=== PATIENT | female | born 1970 | race Caucasian/White ===

== ENCOUNTER → 2017-12-27 21:48 | Outpatient (CLI) | payer OTHER, SELFPAY | PROVIDERS: Family Provider Internal Medicine; PCP Internal Medicine; Visit Provider Nurse Practitioner Gerontology | DX: A08.8 Other specified intestinal infections (principal) | CPT/HCPCS: 82274; 83630; 87177; 87209; 87493; 87506 ==

== ENCOUNTER → 2018-04-10 09:08 | Outpatient (CLI) | payer OTHER, SELFPAY ==
--- NOTE | 2018-04-10 09:19 | RAD_ITS ---
STUDY: X-RAY - LEFT HAND REASON FOR EXAM: Female, 47 years old. Thumb pain TECHNIQUE: 3 view(s) of the hand. COMPARISON: None. FINDINGS: Normal radiocarpal articulation. Normal distal radioulnar joint. Normal visualized carpal bones. Normal carpal articulations Normal carpometacarpal articulation of the thumb. Normal second through fifth carpometacarpal joints. Normal metacarpi. Normal metacarpophalangeal joint of the thumb. Normal interphalangeal joint of the thumb. Normal proximal and distal phalanges of the thumb. Normal metacarpophalangeal joints of the second through fifth fingers. Normal proximal and distal interphalangeal joints of the second through fifth fingers. Normal phalanges of the second through fifth fingers. The soft tissue structures are unremarkable. RAD/Hand Min 3 Views IMPRESSION: Normal x-ray examination of the hand. No fracture. Electronically Signed: Brayden Ross DO at 21:58 EDT , Service support ,
== END ==
PROVIDERS: Family Provider Internal Medicine; PCP Internal Medicine; Visit Provider Orthopaedic Surgery
DX: M18.12 Unilateral primary osteoarthritis of first carpometacarpal joint, left hand (principal)
CPT/HCPCS: 73130

== ENCOUNTER → 2018-05-16 07:54 | Outpatient (CLI) | payer OTHER, SELFPAY ==
[2018-05-16 08:29] LABS: Absolute Lymphocyte Count 2.34 X10^3/ul (0.83-4.51); Absolute Neutrophil Count 4.1 X10^3/uL (2.0-7.7); Basophil# 0.02 X10^3/uL; Basophil% 0.3 % (0-1); Eosinophil# 0.22 X10^3/uL; Hematocrit 40.8 % (37-47); Hemoglobin 13.8 g/dl (12.0-15.0); Lymphocyte # 2.34 X10^3/ul (4.0); Lymphocyte % 31.8 % (19-41); Mean Corp Hgb Conc 33.8 g/gl (32-36); Mean Corpuscular Hgb 28.9 pg (27.0-32.0); Mean Corpuscular Volume 85.5 fL (81-99); Mean Platelet Vol. 10.4 fl (6.2-12.0); Monocyte# 0.68 X10^3/uL; Monocyte% 9.2 % (0-10); Neutrophil # 4.09 X10^3/uL (2.7-7.7); Neutrophil % 55.6 % (47-70); Platelet Count 281 K/mm3 (150-450); RBC Distribution Width CV 12.5 % (11.6-14.6); RBC Distribution Width SD 38.5 fl (35.1-43.9); Red Blood Count 4.77 M/mm3 (4.2-5.4); White Blood Count 7.4 K/mm3 (4.4-11.0)
[2018-05-16 08:35] LABS: POSITIVE COUNT NO; POSITIVE DIFFERENTIAL NO; POSITIVE MORPHOLOGY NO
[2018-05-16 09:02] LABS: ALB/GLOB Ratio 1.1 RATIO (0.9-2.4); AST(SGOT) 24 U/L (15-37); Alanine Aminotransfer ALT/SGPT 27 U/L (13-56); Albumin, Serum 4.1 g/dL (3.2-5.0); Alkaline Phosphatase 61 U/L (45-117); Anion Gap 4 (5-15); BUN 21 mg/dL (7-18); BUN/Creat Ratio 23.8 RATIO (10-20); CRP < 2.90 mg/L (0.0-3.0); Calcium,Total 8.5 mg/dL (8.5-10.1); Chloride 104 mmol/L (98-107); Creatinine, Serum 0.88 mg/dL (0.55-1.02); EST Glomerular Filtration Rate 73 mL/min (>60); Est Glom Filt Rate - Afr Amer 88 mL/min (>60); Globulin 3.6 g/dL (2.2-4.2); Glucose 88 mg/dL (74-106); Potassium 3.8 mmol/L (3.5-5.1); Protein, Total 7.7 g/dL (6.4-8.2); Rheumatoid Factor < 10.0 IU/mL (<15); Sodium Level 136 mmol/L (136-145)
[2018-05-16 09:12] LABS: Erythrocyte Sedimentation Rate 6 mm/hr (0-20)
[2018-05-17 14:05] LABS: SJOGREN'S Anti-SS-A test < 0.2 AI (0.0-0.9); SJOGREN'S Anti-SS-B test < 0.2 AI (0.0-0.9)
[2018-05-17 14:35] LABS: ANTINUCLEAR ANTIBODIES DIRECT Negative (Negative)
[2018-05-22 10:21] LABS: CCP IgG Antibodies 9 units (0-19); HEPATITIS B SURFACE AG Negative (Negative); HLA B27 Negative (.); Hep B Surface Antibodies Non Reactive (.); Hep C Antibodies 0.2 s/co ratio (0.0-0.9)
== END ==
PROVIDERS: Family Provider Internal Medicine; PCP Internal Medicine; Visit Provider Internal Medicine Rheumatology
DX: M06.4 Inflammatory polyarthropathy (principal); M18.0 Bilateral primary osteoarthritis of first carpometacarpal joints; E03.8 Other specified hypothyroidism
CPT/HCPCS: 36415; 80053; 81374; 85025; 85652; 86038; 86140; 86200; 86235; 86431; 86706; 86803; 87340

== ENCOUNTER → 2018-06-11 07:30 | Outpatient (CLI) | payer OTHER, SELFPAY ==
[2018-06-11 09:13] LABS: Free T3 2.3 pg/mL (2.18-3.98); T4 Free Direct 0.93 ng/dL (0.76-1.46); Thyroid Stim Hormone (TSH) 5.03 uIU/mL (0.358-3.74)
== END ==
PROVIDERS: Family Provider Internal Medicine; PCP Internal Medicine; Visit Provider Internal Medicine
DX: E03.9 Hypothyroidism, unspecified (principal)
CPT/HCPCS: 36415; 84439; 84443; 84481

== ENCOUNTER → 2018-08-09 07:33 | Outpatient (CLI) | payer OTHER, SELFPAY ==
[2018-08-09 08:19] LABS: Free T3 3.4 pg/mL (2.18-3.98); T4 Free Direct 1.49 ng/dL (0.76-1.46); Thyroid Stim Hormone (TSH) 0.03 uIU/mL (0.358-3.74)
== END ==
PROVIDERS: Family Provider Internal Medicine; PCP Internal Medicine; Referring Provider Internal Medicine; Visit Provider Internal Medicine
DX: E03.9 Hypothyroidism, unspecified (principal)
CPT/HCPCS: 36415; 84439; 84443; 84481

== ENCOUNTER 2018-09-16 08:30 | Outpatient (RCR) | payer OTHER, SELFPAY ==
--- NOTE | 2018-02-25 11:20 | MASS.EVAL_ITS ---
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 She was referred for massotherapy evaluation at [facility] facility by Dr. Calles with a diagnosis of low back pain. She presents today with symptoms of tension and aching throughout her neck, shoulders, interscapualr area and low back. She describes the pain as chronic. She denies any limitations to activities of daily living. Medications: Synthroid Ultram Vd3 B12 Goals: Eliminate back pain Decrease muscle tension Her first treatment consisted of a one hour deep tissue massage to the upper body focusing on the neck, shoulders and low back. I found high tension throughout with some knots. The patient responded well to treatment. I feel she is a good candidate for massage as we have had success treating her symptoms in the past. I plan on seeing her on an as needed basis for a total of 10 one hour sessions of massage. Destinee Lobo LMT
--- NOTE | 2018-10-31 11:13 | MASS.DISCH ---
Massage Therapy Discharge Summary: Initial Evaluation: 02/22/2018 Diagnosis: Low back pain No. of Visits: Date of last visit: Goals: Decreased pain Decreased muscle tension This patient is being discharged from our care at the [facility]. Thank you, Destinee Lobo LMT
== END 2018-09-16 19:00 | disposition home or self-care (01) ==
LOC: MASS 08:30
PROVIDERS: Family Provider Internal Medicine; PCP Internal Medicine; Visit Provider Internal Medicine
DX: M54.5 Low back pain (principal)
CPT/HCPCS: 97124

== ENCOUNTER → 2018-12-04 13:22 | Outpatient (CLI) | payer OTHER, SELFPAY ==
[2018-12-09 09:01] LABS: HPV HC, High Risk Negative (Negative)
--- OUTSIDE RECORDS SUMMARY | 2019-02-05 12:24 | XMS RPT_ITS ---
:1970 Author Organization [place] Support Name Relationship Address Phone YASIR RONQUILLO Unavailable [address] + [place] [address] [facility] Unavailable [address] + [place] [address] YASIR RONQUILLO Unavailable [address] + [place] [address] [facility] Unavailable [address] + [place] [address] YASIR RONQUILLO Unavailable [address] + [place] [address] [facility] Unavailable [address] + [place] [address] YASIR RONQUILLO Unavailable [address] + [place] [address] [facility] Unavailable [address] + [place] [address] YASIR RONQUILLO Unavailable [address] + [place] [address] [facility] Unavailable [address] + [place] [address] YASIR RONQUILLO Unavailable [address] + [place] [address] [facility] Unavailable [address] + [place] [address] YASIR RONQUILLO Unavailable [address] + [place] [address] [facility] Unavailable [address] + [place] [address] YASIR RONQUILLO Unavailable [address] + [place] [address] [facility] Unavailable [address] + [place] [address] SHIMA, EDWARD Unavailable [address] + [place] [address] [facility] Unavailable [address] + [place] [address] SHIMA, EDWARD Unavailable [address] + [place] [address] [facility] Unavailable [address] + [place] [address] SHIMA, EDWARD Unavailable [address] + [place] [address] [facility] Unavailable [address] + [place] [address] SHIMA, EDWARD Unavailable [address] + [place] [address] [facility] Unavailable [address] + [place] [address] SHIMA, EDWARD Unavailable [address] + [place] [address] [facility] Unavailable [address] + [place] [address] SHIMA, EDWARD Unavailable [address] + [place] [address] [facility] Unavailable [address] + [place] [address] Care Team Providers Name Role Phone Jose Schmitt PA-C Attending Unavailable Jose Schmitt PA-C Referring Unavailable Stevan, Sydney Primary Care Unavailable Ivonne Egan Attending Unavailable Tierra Juarez DIRECTOR OF ACCOUNTS PAYABLEArchieC Attending Unavailable Stevan, Sydney Primary Care Unavailable Tierra Juarez DIRECTOR OF ACCOUNTS PAYABLEBritney Referring Unavailable Stevan, Sydney Attending Unavailable Stevan, Sydney Referring Unavailable Stevan, Sydney Primary Care Unavailable DossieVioletta D.C. Attending Unavailable Stevan, Sydney Referring Unavailable Stevan, Sydney Primary Care Unavailable DosVioletta adam D.C. Attending Unavailable Violetta Wells D.C. Referring Unavailable Stevan, Sydney Primary Care Unavailable Christophe Torres Attending Unavailable Christophe Torres Referring Unavailable Stevan, Sydney Primary Care Unavailable Dossie, Violetta D.C. Attending Unavailable Stevan, Sydney Referring Unavailable Stevan, Sydney Primary Care Unavailable Dossie, Violetta D.C. Attending Unavailable Stevan, Sydney Referring Unavailable Stevan, Sydney Primary Care Unavailable Vellanki, Jodee Attending Unavailable Vellanki, Jodee Referring Unavailable Stevan, Sydney Primary Care Unavailable Dossie, Violetta D.C. Attending Unavailable Stevan, Sydney Referring Unavailable ASSESSMENT, HEALTH RISK Attending Unavailable ASSESSMENT, HEALTH RISK Referring Unavailable Stevan, Sydney Primary Care Unavailable Stevan, Sydney Attending Unavailable Stevan, Sydney Referring Unavailable Stevan, Sydney Primary Care Unavailable Stevan, Sydney Attending Unavailable Stevan, Sydney Referring Unavailable Stevan, Sydney Primary Care Unavailable PROBLEMS PROBLEMS DATE TYPE CONDITION / CODE ATTENDING STATUS SOURCE 12/04/2018 Unknown Z12.4 - Encounter Ivonne Egan Active [place] for screening for Community malignant neoplasm [facility] cervix / Repository Z12.4(ICD-10) 11/18/2018 Unknown M25.562 - Pain in [place], Active [place] left knee / [facility] Community M25.562(ICD-10) Hospital Repository 11/04/2018 Unknown M54.5 - Low back Stevan, Active [place] pain / [facility] M54.5(ICD-10) Hospital Repository 06/11/2018 Unknown E03.9 - Stevan, Active [place] Hypothyroidism, [facility] unspecified / Hospital E03.9(ICD-10) Repository 05/02/2018 Unknown 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 lumbar region / Repository M99.03(ICD-10) 05/02/2018 Unknown M99.05 - Segmental Dossie, Violetta Active [place] and somatic [facility] pelvic region / Repository M99.05(ICD-10) 05/02/2018 Unknown M99.02 - Segmental Dossie, Violetta Active [place] and somatic [facility].C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 / Hospital M72.2(ICD-10) Repository PROCEDURES PROCEDURES No Procedure Records FoundRESULTS RESULTS PAP I-G HPV HI Collected: 12/04/2018 Status: F Source: [place] CHAVEZ 9:00 AM [facility] REPOSITORY Order Comment: CYTOLOGY INFORMATION: - CLINICAL INFORMATION: - DATE LMP/MENOPAUSE: 09/07/18 LMP - COLLECTION VIAL: Thin Prep Vial - SLAB OFF MILL TENDER SOURCE: CERVICAL/ENDOCERVICAL - COLLECTION TECHNIQUE: BRUSH/SPATULA Specimen Comment: [id number] Specimen Comment: Source.............Endocervix;Labia/Vulva Specimen Comment: LMP / Prev Treat...[id number] Specimen Comment: No. of containers..01 ThinPrep Vial TYPE CODE TESTS RESULT OUT OF RANGE REFERENCE UNITS LAB L7400.0800 . Normal DIAGN Comment Result Comment: NEGATIVE FOR INTRAEPITHELIAL LESION OR MALIGNANCY. LAB L7400.0900 . Normal ADEQ Comment Result Comment: Satisfactory for evaluation. No endocervical component is identified. LAB L7400.1400 . Normal PERFORM Comment Result Comment: Alanna Marin, [place] (ASCP) LAB L7400.2575 . Normal TEST METHOD Comment Result Comment: This liquid based ThinPrep(R) pap test was screened with the use of an image guided system. LAB L7400.2600 . Normal . COMM LAB L7400.2700 . Normal PAPSMR Comment Result Comment: The Pap smear is a screening test designed to aid in the detection of premalignant and malignant conditions of the uterine cervix. It is not a diagnostic procedure and should not be used as the sole means of detecting cervical cancer. Both false-positive and false-negative reports do occur. LAB L7400.2950 Negative Normal HPV Negative HC,HGH RISK Result Comment: This high-risk HPV test detects thirteen high-risk types (16/18/31/33/35/39/45/51/52/56/58/59/68) without differentiation. Performed at: [address] [id number] Layout Inspector: Latosha Schroeder MD, Phone: [phone] Performed at: =G - [facility] [address] [place] [id number] Layout Inspector: Latosha Schroeder MD, Phone: [phone] Performed By: #### L7400.0375 #### [facility] (refer to report for specific site) refer to report for address and phone number DISCHARGE SUMMARY Observed: 10/31/2018 Status: F Source: [place] 11:14 AM [facility] REPOSITORY [facility] Medical Records Department [address] [place] [address] Discharge Summary 10/31/18 1113 MR#: [id number] Acct: [id number] Name: DIANDRA RONQUILLO Rep #: [id number] : 1970 47 From: Destinee Lobo PCP: Sydney Calles DO Status: REG RCR Y Location: [facility] Massage Therapy Discharge Summary: Initial Evaluation: 02/22/2018 Diagnosis: Low back pain No. of Visits: Date of last visit: Goals: Decreased pain Decreased muscle tension This patient is being discharged from our care at the [facility]. Thank you, Destinee Lobo, MARYT 10/31/18 1114 <Electronically signed by Destinee Lobo > Date Destinee Lobo Cosigner Signature (if applicable): Date CC: Destinee Lobo; Sydney Calles DO Signed FREE T3 Collected: 08/09/2018 Status: F Source: [place] 7:36 AM [facility] REPOSITORY Order Comment: Has Patient had X-rays with Contrast this admission? N Is Patient on Heparin? N TYPE CODE TESTS RESULT OUT OF RANGE REFERENCE UNITS LAB L501.35345 2.18-3.98 pg/mL Normal FREE T3 3.4 Performed By: #### L501.23036, L501.9520, L506.0400 #### [facility] [address] [place], [address] THYROID STIM HORMONE Collected: 08/09/2018 Status: F Source: [place] (TSH) 7:36 AM [facility] REPOSITORY Order Comment: Has Patient had X-rays with Contrast this admission? N Is Patient on Heparin? N TYPE CODE TESTS RESULT OUT OF RANGE REFERENCE UNITS LAB L501.9520 0.358-3.74 uIU/mL Low TSH 0.03 Performed By: #### L501.55462, L501.9520, L506.0400 #### [facility] [address] [place], [address] T4 FREE DIRECT Collected: 08/09/2018 Status: F Source: [place] 7:36 AM [facility] REPOSITORY Order Comment: Has Patient had X-rays with Contrast this admission? N Is Patient on Heparin? N TYPE CODE TESTS RESULT OUT OF REFERENCE UNITS RANGE LAB L506.0400 0.76-1.46 ng/dL High T4 FREE 1.49 DIRECT Performed By: #### L501.21417, L501.9520, L506.0400 #### [facility] [address] [place], [address] FREE T3 Collected: 06/11/2018 Status: F Source: [place] 7:33 AM [facility] REPOSITORY TYPE CODE TESTS RESULT OUT OF RANGE REFERENCE UNITS LAB L501.66783 2.18-3.98 pg/mL Normal FREE T3 2.3 Performed By: #### L501.46081, L501.9520, L506.0400 #### [facility] [address] [place], [address] THYROID STIM HORMONE Collected: 06/11/2018 Status: F Source: [place] (TSH) 7:33 AM [facility] REPOSITORY TYPE CODE TESTS RESULT OUT OF RANGE REFERENCE UNITS LAB L501.9520 0.358-3.74 uIU/mL High TSH 5.03 Performed By: #### L501.24851, L501.9520, L506.0400 #### [facility] [address] [place], [address] T4 FREE DIRECT Collected: 06/11/2018 Status: F Source: [place] 7:33 AM [facility] REPOSITORY TYPE CODE TESTS RESULT OUT OF RANGE REFERENCE UNITS LAB L506.0400 0.76-1.46 ng/dL Normal T4 FREE 0.93 DIRECT Performed By: #### L501.31174, L501.9520, L506.0400 #### [facility] [address] [place], [address] CBC, EMPLOYEE Collected: 06/07/2018 Status: F Source: [place] 1:39 AM [facility] REPOSITORY TYPE CODE TESTS RESULT OUT OF RANGE REFERENCE UNITS LAB L100.1000 4.4-11.0 K/mm3 Normal WBC 7.6 LAB L100.1200 4.2-5.4 M/mm3 Normal RBC 4.74 LAB L100.1300 12.0-15.0 g/dl Normal HGB 13.8 LAB L100.1400 37-47 % Normal HCT 41.4 LAB L100.1500 81-99 fL Normal MCV 87.3 LAB L100.1600 27.0-32.0 pg Normal MCH 29.1 LAB L100.1700 32-36 g/gl Normal MCHC 33.3 LAB L100.1810 11.6-14.6 % Normal RDW CV 12.7 LAB L100.1820 35.1-43.9 fl Normal RDW SD 40.8 LAB L100.1900 150-450 K/mm3 Normal PLT 264 LAB L100.2000 6.2-12.0 fl Normal MPV 9.9 LAB L100.2110 47-70 % Normal NEUT% 57.6 LAB L100.2210 19-41 % Normal LY% 32.2 LAB L100.2310 0-10 % Normal MONO% 7.3 LAB L100.2410 0-5 % Normal EO% 2.5 LAB L100.2510 0-1 % Normal BASO% 0.3 LAB L100.2620 2.0-7.7 X10 3/uL Normal Absolute Neut 4.4 LAB L100.2720 0.83-4.51 X10 3/ul Normal Absolute Lymph 2.44 Performed By: #### L100.0200 #### [facility] [address] [place], [place], [address] URINALYSIS, EMPLOYEE Collected: 06/07/2018 Status: F Source: [place] 1:39 AM [facility] REPOSITORY TYPE CODE TESTS RESULT OUT OF RANGE REFERENCE UNITS LAB L400.3000 Yellow COLOR Normal Yellow LAB L400.3050 Clear Normal CLARITY Clear LAB L400.3200 Normal mg/dl Normal GLUCOSE, UR Normal LAB L400.3300 Negative mg/dL Normal BILIRUBIN URINE Negative LAB L400.3400 Negative mg/dl Normal KETONE UR Negative LAB L400.3465 1.002-1.030 Normal SP.GR. DIPSTX 1.025 LAB L400.3550 5.0 - 8.0 pH UR Normal 5.0 LAB L400.3600 Negative mg/dl PROT Normal DIPSTX Negative LAB L400.3700 Normal mg/dl Normal UROBILI Normal LAB L400.3750 Negative Normal NITRITE UR Negative LAB L400.3780 Negative /ul Normal OCCULT BLOOD-UR Negative LAB L400.3800 Negative /ul LEUK Normal ESTERASE Negative Performed By: #### L400.0100 #### [facility] [address] [place], [address] EMPLOYEE PROFILE Collected: 06/07/2018 Status: F Source: [place] 1:39 [facility] REPOSITORY TYPE CODE TESTS RESULT OUT OF RANGE REFERENCE UNITS LAB L501.0100 74-106 mg/dL Normal GLU 75 Result Comment: Please note revised GLUCOSE reference range effective 2017. LAB L501.1000 7-18 mg/dL High BUN 20 LAB L501.1100 0.55-1.02 mg/dL Normal CREAT,SERUM 0.86 Result Comment: The validity of the calculated GFR AND GFRAA in patients over 70 years has not been determined. Clinical correlation is essential. LAB L501.1110 >60 mL/min Normal EST GFR 75 Result Comment: Non- GFR Calc LAB L501.1115 >60 mL/min Normal EST GFR - AA 90 Result Comment: GFR Calc LAB L501.1300 10-20 RATIO High BUN/CRE 23.2 LAB L501.1400 2.6-6.0 mg/dL Normal URIC 3.9 Result Comment: The drugs N-Acetylcysteine and Metamizole may falsely depress this assay. LAB L501.1500 6.4-8.2 g/dL Normal T PROT 7.8 LAB L501.1800 3.2-5.0 g/dL Normal ALB 4.1 LAB L501.1950 2.2-4.2 g/dL Normal GLOB 3.7 LAB L501.2000 0.9-2.4 RATIO Normal A/G 1.1 LAB L501.2200 8.5-10.1 mg/dL Normal CA 9.0 LAB L501.2300 2.5-4.9 mg/dL Normal PHOS 3.3 LAB L501.4100 15-37 U/L Normal AST 26 LAB L501.4305 45-117 U/L Normal ALK P 55 LAB L501.4405 13-56 U/L Normal ALT 32 LAB L501.4600 0.20-1.00 mg/dL Normal T BILI 1.00 LAB L501.4700 0.00-0.30 mg/dL Normal D BILI 0.26 LAB L501.4900 200 mg/dL Normal CHOL 184 Result Comment: <200 mg/dL Desirable 200-240 mg/dL Borderline >240 mg/dL High Risk LAB L501.5000 mg/dL Normal TRIG 71 Result Comment: The drugs N-Acetylcysteine and Metamizole may falsely depress this assay. Serum Triglycerides Reference Interval Normal <150 mg/dL Borderline high 150 - 199 mg/dL High 200 - 499 mg/dL Very High > or = 500 mg/dL LAB L501.5300 136-145 mmol/L Normal NA 141 LAB L501.5600 3.5-5.1 mmol/L Normal K 4.2 LAB L501.5900 98-107 mmol/L Normal CL 106 LAB L501.6100 21.0-32.0 mmol/L Normal CO2 28.0 LAB L501.6200 5-15 Normal 7 GAP LAB L501.6400 mg/dL Normal HDL 83 Result Comment: The drugs N-Acetylcysteine and Metamizole may falsely depress this assay. Reference Range HDL <40 mg/dL Low HDL Cholesterol HDL >or= 60 mg/dL High HDL Cholesterol LAB L501.6475 Normal CHOL:HDL 2.20 LAB L501.6500 0-130 mg/dL Normal LDL 87 LAB L501.6600 5-40 mg/dL Normal VLDL 14 LAB L504.2610 84-246 U/L Normal LDH 177 Performed By: #### L500.2900 #### [facility] [address] [place], [address] NICOTINE URINE DRUG Collected: 06/07/2018 Status: F Source: [place] SCREEN 1:00 AM [facility] REPOSITORY TYPE CODE TESTS RESULT OUT OF RANGE REFERENCE UNITS LAB L505.6250 TO BE Normal CONFIRMED Result Comment: CONFIRMATORY TESTING FOR ALL POSITIVE URINE DRUG SCREEN RESULTS WILL ONLY BE SENT OUT UPON PHYSICIAN ORDER. The results of Urine Drug Screen methods provide only preliminary analytical test results. A more specific alternate chemical method must be used in order to obtain a confirmed analytical result. Gas chromatography/mass spectrometery (GC/MS) is the preferred confirmatory method. Clinical consideration and professional judgement should be applied to any drug of abuse test result, particularly when preliminary positive results are used. LAB L505.6270 <200 ng/mL Normal COT DRG Negative SCREEN Result Comment: Cotinine is the first-stage metabolite of Nicotine. Performed By: #### L505.6240 #### [facility] [address] [place], [address] CBC W/DIFF, AUTOMATED Collected: 05/16/2018 Status: F Source: [place] 8:00 AM [facility] REPOSITORY TYPE CODE TESTS RESULT OUT OF RANGE REFERENCE UNITS LAB L100.1000 4.4-11.0 K/mm3 Normal WBC 7.4 LAB L100.1200 4.2-5.4 M/mm3 Normal RBC 4.77 LAB L100.1300 12.0-15.0 g/dl Normal HGB 13.8 LAB L100.1400 37-47 % Normal HCT 40.8 LAB L100.1500 81-99 fL Normal MCV 85.5 LAB L100.1600 27.0-32.0 pg Normal MCH 28.9 LAB L100.1700 32-36 g/gl Normal MCHC 33.8 LAB L100.1810 11.6-14.6 % Normal RDW CV 12.5 LAB L100.1820 35.1-43.9 fl Normal RDW SD 38.5 LAB L100.1900 150-450 K/mm3 Normal PLT 281 LAB L100.2000 6.2-12.0 fl Normal MPV 10.4 LAB L100.2100 47-70 % Normal NEUT% 55.6 LAB L100.2200 19-41 % Normal LY% 31.8 LAB L100.2300 0-10 % Normal MONO% 9.2 LAB L100.2400 0-5 % Normal EO% 3.0 LAB L100.2500 0-1 % Normal BASO% 0.3 LAB L100.2550 0.0-0.9 % Normal IM GRAN % 0.100 Result Comment: IG% - Immature Granulocytes (promyelocytes, myelocytes and metamyelocytes) > 1% indicates that a LEFT SHIFT is Present. LAB L100.2620 2.0-7.7 X10 3/uL Normal Absolute Neut 4.1 LAB L100.2720 0.83-4.51 X10 3/ul Normal Absolute Lymph 2.34 Performed By: #### L100.0100, L101.9900 #### [facility] [address] [place], [place], [address] ERYTHROCYTE SED RATE Collected: 05/16/2018 Status: F Source: [place] 8:00 AM [facility] REPOSITORY TYPE CODE TESTS RESULT OUT OF RANGE REFERENCE UNITS LAB L102.0000 0-20 mm/hr Normal SED RATE 6 Performed By: #### L100.0100, L101.9900 #### [facility] [address] [place], [place], [address] COMPREHENSIVE METABOLIC Collected: 05/16/2018 Status: F Source: [facility] 8:00 AM [facility] REPOSITORY TYPE CODE TESTS RESULT OUT OF RANGE REFERENCE UNITS LAB L501.0100 74-106 mg/dL Normal GLU 88 Result Comment: Please note revised GLUCOSE reference range effective 2017. LAB L501.1000 7-18 mg/dL High BUN 21 LAB L501.1100 0.55-1.02 mg/dL Normal CREAT,SERUM 0.88 Result Comment: The validity of the calculated GFR AND GFRAA in patients over 70 years has not been determined. Clinical correlation is essential. LAB L501.1110 >60 mL/min Normal EST GFR 73 Result Comment: Non- GFR Calc LAB L501.1115 >60 mL/min Normal EST GFR - AA 88 Result Comment: GFR Calc LAB L501.1300 10-20 RATIO High BUN/CRE 23.8 LAB L501.1500 6.4-8.2 g/dL T Normal PROT 7.7 LAB L501.1800 3.2-5.0 g/dL Normal ALB 4.1 LAB L501.1950 2.2-4.2 g/dL Normal GLOB 3.6 LAB L501.2000 0.9-2.4 RATIO Normal A/G 1.1 LAB L501.2200 8.5-10.1 mg/dL CA Normal 8.5 LAB L501.4100 15-37 U/L Normal AST 24 LAB L501.4305 45-117 U/L Normal ALK P 61 LAB L501.4405 13-56 U/L Normal ALT 27 LAB L501.4600 0.20-1.00 mg/dL T Normal BILI 1.00 LAB L501.5300 136-145 mmol/L NA Normal 136 LAB L501.5600 3.5-5.1 mmol/L K Normal 3.8 LAB L501.5900 98-107 mmol/L CL Normal 104 LAB L501.6100 21.0-32.0 mmol/L Normal CO2 28.0 LAB L501.6200 5-15 Low GAP 4 Performed By: #### L500.4050, L501.6710, L505.7010 #### [facility] [address] [place], [place], [address] CRP Collected: 05/16/2018 Status: F Source: [place] 8:00 AM [facility] REPOSITORY TYPE CODE TESTS RESULT OUT OF RANGE REFERENCE UNITS LAB L501.6710 0.0-3.0 mg/L Normal < 2.90 C-REACTIVE PROT Result Comment: C-Reactive Protein (CRP) provides useful information for the diagnosis, therapy and monitoring of inflammatory processes and associated diseases. For the evaluation of Relative Risk for Cardiovascular Disease, a High Sensitivity CRP (HSCRP) should be ordered. Performed By: #### L500.4050, L501.6710, L505.7010 #### [facility] [address] [place], [address] RHEUMATOID FACTOR Collected: 05/16/2018 Status: F Source: [place] 8:00 AM [facility] REPOSITORY TYPE CODE TESTS RESULT OUT OF RANGE REFERENCE UNITS LAB L505.7010 <15 IU/mL Normal RHEUMATOID FAC < 10.0 Performed By: #### L500.4050, L501.6710, L505.7010 #### [facility] [address] [place], [address] EMPLOYEE PROFILE Collected: 05/16/2018 Status: F Source: [place] 8:00 AM [facility] REPOSITORY TYPE CODE TESTS RESULT OUT OF RANGE REFERENCE UNITS LAB L501.0100 74-106 mg/dL Normal GLU 90 Result Comment: Please note revised GLUCOSE reference range effective 2017. LAB L501.1000 7-18 mg/dL High BUN 21 LAB L501.1100 0.55-1.02 mg/dL Normal CREAT,SERUM 0.82 Result Comment: The validity of the calculated GFR AND GFRAA in patients over 70 years has not been determined. Clinical correlation is essential. LAB L501.1110 >60 mL/min Normal EST GFR 80 Result Comment: Non- GFR Calc LAB L501.1115 >60 mL/min Normal EST GFR - AA 97 Result Comment: GFR Calc LAB L501.1300 10-20 RATIO High BUN/CRE 25.8 LAB L501.1400 2.6-6.0 mg/dL Normal URIC 3.2 Result Comment: The drugs N-Acetylcysteine and Metamizole may falsely depress this assay. LAB L501.1500 6.4-8.2 g/dL Normal T PROT 7.6 LAB L501.1800 3.2-5.0 g/dL Normal ALB 4.1 LAB L501.1950 2.2-4.2 g/dL Normal GLOB 3.5 LAB L501.2000 0.9-2.4 RATIO Normal A/G 1.2 LAB L501.2200 8.5-10.1 mg/dL Low CA 8.4 LAB L501.2300 2.5-4.9 mg/dL Normal PHOS 4.5 LAB L501.4100 15-37 U/L Normal AST 24 LAB L501.4305 45-117 U/L Normal ALK P 60 LAB L501.4405 13-56 U/L Normal ALT 29 LAB L501.4600 0.20-1.00 mg/dL High T BILI 1.10 LAB L501.4700 0.00-0.30 mg/dL Normal D BILI 0.24 LAB L501.4900 200 mg/dL Normal CHOL 194 Result Comment: <200 mg/dL Desirable 200-240 mg/dL Borderline >240 mg/dL High Risk LAB L501.5000 mg/dL Normal TRIG 86 Result Comment: The drugs N-Acetylcysteine and Metamizole may falsely depress this assay. Serum Triglycerides Reference Interval Normal <150 mg/dL Borderline high 150 - 199 mg/dL High 200 - 499 mg/dL Very High > or = 500 mg/dL LAB L501.5300 136-145 mmol/L Normal NA 141 LAB L501.5600 3.5-5.1 mmol/L Normal K 3.9 LAB L501.5900 98-107 mmol/L Normal CL 104 LAB L501.6100 21.0-32.0 mmol/L Normal CO2 27.0 LAB L501.6200 5-15 Normal GAP 10 LAB L501.6400 mg/dL Normal HDL 75 Result Comment: The drugs N-Acetylcysteine and Metamizole may falsely depress this assay. Reference Range HDL <40 mg/dL Low HDL Cholesterol HDL >or= 60 mg/dL High HDL Cholesterol LAB L501.6475 Normal CHOL:HDL 2.60 LAB L501.6500 0-130 mg/dL Normal LDL 102 LAB L501.6600 5-40 mg/dL Normal VLDL 17 LAB L504.2610 84-246 U/L Normal LDH 171 Performed By: #### L500.2900 #### [facility] [address] [place], [address] CBC, EMPLOYEE Collected: 05/16/2018 Status: F Source: [place] 8:00 AM [facility] REPOSITORY TYPE CODE TESTS RESULT OUT OF RANGE REFERENCE UNITS LAB L100.1000 4.4-11.0 K/mm3 Normal WBC 7.4 LAB L100.1200 4.2-5.4 M/mm3 Normal RBC 4.77 LAB L100.1300 12.0-15.0 g/dl Normal HGB 13.8 LAB L100.1400 37-47 % Normal HCT 40.8 LAB L100.1500 81-99 fL Normal MCV 85.5 LAB L100.1600 27.0-32.0 pg Normal MCH 28.9 LAB L100.1700 32-36 g/gl Normal MCHC 33.8 LAB L100.1810 11.6-14.6 % Normal RDW CV 12.5 LAB L100.1820 35.1-43.9 fl Normal RDW SD 38.5 LAB L100.1900 150-450 K/mm3 Normal PLT 281 LAB L100.2000 6.2-12.0 fl Normal MPV 10.4 LAB L100.2110 47-70 % Normal NEUT% 55.6 LAB L100.2210 19-41 % Normal LY% 31.8 LAB L100.2310 0-10 % Normal MONO% 9.2 LAB L100.2410 0-5 % Normal EO% 3.0 LAB L100.2510 0-1 % Normal BASO% 0.3 LAB L100.2555 0.0-0.9 % Normal IM GRAN % 0.100 Result Comment: IG% - Immature Granulocytes (promyelocytes, myelocytes and metamyelocytes) > 1% indicates that a LEFT SHIFT is Present. LAB L100.2620 2.0-7.7 X10 3/uL Normal Absolute Neut 4.1 LAB L100.2720 0.83-4.51 X10 3/ul Normal Absolute Lymph 2.34 Performed By: #### L100.0200 #### [facility] [address] [place] [address], [address] ANTINUCLEAR ANTIBODIES Collected: 05/16/2018 Status: F Source: [place] DIRECT 8:00 AM [facility] REPOSITORY TYPE CODE TESTS RESULT OUT OF RANGE REFERENCE UNITS LAB L3100.5475 Negative Normal Negative TOM-DIRECT Result Comment: Performed at: - [facility] [id number] Layout Inspector: Nathan Martinez PhD, Phone: [phone] Performed By: #### L3100.5475, L3100.9100 #### [facility] (refer to report for specific site) refer to report for address and phone number SJOGREN'S ANTIBODIES Collected: 05/16/2018 Status: F Source: TER[place] A/B 8:00 AM [facility] REPOSITORY TYPE CODE TESTS RESULT OUT OF RANGE REFERENCE UNITS LAB L3100.9200 0.0-0.9 AI Normal Anti-SS-A < 0.2 LAB L3100.9300 0.0-0.9 AI Normal Anti-SS-B < 0.2 Performed By: #### L3100.5475, L3100.9100 #### [facility] (refer to report for specific site) refer to report for address and phone number HEPATITIS B SURFACE Collected: 05/16/2018 Status: F Source: TERRE[place] AG 8:00 AM [facility] REPOSITORY TYPE CODE TESTS RESULT OUT OF RANGE REFERENCE UNITS LAB L3100.0400 Negative Normal HB Negative SURF AG Result Comment: Performed at: - [facility] [id number] Layout Inspector: Nathan Martinez PhD, Phone: [phone] Performed at: 2 - [facility] [id number] Layout Inspector: Bob Chaves PhD, Phone: [phone] Performed at: - [facility] [id number] Layout Inspector: Prashanth Seals MD, Phone: [phone] Performed By: #### L3100.0390, L3100.0528, L3100.0625, L3410.1400, L4600.0100 #### [facility] (refer to report for specific site) refer to report for address and phone number HEP B SURFACE Collected: 05/16/2018 Status: F Source: [place] ANTIBODIES 8:00 AM [facility] REPOSITORY TYPE CODE TESTS RESULT OUT OF RANGE REFERENCE UNITS LAB L3100.0528 . Normal Hep B Non Reactive Agustin AB Result Comment: Non Reactive: Inconsistent with immunity, less than 10 mIU/mL Reactive: Consistent with immunity, greater than 9.9 mIU/mL Performed By: #### L3100.0390, L3100.0528, L3100.0625, L3410.1400, L4600.0100 #### [facility] (refer to report for specific site) refer to report for address and phone number HEPATITIS C ANTIBODIES Collected: 05/16/2018 Status: F Source: TERRELL 8:00 AM [facility] REPOSITORY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 MADISONDOB: [address] [address]Tel: Number: Repository [id number] () Date:5969-06-37CC [address] [address]QFYNOGSEB, [place] [address]NC: CHECK WEBSITE 04/22/2018 Secondary NOT GIVENUNK [place] Insurance:SELF PAY [facility] Number: Effective Repository Date:2018-04-25 04/10/2018 EDWARD Primary Insurance:[facility] DIANDRA DACOSTA23 [facility]NEYDOB: [facility] [id number] [place]ille [address]Tel: Number: Repository [id number] () Date:2876-42-53TN [address] [address]GNCERIFIH, [place] [address]BF: CHECK WEBSITE 04/10/2018 Secondary NOT GIVENUNK [place] Insurance:SELF PAY [facility] Number: Effective Repository Date:2018-04-10 04/10/2018 EDWARD Primary NOT GIVENUNK [place] [id number] [place] Insurance:SELF PAY [facility] [address]Hmr: Number: Effective Repository Date:2018-04-10 () 04/10/2018 EDWARD Primary Insurance:[facility] DIANDRA [id number] [facility] CENTERLINDOB: [address] [address]Muh: Number: Repository [id number] () Date:4905-74-02NT [address] [address]JAQRFUUHO, [place] [address]NE: CHECK WEBSITE 04/10/2018 Secondary NOT GIVENUNK [place] Insurance:SELF PAY [facility] Number: Effective Repository Date:2018-04-10 12/27/2017 EDWARD Primary Insurance:[facility] DIANDRA DACOSTA23 KAHLILVANDERBILT [facility] CENTERDOB: [facility] [id number] General Hospital [address]Qlw: Number: Repository [id number] (HP) Date:1261-27-39SL [address] [address]MHYWNMJAD, [place] [address]GD: CHECK WEBSITE 12/27/2017 Secondary NOT GIVENUNK [place] Insurance:SELF PAY [facility] Number: Effective Repository Date:2017-12-27
== END ==
PROVIDERS: Visit Provider Obstetrics & Gynecology
DX: Z12.4 Encounter for screening for malignant neoplasm of cervix (principal)
CPT/HCPCS: 87624; 88175; G0145

== ENCOUNTER → 2019-02-01 06:20 | Outpatient (CLI) | payer OTHER, SELFPAY ==
--- NOTE | 2019-02-01 06:36 | RAD_ITS ---
STUDY: X-RAY - RIGHT HAND REASON FOR EXAM: Female, 48 years old. Increasing pain. TECHNIQUE: 3 view(s) of the hand. COMPARISON: None. FINDINGS: Normal radiocarpal articulation. Normal distal radioulnar joint. Normal visualized carpal bones. Normal carpal articulations Normal carpometacarpal articulation of the thumb. Normal second through fifth carpometacarpal joints. Normal metacarpi. Normal metacarpophalangeal joint of the thumb. Normal interphalangeal joint of the thumb. Normal proximal and distal phalanges of the thumb. Normal metacarpophalangeal joints of the second through fifth fingers. Normal proximal and distal interphalangeal joints of the second through fifth fingers. Normal phalanges of the second through fifth fingers. The soft tissue structures are unremarkable. RAD/Hand Min 3 Views IMPRESSION: Normal x-ray examination of the hand. Electronically Signed: Kyle Leigh MD at 0:00 EDT , Service support ,
== END ==
PROVIDERS: Family Provider Internal Medicine; PCP Internal Medicine; Visit Provider Specialist
DX: M18.11 Unilateral primary osteoarthritis of first carpometacarpal joint, right hand (principal)
CPT/HCPCS: 73130

== ENCOUNTER → 2019-03-11 08:56 | Outpatient (CLI) | payer OTHER, SELFPAY ==
[2019-03-11 11:50] LABS: Vitamin B12 1886 pg/mL (211-911)
[2019-03-11 11:55] LABS: ALB/GLOB Ratio 1.1 RATIO (0.9-2.4); AST(SGOT) 28 U/L (15-37); Alanine Aminotransfer ALT/SGPT 37 U/L (13-56); Alkaline Phosphatase 69 U/L (45-117); Anion Gap 8 (5-15); BUN 27 mg/dL (7-18); Calcium,Total 8.9 mg/dL (8.5-10.1); Chloride 107 mmol/L (98-107); EST Glomerular Filtration Rate 71 mL/min (>60); Est Glom Filt Rate - Afr Amer 86 mL/min (>60); Free T3 1.5 pg/mL (2.18-3.98); Globulin 3.5 g/dL (2.2-4.2); Glucose 92 mg/dL (74-106); Potassium 3.9 mmol/L (3.5-5.1); Protein, Total 7.5 g/dL (6.4-8.2); Sodium Level 144 mmol/L (136-145)
[2019-03-11 11:56] LABS: T4 Free Direct 0.75 ng/dL (0.76-1.46)
== END ==
PROVIDERS: Family Provider Internal Medicine; PCP Internal Medicine; Referring Provider Nurse Practitioner; Visit Provider Nurse Practitioner
DX: E03.9 Hypothyroidism, unspecified (principal); R00.2 Palpitations
CPT/HCPCS: 36415; 80053; 82306; 82607; 82746; 84439; 84443; 84481

== ENCOUNTER → 2019-04-02 07:56 | Outpatient (CLI) | payer OTHER, SELFPAY ==
--- NOTE | 2019-04-02 07:58 | US_ITS ---
HISTORY: SLIGHT NECK SWELLING AND PAINHIGH TSH. ON SINTHROID EXAMINATION: US Thyroid (eg thyroid, parathyroid, parotid) TECHNIQUE: Valdes scale and color doppler imaging was performed of the thyroid gland. COMPARISON: CT neck 03/10/15. FINDINGS: RIGHT THYROID LOBE: 3.8 x 1.3 x 1.0 cm. Heterogenous. Vascularity within normal limits. A single 0.4 cm solid regular mildly hyperechoic nodule is seen in the midpole. LEFT THYROID LOBE: 2.9 x 1.0 x 0.6 cm. Heterogenous. Vascularity within normal limits. No left-sided nodules. ISTHMUS: 0.2 cm thick. Heterogenous, no Isthmus nodules. US/Thyroid IMPRESSION: Heterogenous thyroid suspicious for thyroiditis. Single 0.4 cm nodule in the right lobe. at 0404 Reported and signed by: Sage Pugh MD Electronically Signed: Sage Pugh, at 4:03 EDT Tel , Service support ,
== END ==
PROVIDERS: Family Provider Internal Medicine; PCP Internal Medicine; Referring Provider Nurse Practitioner; Visit Provider Nurse Practitioner
DX: R94.6 Abnormal results of thyroid function studies (principal)
CPT/HCPCS: 76536

== ENCOUNTER → 2019-04-04 07:36 | Outpatient (CLI) | payer OTHER, SELFPAY ==
--- NOTE | 2019-04-04 07:40 | BI_ITS ---
MAMMOGRAPHY - BILATERAL SCREENING REASON FOR EXAM: Female, 48 years old. Routine annual screening examination. PERTINENT HISTORY: Non-contributory. Remote left excisional breast biopsy for fibroadenoma. TECHNIQUE: Digital bilateral breast kai (3D mammographic acquisition) in the CC and MLO projections. 2-D mediolateral oblique (MLO) and craniocaudad (CC) views of both breasts were obtained. CAD: Full Field Digital Mammography with Computer Added Detection was performed. COMPARISON: Comparison is made with prior study dated November 01, 2017 and August 21, 2016. FINDINGS: Breast Composition: The breasts are extremely dense, which lowers the sensitivity of mammography. There are no dominant masses or suspicious calcifications. No other significant abnormalities are identified. There has been no significant change since the prior study. BI/SCREENING MAMM (CAD), BILAT IMPRESSION: Stable bilateral screening mammogram. Yearly follow-up mammogram recommended. (A) ASSESSMENT CATEGORY: BIRADS Category 1: Negative. A letter regarding these results will be sent to the patient by the facility within 30 days. Approximately 10% of breast cancers are not detected by mammography. A normal mammogram should not delay biopsy of a clinically suspicious abnormality. [id number] Electronically Signed: Samm Sue, at 9:13 EDT , Service support ,
== END ==
PROVIDERS: Family Provider Internal Medicine; PCP Internal Medicine; Referring Provider Obstetrics & Gynecology; Visit Provider Obstetrics & Gynecology
DX: Z12.31 Encounter for screening mammogram for malignant neoplasm of breast (principal)
CPT/HCPCS: 77063; 77067

== ENCOUNTER → 2019-04-26 07:26 | Outpatient (CLI) | payer OTHER, SELFPAY ==
[2019-04-26 09:08] LABS: Free T3 2.1 pg/mL (2.18-3.98)
== END ==
PROVIDERS: Family Provider Internal Medicine; PCP Internal Medicine; Referring Provider Internal Medicine; Visit Provider Internal Medicine
DX: R94.6 Abnormal results of thyroid function studies (principal)
CPT/HCPCS: 36415; 84439; 84443; 84481

== ENCOUNTER → 2019-06-25 07:30 | Outpatient (CLI) | payer OTHER, SELFPAY ==
[2019-06-25 09:04] LABS: Free T3 1.8 pg/mL (2.18-3.98); T4 Free Direct 0.84 ng/dL (0.76-1.46)
== END ==
PROVIDERS: Family Provider Internal Medicine; PCP Internal Medicine; Referring Provider Nurse Practitioner; Visit Provider Nurse Practitioner
DX: R94.6 Abnormal results of thyroid function studies (principal)
CPT/HCPCS: 36415; 84439; 84443; 84481

== ENCOUNTER 2019-06-26 08:00 | Outpatient (RCR) | payer OTHER, SELFPAY ==
--- NOTE | 2019-10-22 10:56 | MASS.DISCH ---
Massage Therapy Discharge Summary: Initial Evaluation Date: 06/26/2019 Diagnosis: Low Back Pain No. of Visits: Date of last visit: 06/26/2019 This patient is being discharged from our care at the [facility]. Thank you, Destinee Lobo LMT
== END 2019-06-26 19:00 | disposition home or self-care (01) ==
LOC: MASS 08:00
PROVIDERS: Family Provider Internal Medicine; PCP Internal Medicine; Referring Provider Nurse Practitioner; Visit Provider Nurse Practitioner
DX: M54.5 Low back pain (principal)
CPT/HCPCS: 97124

== ENCOUNTER 2019-07-04 08:00 | Outpatient (RCR) | payer OTHER, SELFPAY ==
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
--- NOTE | 2019-08-28 11:47 | HP.PTDCNRP_ITS ---
HP - Discharge Summary (1) - Patient Information SONIDO RONQUILLO was seen in my office for initial evaluation on 05/21/19. The following Plan of Care was established for this patient: Initial Frequency: 2x /Week Initial Duration: 4 Weeks - Anticipated Interventions Patient/Client Instruction: Educate patient on: Condition, Plan of Care For the Purpose of:: To decrease pain, To increase ROM, To improve muscle perfor derrell and motor function, To increase tolerance to activity/condition/position, To improve performance and independence with ADL's, To improve ability of physical actions for home/community/work/leisure, To improve health of tissue, To decrease soft tissue restriction, To increase flexibility/ROM, To reduce risk of recurrence, To improve ability to perform tasks related to life management Therapeutic Exercise to Include: Strength training, Body mechanics, Postural training, Flexibilty training, Dynamic Lumbar Stabilization, Bernabe Exercises For the Purpose of:: To decrease pain, To increase ROM, To improve muscle performance and motor function, To improve ability to perform ADL's, To increase tolerance to activity/condition/position, To improve ability of physical actions for home/community/work/leisure, To decrease soft tissue restriction, To increase flexibility/ROM, To improve health and function, To improve ability to perform tasks related to life management Manual Therapy Techniques to Include: Mobilization Comment: LUMBAR For the Purpose of:: To decrease pain, To increase ROM, To improve muscle performance and motor function, To improve health of tissue, To decrease soft tissue restriction TENS: Yes IF ES: Yes Cryotherapy (ice pack, ice massage): Yes Thermo therapy (hot pack): Yes Ultrasound (thermal/non thermal): Yes For the Purpose of:: To decrease pain, To increase ROM, To improve nutrient delivery to tissue, To increase oxygenation perfusion, To improve health of tissue, To decrease soft tissue restriction This patient was last seen in our office . Pertinent comments regarding their Physical therapy will appear below: Patient seen for PT for LBP with tx ,postural ex's,DLS with good compliance and results and d/c to HEP. At this point I will be discontinuing this patient from physical therapy. I would be happy to see this patient again in the future if found appropriate by the physician. Thank you! Christophe Mojica, PT, Cert MDT, OCS
== END 2019-07-04 19:00 | disposition home or self-care (01) ==
LOC: PT 08:00
PROVIDERS: Family Provider Internal Medicine; PCP Internal Medicine; Referring Provider Nurse Practitioner; Visit Provider Nurse Practitioner
DX: M54.9 Dorsalgia, unspecified (principal); M54.30 Sciatica, unspecified side
CPT/HCPCS: 97014; 97110; 97161; G0283

== ENCOUNTER → 2019-08-01 02:54 | Outpatient (CLI) | payer OTHER, SELFPAY ==
[2019-08-01 03:50] LABS: Thyroid Stim Hormone (TSH) 0.18 uIU/mL (0.358-3.74)
== END ==
PROVIDERS: Family Provider Internal Medicine; PCP Internal Medicine; Visit Provider Internal Medicine
DX: R94.6 Abnormal results of thyroid function studies (principal)
CPT/HCPCS: 84443

== ENCOUNTER → 2019-08-22 01:30 | Outpatient (CLI) | payer OTHER, SELFPAY ==
--- NOTE | 2019-08-22 01:39 | RAD_ITS ---
STUDY: X-RAY - LUMBAR SPINE REASON FOR EXAM: Female, 48 years old. Low back pain TECHNIQUE: 3 view(s) of the lumbar spine were obtained. COMPARISON: 04/10/2019 FINDINGS: Alignment of the lumbar spine demonstrates a mildly exaggerated lordosis. There is no focal listhesis. There is minimal levoscoliosis centered at L3. There is a chronic compression fracture deformity of the L3 vertebral body which is unchanged. Intervertebral disc spaces are preserved. There is mild to moderate degenerative facet disease at L4-L5 and L5-S1. No paraspinal soft tissue densities. RAD/Lumbar Spine 2 or 3 Views IMPRESSION: 1. No acute abnormality of the lumbar spine. 2. Chronic L3 compression fracture deformity. 3. Degenerative facet disease of the lower lumbar spine. Electronically Signed: Harjinder Madrid MD at 5:07 EDT Tel , Service support ,
== END ==
PROVIDERS: Family Provider Internal Medicine; PCP Internal Medicine; Visit Provider Nurse Practitioner
DX: M51.36 Other intervertebral disc degeneration, lumbar region (principal)
CPT/HCPCS: 72100

== ENCOUNTER → 2019-09-02 07:25 | Outpatient (CLI) | payer OTHER, SELFPAY ==
--- NOTE | 2019-09-02 07:30 | MRI_ITS ---
STUDY: MRI LUMBAR SPINE WITHOUT CONTRAST REASON FOR EXAM: Female, 48 years old. Low back pain, left leg pain. TECHNIQUE: Standardized fat and water weighted pulse sequences were obtained in the sagittal and axial planes. COMPARISON: X-ray 08/22/2019 FINDINGS: T12-L1: Normal endplates. Normal disc height, hydration and morphology. Normal bilateral facet joints. Normal central canal and bilateral lateral recesses. Normal bilateral intervertebral neural foramina. Normal lumbar lordosis. Mild levoscoliosis. Normal conus medullaris that terminates at the L2. L1-2: Normal endplates. Normal disc height, hydration and morphology. Normal bilateral facet joints. Normal central canal and bilateral lateral recesses. Normal bilateral intervertebral neural foramina. L2-3: Disc desiccation and loss of disc height but no disc protrusion, spinal stenosis, or neural foraminal stenosis. L3-4: Normal endplates. Normal disc height, hydration and morphology. Normal bilateral facet joints. Normal central canal and bilateral lateral recesses. Normal bilateral intervertebral neural foramina. L4-5: Moderate bilateral facet hypertrophy and ligament flavum hypertrophy. Mild broad disc protrusion produces mild spinal stenosis and mild bilateral neural foraminal stenosis. L5-S1: Mild bilateral facet hypertrophy. 2 mm retrolisthesis of L5 on S1 with a small central disc protrusion produces mild spinal stenosis but no neural foraminal stenosis. Normal visualized sacral ala. Normal visualized paraspinous soft tissue structures. MRI/Spine Lumbar (Routine) IMPRESSION: Multilevel degenerative changes, as described above. Electronically Signed: Nolberto Cali MD at 13:03 EDT Tel , Service support ,
== END ==
PROVIDERS: Family Provider Internal Medicine; PCP Internal Medicine; Referring Provider Nurse Practitioner; Visit Provider Nurse Practitioner
DX: S32.009A Unspecified fracture of unspecified lumbar vertebra, initial encounter for closed fracture (principal)
CPT/HCPCS: 72148

== ENCOUNTER 2019-09-10 08:22 | Day surgery (SDC) | payer OTHER, SELFPAY ==
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
[2019-09-10] VITALS (11 sets, daily range): BP systolic 99–135; BP diastolic 63–87; PULSE 71–100; RESP 16–88; TEMP 36.1–36.4; O2SAT 95–100; BMI 21.2
[2019-09-10 08:44] LABS: Internal QC Validated? YES +Cl - CLEAR BKGD; Pregnancy, Urine Negative Negative
[2019-09-10] MEDS: Lactated Ringers 1,000 ML 125 ML IV (09:08)
[2019-09-10] MEDS: Cefazolin 2 GM in 0.9% Normal Saline 100 ML IV (10:20)
--- NOTE | 2019-09-10 11:18 | PCM.OPRPT ---
Report of Operation Date of Procedure: 09/10/19 Pre-Operative Diagnosis: Right first CMC osteoarthritis Post-Operative Diagnosis: Right first CMC osteoarthritis Surgery/Procedure Performed:: Right first CMC resection arthroplasty. Right FCR tendon transfer Description of Surgical Findings:: Stable joint. impregnating tank operator: Nehemiah Camargo Type of Anesthesia:: General Anesthesiologist: Thaddeus Carreon Special Medications: 2 g Ancef Specimen's removed: Complete trapezium Estimated Blood Loss (mL): 5 Fluids Replaced: 800 mL crystalloid Description of Procedure: Operative indications: 48-year-old F failed conservative measures for first CMC osteoarthritis. X-rays show joint space narrowing, subluxation of the joint and osteophyte formation as well as subchondral sclerosis. We discussed surgical intervention including first CMC arthroplasty with tendon transfer. Risks and benefits discussed included but were not limited to blood loss, DVTs, PEs, neurovascular damage, infection, general risk of anesthesia, hematoma and weakness. Patient demonstrated understanding was able to sign informed consent. Procedure: On the date of the procedure the patient's R hand was marked in the preoperative area. Patient was taken back to the operating room where they were transferred to the table in the supine position. Anesthesia assumed control the C-spine airway and remained in control throughout the remainder of the procedure. All bony prominences were identified and well-padded tourniquet was placed on the R upper extremity. The operative extremity was prepped in a sterile fashion. Surgeon then scrubbed Upon reentering the room, the right upper extremity was draped in a standard orthopedic fashion. Incision was marked out. Timeout was called everyone agreed upon the side, the site, the procedure to be performed, patient identity and antibiotics given. Esmarch bandage was used to exsanguinate the extremity. Tourniquet was placed up to 250 mmHg. Incision was taken down through skin. Blunt dissection was taken through subcutaneous tissues. Superficial nerve was identified and retracted out of the way. Radial artery was identified and retracted out of the way. Once we are able to identify the joint arthrotomy was made and the trapezium was identified. Once the trapezium was identified dorsal and volar aspects were debrided of connective tissue. Saw was then used to make a cruciform cut in an osteotomy was completed with the osteotome. Once this was done a rondure was used to remove the bone fragments and the trapezium in its entirety. Attention was then directed towards the FCR to harvest. FCR was identified in the wrist and FiberWire suture was placed around it passed up into the forearm. We then made a small incision in the form and brought the FiberWire through. Transection of the FCR was done in the forearm. The FCR tendon was then fed down to the wrist and into the joint in the previous incision. Vicryl suture was then used to tag the end of the graft for transfer. Attention was then directed towards the proximal end of the first metacarpal. A bur was used to make a bone tunnel for tendon transfer. Loop suture was then passed through the upper holes and used to pull the graft through the bone tunnel. Once this was done a sling was made and 3-0 Ethibond suture was used to tie the tendon on itself. Once the tendon was appropriately secured anchovy was made with the remainder of the tendon. This was sewn down into the joint using 3-0 Ethibond. Copious amounts of irrigation were used throughout the procedure and prior to closure of the wound. Arthrotomy was closed with 2-0 Vicryl skin was closed with 2-0 Vicryl and 4-0 Monocryl with Steri-Strips. Xeroform dressing was placed. Sterile dressing was placed. Compressive dressing was placed. Tourniquet was let down. Well-padded splint was then placed with the thumb in abduction. Patient was then awakened by anesthesia and transferred to the PACU for recovery. Postoperative plan: Patient will remain in the splint for 2 weeks. 2 weeks we will check the incision and remove any sutures or tails. He will be transferred to a cast and abduction at that time. They will then follow standard postoperative protocol for first CMC arthroplasty with Occupational Therapy. - Complications No intraoperative complications - Admit VTE Documentation VTE Present on Admission: No VTE Mechan Device Prophylaxis: SCD's VTE Pharm Prophylaxis ordered?: No Reason prophylaxis not ordered:: Treatment Not Indicated
[2019-09-10] MEDS: Bupivacaine Mpf 0.5% 30 ML VIAL (11:22)
== END 2019-09-10 14:21 | disposition home or self-care (01) ==
LOC: SDC 08:22 → AC 08:23
PROVIDERS: Anesthesiology; Family Provider Internal Medicine; PCP Internal Medicine; Referring Provider Specialist; Visit Provider Specialist
PROC: (CPT 25447; principal; 2019-09-10 10:00)
DX: M18.11 Unilateral primary osteoarthritis of first carpometacarpal joint, right hand (principal); E03.9 Hypothyroidism, unspecified; Z79.899 Other long term (current) drug therapy
CPT/HCPCS: 25310; 25447; 64417; 81025; J7120; J0702; J2405

== ENCOUNTER → 2019-10-06 12:03 | Outpatient (CLI) | payer OTHER, SELFPAY ==
[2019-09-10 08:55] VITALS: BMI 21.2
[2019-10-06 14:13] LABS: Thyroid Stim Hormone (TSH) 0.21 uIU/mL (0.358-3.74)
== END ==
PROVIDERS: Family Provider Internal Medicine; PCP Internal Medicine
DX: E03.9 Hypothyroidism, unspecified (principal)
CPT/HCPCS: 36415; 84443

== ENCOUNTER → 2019-12-04 16:21 | Outpatient (CLI) | payer OTHER, SELFPAY ==
[2019-09-10 08:55] VITALS: BMI 21.2
--- NOTE | 2019-12-04 16:25 | RAD_ITS ---
STUDY: X-RAY - RIGHT HAND, ATTENTION FIRST FINGER REASON FOR EXAM: Female, 48 years old. 1ST CMC ARTHROSCOPY DONE 09/10/19, CURRENT SWELLING, PAIN, STIFFNESS AND HOT TO THE TOUCH TECHNIQUE: 3 view(s) of the finger were obtained. COMPARISON: 02/01/2019 FINDINGS: Normal metacarpal head. Normal metacarpophalangeal joint. Normal proximal phalanx. Normal middle phalanx. Normal distal phalanx. Normal proximal interphalangeal joint. Normal distal interphalangeal joint. RAD/Finger(s) Min 2 Views IMPRESSION: No evidence of osteomyelitis. If there is further concern for osteomyelitis, consider correlation with three-phase bone scan or contrast-enhanced MRI. Electronically Signed: Prashanth Anderson MD at 0:42 EST Tel , Service support ,
== END ==
PROVIDERS: PCP Internal Medicine; Referring Provider Specialist; Visit Provider Specialist
DX: M18.11 Unilateral primary osteoarthritis of first carpometacarpal joint, right hand (principal)
CPT/HCPCS: 73140

== ENCOUNTER 2019-12-25 14:00 | Outpatient (RCR) | payer OTHER, SELFPAY ==
[2019-09-10 08:55] VITALS: BMI 21.2
--- NOTE | 2019-10-07 15:39 | HP.OTEVAL_ITS ---
Patient's Visit Information SONIDO RONQUILLO is a 48 year old F, referred to Occupational Therapy by Jose Schmitt PA-C, with a diagnosis of right CMC arthroplasty 09/10/19. Date of Evaluation: 10/06/19 Occupational Therapist: Prema Burr, ARACELI/Aftab, CHT - Subjective Subjective: This 48 year old female was seen for OT eval for right unilatera; primary osteoarthritis of 1st carpometacarpal joint. Pt states for two years she had difficulty and pain with ADls and IADLs pt decided to have sx. she underwent a right CMC arthroplasty on 09/10/19. Pt is hear today for custom orthosis to provide protection and support while reconstruction is healing. - Pain right wrist/hand 0 Pain Intensity Range: 0, 6 - ROM Wrist: right 50/10 left 70/65 CMC: right 10 left 15 MP: right 15 left 55 IP: right 35 left 40 - Strength Traffic Incident Management Manager: rigth left 60# Lateral Pinch: right left 16# Tripod Pinch: right left 18# - Sensation Sensation Comments: center of tip pt states is tingling/numb - Quick DASH-Disab of Arm,Shoulder& Hand Quick DASH Score: 68.3325 - Goals Goal:100% adherence to protocol: Yes Comment: CMC arthroplasty Goal:Daily scar massage when approriate: Yes Goal:ROM equal to unaffected hand: Yes Goal:Traffic Incident Management Manager/Pinch strength at least 75% of unaffected hand: Yes Goal:No pain with affected hand use: Yes Goal:Full use of affected hand in daily activities including: Yes - Rehabilitation General Assessment: Pt currently 3 weeks and 5 days s/p right cmc arthroplasty. Pt arrives just out of cast and in need of custom orthosis to provide support and protection while reconstruction is healing. PT also demo with limited right wrist, thumb and digit ROM decreasing pts ind. with ADLs and IADLS. Pt would benefit from skilled OT services 1-2xz week for 6-8 weeks to ensure pts ROM, strength return to functional ability for pt to return to her job, as well as ed. pt on recovery process of CMC arthroplasty and joint protection devan. Today pt was ed. on recovery, therapist phyllis. custom orthosis and ed. pt on use, care and precautions. therapist also ed.on wrist and supported CMC with MP and IP ROM ex. pt demo understanding and agree to POC. Rehabilitation Potential: Good - Anticipated Interventions Anticipated Interventions: A/AAROM/PROM, Strengthening, Scar Care, Triggerpoint Release, Desensitization, Sensory Retraining, Wound Care, Modalities, Orthoses, Joint Protection/Energy Conservation, Ergonomic Education - Visit Plan Frequency: 1-2x /Week Duration: 4-6 Weeks TEXT: Thank you for the opportunity to evaluate your patient. For Medicare and Medicare HMO plans, please review the plan of care and approve it. It will need to be FAXED BACK to us at [phone] for Medicare purposes. Please let me know if there are questions or concerns regarding this plan of care. Physician Signature: Date:
--- NOTE | 2019-12-10 08:45 | HP.OTREVAL ---
Jose Schmitt PA-C, It has been my pleasure to treat SONIDO RONQUILLO over the last 12 visits for right CMC arthroplasty 09/10/19. Please see the progress note below for an update on the occupational therapy plan of care! Subjective: pt states she did see and he placed her on zpack to help with inflamation- pt states within 8 hours she noticed a decrease in edema and pain- pt states she used her hand all weekend with home tasks and today has increase pain 02/19- pt is concerned with returning to work at this time Objective/Function: right thumb MP 35. right thumb IP flex. following session pt demo opposition to LF Plan Frequency: 1-2x /Week Duration: 4 Weeks Plan: progress pt with work simulated tasks Anticipated Interventions Anticipated Interventions: A/AAROM/PROM, Strengthening, Scar Care, Triggerpoint Release, Desensitization, Sensory Retraining, Wound Care, Modalities, Orthoses, Joint Protection/Energy Conservation, Ergonomic Education Please do not hesitate to contact me at [phone] by phone or if you have questions or concerns regarding this new plan of care! Sincerely, Prema Burr, OTR/L, CHT
--- NOTE | 2019-12-10 08:48 | OTREVAL_ITS ---
Jose Schmitt PA-C, It has been my pleasure to treat SONIDO RONQUILLO over the last 12 visits for right CMC arthroplasty 09/10/19. Please see the progress note below for an update on the occupational therapy plan of care! Subjective: pt states she did see and he placed her on zpack to help with inflamation- pt states within 8 hours she noticed a decrease in edema and pain- pt states she used her hand all weekend with home tasks and today has increase pain 02/19- pt is concerned with returning to work at this time Objective/Function: following session pt demo opposition to LF. 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 left long chain dyeing machine operator strength 60#. right lateral pinch 2#. right tripod pinch 2#. thumb IP flex 50. thumb MP flex 44. pt painful with resistive tasks Plan Frequency: 1-2x /Week Duration: 4 Weeks Plan: progress pt with work simulated tasks Anticipated Interventions Anticipated Interventions: A/AAROM/PROM, Strengthening, Scar Care, Triggerpoint Release, Desensitization, Sensory Retraining, Wound Care, Modalities, Orthoses, Joint Protection/Energy Conservation, Ergonomic Education Please do not hesitate to contact me at [phone] by phone or if you have questions or concerns regarding this new plan of care! Sincerely, Prema Burr OTR/L, CHT
--- NOTE | 2019-12-26 09:47 | HP.OTDCSUM ---
HP - OT D/C Summary It has been my pleasure to treat SONIDO RONQUILLO under orders from Jose Schmitt PA-C, for the diagnosis of right CMC arthroplasty 09/10/19 for a total of 15 visit(s). Please see the following information for a summary of their discharge status. 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 wrist 55/30. MP 45. IP 55 - Goals Patient Goals: Regain Mobility, Regain Strength, Return to Work, Improve Fine Motor Skills, Use Hand/Wrist/Arm Normally Again Goal:100% adherence to protocol: Yes Goal:Daily scar massage when approriate: Yes Goal:ROM equal to unaffected hand: Yes Goal:Kosher Dietary Service Manager/Pinch strength at least 75% of unaffected hand: Yes Goal:No pain with affected hand use: Yes Goal:Full use of affected hand in daily activities including: Yes - Plan Plan: D/C with HEP - D/C Information Discharge Comments: pt was seen for 15 OT visits following a right CMC arthroplasty. Pt struggled with edema that limited her ROM and increased her pain. Pt states this week she feels she has made a good turn and feels she is ready to return to work. states she feels she cont. to struggle with edema but noted medication made a large differance in pain and edema. Pt is to cont with HEP of ROM and PRE along with joint protection. pt met goals in OT and is D/C at this time. If there are questions or concerns regarding this patient's occupational therapy, please fell free to call me at [phone]. Thank you for the referral of this patient. Sincerely, Prema Burr, OTR/L, CHT
== END 2019-12-25 19:00 | disposition home or self-care (01) ==
LOC: OT 14:00
PROVIDERS: Family Provider Internal Medicine; PCP Internal Medicine; Referring Provider Physician Assistant Surgical; Visit Provider Physician Assistant Surgical
DX: M18.11 Unilateral primary osteoarthritis of first carpometacarpal joint, right hand (principal)
CPT/HCPCS: 97035; 97110; 97140; 97166; 97530; 97760

== ENCOUNTER → 2020-01-20 07:40 | Outpatient (CLI) | payer OTHER, SELFPAY ==
[2019-09-10 08:55] VITALS: BMI 21.2
[2020-01-20 09:49] LABS: Thyroid Stim Hormone (TSH) 0.64 uIU/mL (0.358-3.74)
== END ==
PROVIDERS: PCP Internal Medicine
DX: E03.9 Hypothyroidism, unspecified (principal)
CPT/HCPCS: 36415; 84443

== ENCOUNTER 2020-01-28 08:15 | Outpatient (RCR) | payer OTHER, SELFPAY ==
[2019-09-10 08:55] VITALS: BMI 21.2
--- NOTE | 2020-01-16 10:18 | MASS.EVAL_ITS ---
Massage Therapy Evaluation: Initial Evaluation Date: 01/16/2020 SUBJECTIVE: Diandra is a 49 year old female who was referred to the [facility] facility for a massotherapy evaluation by Dr. Calles with the diagnosis of back and neck pain. She presents today with the symptoms of pain, stiffness and tension in the neck, mid back, low back and hips. She also reports of having hand surgery four months ago and had some complications of healing and would like it to be massaged. OBJECTIVE: Upon observation Diandra has some posture issues with her head and shoulders forward from the neutral position in sitting and standing. After examination and palpation, I found Diandra to have high muscle tension with tenderness and myofascial restrictions in her sub occipitals, levator scapulae, trapezius, rhomboids, scalenes, and thoracic paraspinals. Her QL?s, lumbar paraspinals, piriformis, glute medius and minimus all were very tight with fascial re strictions, tender points and trigger points. The first treatment consisted of a one hour massage to her upper body with myofascial release, scar tissue release to right hand, muscle stripping, trigger point compression techniques, and cervical manual traction. ASSESSMENT: I feel that Ruth is a good candidate for massotherapy at this time. She had a favorable response to the first treatment with reduction in her muscle aches, pain and tension. She also had improvement in her cervical flexibility and low back flexibility. PLAN: The plan of care was reviewed with the patient. The patient is to be seen on an as needed basis for a total of ten sessions with the recommendation of once every month for a one hour treatment.
--- NOTE | 2020-10-25 12:39 | MASS.DISCH ---
Massage Therapy Discharge Summary: Discharge Date: 10/25/2020 Diandra was seen for a massotherapy evaluation on 01/16/2020 with the diagnosis of back pain. She was treated with two sessions of massage therapy consisting of deep pressure soft tissue techniques, myofascial release and trigger point compression to her cervical, thoracic, lower back and hips. Diandra responded well to the therapy by reporting decreased tension and pain throughout her neck, shoulders, lower back and hips. At this time this patient is being discharged from our care at [facility] facility.
== END 2020-01-28 19:00 | disposition home or self-care (01) ==
LOC: MASS 08:15
PROVIDERS: Family Provider Internal Medicine; PCP Internal Medicine; Referring Provider Internal Medicine; Visit Provider Internal Medicine
DX: M54.9 Dorsalgia, unspecified (principal); M62.838 Other muscle spasm
CPT/HCPCS: 97124

== ENCOUNTER → 2020-04-09 10:35 | Outpatient (CLI) | payer OTHER, SELFPAY ==
[2019-09-10 08:55] VITALS: BMI 21.2
[2020-04-13 14:40] LABS: HPV HC, High Risk Negative (Negative)
== END ==
PROVIDERS: Visit Provider Obstetrics & Gynecology
DX: Z12.4 Encounter for screening for malignant neoplasm of cervix (principal)
CPT/HCPCS: 87624; 88175; G0145

== ENCOUNTER → 2020-05-13 07:22 | Outpatient (CLI) | payer OTHER, SELFPAY ==
[2019-09-10 08:55] VITALS: BMI 21.2
--- NOTE | 2020-05-13 07:23 | BI_ITS ---
MAMMOGRAPHY - BILATERAL SCREENING REASON FOR EXAM: Female, 49 years old. Routine annual screening examination. PERTINENT HISTORY: Mother with breast cancer. TECHNIQUE: Digital bilateral breast frieda (3D mammographic acquisition) in the CC and MLO projections. 2-D mediolateral oblique (MLO) and craniocaudad (CC) views of both breasts were obtained. CAD: Full Field Digital Mammography with Computer Added Detection was performed. COMPARISON: Comparison is made with prior study dated April 04, 2019 and November 01, 2017. FINDINGS: Breast Composition: The breasts are extremely dense, which lowers the sensitivity of mammography. There are no dominant masses or suspicious calcifications. No other significant abnormalities are identified. There has been no significant change since the prior study. BI/SCREEN MAMM (CAD) W/FRIEDA BILAT IMPRESSION: Stable bilateral screening mammogram. Yearly follow-up mammogram recommended. (A) ASSESSMENT CATEGORY: BIRADS Category 1: Negative. A letter regarding these results will be sent to the patient by the facility within 30 days. Approximately 10% of breast cancers are not detected by mammography. A normal mammogram should not delay biopsy of a clinically suspicious abnormality. [id number] Electronically Signed: Samm Sue, at 8:10 EDT , Service support ,
== END ==
PROVIDERS: PCP Internal Medicine; Referring Provider Obstetrics & Gynecology; Visit Provider Obstetrics & Gynecology
DX: Z12.31 Encounter for screening mammogram for malignant neoplasm of breast (principal)
CPT/HCPCS: 77063; 77067

== ENCOUNTER → 2020-08-18 07:23 | Outpatient (CLI) | payer OTHER, SELFPAY ==
[2019-09-10 08:55] VITALS: BMI 21.2
[2020-08-18 08:21] LABS: Thyroid Stim Hormone (TSH) 3.28 uIU/mL (0.358-3.74)
== END ==
PROVIDERS: PCP Internal Medicine; Referring Provider Internal Medicine; Visit Provider Internal Medicine
DX: E03.9 Hypothyroidism, unspecified (principal)
CPT/HCPCS: 36415; 84443

== ENCOUNTER → 2020-09-20 08:05 | Outpatient (CLI) | payer OTHER, SELFPAY ==
[2019-09-10 08:55] VITALS: BMI 21.2
--- NOTE | 2020-09-20 08:06 | US_ITS ---
STUDY: ULTRASOUND BREAST - LEFT REASON FOR EXAM: Female, 49 years old. Palpable lump left breast. TECHNIQUE: Axial and longitudinal images of the LEFT breast were performed with a high resolution ultrasound transducer. # OF IMAGES: 24 COMPARISON: None. FINDINGS: LEFT Breast: The axillary region of the breast was examined by ultrasound. No sonographic abnormality is seen. The right axillary region was examined by ultrasound for comparison. No abnormality is seen. US/Breast Limited Unilateral IMPRESSION: No sonographic abnormality is seen. ASSESSMENT CATEGORY: BIRADS Category 1: Negative. A letter regarding these results will be sent to the patient by the facility within 30 days. Electronically Signed: Samm Sue, at 9:21 EST , Service support ,
== END ==
PROVIDERS: PCP Internal Medicine; Referring Provider Surgery; Visit Provider Surgery
DX: N63.20 Unspecified lump in the left breast, unspecified quadrant (principal)
CPT/HCPCS: 76642

== ENCOUNTER 2020-12-24 08:57 | Outpatient (RCR) | payer OTHER, SELFPAY ==
[2020-10-06 08:32] VITALS: BMI 21.3
== END 2021-01-09 23:59 ==
LOC: EMPH 08:57
PROVIDERS: PCP Internal Medicine; Visit Provider Family Medicine Geriatric Medicine
DX: Z03.818 Encounter for observation for suspected exposure to other biological agents ruled out (principal)
CPT/HCPCS: 87426

== ENCOUNTER → 2021-05-09 07:22 | Outpatient (CLI) | payer OTHER, SELFPAY ==
[2020-10-06 08:32] VITALS: BMI 21.3
--- NOTE | 2021-05-09 07:24 | CT_ITS ---
STUDY: CT CHEST WITHOUT CONTRAST REASON FOR EXAM: Female, 50 years old. AXILLARY LUMP RADIATION DOSAGE (If Supplied By Facility): CTDIvol = ( 6.38 ) mGy, DLP = ( 250.27 ) mGycm TECHNIQUE: Transaxial imaging was performed without the administration of intravenous contrast material. Multiplanar coronal and sagittal images were reformatted. Individualized dose optimization techniques were used for this CT. COMPARISON: None. FINDINGS: Small subcentimeter lymph nodes in the bilateral axilla without dominant berhane mass. The largest lymph node on the left side measures 5 x 6 mm. The lungs are normal. There is no demonstrated pleural abnormality. Normal heart and pericardium. Normal mediastinum. Normal hilar regions. Normal unenhanced pulmonary arteries. Normal aorta arch and descending thoracic aorta. Normal osseous structures. There is no demonstrated abnormality of the visualized upper abdomen. CT/Chest without Contrast IMPRESSION: 1. Very small (subcentimeter) bilateral axillary lymph nodes without dominant berhane mass/adenopathy. Electronically Signed: Harpal Denson MD ([place]) at 8:52 EDT , Service support ,
--- NOTE | 2021-05-09 07:33 | US_ITS ---
STUDY: THYROID ULTRASOUND REASON FOR EXAM: Female, 50 years old. NODULES TECHNIQUE: Ultrasound evaluation of the thyroid was performed with real-time and static khalil-scale imaging. COMPARISON: 04/02/2019 FINDINGS: RIGHT LOBE: The right lobe of the thyroid gland measures 3.8 x 1.1 x 0.8 cm. There is a heterogeneous echotexture. 4 mm hyperechoic nodule of the right thyroid lobe is stable. LEFT LOBE: The left lobe of the thyroid gland measures 3.0 x 1.3 x 1.0 cm. There is a homogeneous echotexture. There are no demonstrated solid, cystic or complex lesions. ISTHMUS: The isthmus measures 3.0 mm. The regional lymph nodes are normal. US/Thyroid IMPRESSION: 1. Stable 4 mm right thyroid lobe nodule. TI-RADS category: TR3. This nodule is mildly suspicious but no FNA or follow-up is necessary given the small size and stability of this nodule. 2. Stable small, heterogeneous thyroid gland. Electronically Signed: Harpal Denson MD ([place]) at 9:15 EDT , Service support ,
== END ==
PROVIDERS: PCP Internal Medicine; Referring Provider Internal Medicine; Visit Provider Internal Medicine
DX: E04.1 Nontoxic single thyroid nodule (principal); R22.32 Localized swelling, mass and lump, left upper limb
CPT/HCPCS: 71250; 76536

== ENCOUNTER → 2021-05-12 07:56 | Outpatient (CLI) | payer OTHER, SELFPAY ==
[2020-10-06 08:32] VITALS: BMI 21.3
[2021-05-12 08:52] LABS: Free T3 2.1 pg/mL (2.18-3.98)
[2021-05-12 09:16] LABS: Vitamin D,25 Hydroxy 39.2 ng/mL
== END ==
PROVIDERS: PCP Internal Medicine; Referring Provider Internal Medicine; Visit Provider Internal Medicine
DX: E03.9 Hypothyroidism, unspecified (principal); E55.9 Vitamin D deficiency, unspecified; E04.1 Nontoxic single thyroid nodule
CPT/HCPCS: 36415; 82306; 84439; 84443; 84481

== ENCOUNTER → 2021-05-30 07:17 | Outpatient (CLI) | payer OTHER, SELFPAY ==
[2020-10-06 08:32] VITALS: BMI 21.3
--- NOTE | 2021-05-30 07:20 | BI_ITS ---
MAMMOGRAPHY - BILATERAL SCREENING REASON FOR EXAM: Female, 50 years old. Routine annual screening examination. PERTINENT HISTORY: Mother with breast cancer. Remote left excisional breast biopsy. TECHNIQUE: Digital bilateral breast frieda (3D mammographic acquisition) in the CC and MLO projections. 2-D mediolateral oblique (MLO) and craniocaudad (CC) views of both breasts were obtained. CAD: Full Field Digital Mammography with Computer Added Detection was performed. COMPARISON: Comparison is made with prior study dated 05/13/2020 and 04/04/2019. FINDINGS: Breast Composition: The breasts are extremely dense, which lowers the sensitivity of mammography. There are no dominant masses or suspicious calcifications. Stable small benign-appearing bilateral axillary lymph nodes. No other significant abnormalities are identified. There has been no significant change since the prior study. BI/SCRN MAMM (CAD)W/FRIEDA BILAT IMPRESSION: Stable bilateral screening mammogram. Yearly follow-up mammogram recommended. (A) ASSESSMENT CATEGORY: BIRADS Category 2: Benign. A letter regarding these results will be sent to the patient by the facility within 30 days. Approximately 10% of breast cancers are not detected by mammography. A normal mammogram should not delay biopsy of a clinically suspicious abnormality. [id number] Electronically Signed: Samm Sue MD at 8:43 EDT , Service support ,
== END ==
PROVIDERS: PCP Internal Medicine; Referring Provider Internal Medicine; Visit Provider Internal Medicine
DX: Z12.31 Encounter for screening mammogram for malignant neoplasm of breast (principal)
CPT/HCPCS: 77063; 77067

== ENCOUNTER → 2021-06-23 07:52 | Outpatient (CLI) | payer OTHER, SELFPAY ==
[2020-10-06 08:32] VITALS: BMI 21.3
[2021-06-23 08:48] LABS: ALB/GLOB Ratio 1.3 RATIO (0.9-2.4); AST(SGOT) 28 U/L (15-37); Alanine Aminotransfer ALT/SGPT 38 U/L (13-56); Albumin, Serum 4.3 g/dL (3.2-5.0); Alkaline Phosphatase 67 U/L (45-117); Anion Gap 6 (5-15); BUN 21 mg/dL (7-18); BUN/Creat Ratio 29.2 RATIO (10-20); Calcium,Total 8.8 mg/dL (8.5-10.1); Chloride 103 mmol/L (98-107); Creatinine, Serum 0.72 mg/dL (0.55-1.02); EST Glomerular Filtration Rate 91 mL/min (>60); Est Glom Filt Rate - Afr Amer 110 mL/min (>60); Free T3 2.4 pg/mL (2.18-3.98); Globulin 3.4 g/dL (2.2-4.2); Glucose 93 mg/dL (74-106); Potassium 3.9 mmol/L (3.5-5.1); Protein, Total 7.7 g/dL (6.4-8.2); Sodium Level 139 mmol/L (136-145); T4 Free Direct 1.11 ng/dL (0.76-1.46); Thyroid Stim Hormone (TSH) 1.24 uIU/mL (0.358-3.74)
== END ==
PROVIDERS: PCP Internal Medicine; Visit Provider Internal Medicine
DX: E03.9 Hypothyroidism, unspecified (principal)
CPT/HCPCS: 36415; 80053; 84439; 84443; 84481

== ENCOUNTER → 2021-07-29 08:04 | Outpatient (CLI) | payer OTHER, SELFPAY ==
[2021-07-29 10:21] LABS: Thyroid Stim Hormone (TSH) 3.57 uIU/mL (0.358-3.74)
== END ==
PROVIDERS: PCP Internal Medicine; Referring Provider Internal Medicine; Visit Provider Internal Medicine
DX: E03.9 Hypothyroidism, unspecified (principal)
CPT/HCPCS: 36415; 84443

== ENCOUNTER → 2021-09-02 08:21 | Outpatient (CLI) | payer OTHER, SELFPAY ==
[2021-09-02 10:12] LABS: Thyroid Stim Hormone (TSH) 1.43 uIU/mL (0.358-3.74)
== END ==
PROVIDERS: PCP Internal Medicine; Referring Provider Internal Medicine; Visit Provider Internal Medicine
DX: E03.9 Hypothyroidism, unspecified (principal)
CPT/HCPCS: 36415; 84443

== ENCOUNTER → 2021-10-03 09:33 | Outpatient (CLI) | payer OTHER, SELFPAY ==
[2021-10-10 14:17] LABS: HPV APTIMA, High Risk Negative (Negative)
== END ==
PROVIDERS: PCP Internal Medicine; Visit Provider Student in an Organized Health Care Education/Training Program
DX: Z12.4 Encounter for screening for malignant neoplasm of cervix (principal)
CPT/HCPCS: 87624; 88175; G0145

== ENCOUNTER 2022-02-22 07:31 | Outpatient (CLI) | payer OTHER, SELFPAY ==
--- NOTE | 2022-02-22 07:57 | US_ITS ---
STUDY: ULTRASOUND OF THE FEMALE PELVIS - COMPLETE REASON FOR EXAM: Female, 51 years old. N95.0 -- post MENOPAUSAL BLEEDING -- LMP 2018 TECHNIQUE: Transvaginal TECHNICAL QUALITY: Adequate. COMPARISON: Comparison is made with prior study dated 12/27/2012. FINDINGS: The uterus is anteverted and is in a midline position. The uterus measures 6.2 cm x 3.5 cm x 2.8 cm. Normal uterine cervix. The endometrium is mildly thickened and measures 4 mm in thickness, and is hyperechoic. There is no demonstrated endometrial mass. 2 subcentimeter fibroids are seen. I.U.D. - The patient does not have an I.U.D. The right ovary is visualized. The right ovary measures 2.6 cm x 2.2 cm x 1.1 cm. There is no right ovarian cyst or ovarian mass. There is no visualized right adnexal mass or complex lesion. There is normal arterial and normal venous vascularity. The left ovary is visualized. The left ovary measures 1.9 cm x 2.1 cm x 1.6 cm. There is no left ovarian cyst or ovarian mass. There is no visualized left adnexal mass or complex lesion. There is normal arterial and normal venous vascularity. There is no fluid in the cul-de-sac. US/Transvaginal Non- IMPRESSION: There are 2 subcentimeter uterine fibroids. Electronically Signed: Samm Sue MD at 13:04 EDT ,
== END 2022-02-22 23:59 | disposition home or self-care (01) ==
LOC: US 07:32
PROVIDERS: PCP Internal Medicine; Referring Provider Student in an Organized Health Care Education/Training Program; Visit Provider Student in an Organized Health Care Education/Training Program
DX: N95.0 Postmenopausal bleeding (principal)
CPT/HCPCS: 76830

== ENCOUNTER 2022-03-01 15:03 | Outpatient (CLI) | payer OTHER, SELFPAY | END 2022-03-01 23:59 | disposition home or self-care (01) | PROVIDERS: PCP Internal Medicine; Visit Provider Obstetrics & Gynecology | DX: N76.2 Acute vulvitis (principal) ==

== ENCOUNTER → 2022-03-08 | Outpatient (CLI) | payer OTHER, SELFPAY ==
[2022-03-08 10:18] LABS: T4 Free Direct 1.21 ng/dL (0.76-1.46); Thyroid Stim Hormone (TSH) 0.59 uIU/mL (0.358-3.74)
== END | disposition home or self-care (01) ==
LOC: LAB 08:10
PROVIDERS: PCP Internal Medicine; Referring Provider Internal Medicine Endocrinology, Diabetes & Metabolism; Visit Provider Internal Medicine Endocrinology, Diabetes & Metabolism
DX: E03.8 Other specified hypothyroidism (principal); E06.3 Autoimmune thyroiditis
CPT/HCPCS: 36415; 84439; 84443

== ENCOUNTER → 2022-03-14 | Outpatient (CLI) | payer OTHER, SELFPAY | END | disposition home or self-care (01) | LOC: LABSPEC 17:38 | PROVIDERS: PCP Internal Medicine; Visit Provider Student in an Organized Health Care Education/Training Program | DX: R30.0 Dysuria (principal) | CPT/HCPCS: 87086; 87088 ==

== ENCOUNTER 2022-04-14 08:14 | Day surgery (SDC) | payer OTHER, SELFPAY ==
[2022-04-14 08:37] VITALS: BP 123/69; PULSE 65; RESP 16; TEMP 36.4; O2SAT 100; BMI 20.8
[2022-04-14 08:44] LABS: Internal QC Validated? YES +Cl - CLEAR BKGD
[2022-04-14 08:49] LABS: Pregnancy, Urine Negative Negative
[2022-04-14] MEDS: Lactated Ringers 1,000 ML 30 ML IV (08:51)
--- NOTE | 2022-04-14 09:24 | H&P.OPEN ---
HPI - General HPI Narrative SONIDO RONQUILLO, is a 51 F who presents for screening colonoscopy. The patient has never had a colonoscopy in the past. She denies any abdominal pain or blood in her stool. 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 Seasonal allergies Tendinitis Thyroid disease Wears contact lenses Wears glasses Home Medications cholecalciferol (vitamin D3) 125 mcg (5,000 unit) capsule 5,000 unit PO QDAY 04/10/18 [History Last Taken Unknown] multivitamin 1 tab PO QAM 04/10/18 [History Last Taken Unknown] mecobalamin (vitamin B12) 1,000 mcg chewable tablet 1,000 mcg PO DAILY 10/06/20 [History Last Taken Unknown] ascorbic acid (vitamin C) 1,000 mg tablet,extended release 1,000 mg PO Q12H 10/12/21 [History Last Taken Unknown] zinc acetate 50 mg (zinc) capsule 50 mg PO DAILY 10/12/21 [History Last Taken Unknown] levothyroxine 112 mcg tablet 112 mcg PO DAILY #90 tab 10/14/21 [Rx Last Taken Unknown] Allergy/AdvReac Type Severity Reaction Status Date / Time sulfamethoxazole AdvReac Other Verified 04/14/22 08:31 [From Bactrim] trimethoprim [From Bactrim] AdvReac Other Verified 04/14/22 08:31 Family History Mother Thyroid disorder Cancer melanoma Father Hypertension Cancer renal Other Anxiety Arthritis Breast cancer High cholesterol Melanoma Osteoporosis Skin cancer Surgical History (Updated 04/13/22 @ 08:26 by Ivonne Rogers) History of arthroscopy of right knee History of meniscectomy of left knee Hx of hand surgery Status post left breast lumpectomy Social History Smoking Status: Never smoker alcohol intake: current alcohol intake frequency: holidays/special occasions only substance use type: does not use what type of physical activity do you participate in: walking, running, aerobics and weight training frequency: 3-4 times per week Past Medical/Surgical History Planned Operation Planned Operative Procedure/s: Colonoscopy S.O.S: No Previous Hospitalizations/Surgeries HX Hospitalizations: No HX of Surgeries: LEFT KNEE ARTHROSCOPY RIGHT KNEE SCOPE Any Problems With Anesthesia: No You/Your Family Experience Fever (Hyperthermia) With Anes: No Cholinesterase deficiency: No Cardiovascular Hx Chest Pain within Last 2 months: No Hx of Irregular Heartbeat and/or Afib: No Hx Heart Attack: No Hx Congestive Heart Failure: No Hx Rheumatic Fever: No Hx Hypertension: No Hx Internal Defibrillator: No Hx Pacemaker: No Hx Cardiac Catheterization: No Hx Cardiac Surgery/Stents/Etc.: No Hx Stress Test: No Hx Pain in Legs when Walking/Leg Cramps: No Respiratory Chronic Cough: No HX of Shortness of Breath: No Hoarseness: No Hx Chronic Obstructive Pulmonary Disease (COPD): No Hx Asthma: No Hx Emphysema: No Hx Sleep Apnea: No Hx Respiratory Tract Infection/Cold (presently): No Do You Snore Loudly (louder than talking or can be heard): No Do You Often Feel Tired/ Fatigued/ Sleepy Dring Daytime?: No Has Anyone Observed You Stop Breathing During Sleep?: No Result (for STOP score): Negative Hx Smoking: No Smoking Status: Never smoker Gastrointestinal Hx Gastroesophageal Reflux: No Hx Gastrointestinal Bleed: No Hx Ulcer: No Hx Hiatal Hernia: No Difficulty Chewing/Swallowing: No Special diet followed at home: No Hx Unplanned Weight Loss of 20#: No HX Unplanned Weight Gain of 20#: No Neurological Hx Seizures: No HX Syncope/Blackout Spells/Unconsciousness: No Hx Transient Ischemic Attacks (TIA): No Hx Multiple Sclerosis: No Hx Parkinson's Disease: No Hx Head/Neck Injury: Yes Hx Headaches: No Hx Back Injury/Pain: Yes Recent Onset of Speech Difficulty: No Restless Legs: Yes Does patient have nerve stimulator: No Blood Disorder Hx Leukemia: No Bleeding Tendencies: No Hx Deep Vein Thrombosis: No Hx High Cholesterol: No Blood Transmitted Disease: No Hx Hepatitis: No Hx Cirrhosis: No Hx Anemia: No Hx Blood Disorders: No Reproduction : No Genitourinary Hx Renal Disease: No Hx Dialysis: No Musculoskeletal Hx Arthritis: Yes Hx Rheumatoid Arthritis: No Hx Gout: No Recent Onset of an Orthopedic Problem: No Endocrine Hx Diabetes: No Thyroid Disease: Yes Hx Steroid Therapy: Yes (INJECTION) Psycho/Social Hx Substance Use: No Hx Alcohol Use: No Hx Anxiety: No Hx Depression: No Mental Illness: No Hx Dementia: No Miscellaneous Hx Cancer: No Recent Exposure to Contagious Disease: No Hx of C-Diff: No Any Loose Teeth: No Allergies sulfamethoxazole [From Bactrim] Adverse Reaction (Verified 04/14/22 08:31) Other trimethoprim [From Bactrim] Adverse Reaction (Verified 04/14/22 08:31) Other Discharge Is Pt Admitted From a Intermediate, or a Skilled Nursing: No After D/C, Where Do you Plan to Go: Return Home Vital Signs Vital Signs Vital Signs: 04/14/22 08:37 Temperature 97.6 F L Temperature Source Temporal Pulse Rate 65 Respiratory Rate 16 Respiratory Pattern Normal Blood Pressure 123/69 H Blood Pressure Mean 87 Blood Pressure Source Monitor Blood Pressure Position Semi-Fowlers Blood Pressure Location Right Arm Pulse Ox 100 Oxygen Delivery Method Room Air Weight Weight: 123 lb 7.342 oz Body Mass Index (BMI) 20.8 Physical Exam Const alert and oriented x3 Resp normal respiratory effort and normal air movement Cardio regular rate and regular rhythm GI soft to palpation, non-tender and non-distended Assessment & Plan Assessment/Plan (1) Encounter for screening for malignant neoplasm of colon: PLAN: I explained endoscopy in detail to the patient. I explained the risks including but not limited to stroke or heart attack with anesthesia, perforation of the GI tract, bleeding, infection. I explained that any of these could necessitate further emergency surgery. The patient understands and all questions were answered sufficiently. The patient wishes to proceed with procedure. Andrés Heredia MD Pager: [facility] [address] [place] [address] [address] [place] [address] Office: Surgery Risks - Colonoscopy Risks Include but are not Limited To: Risks include but are not limited to: Bleeding, perforation requiring further surgery, inability to complete colonoscopy requiring barium enema.
--- NOTE | 2022-04-14 09:59 | OP.CCLET_ITS ---
04/14/2022 Sydney Calles [address] [place] [address] Re : Colonoscopy procedure for Diandra Camejo Dear Dr. Calles This procedure was performed on Thursday, April 14, 2022. My impressions and recommendations are as follows: Impressions : - The entire examined colon is normal on direct and retroflexion views. - No specimens collected. Recommendations : - Discharge patient to home. - Resume previous diet. - Continue present medications. - Repeat colonoscopy in 10 years for screening purposes. My findings are described in the full procedure note, which is enclosed. If I can be of further assistance, please feel free to contact me at Doctor phone number(s): , Work: . Sincerely, Andrés Heredia MD 04/14/2022 9:59:21 AM This report has been signed electronically.
--- NOTE | 2022-04-14 09:59 | OP.COLON_ITS ---
Patient Name: Diandra Camejo Procedure Date: 04/14/2022 9:34 AM Date of : 1970 Age: 51 Procedure: Colonoscopy Indications: Screening for colorectal malignant neoplasm Providers: Andrés Heredia MD Referring MD: Sydney Calles Medicines: Monitored Anesthesia Care Patient Profile: This is a 51 year old female. Refer to note in patient chart for documentation of history and physical. Last Colonoscopy: none. The patient's first colonoscopy is today. Complications: No immediate complications. Procedure: Pre-Anesthesia Assessment: - Prior to the procedure, a History and Physical was performed, and patient medications and allergies were reviewed. The patient's tolerance of previous anesthesia was also reviewed. The risks and benefits of the procedure and the sedation options and risks were discussed with the patient. All questions were answered, and informed consent was obtained. Prior Anticoagulants: The patient has taken no previous anticoagulant or antiplatelet agents. After reviewing the risks and benefits, the patient was deemed in satisfactory condition to undergo the procedure. After I obtained informed consent, the scope was passed under direct vision. Throughout the procedure, the patient's blood pressure, pulse, and oxygen saturations were monitored continuously. The Colonoscope was introduced through the anus and advanced to the cecum, identified by appendiceal orifice and ileocecal valve. The colonoscopy was performed without difficulty. The patient tolerated the procedure well. The quality of the bowel preparation was good. Scope In: 9:43:14 AM Scope Withdrawal Time 0 hours 6 minutes 24 seconds Scope Out: 9:56:43 AM Total Procedure Duration Time 0 hours 13 minutes 29 seconds Findings: The entire examined colon appeared normal on direct and retroflexion views. Impression: - The entire examined colon is normal on direct and retroflexion views. - No specimens collected. Recommendation: - Discharge patient to home. - Resume previous diet. - Continue present medications. - Repeat colonoscopy in 10 years for screening purposes. Procedure Code(s): --- Professional --- 36196, Colonoscopy, flexible; diagnostic, including collection of specimen(s) by brushing or washing, when performed (separate procedure) Diagnosis Code(s): --- Professional --- Z12.11, Encounter for screening for malignant neoplasm of colon CPT copyright 2017 [employer]. All rights reserved. The codes documented in this report are preliminary and upon urban planning professor review may be revised to meet current compliance requirements. Andrés Heredia MD 04/14/2022 9:59:21 AM This report has been signed electronically. Number of Addenda: 0 Note Initiated On: 04/14/2022 9:34 AM
[2022-04-14 10:00] VITALS: BP 123/69; BP 131/74; PULSE 68; RESP 16; TEMP 36.4; O2SAT 100
[2022-04-14 10:05] VITALS: BP 123/69; BP 124/70; PULSE 69; RESP 16; O2SAT 100
[2022-04-14 10:10] VITALS: BP 121/72; BP 123/69; PULSE 69; RESP 16; O2SAT 100
[2022-04-14 10:15] VITALS: BP 123/69; BP 123/72; PULSE 63; RESP 16; TEMP 36.2; O2SAT 100
[2022-04-14 10:45] VITALS: BP 123/69
== END 2022-04-14 10:48 | disposition home or self-care (01) ==
LOC: EN 08:14 → AC 08:15
PROVIDERS: Anesthesiology; PCP Internal Medicine; Referring Provider Internal Medicine; Visit Provider Surgery
PROC: 0DJD8ZZ Inspection of Lower Intestinal Tract, Via Natural or Artificial Opening Endoscopic (ICD-10-PCS; CPT 45378; principal; 2022-04-14 09:10)
DX: Z12.11 Encounter for screening for malignant neoplasm of colon (principal); Z79.899 Other long term (current) drug therapy; E03.9 Hypothyroidism, unspecified
CPT/HCPCS: 45378; 81025; J7120

== ENCOUNTER → 2022-05-16 | Outpatient (CLI) | payer OTHER, SELFPAY | END | disposition home or self-care (01) | LOC: MTLAB 14:25 | PROVIDERS: PCP Internal Medicine; Referring Provider Urology; Visit Provider Urology | DX: N39.0 Urinary tract infection, site not specified (principal) | CPT/HCPCS: 87086 ==

== ENCOUNTER 2022-05-25 06:06 | Day surgery (SDC) | payer OTHER, SELFPAY ==
[2022-05-16 18:00] LABS: Hematocrit 46.7 % (37-47); Hemoglobin 15.2 g/dL (12.0-15.0); Mean Corp Hgb Conc 32.5 g/dL (32-36); Mean Corpuscular Hgb 28.6 pg (27.0-32.0); Mean Corpuscular Volume 87.9 fL (81-99); Mean Platelet Vol. 10.7 fl (6.2-12.0); Platelet Count 268 K/mm3 (150-450); RBC Distribution Width CV 12.5 % (11.6-14.6); RBC Distribution Width SD 40.4 fl (35.1-43.9); Red Blood Count 5.31 M/mm3 (4.2-5.4); White Blood Count 5.9 K/mm3 (4.4-11.0)
[2022-05-25] VITALS (7 sets, daily range): BP systolic 114–144; BP diastolic 71–89; PULSE 68–80; RESP 14–18; TEMP 36.4–36.9; O2SAT 99–100; BMI 21.6
[2022-05-25] MEDS: Lactated Ringers 1,000 ML 15 ML IV (06:40)
--- NOTE | 2022-05-25 07:15 | PCM.HP.BLA ---
History and Physical Date of Admission: 05/25/22 HISTORY OF PRESENT ILLNESS: 51 yo female presenting for hysteroscopy, dilation and curettage. Reports brown spotting, urethral discomfort. Unable to complete EMB in office twice. MEDICAL HISTORY: 1. Hypothyroidism ALLERGIES: NKA, Bactrim, Cramps and stomach MEDICATIONS HISTORY: Patient is also takin. Multi For Her 18 mg iron-600 mcg capsule, daily 2. Synthroid 112 mcg tablet, daily 3. Calcium 600 + D(3) 600-125 mg-unit tablet SURGICAL HISTORY: 1. 11/12/2006 (L) arthroscopic knee surgery Dr Cervantes torn meniscus 2. lumpectomy benign adenoma 1992, left breast 3. wisdom teeth 4. R knee, 11/22 5. Right CMC 2018 PAST PREGNANCIES: Total Pregnancies - 0; Full Term Pregnancies - 0; Premature - 0; Abortions, Induced - 0; Abortions, Spontaneous - 0; Ectopics - 0; Multiple Births - 0; Living Children - 0 FAMILY HISTORY: Father - FH: Hypertension; Father - FH: Hypercholesterolemia; Father - Cancer; Mother - High Cholesterol; Mother - FH: Hypothyroidism; Mother - FH: Malignant melanoma; Mother - Osteoporosis; Mother - FH: Hypertension; Mother - Carcinoma of breast; Brother - Malignant melanoma; PaternalGrandparent - FH: Cancer of colon; SOCIAL HISTORY: Alcohol Use - RARELY Smoking - denies smoking Drug Use - denies REVIEW OF SYSTEMS: GENERAL - Denies fever, or chills SKIN - Denies skin changes EYES - Denies visual changes EARS - Denies difficulty hearing NOSE - Denies nasal congestion or bleeding MOUTH - Denies sore throat or difficulty swallowing NECK - Denies pain or swelling RESPIRATORY - Denies shortness of breath or wheezing CARDIOVASCULAR - Denies palpitations or chest pain GASTROINTESTINAL - Denies nausea, vomiting, diarrhea, constipation GENITOURINARY - swelling irritation redness MUSCULOSKELETAL - Denies joint or muscle pain NEUROLOGICAL - Denies localized numbness or weakness PSYCHIATRIC - Denies depression or anxiety ENDOCRINE - Denies heat or cold intolerance, weight loss or gain HEMATO-IMMUNOLOGIC - Denies excessive bleeding with cuts CONSTITUTIONAL - NAD, well nourished, and well developed SKIN - No rash, lesions, or ulcers HEENT - Normocephalic, PERRLA, EOMI LUNGS - CTA x2 without wheezes, crackles or rales CARDIAC - Regular rate and rhythm without rubs, murmurs, or gallops EXTREMITIES - No edema or calf tenderness NEUROLOGICAL - Cranial nerves II-XII grossly intact PSYCHIATRIC - A and O to time, place, person, mood and affect ASSESSMENT: PLAN BY DIAGNOSIS: 1. Postmenopausal Bleeding Brown spotting. US small subcentimeter fibroids. ES 4 mm Unable to complete EMB twice due to cervical stenosis. Planned for hysteroscopy, dilation and curettage. R/B/A discussed. risks include, but are not limited to: risk of bleeding to the point of transfusion, infection, injury to surrounding tissue (bowel/bladder/perforation), VTE, ICU admission. Pt consented
[2022-05-25] MEDS: Lubricating Jelly 60 GM Tube 30 GM (07:17)
--- NOTE | 2022-05-25 07:30 | EMB_PTH ---
PATIENT: SONIDO RONQUILLO LOC: [facility] [place] U#:[id number] AGE/SX: 51/F ROOM: RE05/25/[address]: Dr. Estela Rogers DO : 1970 BED: DIS: 05/25/2022 SPEC #: [id number] RECD: 05/25/22 11:48 STATUS: BENI REAnuj #: [id number] CHARLIE: 05/25/22 07:[address]: Estela Rogers DEPT: SURGICAL PATHOLOGY RECD BY: Roula Wisdom ENTERED: 05/25/22 12:44 SP TYPE: ENDOM BX/C FELECIA DR: MD Dr. Sydney Dunne DO Tissues: Endometrium, NOS Procedures: Surgery Specimen Level IV HEADER OPERATION: Hysteroscopy, dilation and curettage PRE-OP DIAGNOSIS: Postmenopausal bleeding TISSUE SUBMITTED: Endometrial curettings MICROSCOPIC DIAGNOSIS Endometrial curettings: Scant fragment of benign endometrial tissue. Fragments of benign endocervical mucosa with chronic inflammation. See comment. BRENDA:birgit 05/26/2022 COMMENT Clinical correlation and appropriate follow up are necessary. MICROSCOPIC DESCRIPTION Slides are reviewed. GROSS DESCRIPTION Received in fixative is one container labeled with the patient's name and designated endometrial curettings. The specimen consists of multiple irregular fragments of pink-red soft tissue that in aggregate measure 0.5 x 0.1 x <0.1 cm. The specimen is totally submitted in one cassette. / BRENDA:birgit 05/25/2022 TC:3 CPT: 54983
--- NOTE | 2022-05-25 07:43 | HP.PCM_ITS ---
[facility] - General General Date of Admission: 05/25/22 Chief Complaint: Urethritis [facility] Narrative SONIDO RONQUILLO, is a 51 F who presents for evaluation of urethritis with c ystoscopy possible bladder biopsy and fulguration. Informed consent has been obtained. [facility] Medical History (Updated 05/25/22 @ 07:[address] 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 Post-menopausal Seasonal allergies Tendinitis Thyroid disease Urethritis Vaginal atrophy Wears contact lenses Wears glasses Home Medications cholecalciferol (vitamin D3) 125 mcg (5,000 unit) capsule 5,000 unit PO QDAY 04/10/18 [History Last Taken Unknown] multivitamin (Daily Multi-Vitamin tablet) 1 tab PO QAM 04/10/18 [History Last Taken Unknown] mecobalamin (vitamin B12) 1,000 mcg chewable tablet 1,000 mcg PO DAILY 10/06/20 [History Last Taken Unknown] ascorbic acid (vitamin C) 1,000 mg tablet,extended release 1,000 mg PO Q12H 10/12/21 [History Last Taken Unknown] zinc acetate 50 mg (zinc) capsule 50 mg PO DAILY 10/12/21 [History Last Taken Unknown] levothyroxine 112 mcg tablet 112 mcg PO DAILY #90 tabs 10/14/21 [Rx Last Taken 05/25/22 05:30] Allergy/AdvReac Type Severity Reaction Status Date / Time sulfamethoxazole AdvReac Other Verified 05/25/22 06:25 [From Bactrim] trimethoprim [From Bactrim] AdvReac Other Verified 05/25/22 06:25 Family History Mother Thyroid disorder Cancer melanoma Father Hypertension Cancer renal Other Anxiety Arthritis Breast cancer High cholesterol Melanoma Osteoporosis Skin cancer Surgical History History of arthroscopy of right knee History of meniscectomy of left knee Hx of hand surgery Status post left breast lumpectomy Social History Smoking Status: Never smoker alcohol intake: current alcohol intake frequency: holidays/special occasions only substance use type: does not use what type of physical activity do you participate in: walking, running, aerobics and weight training frequency: 3-4 times per week ROS Constitutional Constitutional: Reports systems reviewed and no addt'l complaints, except as documented Eyes Eyes: Reports systems reviewed and no addt'l complaints, except as documented ENT HEENT: Reports systems reviewed and no addt'l complaints, except as documented Cardiovascular Cardiovascular: Denies chest pain or dyspnea Respiratory/Chest Respiratory/Chest: Denies cough or dyspnea Gastrointestinal Gastrointestinal: Denies nausea or vomiting Genitourinary Genitourinary: Reports dysuria and other Details: urethral edema and erythema Musculoskeletal Musculoskeletal: Reports systems reviewed and no addt'l complaints, except as documented Integumentary Integumentary: Reports systems reviewed and no addt'l complaints, except as documented Neurologic Neurologic: Reports systems reviewed and no addt'l complaints, except as documented Psychiatric Psychiatric: Reports systems reviewed and no addt'l complaints, except as documented Endocrine Endocrinology: Reports systems reviewed and no addt'l complaints, except as documented Hematologic/Lymphatic Hematologic/Lymphatic: Reports systems reviewed and no addt'l complaints, except as documented Allergic/Immunologic Allergic/Immunologic: Reports systems reviewed and no addt'l complaints, except as documented Vital Signs Vital Signs Vital Signs: 05/25/22 06:26 05/25/22 06:29 Temperature 97.5 F L Temperature Source Temporal Pulse Rate 71 Respiratory Rate 18 Respiratory Pattern Normal Blood Pressure 114/87 H Blood Pressure Mean 96 Blood Pressure Source Monitor Blood Pressure Position Semi-Fowlers Blood Pressure Location Right Arm Pulse Ox 100 Oxygen Delivery Method Room Air Weight Weight: 58.06 kg Body Mass Index (BMI) 21.6 Physical Exam Const alert, oriented x3 and no apparent distress General Appearance: cooperative, comfortable and well kempt Orientation / Consciousness: awake, oriented to person and oriented to place HEENT normocephalic, head/scalp atraumatic, external ears normal and external nose normal Eyes General Eye: normal appearance of both eyes Neck supple General: trachea midline Lymph Lymphatic: no lymphedema noted Chest inspection of chest normal Chest: symmetrical chest wall rise Resp normal respiratory effort, normal air movement, no retractions and no use of accessory muscles Cardio regular rate and regular rhythm GI normal to inspection, nondistended, normoactive bowel sounds, soft to palpation and non-tender no CVA tenderness Back/Spine no CVA tenderness Extremity normal to inspection Skin no rashes or lesions noted, no wounds, skin turgor normal, no jaundice, no p etechiae and no mottling Neuro oriented x3 and CN's II-XII intact bilaterally Psych mental status grossly normal, thought process normal and cooperative Results Lab / Micro Data Result Diagrams: 05/16/22 14:51 Assessment & Plan Assessment/Plan (1) Urethritis: (2) Vaginal atrophy: PLAN: Plan Proceed with cystoscopy possible bladder biopsy under anesthesia, informed consent has been obtained Preoperative urine culture is negative
--- NOTE | 2022-05-25 07:50 | PCM.OPRPT ---
Problems Associated Problem List Diagnoses (1) Vaginal atrophy: (2) Urethritis: Report of Operation Date of Procedure: 05/25/22 Pre-Operative Diagnosis: urethritis, vaginal atrophy Post-Operative Diagnosis: same Surgery/Procedure Performed:: cystoscopy Surgeon: Jess Portillo Type of Anesthesia: General Specimen's removed: none Description of Procedure: The patient is a 51-year-old female who has had intermittent pain of the urethra with erythema and feeling of edema. She presents for evaluation with cystoscopy under anesthesia. Informed consent was obtained. The patient was taken to the operating room placed in the supine position on the operating room table. She was appropriately padded and secured to the table. Anesthesia monitored head, neck, airway, IV access and vital signs throughout the case. Once anesthesia was appropriately administered, she had a hysteroscopy with D&C per Dr. Rogers. Once this was completed, the case was turned over to de. The cystoscope was inserted through the urethra under direct visualization into the urinary bladder. The urethra was normal in its entirety as was the bladder mucosa. Bilateral ureteral orifices were located in correct anatomic position. There were no masses, ulcerations, areas of erythema or foreign body identified. At this time the patient's bladder was emptied and the cystoscope was removed. The patient was awakened and taken to the recovery room in good condition. There were no complications during this procedure. Grafts/Implants Used: none Complications none Admit VTE Documentation VTE Present on Admission: Yes VTE Mechan Device Prophylaxis: SCD's VTE Pharm Prophylaxis ordered?: No Reason prophylaxis not ordered:: Treatment Not Indicated
--- NOTE | 2022-05-25 07:51 | DCINST_ITS ---
Discharge Instructions Diet Discharge Diet: No restrictions Activity Discharge Activity: Return to Normal Activity May resume sexual activity in: No Restrictions Dressing / Incision Call your doctor if you observe: Fever of 101 or Higher, Inability to urinate and Inability to have a bowel movement Follow Up Care Please Follow Up With: Estela Rogers DO When: and , call office for appt Test Results: Test results from this visit will be discussed in further detail at your follow- up appointment, if applicable. Discharge Plan Admission Primary Reason for Your Visit: Dilation and curettage Attending Provider: Estela Rogers Primary Care Provider: Sydney Calles Consulting Providers: Jess Portillo Discharge Orders/Prescriptions Prescriptions: Continued cholecalciferol (vitamin D3) 5,000 unit capsule 5,000 unit PO QDAY multivitamin [Daily Multi-Vitamin] tablet 1 tab PO QAM mecobalamin (vitamin B12) 1,000 mcg tablet,chewable 1,000 mcg PO DAILY zinc acetate 50 mg (zinc) capsule 50 mg PO DAILY ascorbic acid (vitamin C) 1,000 mg tablet extended release 1,000 mg PO Q12H levothyroxine 112 mcg tablet 112 mcg PO DAILY Qty: 90 3RF Referrals / Follow Up: Sydney Calles DO [Primary Care Provider] - Disposition Disposition (needs filled in before D/C Order can be placed): Home, Self Care
--- NOTE | 2022-05-25 08:04 | OP.PCM_ITS ---
Report of Operation Date of Procedure: 05/25/22 Pre-Operative Diagnosis: Postmenopausal bleeding, cervical stenosis Post-Operative Diagnosis: Postmenopausal bleeding Surgery/Procedure Performed:: Hysteroscopy, dilation and curettage Description of Surgical Findings:: Normal-appearing external genitalia. Stenotic cervix. Thin endometrial lining, erythematous circumferentially. No masses, polyps, fibroids. Type of Anesthesia: General Specimen's removed: Endometrial curettings Estimated Blood Loss (mL): 2 cc Fluids Replaced: Per anesthesia Description of Procedure: Indications/risk/benefits: 51-year-old female with postmenopausal bleeding plan for hysteroscopy, dilation curettage. All risk, benefits, alternatives discussed with patient. Risk include are not limited to: Risk of bleeding to the point transfusion, infection, injury to surrounding tissue including bowel/bladder/uterine perforation, VTE, ICU admission. Patient aware and consented. Procedure: Patient taken to the operating room and placed under general anesthesia. Retractor placed in posterior vagina and Mcintyre retractor placed anterior to visualize cervix. Cervix grasped with single-tooth tenaculum. Cervix sequentially dilated. Hysteroscope placed through cervical canal and inspection of endometrial cavity completed with findings as above. Hysteroscope removed. Endometrial curetting completed a 360 degree manner. Tenaculum removed, tenaculum sites hemostatic. Retractors removed. At the end of procedu re all needle, lap, sponge counts correct x2. Urine output: 100 cc Complications None
--- NOTE | 2022-05-25 08:07 | DCINST_ITS ---
Discharge Instructions Diet Discharge Diet: No restrictions Activity Discharge Activity: Return to Normal Activity and May Shower May resume sexual activity in: 1-2 weeks Weight Bearing Status: Weight bearing as tolerated Lifting Restrictions: None Dressing / Incision Call your doctor if you observe: Fever of 101 or Higher, Inability to urinate, Inability to have a bowel movement and Using more than 1 pad per hour Follow Up Care Please Follow Up With: Estela Rogers DO When: 1-2 week postoperative visit Test Results: Test results from this visit will be discussed in further detail at your follow- up appointment, if applicable. Discharge Plan Admission Primary Reason for Your Visit: Dilation and curettage Attending Provider: Estela Rogers Primary Care Provider: Sydney Calles Consulting Providers: Jess Portillo Discharge Orders/Prescriptions Prescriptions: Continued cholecalciferol (vitamin D3) 5,000 unit capsule 5,000 unit PO QDAY multivitamin [Daily Multi-Vitamin] tablet 1 tab PO QAM mecobalamin (vitamin B12) 1,000 mcg tablet,chewable 1,000 mcg PO DAILY zinc acetate 50 mg (zinc) capsule 50 mg PO DAILY ascorbic acid (vitamin C) 1,000 mg tablet extended release 1,000 mg PO Q12H levothyroxine 112 mcg tablet 112 mcg PO DAILY Qty: 90 3RF Referrals / Follow Up: Sydney Calles DO [Primary Care Provider] - Disposition Disposition (needs filled in before D/C Order can be placed): Home, Self Care
== END 2022-05-25 09:23 | disposition home or self-care (01) ==
LOC: SDC 06:06 → AC 06:07
PROVIDERS: Urology; PCP Internal Medicine; Referring Provider Student in an Organized Health Care Education/Training Program; Visit Provider Student in an Organized Health Care Education/Training Program
PROC: 0UDB8ZZ Extraction of Endometrium, Via Natural or Artificial Opening Endoscopic (ICD-10-PCS; CPT 58558; principal; 2022-05-25 07:20)
PROC: 0TBB8ZX Excision of Bladder, Via Natural or Artificial Opening Endoscopic, Diagnostic (ICD-10-PCS; 2022-05-25 07:20)
DX: N95.0 Postmenopausal bleeding (principal); N34.2 Other urethritis; E06.3 Autoimmune thyroiditis; M99.02 Segmental and somatic dysfunction of thoracic region; M99.05 Segmental and somatic dysfunction of pelvic region; M99.03 Segmental and somatic dysfunction of lumbar region; M99.01 Segmental and somatic dysfunction of cervical region; Z79.899 Other long term (current) drug therapy
CPT/HCPCS: 58558; 00952; 36415; 85027; 86850; 86900; 86901; 88305; J7120; J2405

== ENCOUNTER → 2022-06-09 | Outpatient (CLI) | payer OTHER, SELFPAY | END | disposition home or self-care (01) | PROVIDERS: PCP Internal Medicine; Visit Provider Student in an Organized Health Care Education/Training Program | DX: N76.0 Acute vaginitis (principal) ==

== ENCOUNTER → 2022-06-12 | Outpatient (CLI) | payer OTHER, SELFPAY ==
--- NOTE | 2022-06-12 04:20 | RAD_ITS ---
STUDY: XR Shoulder Min 2 Views REASON FOR EXAM: Female, 51 years old. RIGHT SHOULDER PAIN TECHNIQUE: XR Shoulder Min 2 Views RIGHT COMPARISON: None. FINDINGS: Normal glenohumeral articulation. Normal acromioclavicular joint. Normal acromion. Normal humeral head and visualized proximal humerus. The soft tissue structures are unremarkable. Normal visualized pulmonary apex. RAD/Shoulder min 2 Views IMPRESSION: There are no acute findings of the shoulder. Electronically Signed: Bruce Veloz MD at 16:14 EDT ,
== END | disposition home or self-care (01) ==
PROVIDERS: PCP Internal Medicine; Visit Provider Physician Assistant
DX: M25.511 Pain in right shoulder (principal)
CPT/HCPCS: 73030

== ENCOUNTER → 2022-08-01 | Outpatient (CLI) | payer OTHER, SELFPAY ==
--- NOTE | 2022-08-01 07:52 | BI_ITS ---
MAMMOGRAPHY - BILATERAL SCREENING 3-D TOMOSYNTHESIS REASON FOR EXAM: Female, 51 years old. SCREENING PERTINENT HISTORY: No significant family history. TECHNIQUE: 2-D mammograms and 3-D Tomosynthesis of the breast (s) were performed. CAD was performed. COMPARISON: 05/30/2021 FINDINGS: The breast composition is Extermely dense tissue. Scattered benign calcifications are seen. No dense spiculated masses or suspicious microcalcifications are identified. No architectural distortion is identified. There is no skin thickening or retraction. There has been no significant change since the prior study. BI/SCRN MAMM (CAD)W/FRIEDA BILAT IMPRESSION: No mammographic signs of malignancy. Routine yearly mammograms recommended. ASSESSMENT CATEGORY: BIRADS Category 1: Negative. A letter regarding these results will be sent to the patient by the facility within 30 days. FOLLOW UP RECOMMENDATION: Yearly follow up mammogram recommended. (A) Approximately 10% of breast cancers are not detected by mammography. A normal mammogram should not delay biopsy of a clinically suspicious abnormality. Electronically Signed: Nolberto Cali MD at 8:54 EDT ,
== END | disposition home or self-care (01) ==
LOC: OPBI 07:51
PROVIDERS: PCP Internal Medicine; Visit Provider Internal Medicine
DX: Z12.31 Encounter for screening mammogram for malignant neoplasm of breast (principal)
CPT/HCPCS: 77063; 77067

== ENCOUNTER → 2022-09-11 | Outpatient (CLI) | payer OTHER, SELFPAY ==
--- NOTE | 2022-09-11 08:40 | CYSPIN_PTH ---
PATIENT: SONIDO RONQUILLO LOC: [facility] U#:[id number] AGE/SX: 51/F ROOM: RE09/11/[address]: Dr. Jess Portillo MD : 1970 BED: DIS: 09/11/2022 SPEC #: [id number] RECD: 09/12/22 08:45 STATUS: BENI REAnuj #: [id number] CHARLIE: 09/11/22 08:[address]: Jess Portillo DEPT: CYTOLOGY RECD BY: Roula Wisdom ENTERED: 09/12/22 08:46 SP TYPE: CYSPIN FL OTHR DR: Dr. Sydney Calles, DO Tissues: Urine Procedures: Pap Stain (control) Special Stain Group II Cytospin Fluid HEADER OPERATION: Not noted PRE-OP DIAGNOSIS: Gross hematuria TISSUE SUBMITTED: Urine for cytology DIAGNOSIS CYTOLOGY Urine for cytology (cytospin): Negative for high-grade urothelial carcinoma (NHGUC), (Malena System Category II). AM:birgit 09/12/2022 COMMENT Abundant acute inflammatory cells are present. Clinical correlation is suggested. The Malena System for urine cytology diagnostic categorization was used in the evaluation of this case. CYTOLOGY STUDY Slides are reviewed. CYTOLOGY GROSS Received is 45 ml of yellow cloudy fluid labeled with the patient's name and and designated per the requisition as urine. Submitted for cytology preparation. / birgit 09/11/2022 TC:2 CPT: 57541
[2022-09-11 18:01] LABS: Cytology, Body Fluid / CSF SEE PATHOLOGY REPORT
== END | disposition home or self-care (01) ==
PROVIDERS: PCP Internal Medicine; Referring Provider Urology; Visit Provider Urology
DX: R31.0 Gross hematuria (principal)
CPT/HCPCS: 88108; 88313

== ENCOUNTER → 2022-11-30 | Outpatient (CLI) | payer OTHER, SELFPAY ==
[2022-11-30 08:51] LABS: Calcium,Total 9.1 mg/dL (8.5-10.1); T4 Free Direct 0.98 ng/dL (0.76-1.46); Thyroid Stim Hormone (TSH) 4.46 uIU/mL (0.358-3.74)
[2022-12-07 04:07] LABS: LDH 296 IU/L (119-226); LDH Fraction 1 6 % (17-32); LDH Fraction 2 20 % (25-40); LDH Fraction 3 67 % (17-27); LDH Fraction 5 7 % (4-20)
[2022-12-07 19:11] LABS: Interpretation Comment: (.)
== END | disposition home or self-care (01) ==
LOC: LAB 07:15
PROVIDERS: PCP Internal Medicine; Referring Provider Internal Medicine Endocrinology, Diabetes & Metabolism; Visit Provider Internal Medicine Endocrinology, Diabetes & Metabolism
DX: R74.02 Elevation of levels of lactic acid dehydrogenase [LDH] (principal); E83.52 Hypercalcemia
CPT/HCPCS: 36415; 82310; 83615; 83625; 84439; 84443

== ENCOUNTER → 2023-07-25 | Outpatient (CLI) | payer OTHER, SELFPAY ==
[2023-07-25 09:35] LABS: Vitamin D,25 Hydroxy 61.6 ng/mL
== END | disposition home or self-care (01) ==
LOC: LAB 07:32
PROVIDERS: PCP Internal Medicine; Referring Provider Internal Medicine; Visit Provider Internal Medicine
DX: E55.9 Vitamin D deficiency, unspecified (principal)
CPT/HCPCS: 36415; 82306

== ENCOUNTER → 2023-09-04 | Outpatient (CLI) | payer OTHER, SELFPAY ==
--- NOTE | 2023-09-04 10:12 | MRI_ITS ---
STUDY: BILATERAL BREAST MR WITHOUT AND WITH CONTRAST REASON FOR EXAM: Female, 52 years old. Monoallelic mutation of breast cancer gene. TECHNIQUE: Multi-sequence multi-echo imaging of both breasts was performed with a dedicated breast coil. T1-weighted and T2-weighted images were performed before the administration of contrast. T1-weighted images were also performed after the intravenous administration of 11ml of Clariscan contrast. COMPARISON: Bilateral mammograms dated August 01, 2022, May 30, 2021 and September 19, 2020. FINDINGS: RIGHT BREAST: Dense fibroglandular tissue with no significant background enhancement. No abnormal enhancing masses or areas of non-mass enhancement in the right breast. LEFT BREAST: Dense fibroglandular tissue with no significant background enhancement. No abnormal enhancing masses or areas of non-mass enhancement in the left breast. No enlarged or abnormal lymph nodes. No abnormality in the visualized regions of the chest or liver. MRI/Breast Bilateral W/O and W IMPRESSION: No abnormality on the bilateral breast MRI with contrast. Alternating bilateral mammogram with bilateral breast MRI with contrast the appropriate, given history. CATEGORY: BIRADS Category 2: Benign. A letter regarding these results will be sent to the patient by the facility within 30 days. Electronically Signed: Emmett Holly MD at 12:05 EDT ,
== END | disposition home or self-care (01) ==
LOC: MRI 10:03
PROVIDERS: PCP Internal Medicine; Referring Provider Internal Medicine; Visit Provider Internal Medicine
DX: Z15.01 Genetic susceptibility to malignant neoplasm of breast (principal); Z15.02 Genetic susceptibility to malignant neoplasm of ovary; Z15.09 Genetic susceptibility to other malignant neoplasm; Z15.89 Genetic susceptibility to other disease
CPT/HCPCS: 77049; A9575; A4216; C8908

== ENCOUNTER → 2023-10-23 | Outpatient (CLI) | payer OTHER, SELFPAY ==
[2023-10-23 10:04] LABS: T4 Free Direct 1.08 ng/dL (0.76-1.46); Thyroid Stim Hormone (TSH) 5.75 uIU/mL (0.358-3.74)
== END | disposition home or self-care (01) ==
LOC: LAB 07:55
PROVIDERS: PCP Internal Medicine; Referring Provider Internal Medicine Endocrinology, Diabetes & Metabolism; Visit Provider Internal Medicine Endocrinology, Diabetes & Metabolism
DX: E03.8 Other specified hypothyroidism (principal); E06.3 Autoimmune thyroiditis
CPT/HCPCS: 36415; 84439; 84443

== ENCOUNTER → 2024-01-16 | Outpatient (CLI) | payer OTHER, SELFPAY ==
[2024-01-16 07:57] LABS: Absolute Lymphocyte Count 2.51 X10^3/uL (0.83-4.51); Absolute Neutrophil Count 2.8 X10^3/uL (2.0-7.7); Basophil# 0.03 X10^3/uL; Basophil% 0.5 % (0-1); Eosinophil# 0.24 X10^3/uL; Hematocrit 42.8 % (37-47); Hemoglobin 14.2 g/dL (12.0-15.0); Lymphocyte # 2.51 X10^3/ul (0.83-4.51); Mean Corp Hgb Conc 33.2 g/dL (32-36); Mean Corpuscular Hgb 28.2 pg (27.0-32.0); Mean Corpuscular Volume 85.1 fL (81-99); Mean Platelet Vol. 10.3 fl (6.2-12.0); Monocyte% 6.7 % (0-10); NRBC Flagged by Analyzer 0 % (0-5); Neutrophil # 2.78 X10^3/uL (2.7-7.7); Neutrophil % 46.5 % (47-70); Platelet Count 226 K/mm3 (150-450); RBC Distribution Width CV 12.4 % (11.6-14.6); RBC Distribution Width SD 38.4 fl (35.1-43.9); Red Blood Count 5.03 M/mm3 (4.2-5.4)
[2024-01-16 08:57] LABS: ALB/GLOB Ratio 1.2 RATIO (0.9-2.4); AST(SGOT) 26 U/L (15-37); Alanine Aminotransfer ALT/SGPT 31 U/L (13-56); Albumin, Serum 4.2 g/dL (3.2-5.0); Alkaline Phosphatase 60 U/L (45-117); Anion Gap 6 (5-15); BUN 23 mg/dL (7-18); BUN/Creat Ratio 27.8 RATIO (10-20); Calcium,Total 9.5 mg/dL (8.5-10.1); Chloride 106 mmol/L (98-107); Cholesterol 221 mg/dL (200); Creatinine, Serum 0.83 mg/dL (0.55-1.02); EST Glomerular Filtration Rate 77 mL/min (>60); Est Glom Filt Rate - Afr Amer 93 mL/min (>60); Free T3 2.2 pg/mL (2.18-3.98); Globulin 3.4 g/dL (2.2-4.2); Glucose 92 mg/dL (74-106); High Density Lipoprotein 72 mg/dL; Potassium 3.6 mmol/L (3.5-5.1); Protein, Total 7.6 g/dL (6.4-8.2); Sodium Level 140 mmol/L (136-145); T4 Free Direct 1.12 ng/dL (0.76-1.46); Thyroid Stim Hormone (TSH) 1.02 uIU/mL (0.358-3.74); Triglycerides 77 mg/dL; Very Low Density Lipoprotein 15 mg/dL (5-40)
[2024-01-17 12:09] LABS: ANTINUCLEAR ANTIBODIES DIRECT Negative (Negative); SJOGREN'S Anti-SS-A test < 0.2 AI (0.0-0.9); SJOGREN'S Anti-SS-B test < 0.2 AI (0.0-0.9)
== END | disposition home or self-care (01) ==
LOC: LAB.FUTURE 07:36 → LAB 07:40
PROVIDERS: PCP Internal Medicine; Visit Provider Internal Medicine
DX: H04.129 Dry eye syndrome of unspecified lacrimal gland (principal); E55.9 Vitamin D deficiency, unspecified; E03.9 Hypothyroidism, unspecified; Z13.220 Encounter for screening for lipoid disorders
CPT/HCPCS: 36415; 80053; 80061; 82306; 84439; 84443; 84481; 85025; 86038; 86235

== ENCOUNTER → 2024-04-09 | Outpatient (CLI) | payer OTHER, SELFPAY ==
--- NOTE | 2024-04-09 07:48 | US_ITS ---
INDICATION: Pelvic pain in female EXAMINATION: Ultrasound US Pelvis Non OB Complete With Transvaginal Imaging TECHNIQUE: Transabdominal and transvaginal pelvic ultrasound was performed. Grayscale, spectral waveform, and color flow Doppler evaluation of the adnexa. COMPARISON: None. FINDINGS: UTERUS: Anteverted. The uterus measures 9.3 cm in length.. There is a small fibroid in the lower uterine segment. The endometrial stripe measures 4 mm in AP diameter which is within normal limits. RIGHT OVARY: Measures 2 x 1.4 x 1.4 cm. Non-enlarged, normal echogenicity. There is normal arterial inflow and venous outflow present in the right ovary. LEFT OVARY: Measures 1.9 x 1.4 x 1.5 cm. Non-enlarged, normal echogenicity. There is normal arterial inflow and venous outflow present in the left ovary. FREE FLUID: None. US/Pelvic w/ Transvaginal IMPRESSION: Fibroid uterus. Normal bilateral ovaries. Electronically Signed: Mich Winchester MD at 23:04 EDT ,
== END | disposition home or self-care (01) ==
LOC: US 07:47
PROVIDERS: PCP Internal Medicine; Referring Provider Internal Medicine; Visit Provider Internal Medicine
DX: R10.2 Pelvic and perineal pain (principal)
CPT/HCPCS: 76830; 76856

== ENCOUNTER → 2024-04-23 | Outpatient (CLI) | payer OTHER, SELFPAY ==
[2024-04-23 07:48] LABS: Bacteria 0 SEEN /hpf (None Seen); Mucous, Urine 0 SEEN /hpf (<or=2+); Red Blood Cells-Urine 0 SEEN /hpf (0-5)
[2024-04-23 08:53] LABS: Absolute Lymphocyte Count 2.31 X10^3/uL (0.83-4.51); Absolute Neutrophil Count 4.1 X10^3/uL (2.0-7.7); Basophil# 0.05 X10^3/uL; Basophil% 0.7 % (0-1); Eosinophil# 0.19 X10^3/uL; Eosinophils% 2.6 % (0-5); Hematocrit 43.3 % (37-47); Lymphocyte # 2.31 X10^3/ul (0.83-4.51); Lymphocyte % 31.6 % (19-41); Mean Corp Hgb Conc 32.3 g/dL (32-36); Mean Corpuscular Hgb 28.2 pg (27.0-32.0); Mean Corpuscular Volume 87.3 fL (81-99); Mean Platelet Vol. 10.3 fl (6.2-12.0); Monocyte% 8.2 % (0-10); NRBC Flagged by Analyzer 0 % (0-5); Neutrophil # 4.13 X10^3/uL (2.7-7.7); Neutrophil % 56.4 % (47-70); Platelet Count 260 K/mm3 (150-450); RBC Distribution Width CV 12.6 % (11.6-14.6); Red Blood Count 4.96 M/mm3 (4.2-5.4); White Blood Count 7.3 K/mm3 (4.4-11.0)
[2024-04-23 09:10] LABS: Color, Urine Yellow (Yellow); Glucose, Dipstick Normal (Normal); Ketone-Dipstick Negative (Negative); Leukocyte Esterase-Dipstick 25 /ul (Negative); Nitrite-Dipstick Negative (Negative); Occult Blood-Urine Negative /ul (Negative); Protein-Dipstick 15 mg/dl (Negative); Urine Bilirubin Dipstick Negative (Negative); Urine Clarity Clear (Clear); Urine Urobilinogen Normal (Normal)
[2024-04-23 09:24] LABS: ALB/GLOB Ratio 1.1 RATIO (0.9-2.4); AST(SGOT) 27 U/L (15-37); Alanine Aminotransfer ALT/SGPT 40 U/L (13-56); Alkaline Phosphatase 67 U/L (45-117); Anion Gap 7 (5-15); BUN 25 mg/dL (7-18); BUN/Creat Ratio 30.6 RATIO (10-20); Calcium,Total 9.3 mg/dL (8.5-10.1); Chloride 105 mmol/L (98-107); Creatinine, Serum 0.82 mg/dL (0.55-1.02); EST Glomerular Filtration Rate 78 mL/min (>60); Est Glom Filt Rate - Afr Amer 94 mL/min (>60); Globulin 3.5 g/dL (2.2-4.2); Glucose 96 mg/dL (74-106); Potassium 3.8 mmol/L (3.5-5.1); Protein, Total 7.5 g/dL (6.4-8.2); Sodium Level 138 mmol/L (136-145); Thyroid Stim Hormone (TSH) 8.58 uIU/mL (0.358-3.74)
[2024-04-23 09:39] LABS: White Blood Cells 5-10 SEEN /hpf (0-5)
[2024-04-23 09:40] LABS: Squamous Epithelial Cells - UA 0-5 SEEN /hpf (5-10)
== END | disposition home or self-care (01) ==
LOC: LAB 07:34
PROVIDERS: PCP Internal Medicine; Referring Provider Internal Medicine; Visit Provider Internal Medicine
DX: I49.9 Cardiac arrhythmia, unspecified (principal)
CPT/HCPCS: 36415; 80053; 81001; 84443; 85025

== ENCOUNTER → 2024-06-03 | Outpatient (CLI) | payer OTHER, SELFPAY ==
[2024-06-03 09:10] LABS: Thyroid Stim Hormone (TSH) 1.33 uIU/mL (0.358-3.74)
== END | disposition home or self-care (01) ==
LOC: LAB 07:29
PROVIDERS: PCP Internal Medicine; Visit Provider Internal Medicine
DX: E03.9 Hypothyroidism, unspecified (principal)
CPT/HCPCS: 36415; 84443

== ENCOUNTER → 2024-08-06 | Outpatient (CLI) | payer OTHER, SELFPAY ==
--- NOTE | 2024-08-06 08:02 | ECHOD_ITS ---
Reason For Study: ATRIAL FIBRILLATION Procedure This was a 2D Doppler, Color Flow transthoracic echocardiogram. Exam performed in department. Left Ventricle Normal LV size. Left ventricular systolic function is normal. The left ventricular ejection fraction is 65 %. No regional wall motion abnormalities noted. Right Ventricle Normal RV size. Normal systolic function. Atria Normal left atrium. Normal right atrium. Mitral Valve Bileaflet diffuse mitral valve thickening. Equivocal mitral valve prolapse. Tricuspid Valve Normal tricuspid valve. Mild tricuspid valve insufficiency. Pulmonary artery systolic pressure is 22 mmHg. Aortic Valve Normal aortic valve. Trisinus/trileaflet aortic valve. Pulmonic Valve Normal pulmonic valve. Great Vessels Normal aortic root. The pulmonary artery is normal size. Inferior vena cava collapse with respiration. Pericardium/Pleural No pericardial effusion. MMode/2D Measurements & Calculations LVIDd: 3.5 cm IVSd: 0.77 cm LVOT diam: 1.9 cm LVIDs: 2.3 cm LVPWd: 0.78 cm LVOT area: 2.9 cm2 RVDd: 3.1 cm FS: 35.2 % LAV(MOD-bp): 27.4 ml LVAd ap4: 22.6 cm2 LVAd ap2: 22.3 cm2 LAV(MOD-bp) Indexed: 16.5 ml/m2 LVLd ap4: 7.2 cm LVLd ap2: 7.1 cm LAV(MOD-sp2): 30.6 ml EDV(MOD-sp4): 58.4 ml EDV(MOD-sp2): 56.6 ml LAV(MOD-sp4): 24.3 ml EDV(sp4-el): 60.3 ml EDV(sp2-el): 59.2 ml LVAs ap4: 11.8 cm2 LVAs ap2: 11.8 cm2 LVLs ap4: 6.2 cm LVLs ap2: 6.1 cm ESV(MOD-sp4): 19.1 ml ESV(MOD-sp2): 18.7 ml ESV(sp4-el): 19.1 ml ESV(sp2-el): 19.4 ml EF(MOD-sp4): 67.3 % EF(MOD-sp2): 67.0 % EF(sp4-el): 68.3 % SV(MOD-sp4): 39.3 ml SV(MOD-sp2): 38.0 ml SV(sp4-el): 41.1 ml Ao sinus diam: 2.[address] Junction: 2.3 cm LA A4 area: 12.1 cm2 LA dimension(2D): 2.7 cm RA A4 area: 10.4 cm2 TAPSE: 1.8 cm Time Measurements MV dec time: 0.20 sec Doppler Measurements & Calculations MV E max german: 83.0 cm/sec Lat Peak E' German: 12.3 cm/sec Med Peak E' German: 12.2 cm/sec MV A max german: 49.6 cm/sec E/E' lat: 6.7 E/E' med: 6.8 MV E/A: 1.7 Ao V2 max: 121.0 cm/sec LV V1 max: 94.7 cm/sec MV dec slope: 422.4 cm/sec2 Ao max P.9 mmHg LV V1 max P.6 mmHg Ao V2 mean: 79.6 cm/sec LV V1 mean P.9 mmHg Ao mean P.9 mmHg LV V1 mean: 63.9 cm/sec Ao V2 VTI: 30.2 cm LV V1 VTI: 23.3 cm AV (velocity ratio): 0.77 MAGDALENO(I,D): 2.2 cm2 MAGDALENO(V,D): 2.2 cm2 SV(LVOT): 66.9 ml PA V2 max: 53.8 cm/sec TR max german: 213.1 cm/sec PA max PG (full): 0.23 mmHg TR max P.2 mmHg ECHO/Echo Complete Interpretation Summary Normal LV size. Left ventricular systolic function is normal. The left ventricular ejection fraction is 65 %. Mild tricuspid valve insufficiency. Equivocal mitral valve prolapse. Ordering Physician: Carlos Allen Referring Physician: Sydney Calles M.D. Performed By: Tere Taylor RDCS
== END | disposition home or self-care (01) ==
LOC: CVS 08:01
PROVIDERS: PCP Internal Medicine; Referring Provider Internal Medicine Cardiovascular Disease; Visit Provider Internal Medicine Cardiovascular Disease
DX: I48.0 Paroxysmal atrial fibrillation (principal)
CPT/HCPCS: 93306

== ENCOUNTER → 2024-08-13 | Outpatient (CLI) | payer OTHER, SELFPAY ==
[2024-08-18 14:09] LABS: HPV APTIMA, High Risk Negative (Negative)
== END | disposition home or self-care (01) ==
LOC: LABSPEC 10:24
PROVIDERS: PCP Internal Medicine; Referring Provider Nurse Practitioner Women's Health; Visit Provider Nurse Practitioner Women's Health
DX: Z12.4 Encounter for screening for malignant neoplasm of cervix (principal)
CPT/HCPCS: 87624; 88175; G0145

== ENCOUNTER → 2024-09-08 | Outpatient (CLI) | payer OTHER, SELFPAY ==
--- OUTSIDE RECORDS SUMMARY | 2024-09-08 07:35 | XMS RPT_ITS | CCD ---
Author Organization [facility] Inform ion Partnership [facility] Care Team Providers Care Heating And Ventilation Engineer Name Role Phone Sydney Calles Unavailable Larry Middleton Unavailable Christophe Dobbins Unavailable Sophia Macdonald Unavailable Patric Cervantes Unavailable Sophia Keith Unavailable Shital Humphrey Unavailable Kip Garcia Unavailable Unavailable Melody Block Unavailable ManMira elisesea Unavailable Unavailable Daylin, gilda Unavailable Unavailable Fabiola Fishman L Unavailable Unavailable Unavailable Unavailable Kd Walton Unavailable GravSelina ochoa Unavailable Unavailable Trudy Miller Unavailable Unavailable Sophia Macdonald Unavailable [phone] Roger Chi Unavailable Mignon Rodriguez Unavailable Unavailable Kip Garcia Unavailable Unavailable Muoh, Whitley Unavailable Kip Polo Unavailable Unavailable Madhav Haley Unavailable Franklin Lamar Unavailable Sydney Calles DO Unavailable Dr. Larry Middleton Unavailable Muoh DO, Whitley Unavailable Franklin Lamar Unavailable Christophe Dobbins MD Unavailable Sophia Macdonald Unavailable Sudha VICENTE, Madhav Kelly Unavailable [phone] Kd Walton Unavailable Patric Cervantes DO Unavailable Sagar VICENTE, Dr. Sophia Adorno Unavailable [phone] Roger Chi Unavailable ShadyShital baires Unavailable Christ CHIEF CARDIOPULMONARY TECHNOLOGIST, Kip Unavailable Unavailable Ciesa SANITIZER, Ana Maria Unavailable [place]ichael CHIEF CARDIOPULMONARY TECHNOLOGIST, Mignon Unavailable Unavailable Daylin, gilda Unavailable Unavailable Unavailable Unavailable Ricky CHIEF CARDIOPULMONARY TECHNOLOGIST, Julia Unavailable Unavailable Gravius GRINDER MACHINE KNIFE SETTER, Selina Unavailable Unavailable Martín Salas Unavailable Sydney Calles DO Unavailable Jess Portillo Unavailable Ciesa Melody Unavailable Angelica Garcia Unavailable Unavailable Estela Lin Unavailable Unavailable Citara Melody Unavailable Christiano Craig Unavailable [place], [facility] [place] Unavailable BING ZELAYA Attending Unavailable REFERRED, SELF Referring Unavailable ESTELA LIN Referring Unavailable BING ZELAYA Attending Unavailable [facility], [facility] [place] Unavailable UBALDO COREA Referring Unavailable UBALDO COREA Attending Unavailable DOC, [facility] [place] [facility] Care Unavailable Manarik MCCAIN, Tiffany Unavailable Unavailable AnkitSydney little DO Attending Unavailable AnkitSydney little DO Referring Unavailable AnkitSydney little DO Consulting Unavailable Edwige Kingsley MA Unavailable Unavailable [place] CHIEF CARDIOPULMONARY TECHNOLOGIST, Reinaldo Unavailable Unavailable Allergies Allergy Classification Reported Allergen(s) Allergy Type Date of Onset Reaction(s) Facility (18 sources) Sulfamethoxazole / Trimethoprim; Translations: [Bactrim *ANTI-INFECTIVE AGENTS - [facility] [place]] Drug Allergy Abdominal pain [facility] Work Phone: Comment on above: near syncope Medications Completed/Discontinued Medications Medication Drug Class(es) Dates Sig (Normalized) Sig (Original) acetaminophen 325 mg / HYDROcodone bitartrate 5 mg oral tablet (20 sources) Opioid Agonist Start: 04-05-2023 End: 05-05-2023 HYDROcodone-acetam inophen 5-325 mg oral tablet 1 or 2 Tablet Q 4-6 H PRN arthritic pain for 30 days Quantity: 30 {Tablet} Refills: 0 Ordered: 05-Apr-2023 Sydney Calles DO, DO, Kathleen Start : 05-Apr-2023 End : 05-May-2023 Inactive Comments: thirtyoars rev Start: 05-22-2022 End: 06-21-2022 HYDROcodone-Acetaminophen 5- 325 MG Oral Tablet 1 or 2 Tablet Q 4-6 H PRN for 30 days Quantity: 30 {Tablet} Refills: 0 Ordered: 22-May-2022 Sydney Calles DO, DO, Kathleen Start : 22-May-2022 End : 21-Jun-2022 Inactive Comments: thirty Start: 05-01-2022 HYDROcodone-Ac etaminophen 5-325 MG Oral Tablet 1 or 2 Tablet Q 4-6 H PRN for 30 days Quantity: 30 {Tablet} Refills: 0 Ordered: 01-May-2022 Selina Stout CMA Start : 01-May-2022 Active Comments: thirty Start: 07-30-2020 End: 10-28-2020 take 1 tablet by mouth every six hours as needed HYDROcodone-Acetaminophen 5-325 MG Oral Tablet 1 (one) Tablet q 6hrs, prn arthritic flare for 90 days Quantity: 20 {Tablet} Refills: 0 Ordered: 30-Jul-2020 Kip Polo LPN Start : 30-Jul-2020 End : 28-Oct-2020 Inactive Comments: [id number] Start: 07-30-2020 End: 08-29-2020 Vicodin 5-500 MG Oral Tablet 1 or 2 Tablet Q 4-6 H PRN for 30 days Quantity: 30 {Tablet} Refills: 0 Ordered: 30-Jul-2020 Sydney Calles DO, DO, Kathleen Start : 30-Jul-2020 End : 29-Aug-2020 Inactive Comments: thirty Start: 06-07-2018 End: 06-14-2018 take 1 tablet by mouth every six hours as needed Bulpitt 5-325 MG Oral Tablet 1 (one) Table t q 6 hr prn for 7 days Quantity: 28 {Tablet} Refills: 0 Ordered: 07-Jun-2018 Sydney Calles DO, DO, Kathleen Start : 07-Jun-2018 End : 14-Jun-2018 Inactive Comments: satya [id number] Start: 06-07-2015 End: 07-07-2015 take 1 tablet by mouth every six hours as needed HYDROCODONE-ACETAMINOPHEN, 5-325MG (Oral Tablet) 1 (one) Tablet q 6hrs, prn for 30 days Quantity: 60 {Tablet} Refills: 0 Ordered: 07-Jun-2015 Mita Almeida DO Start : 07-Jun-2015 End : 07-Jul-2015 Inactive Comments: tiana Start: 03-08-2012 End: 04-07-2012 VICODIN, 5-500MG (Oral Table t) 1 or 2 Tablet Q 4-6 H PRN for 30 days Quantity: 30 {Tablet} Refills: 0 Ordered: 08-Mar-2012 Bing Goddard Start : 08-Mar-2012 End : 07-Apr-2012 Inactive Comments: thirty Comment on above: satya [id number] thirty sixty [id number] thirtyoars rev acyclovir 800 mg oral tablet (20 sources) Herpesvirus Nucleoside Analog DNA Polymerase Inhibitor, Herpes Simplex Virus Nucleoside Analog DNA Polymerase Inhibitor, Herpes Zoster Virus Nucleoside Analog DNA Polymerase Inhibitor Start: 08-12-20 14 End: 08-19-20 14 take 1 tablet by mouth once daily ACYCLOVIR, 800MG (Oral Tablet) 1 (one) Tablet 5x day for 7 days Quantity: 35 {Tablet} Refills: 0 Ordered: 25-Aug-2014 Mckayla Melody Start : 12-Aug-2014 End : 19-Aug-2014 Inactive Comments: Per ER Dr. Craig Comment on above: Per ER Dr. 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 Comment on above: Oarrs run anxiety F4 1.910 ten amoxicillin 875 mg / clavulanate 125 mg oral tablet (20 sources) Penicillin-class Antibacterial Start: 03-08-20 12 End: 06-20-20 12 take 1 tablet by mouth twice daily AUGMENTIN, 875-125MG (Oral Tablet) 1 Tablet Twice daily for 0 days Quantity: 28 {Tablet} Refills: 0 Ordered: 08-Mar-2012 Mast Kiarra AMANDA Start : 08-Mar-2012 End : 20-Jun-2012 Discontinued azithromycin 250 mg oral tablet (20 sources) Macrolide Antimicrobial Start: 02-06-20 07 End: 05-29-20 07 ZITHROMAX Z-EMELY, 250MG (Oral Tablet) Tablet as directed for 0 days Refills: 0 Ordered: 05-Feb-2007 Anayeli Akers Start : 05-Feb-2007 End : 29-May-2007 Discontinued B12 (20 sources) B12 1000mcg Inac tive B12 1000mcg Acti ve CA (20 sources) CA 750mg Inactiv e CA 750mg Active celecoxib 200 mg oral capsule (20 sources) Nonsteroidal Anti-inflammatory Drug Start: 07-30-2013 End: 07-30-2013 take 2 capsules by mouth once daily as needed CELEBREX, 200MG (Oral Capsule) 2 (two) Capsule daily prn for 30 days Quantity: 60 {Capsule} Refills: 3 Ordered: 30-Jul-2013 Mita Almeida DO Start : 30-Jul-2013 End : 30-Jul-2013 Discontinued cetirizine hydrochloride 10 mg oral tablet (20 sources) Histamine-1 Receptor Antagonist ZyrTEC Allergy 10 MG Oral Tablet (10 MG) Active cholecalciferol 0.125 mg oral tablet (20 sources) Vitamin D Start: 03-11-2019 take 1 tablet by mouth once daily Vitamin D-3 5000 UNIT Oral Tablet 1 (one) Tablet daily for 0 days Quantity: 30 {Tablet} Refills: 3 Ordered: 11-Mar-2019 Trudy Miller Start : 11-Mar-2019 Active cyclobenzaprine hydrochloride 10 mg oral tablet (20 sources) Muscle Relaxant Start: 04-28-2019 End: 08-01-2019 take 1 tablet by mouth every eight hours as needed Cyclobenzaprine HCl 10 MG Oral Tablet 1 (one) Tablet q8hrs prn for muscle relaxation for 0 days Quantity: 30 {Tablet} Refills: 0 Ordered: 01-Aug-2019 Kip Polo LPN Start : 28-Apr-2019 End : 01-Aug-2019 Inactive Start: 07-26-2010 End: 09-27-2011 take 1 tablet by mouth once daily at bedtime as needed FLEXERIL, 10MG (Oral Tablet) 1 (one) Tablet 1 qhs prn for 0 days Quantity: 30 {Tablet} Refills: 0 Ordered: 27-Sep-2011 Luba Gil LPN Start : 26-Jul-2010 End : 27-Sep-2011 Inactive cycloSPORINE 0.5 mg/ml ophthalmic suspension (20 sources) Calcineurin Inhibitor Immunosuppressant End: 09-11-2011 RESTASIS, 0.05% (Ophthalmic Emulsion) 1 gtt bid for 0 days Refills: 0 Ordered: 11-Sep-2011 Luba Gil LPN End : 11-Sep-2011 Inactive End: 09-11-2011 RESTASIS, 0.05% (Ophthalmic Emulsion) 1 gtt bid for 0 days Refills: 0 Ordered: 11-Sep-2011 Luba Gil LPN End : 11-Sep-2011 Inactive D3 (20 sources) D3 5000iu Inacti ve D3 5000iu Active ORTHO TRI-CYCLEN LO, 0.025MG (Oral Tablet) (20 sources) Progestin, Estrogen take 1 tablet by mouth once daily ORTHO TRI-CYCLEN LO, 0.025MG (Oral Tablet) 1 QD for 0 days Refills: 0 Ordered: 21-Jan-2010 Anayeli Akers Inactive fluconazole 150 mg oral tablet (20 sources) Azole Antifungal Start: 07-30-20 13 End: 07-30-20 13 DIFLUCAN, 150MG (Oral Tablet) uad Tablet 1 today may repeat x1 if needed for 0 days Quantity: 2 {Tablet} Refills: 0 Ordered: 30-Jul-2013 Mita Almeida DO Start : 30-Jul-2013 End : 30-Jul-2013 Discontinued gabapentin 300 mg oral capsule (20 sources) Anti-epileptic Agent Start: 08-12-20 14 End: 03-11-20 15 GABAPENTIN, 300MG (Oral Capsule) 1 (one) Capsule Capsule start one daily can increase to 1 bid for 0 days Quantity: 60 {Capsule} Refills: 0 Ordered: 11-Mar-2015 Tierra Alegria RN Start : 12-Aug-2014 End : 11-Mar-2015 Inactive 12 hr guaiFENesin 1200 mg extended release oral tablet (20 sources) Start: 07-05-20 09 End: 09-11-20 11 take 1 tablet by mouth every twelve hours as needed MUCINEX MAXIMUM STRENGTH, 1200MG (Oral Tablet Extended Release 12 Hour) 1 (one) Tablet ER 12HR prn for 0 days Quantity: 30 {Tablet_ER_12HR} Refills: 3 Ordered: 11-Sep-2011 Jeffery NANCYLuba Start : 05-Jul-2009 End : 11-Sep-2011 Inactive halobetasol propionate 0.5 mg/ml topical cream (20 sources) Corticosteroid Start: 06-03-20 14 End: 02-06-20 17 Ultravate 0.05 % External Cream apply Cream to effected area, prn for 0 days Quantity: 60 {Cream} Refills: 2 Ordered: 05-Feb-2017 Tierra Alegria RN Start : 03-Jun-2014 End : 05-Feb-2017 Inactive Comments: 60gram tube Comment on above: 60gram tube levothyroxine sodium 0.112 mg oral tablet (20 sources) l-Thyroxine Start: 05-01-20 22 Synthroid 112 MCG Oral Tablet 1 Tablet one daily except 1/2 tab on sundays for 30 days Quantity: 30 {Tablet} Refills: 3 Ordered: 01-May-2022 Sydney Calles DO, DO, Kathleen Start : 01-May-2022 Active Dispense as Written Comments: GLENN Start: 07-29-2021 take 1 tablet by sandra th once daily Synthroid 112 MCG Oral Tablet 1 Tablet one daily for 30 days Quantity: 30 {Tablet} Refills: 3 Ordered: 29-Jul-2021 Sydney Calles DO, DO, Kathleen Start : 29-Jul-2021 Active Dispense as Written Comments: GLENN Start: 07-30-2020 take 1 tablet by sandra th once daily Synthroid 112 MCG Oral Tablet 1 Tablet one daily for 90 days Quantity: 90 {Tablet} Refills: 3 Ordered: 30-Jul-2020 Sydney Calles DO, DO, Kathleen Start : 30-Jul-2020 Active Dispense as Written Comments: GLENN Start: 10-13-2019 take 1 tablet by sandra th once daily Synthroid 150 MCG Oral Tablet 1 Tablet one daily except Sunday for 90 days Quantity: 90 {Tablet} Refills: 3 Ordered: 13-Oct-2019 Sydney Calles DO, DO, Kathleen Start : 13-Oct-2019 Active Dispense as Written Comments: GLENN Start: 08-01-2019 take 1 tablet by sandra th once daily Synthroid 150 MCG Oral Tablet 1 Tablet one daily except Sunday for 90 days Quantity: 90 {Tablet} Refills: 3 Ordered: 01-Aug-2019 Melody Block CNP Start : 01-Aug-2019 Active Dispense as Written Comments: GLENN Start: 06-25-2019 take 1 tablet by snadra th once daily Synthroid 150 MCG Oral Tablet 1 Tablet daily for 90 days Quantity: 90 {Tablet} Refills: 3 Ordered: 25-Jun-2019 Sydney Calles DO, DO, Kathleen Start : 25-Jun-2019 Active Dispense as Written Comments: GLENN Start: 05-07-2019 take 1 tablet by sandra th once daily Synthroid 150 MCG Oral Tablet 1 Tablet 1 daily and none on sun and Sunday for 90 days Quantity: 90 {Tablet} Refills: 3 Ordered: 07-May-2019 Rosyalexjuan MEDNIAMelody Start : 07-May-2019 Active Dispense as Written Comments: GLENN Start: 08-09-2018 take 1 tablet by sandra th once daily Synthroid 150 MCG Oral Tablet 1 Tablet qd and none sat and sun for 90 days Quantity: 90 {Tablet} Refills: 3 Ordered: 09-Aug-2018 Sydney Calles DO, DO, Kathleen Start : 09-Aug-2018 Active Dispense as Written Comments: GLENN Start: 03-08-2012 End: 03-08-2012 take 2 tablets by mouth once daily SYNTHROID, 75MCG (Oral Tablet) 2 (two) Tablet qd- pt adjusted this on her own for 0 days Quantity: 102 {Tablet} Refills: 3 Ordered: 08-Mar-2012 Mita Almeida DO Start : 08-Mar-2012 End : 08-Mar-2012 Discontinued Comments: No generic Dispense as written Comment on above: No generic Dispense as written GLENN lidocaine 0.05 mg/mg medicated patch (20 sources) Antiarrhythmic, Amide Local Anesthetic Start: 01-22-20 10 End: 09-27-20 11 apply 1 dose transdermal route every twelve hours as needed LIDODERM, 5% (External Patch) 1 (one) Patch q 12 hours prn for 0 days Quantity: 1 {box} Refills: 2 Ordered: 27-Sep-2011 Luba Gil LPN Start : 21-Jan-2010 End : 27-Sep-2011 Inactive liothyronine sodium 0.005 mg oral tablet (20 sources) l-Triiodothyronine Start: 05-01-20 End: 05-01-20 Liothyronine Sodium 5 MCG Oral Tablet 1/2 Tablet 4 days a week for 0 days Quantity: 32 {Tablet} Refills: 0 Ordered: 01-May-2022 Sydney Calles DO, DO, Kathleen Start : 01-May-2022 End : 01-May-2022 Discontinued Start: 05-13-2021 Liothyronine S odium 5 MCG Oral Tablet 1/2 Tablet 4 days a week for 0 days Quantity: 32 {Tablet} Refills: 0 Ordered: 13-May-2021 Jennifer CRUZMignon Start : 13-May-2021 Active metaxalone 800 mg oral tablet (20 sources) Start: 01-15-2017 End: 12-27-2017 take 1 tablet by mouth three times daily as needed Skelaxin 800 MG Oral Tablet 1 (one) Tablet Tablet tid/prn for 0 days Quantity: 30 {Tablet} Refills: 0 Ordered: 27-Dec-2017 Tiffany Alfred CMA Start : 15-Jan-2017 End : 27-Dec-2017 Inactive mometasone furoate 0.05 mg/actuat metered dose nasal spray (20 sources) Corticosteroid Start: 05-29-2007 End: 07-25-2007 NASONEX, 50MCG/ACT (Nasal Suspension) 2 (two) Suspension Daily for 0 days Refills: 0 Ordered: 29-May-2007 Anayeli Akers Start : 29-May-2007 End : 25-Jul-2007 Discontinued Multivitamins Oral Capsule (20 sources) Multivitamins Or al Capsule Active naproxen 500 mg delayed release oral tablet (20 sources) Nonsteroidal Anti-inflammatory Drug Start: 05-07-2019 End: 06-06-2019 take 1 tablet by mouth twice daily at mealtime Naproxen DR 500 MG Oral Tablet Delayed Release 1 (one) Tablet bid for 30 days Quantity: 60 {Tablet} Refills: 0 Ordered: 07-May-2019 Melody Block Start : 07-May-2019 End : 06-Jun-2019 Inactive Comments: with food Start: 07-30-2013 End: 07-30-2013 take 1 tablet by mouth twice daily NAPROXEN SODIUM, 550MG (Oral Tablet) 1 (one) Tablet bid for 0 days Quantity: 60 {Tablet} Refills: 4 Ordered: 30-Jul-2013 Mita Almeida DO Start : 30-Jul-2013 End : 30-Jul-2013 Discontinued Comment on above: with food ondansetron 8 mg oral tablet (20 sources) Serotonin-3 Receptor Antagonist Start: 12-27-19 18 End: 06-07-20 18 take 1 tablet by mouth every eight hours Ondansetron HCl 8 MG Oral Tablet 1 (one) Tablet PO Q 8hrs for 0 days Quantity: 5 {Tablet} Refills: 0 Ordered: 07-Jun-2018 Fabiola Fishman RN Start : 27-Dec-2017 End : 07-Jun-2018 Inactive 12 hr orphenadrine citrate 100 mg extended release oral tablet (20 sources) Muscle Relaxant Start: 06-23-20 08 End: 01-22-20 10 NORFLEX, 100MG (Oral Tablet Extended Release 12 Hour) 1 (one) Tablet ER 12HR BID for 0 days Quantity: 20 {Tablet_ER_12HR} Refills: 0 Ordered: 23-Jun-2008 Anayeli Akers Start : 23-Jun-2008 End : 21-Jan-2010 Discontinued Comments: This order discontinued per [facility]. Comment on above: This order discontin ued per [facility]. microencapsulated potassium chloride 20 meq extended release oral tablet (20 sources) Start: 03-08-20 12 End: 03-08-20 12 take 1 tablet by mouth once daily KLOR-CON M20, 20MEQ (Oral Tablet Extended Release) 1 Tablet ER daily for 0 days Quantity: 30 {Tablet_ER} Refills: 0 Ordered: 08-Mar-2012 Bing Goddard Start : 08-Mar-2012 End : 08-Mar-2012 Discontinued predniSONE 10 mg oral tablet (20 sources) Start: 05-07-20 19 End: 08-01-20 19 predniSONE 10 MG Oral Tablet 1 (one) Tablet 3 daily x 3 days, 2 daily x 3 days, 1 daily x3 days for 0 days Quantity: 18 {Tablet} Refills: 0 Ordered: 01-Aug-2019 Kip Polo LPN Start : 07-May-2019 End : 01-Aug-2019 Inactive Comments: WIth food Start: 08-12-2014 End: 08-17-2014 take 2 tablets by mouth once daily PREDNISONE, 20MG (Oral Tablet) 2 (two) Tablet daily for 5 days Quantity: 10 {Tablet} Refills: 0 Ordered: 25-Aug-2014 Melody Block Start : 12-Aug-2014 End : 17-Aug-2014 Inactive Comments: Per ER Dr Craig Comment on above: Per ER Dr Craig WIth food terbinafine 250 mg oral tablet (20 sources) Allylamine Antifungal Start: 4 End: 7 take 1 tablet by mouth once daily LamISIL 250 MG Oral Tablet 1 (one) Tablet Tablet qd for 0 days Quantity: 30 {Tablet} Refills: 2 Ordered: 05-Feb-2017 Tierra Alegria RN Start : 03-Jun-2014 End : 05-Feb-2017 Inactive traMADol hydrochloride 50 mg oral tablet (20 sources) Opioid Agonist Start: 5 End: 7 Ultram 50 MG Oral Tablet 1 tab Tablet q 6hrs, prn for 0 days Quantity: 30 {Tablet} Refills: 0 Ordered: 05-Feb-2017 Tierra Alegria RN Start : 05-Mar-2015 End : 05-Feb-2017 Inactive Comments: thirty Comment on above: thirty triamcinolone acetonide 0.055 mg/actuat metered dose nasal spray (20 sources) Corticosteroid Start: 7 NASACORT AQ, 55MCG/ACT (Nasal Aerosol Solution) 2 (two) sprays Daily for 0 days Refills: 0 Ordered: 21-Jan-2010 Anayeli Akers Start : 25-Jul-2007 Inactive Start: 07-25-2007 NASACORT AQ, 5 5MCG/ACT (Nasal Aerosol Solution) 2 (two) sprays Daily for 0 days Refills: 0 Ordered: 21-Jan-2010 Anayeli Akers Start : 25-Jul-2007 Inactive zolpidem tartrate 10 mg oral tablet (20 sources) gamma-Aminobutyric Acid-ergic Agonist Start: 04-05-2023 Ambien 10 mg oral tablet 1 tab Tablet q hs prn for 0 days Quantity: 90 {Tablet} Refills: 0 Ordered: 25-May-2023 Ankit DO, Sydney Ankit DO, Sydney Start : 05-Apr-2023 Active Comments: G47.00, OARRS Reviewed Start: 05-01-2022 Ambien 10 MG O ral Tablet 1 tab Tablet q hs prn for 0 days Quantity: 90 {Tablet} Refills: 0 Ordered: 01-May-2022 Gravius GRINDER MACHINE KNIFE SETTER, Selina Start : 01-May-2022 Active Comments: G47.00, OARRS Reviewedcalled into [facility], [facility] 11/19/20 Start: 01-11-2022 Ambien 10 MG O ral Tablet 1 tab Tablet q hs prn for 0 days Quantity: 90 {Tablet} Refills: 0 Ordered: 11-Jan-2022 Ankit DO, Sydney Ankit DO Sydney Start : 11-Jan-2022 Active Comments: G47.00, OARRS Reviewedcalled into [email or web address] 11/19/20 Start: 11-19-2020 Ambien 10 MG O ral Tablet 1 tab Tablet q hs prn for 0 days Quantity: 90 {Tablet} Refills: 0 Ordered: 29-Apr-2021 Jaydenius GRINDER MACHINE KNIFE SETTER, Selina Start : 29-Apr-2021 Active Comments: G47.00, OARRS Reviewedcalled into [email or web address] 11/19/20 Start: 07-30-2020 End: 08-29-2020 Ambien 10 MG Oral Tablet 1 t ab Tablet q hs prn for 30 days Quantity: 30 {Tablet} Refills: 0 Ordered: 30-Jul-2020 Ankit DO, Sydney Ankit DO, Sydney Start : 30-Jul-2020 End : 29-Aug-2020 Inactive Comments: [id number] Reviewed Start: 10-13-2019 End: 11-12-2019 Ambien 10 MG Oral Tablet 1 t ab Tablet q hs prn for 30 days Quantity: 30 {Tablet} Refills: 0 Ordered: 13-Oct-2019 Ankit DO, Sydney Ankit DO, Sydney Start : 13-Oct-2019 End : 12-Nov-2019 Inactive Comments: [id number] Start: 06-07-2018 End: 07-07-2018 Ambien 10 MG Oral Tablet 1 t ab Tablet q hs prn for 30 days Quantity: 30 {Tablet} Refills: 0 Ordered: 07-Jun-2018 Sydney Calles DO Ankit SIFUENTES Sydney Start : 07-Jun-2018 End : 07-Jul-2018 Inactive Comments: [id number] Start: 03-22-2010 take 1 tablet by sandra th once daily as needed AMBIEN CR, 12.5MG (Oral Tablet Extended Release) 1 (one) Tablet ER qd prn for 90 days Quantity: 90 {Tablet_ER} Refills: 1 Ordered: 26-Jul-2010 Bing Goddard Start : 22-Mar-2010 Inactive Comments: Ninety Comment on above: Ninety [id number] Re viewed G47.00, OARRS Review edcalled into H, [facility] 11/19/20 G47.00, OARRS Review ed Problems Active Problems Problem Classification Problem Date Documented Date Episodic/Chronic Acute bronchitis (20 sources) Acute bronchitis; Translations: [Bronchitis, acute] Resolved: 07-05-2009 08-17-2015 Episodic Administrative/social admission (20 sources) Medical examinations/reports status; Translations: [Annual physical exam] 03-11-2019 Episodic Allergic reactions (20 sources) Eczema; Translations: [Eczema] 03-11-2019 Episodic Anxiety disorders (20 sources) Anxiety; Translations: [Anxiety] 03-28-2021 Chronic Cardiac dysrhythmias (20 sources) Palpitations; Translations: [Palpitations] 03-11-2019 Episodic Comment on above: has had echo in 2010 , mild tricuspid insufficiency Chronic obstructive pulmonary disease and bronchiectasis (20 sources) Chronic obstructive pulmonary disease and bronchiectasis Disorders of lipid metabolism (20 sources) Hyperlipidemia; Translations: [Hyperlipidemia, unspecified] Resolved: 06-07-2018 03-11-2019 Chronic Endometriosis (20 sources) Endometriosis of ovary; Translations: [Endometriosis of ovary] 03-17-2022 Chronic Fluid and electrolyte disorders (20 sources) Hypokalemia; Translations: [Hypokalemia] Resolved: 07-30-2013 03-11-2015 Episodic Genitourinary symptoms and ill-defined conditions (20 sources) Abnormal urine; Translations: [Other abnormal finding of urine] Resolved: 07-05-2009 09-28-2015 Episodic Immunizations and screening for infectious disease (20 sources) Need for prophylactic vaccination and inoculation against influenza; Translations: [Requires diphtheria, tetanus and pertussis vaccination] 09-15-2020 Episodic Intestinal infection (20 sources) Traveler's diarrhea; Translations: [Diarrhea, travelers'] Resolved: 06-07-2018 03-11-2019 Episodic Lymphadenitis (20 sources) Lymphadenopathy; Translations: [Lymphadenopathy] Resolved: 06-07-2015 03-11-2019 Episodic Malaise and fatigue (20 sources) Fatigue; Translations: [Fatigue] Resolved: 07-05-2009 03-11-2015 Episodic Menopausal disorders (20 sources) Menopausal syndrome; Translations: [Atrophy of vagina] Chronic Comment on above: on estrogen cream an d helping sx Mood disorders (20 sources) Depressive disorder; Translations: [Depression] 03-28-2021 Chronic Comment on above: forms completed. Mycoses (20 sources) Onychomycosis; Translations: [Candidal vulvovaginitis] Resolved: 02-05-2017 03-11-2019 Episodic Nausea and vomiting (20 sources) Nausea; Translations: [Nausea] Resolved: 04-05-2023 03-11-2019 Episodic Nonspecific chest pain (20 sources) Chest pain; Translations: [Chest pain] Resolved: 03-08-2012 03-11-2015 Episodic Comment on above: ? if flexeril giving prolonged QT Nutritional deficiencies (20 sources) Vitamin D deficiency; Translations: [Vitamin D deficiency] 03-11-2019 Chronic Osteoarthritis (20 sources) Osteoarthritis; Translations: [Unspecified osteoarthritis, unspecified site] 03-11-2019 Chronic Other aftercare (20 sources) Patient encounter status; Translations: [Therapeutic drug monitoring] Resolved: 06-07-2015 03-11-2019 Episodic Other and unspecified benign neoplasm (20 sources) Benign tumor of breast; Translations: [Adenoma of breast] 09-15-2020 Episodic Comment on above: left breast removed age 23, benign adenoma Other congenital anomalies (20 sources) Birthmark; Translations: [Birthmark] 09-08-2022 Chronic Other connective tissue disease (20 sources) Hand pain; Translations: [Hand pain] 06-14-2018 Episodic Other connective tissue disease (20 sources) Foot pain; Translations: [Foot pain] 03-11-2019 Episodic Comment on above: plantar fascitis vs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 (Body Surface Area) 1.67 m2 Tiffany Alfred [facility] Internal Medicine Work Phone: 12-27-2017 08:15-0500 Height 162.56 cm Tiffany Alfred [facility] Internal Medicine Work Phone: 12-27-2017 08:15-0500 Pulse (Heart Rate) 78 /min Tiffany lAfred [facility] Internal Medicine Work Phone: Comment on above: Pattern: Regular 12-27-2017 08:15-0500 Pulse Oximetry 98 % Sydney Calles [facility] Internal Medicine Work Phone: Comment on above: Room air 12-27-2017 08:15-0500 Respiratory Rate 16 /min Tiffany Alfred [facility] Internal Medicine Work Phone: Comment on above: Pattern: Unlabored 12-27-2017 08:15-0500 SaO2% (BldA) [Mass fraction] 98 % Tiffany Alfred [facility] Internal Medicine; [facility] Work Phone: Comment on above: Room air 12-27-2017 08:15-0500 Weight 62.26 kg Sydney Calles [facility] Internal Medicine Work Phone: 02-05-2017 08:39-0400 BMI (Body Mass Index) 23.56 kg/m2 Tierra Alegria RN [facility] Work Phone: 02-05-2017 08:39-0400 Body weight 62.26 kg Tierra Alegria RN [facility] Work Phone: 02-05-2017 08:39-0400 BP Diastolic 78 mm[Hg] Tierra Alegria RN [facility] Work Phone: Comment on above: Patient Position: Sitting; Cuff Location : Left Arm; Cuff Size: Large 02-05-2017 08:39-0400 BP Systolic 118 mm[Hg] Tierra Messenger RN [facility] Work Phone: Comment on above: Patient Position: Sitting; Cuff Location : Left Arm; Cuff Size: Large 02-05-2017 08:39-0400 BSA (Body Surface Area) 1.67 m2 Tierra Alegria RN [facility] Work Phone: 02-05-2017 08:39-0400 Height 162.56 cm Tierra Alegria RN [facility] Work Phone: 02-05-2017 08:39-0400 Pulse (Heart Rate) 72 /min Tierra Alegria RN [facility] Work Phone: Comment on above: Pattern: Regular 02-05-2017 08:39-0400 Pulse Oximetry 96 % Sydney Calles [facility] Internal Medicine Work Phone: Comment on above: Room air 02-05-2017 08:39-0400 Respiratory Rate 18 /min Tierra Alegria RN [facility] Work Phone: Comment on above: Pattern: Unlabored 02-05-2017 08:39-0400 SaO2% (BldA) [Mass fraction] 96 % Tierra Alegria RN [facility]; [facility] Work Phone: Comment on above: Room air 02-05-2017 08:39-0400 Weight 62.26 kg Sydney Calles [facility] Internal Medicine Work Phone: 06-07-2015 08:41-0400 BMI (Body Mass Index) 23.86 kg/m2 Bing Goddard [facility] Internal Medicine Work Phone: 06-07-2015 08:41-0400 Body Temperature 96.7 [degF] Bing Goddard [facility] Internal Medicine Work Phone: Comment on above: Method: Oral 06-07-2015 08:41-0400 Body weight 63.05 kg Bing Goddard [facility] Internal Medicine Work Phone: 06-07-2015 08:41-0400 BP Diastolic 86 mm[Hg] Bing Goddard [facility] Internal Medicine Work Phone: Comment on above: Patient Position: Sitting; Cuff Location : Left Arm; Cuff Size: Standard 06-07-2015 08:41-0400 BP Systolic 122 mm[Hg] Bing Goddard [facility] Internal Medicine Work Phone: Comment on above: Patient Position: Sitting; Cuff Location : Left Arm; Cuff Size: Standard 06-07-2015 08:41-0400 BSA (Body Surface Area) 1.68 m2 Bing Hahnken [facility] Internal Medicine Work Phone: 06-07-2015 08:41-0400 Height 162.56 cm Bing Flken [facility] Internal Medicine Work Phone: 06-07-2015 08:41-0400 Pulse (Heart Rate) 71 /min Bing Goddard [facility] Internal Medicine Work Phone: Comment on above: Pattern: Regular 06-07-2015 08:41-0400 Respiratory Rate 16 /min Bing Nitza [facility] Internal Medicine Work Phone: Comment on above: Pattern: Unlabored 06-07-2015 08:41-0400 Weight 63.05 kg Sydney Calles [facility] Internal Medicine Work Phone: 03-11-2015 07:44-0400 BMI (Body Mass Index) 24.53 kg/m2 Tierra Alegria RN [facility] Internal Medicine Work Phone: 03-11-2015 07:44-0400 Body weight 65.83 kg Tierra Alegria RN [facility] Internal Medicine Work Phone: 03-11-2015 07:44-0400 BP Diastolic 78 mm[Hg] Tierra Alegria RN [facility] Work Phone: Comment on above: Patient Position: Sitting; Cuff Location : Left Arm; Cuff Size: Standard 03-11-2015 07:44-0400 BP Systolic 120 mm[Hg] Tierra Alegria RN [facility] Work Phone: Comment on above: Patient Position: Sitting; Cuff Location : Left Arm; Cuff Size: Standard 03-11-2015 07:44-0400 BSA (Body Surface Area) 1.72 m2 Tierra Alegria RN [facility] Internal Medicine Work Phone: 03-11-2015 07:44-0400 Height 163.83 cm Tierra Alegria RN [facility] Work Phone: 03-11-2015 07:44-0400 Pulse (Heart Rate) 72 /min Tierra Alegria RN [facility] Work Phone: Comment on above: Pattern: Regular 03-11-2015 07:44-0400 Pulse Oximetry 96 % Sydney Calles [facility] Work Phone: Comment on above: Room air 03-11-2015 07:44-0400 SaO2% (BldA) [Mass fraction] 96 % Tierra Alegria RN [facility]; [facility] Work Phone: Comment on above: Room air 03-11-2015 07:44-0400 Weight 65.83 kg Sydney Calles [facility] Internal Medicine Work Phone: 03-05-2015 07:41-0400 BMI (Body Mass Index) 22.03 kg/m2 Mignon Slarb CHIEF CARDIOPULMONARY TECHNOLOGIST [facility] Internal Medicine Work Phone: 03-05-2015 07:41-0400 Body Temperature 97.2 [degF] Mignon Slarb CHIEF CARDIOPULMONARY TECHNOLOGIST [facility] Internal Medicine Work Phone: 03-05-2015 07:41-0400 Body weight 59.14 kg Mignon Slarb CHIEF CARDIOPULMONARY TECHNOLOGIST [facility] Work Phone: 03-05-2015 07:41-0400 BP Diastolic 82 mm[Hg] Mignon Slarb CHIEF CARDIOPULMONARY TECHNOLOGIST [facility] Work Phone: Comment on above: Patient Position: Sitting; Cuff Location : Left Arm; Cuff Size: Standard 03-05-2015 07:41-0400 BP Systolic 132 mm[Hg] Mignon Slarb CHIEF CARDIOPULMONARY TECHNOLOGIST [facility] Work Phone: Comment on above: Patient Position: Sitting; Cuff Location : Left Arm; Cuff Size: Standard 03-05-2015 07:41-0400 BSA (Body Surface Area) 1.64 m2 Mignon Slarb CHIEF CARDIOPULMONARY TECHNOLOGIST [facility] Work Phone: 03-05-2015 07:41-0400 Height 163.83 cm Mignon Slarb CHIEF CARDIOPULMONARY TECHNOLOGIST [facility] Work Phone: 03-05-2015 07:41-0400 Respiratory Rate 18 /min Mignon Rodriguez [facility] Work Phone: Comment on above: Pattern: Unlabored 03-05-2015 07:41-0400 Weight 59.14 kg Sydney Calles [facility] Work Phone: 08-12-2014 08:03-0400 BMI (Body Mass Index) 22.03 kg/m2 Luba Gil LPN [facility] Work Phone: 08-12-2014 08:03-0400 Body Temperature 97.3 [degF] Luba Gil CHIEF CARDIOPULMONARY TECHNOLOGIST [facility] Work Phone: Comment on above: Method: Oral 08-12-2014 08:03-0400 Body weight 59.14 kg Luba Gil LPN [facility] Work Phone: 08-12-2014 08:03-0400 BP Diastolic 62 mm[Hg] Luba Gil LPN [facility] Work Phone: Comment on above: Patient Position: Sitting; Cuff Location : Left Arm; Cuff Size: Standard 08-12-2014 08:03-0400 BP Systolic 110 mm[Hg] Luba Gil LPN [facility] Work Phone: Comment on above: Patient Position: Sitting; Cuff Location : Left Arm; Cuff Size: Standard 08-12-2014 08:03-0400 BSA (Body Surface Area) 1.64 m2 Luba Gil LPN [facility] Work Phone: 08-12-2014 08:03-0400 Height 163.83 cm Luba Gil LPN [facility] Work Phone: 08-12-2014 08:03-0400 Pulse (Heart Rate) 70 /min Luba Gil LPN [facility] Work Phone: Comment on above: Pattern: Regular 08-12-2014 08:03-0400 Weight 59.14 kg Sydney Calles [facility] Internal Medicine Work Phone: 06-03-2014 13:35-0400 BMI (Body Mass Index) 22.03 kg/m2 Tierra Alegria RN [facility] Work Phone: 06-03-2014 13:35-0400 Body Temperature 98.4 [degF] Tierra Alegria RN [facility] Work Phone: Comment on above: Method: Oral 06-03-2014 13:35-0400 Body weight 59.14 kg Tierra Alegria RN [facility] Work Phone: 06-03-2014 13:35-0400 BP Diastolic 60 mm[Hg] Tierra Alegria RN [facility] Work Phone: Comment on above: Patient Position: Sitting; Cuff Location : Left Arm; Cuff Size: Standard 06-03-2014 13:35-0400 BP Systolic 110 mm[Hg] Tierra Alegria RN [facility] Work Phone: Comment on above: Patient Position: Sitting; Cuff Location : Left Arm; Cuff Size: Standard 06-03-2014 13:35-0400 BSA (Body Surface Area) 1.64 m2 Tierra Alegria RN [facility] Work Phone: 06-03-2014 13:35-0400 Height 163.83 cm Tierra Alegria RN [facility] Work Phone: 06-03-2014 13:35-0400 Pulse (Heart Rate) 73 /min Tierra Alegria RN [facility] Work Phone: Comment on above: Pattern: Regular 06-03-2014 13:35-0400 Pulse Oximetry 98 % Sydney Calles [facility] Work Phone: Comment on above: Room air 06-03-2014 13:35-0400 SaO2% (BldA) [Mass fraction] 98 % Tierra Alegria RN [facility]; [facility] Work Phone: Comment on above: Room air 06-03-2014 13:35-0400 Weight 59.14 kg Sydney Calles [facility] Internal Medicine Work Phone: 07-30-2013 09:21-0400 BMI (Body Mass Index) 22.65 kg/m2 Bing verdin Internal Medicine Work Phone: 07-30-2013 09:21-0400 Body Temperature 97.6 [degF] Bing Hahnkaytavo [facility] Internal Medicine Work Phone: 07-30-2013 09:21-0400 Body weight 60.78 kg Bing Goddard [facility] Internal Medicine Work Phone: 07-30-2013 09:21-0400 BP Diastolic 68 mm[Hg] Bing Hahnken [facility] Internal Medicine Work Phone: Comment on above: Patient Position: Sitting; Cuff Location : Left Arm; Cuff Size: Large 07-30-2013 09:21-0400 BP Systolic 110 mm[Hg] Bing Hahnkaytavo [facility] Internal Medicine Work Phone: Comment on above: Patient Position: Sitting; Cuff Location : Left Arm; Cuff Size: Large 07-30-2013 09:21-0400 BSA (Body Surface Area) 1.66 m2 Bing Nitza [facility] Internal Medicine Work Phone: 07-30-2013 09:21-0400 Height 163.83 cm Bing Hahnken [facility] Internal Medicine Work Phone: 07-30-2013 09:21-0400 Pulse (Heart Rate) 78 /min [facility] Work Phone: Comment on above: Pattern: Regular 07-30-2013 09:21-0400 Respiratory Rate 16 /min Bing Nitza [facility] Internal Medicine Work Phone: Comment on above: Pattern: Unlabored 07-30-2013 09:21-0400 Weight 60.78 kg Sydney Calles [facility] Internal Medicine Work Phone: 06-20-2012 07:58-0400 BMI (Body Mass Index) 22.98 kg/m2 Kiarra Diop RN Comprehens [facility] Internal Medicine Work Phone: 06-20-2012 07:58-0400 Body Temperature 98.2 [degF] Kiarra Diop RN [facility] Work Phone: Comment on above: Method: Oral 06-20-2012 07:58-0400 Body weight 61.69 kg Kiarra Diop RN [facility] Work Phone: 06-20-2012 07:58-0400 BP Diastolic 62 mm[Hg] Kiarra Diop RN [facility] Work Phone: Comment on above: Patient Position: Sitting; Cuff Location : Left Arm; Cuff Size: Standard 06-20-2012 07:58-0400 BP Systolic 128 mm[Hg] Kiarra Diop RN [facility] Work Phone: Comment on above: Patient Position: Sitting; Cuff Location : Left Arm; Cuff Size: Standard 06-20-2012 07:58-0400 BSA (Body Surface Area) 1.67 m2 Kiarra Diop RN [facility] Work Phone: 06-20-2012 07:58-0400 Height 163.83 cm Kiarra Diop RN [facility] Work Phone: 06-20-2012 07:58-0400 Pulse (Heart Rate) 76 /min Kiarra Diop RN [facility] Work Phone: Comment on above: Pattern: Regular 06-20-2012 07:58-0400 Respiratory Rate 16 /min Kiarra Diop RN [facility] Work Phone: Comment on above: Pattern: Unlabored 06-20-2012 07:58-0400 Weight 61.69 kg Sydney Calles [facility] Internal Medicine Work Phone: 03-08-2012 08:06-0400 BMI (Body Mass Index) 22.65 kg/m2 Bing Caldwell [facility] Internal Medicine Work Phone: 03-08-2012 08:06-0400 Body Temperature 99.2 [degF] Bing Goddard [facility] Internal Medicine Work Phone: 03-08-2012 08:06-0400 Body weight 60.78 kg Bing Goddard [facility] Internal Medicine Work Phone: 03-08-2012 08:06-0400 BP Diastolic 70 mm[Hg] Bing Goddard [facility] Internal Medicine Work Phone: Comment on above: Patient Position: Sitting; Cuff Location : Left Arm; Cuff Size: Large 03-08-2012 08:06-0400 BP Systolic 114 mm[Hg] Bing Nitza [facility] Internal Medicine Work Phone: Comment on above: Patient Position: Sitting; Cuff Location : Left Arm; Cuff Size: Large 03-08-2012 08:06-0400 BSA (Body Surface Area) 1.66 m2 Bing Nitza [facility] Internal Medicine Work Phone: 03-08-2012 08:06-0400 Height 163.83 cm Bing Nitza [facility] Internal Medicine Work Phone: 03-08-2012 08:06-0400 Pulse (Heart Rate) 96 /min Bing Nitza [facility] Internal Medicine Work Phone: Comment on above: Pattern: Regular 03-08-2012 08:06-0400 Respiratory Rate 16 /min Bing Nitza [facility] Internal Medicine Work Phone: Comment on above: Pattern: Unlabored 03-08-2012 08:06-0400 Weight 60.78 kg Sydney Calles [facility] Internal Medicine Work Phone: 09-27-2011 08:06-0500 BMI (Body Mass Index) 22.96 kg/m2 Luba Jeffery CRUZ [facility] Internal Medicine Work Phone: 09-27-2011 08:06-0500 Body Temperature 98.1 [degF] Luba Jeffery CRUZ [facility] Internal Medicine Work Phone: Comment on above: Method: Oral 09-27-2011 08:06-0500 Body weight 62.6 kg Luba Jeffery CRUZ [facility] Internal Medicine Work Phone: 09-27-2011 08:06-0500 BP Diastolic 70 mm[Hg] Luba Jeffery CRUZ [facility] Internal Medicine Work Phone: Comment on above: Patient Position: Sitting; Cuff Location : Left Arm; Cuff Size: Standard 09-27-2011 08:06-0500 BP Systolic 118 mm[Hg] Luba Jeffery CRUZ [facility] Internal Medicine Work Phone: Comment on above: Patient Position: Sitting; Cuff Location : Left Arm; Cuff Size: Standard 09-27-2011 08:06-0500 BSA (Body Surface Area) 1.69 m2 Luba Gil LPN [facility] Work Phone: 09-27-2011 08:06-0500 Height 165.1 cm Luba Gil LPN [facility] Work Phone: 09-27-2011 08:06-0500 Pulse (Heart Rate) 68 /min Luba Gil LPN [facility] Work Phone: Comment on above: Pattern: Regular 09-27-2011 08:06-0500 Pulse Oximetry 98 % Sydney Calles [facility] Internal Medicine Work Phone: Comment on above: Room air 09-27-2011 08:06-0500 SaO2% (BldA) [Mass fraction] 98 % Luba Gil LPN [facility]; [facility] Work Phone: Comment on above: Room air 09-27-2011 08:06-0500 Weight 62.6 kg Sydney Calles [facility] Internal Medicine Work Phone: 09-11-2011 08:06-0400 BMI (Body Mass Index) 22.96 kg/m2 Luba Gil LPN [facility] Work Phone: 09-11-2011 08:06-0400 Body Temperature 98.1 [degF] Luba Gil LPN [facility] Work Phone: Comment on above: Method: Oral 09-11-2011 08:06-0400 Body weight 62.6 kg Luba Gil LPN [facility] Work Phone: 09-11-2011 08:06-0400 BP Diastolic 78 mm[Hg] Luba Gil LPN [facility] Work Phone: Comment on above: Patient Position: Sitting; Cuff Location : Left Arm; Cuff Size: Standard 09-11-2011 08:06-0400 BP Systolic 120 mm[Hg] Luba Gil LPN [facility] Work Phone: Comment on above: Patient Position: Sitting; Cuff Location : Left Arm; Cuff Size: Standard 09-11-2011 08:06-0400 BSA (Body Surface Area) 1.69 m2 Luba Gil [facility]UL[facility] Work Phone: 09-11-2011 08:06-0400 Height 165.1 cm Luba Gil [facility] Internal Medicine Work Phone: 09-11-2011 08:06-0400 Pulse (Heart Rate) 76 /min Luba Gil [facility] Internal Medicine Work Phone: Comment on above: Pattern: Regular 09-11-2011 08:06-0400 Respiratory Rate 16 /min Luba Gil [facility] Internal Medicine Work Phone: Comment on above: Pattern: Unlabored 09-11-2011 08:06-0400 Weight 62.6 kg Sydney Calles [facility] Internal Medicine Work Phone: 02-07-2011 13:27-0400 BMI (Body Mass Index) 23.32 kg/m2 Bing Goddard [facility] Internal Medicine Work Phone: 02-07-2011 13:27-0400 Body Temperature 98.4 [degF] Bing Goddard [facility] Internal Medicine Work Phone: 02-07-2011 13:27-0400 Body weight 62.6 kg Bing Goddard [facility] Internal Medicine Work Phone: 02-07-2011 13:27-0400 BP Diastolic 64 mm[Hg] Bing Goddard [facility] Internal Medicine Work Phone: Comment on above: Patient Position: Sitting; Cuff Location : Left Arm; Cuff Size: Large 02-07-2011 13:27-0400 BP Systolic 114 mm[Hg] Bing Goddard [facility] Internal Medicine Work Phone: Comment on above: Patient Position: Sitting; Cuff Location : Left Arm; Cuff Size: Large 02-07-2011 13:27-0400 BSA (Body Surface Area) 1.68 m2 Bing Goddard [facility] Internal Medicine Work Phone: 02-07-2011 13:27-0400 Height 163.83 cm Bing Goddard [facility] Work Phone: 02-07-2011 13:27-0400 Pulse (Heart Rate) 88 /min Bing Goddard [facility] Internal Medicine Work Phone: Comment on above: Pattern: Regular 02-07-2011 13:27-0400 Respiratory Rate 16 /min Bing Goddard [facility] Internal Medicine Work Phone: Comment on above: Pattern: Unlabored 02-07-2011 13:27-0400 Weight 62.6 kg Sydney Calles [facility] Internal Medicine Work Phone: 07-26-2010 08:09-0400 Body Temperature 98.6 [degF] Luba Gil LPN [facility] Work Phone: Comment on above: Method: Oral 07-26-2010 08:090400 Body weight 64.04 kg Luba Gil CHIEF CARDIOPULMONARY TECHNOLOGIST [facility] Internal Medicine Work Phone: 07-26-2010 08:09-0400 BP Diastolic 72 mm[Hg] Luba Gil CHIEF CARDIOPULMONARY TECHNOLOGIST [facility] Work Phone: Comment on above: Patient Position: Sitting; Cuff Location : Left Arm; Cuff Size: Standard 07-26-2010 08:09-0400 BP Systolic 122 mm[Hg] Luba Gil CHIEF CARDIOPULMONARY TECHNOLOGIST [facility] Work Phone: Comment on above: Patient Position: Sitting; Cuff Location : Left Arm; Cuff Size: Standard 07-26-2010 08:09-0400 Pulse (Heart Rate) 74 /min Luba Gil LPN [facility] Work Phone: Comment on above: Pattern: Regular 07-26-2010 08:09-0400 Respiratory Rate 16 /min Luba Gil CHIEF CARDIOPULMONARY TECHNOLOGIST [facility] Internal Medicine Work Phone: Comment on above: Pattern: Unlabored 07-26-2010 08:09-0400 Weight 64.04 kg Sydney Calles [facility] Internal Medicine Work Phone: 01-21-2010 08:21-0500 Body Temperature 98 [degF] [facility] Internal Medicine Work Phone: Comment on above: Method: Oral 01-21-2010 08:21-0500 Body weight 64.04 kg [facility] Medicine Work Phone: 01-21-2010 08:21-0500 BP Diastolic 68 mm[Hg] [facility] Internal Medicine Work Phone: Comment on above: Patient Position: Sitting; Cuff Location : Right Arm; Cuff Size: Standard 01-21-2010 08:21-0500 BP Systolic 100 mm[Hg] [facility] Internal Medicine Work Phone: Comment on above: Patient Position: Sitting; Cuff Location : Right Arm; Cuff Size: Standard 01-21-2010 08:21-0500 Pulse (Heart Rate) 84 /min [facility] Internal [facility] Work Phone: Comment on above: Pattern: Regular 01-21-2010 08:21-0500 Respiratory Rate 18 /min [facility] Medicine Work Phone: Comment on above: Pattern: Unlabored 01-21-2010 08:21-0500 Weight 64.04 kg Sydney Ankit [facility] Internal Medicine Work Phone: 07-05-2009 09:02-0400 Body Temperature 98.6 [degF] Bing Nitza [facility] Internal Medicine Work Phone: Comment on above: Method: Undefined 07-05-2009 09:02-0400 Body weight 62.6 kg Bing Nitza [facility] Internal Medicine Work Phone: 07-05-2009 09:02-0400 BP Diastolic 84 mm[Hg] Bing Nitza [facility] Internal Medicine Work Phone: Comment on above: Patient Position: Sitting; Cuff Location : Left Arm; Cuff Size: Standard 07-05-2009 09:02-0400 BP Systolic 128 mm[Hg] Bing Nitza [facility] Internal Medicine Work Phone: Comment on above: Patient Position: Sitting; Cuff Location : Left Arm; Cuff Size: Standard 07-05-2009 09:02-0400 Head Circumference 0 cm Sydney Calles [facility] Internal Medicine Work Phone: 07-05-2009 09:02-0400 Head Occipital-frontal circumference 0 cm Ibng Nitza [facility] Internal Medicine; [facility] Internal Medicine Work Phone: 07-05-2009 09:02-0400 Height 0 cm Bing Nitza [facility] Internal Medicine Work Phone: 07-05-2009 09:02-0400 Pulse (Heart Rate) 80 /min [facility] Work Phone: Comment on above: Pattern: Regular 07-05-2009 09:02-0400 Respiratory Rate 16 /min Bing Nitza [facility] Internal Medicine Work Phone: Comment on above: Pattern: Undefined 07-05-2009 09:02-0400 Weight 62.6 kg Sydney Calles [facility] Internal Medicine Work Phone: 03-13-2008 08:01-0400 BMI (Body Mass Index) 23.66 kg/m2 Bing N[facility]za [facility] Internal Medicine Work Phone: 03-13-2008 08:01-0400 Body Temperature 98 [degF] Bing Nitza [facility] Internal Medicine Work Phone: Comment on above: Method: Undefined 03-13-2008 08:01-0400 Body weight 63.5 kg Bing Goddard [facility] Internal Medicine Work Phone: 03-13-2008 08:01-0400 BP Diastolic 82 mm[Hg] Bing Nitza [facility] Internal Medicine Work Phone: Comment on above: Patient Position: Sitting; Cuff Location : Right Arm; Cuff Size: Standard 03-13-2008 08:01-0400 BP Systolic 124 mm[Hg] Bing Goddard [facility] Internal Medicine Work Phone: Comment on above: Patient Position: Sitting; Cuff Location : Right Arm; Cuff Size: Standard 03-13-2008 08:01-0400 BSA (Body Surface Area) 1.69 m2 Bing Goddard [facility] Internal Medicine Work Phone: 03-13-2008 08:01-0400 Head Circumference 0 cm Sydney Calles [facility] Internal Medicine Work Phone: 03-13-2008 08:01-0400 Head Occipital-frontal circumference 0 cm Bing Goddard [facility] Internal Medicine; [facility] Work Phone: 03-13-2008 08:01-0400 Height 163.83 cm Bing Goddard [facility] Internal Medicine Work Phone: 03-13-2008 08:01-0400 Pulse (Heart Rate) 68 /min Bing Goddard [facility] Internal Medicine Work Phone: Comment on above: Pattern: Regular 03-13-2008 08:01-0400 Respiratory Rate 16 /min Bing Goddard [facility] Internal Medicine Work Phone: Comment on above: Pattern: Undefined 03-13-2008 08:01-0400 Weight 63.5 kg Sydney Calles [facility] Internal Medicine Work Phone: 07-25-2007 08:00-0400 Body Temperature 98.5 [degF] [facility] Internal Medicine Work Phone: Comment on above: Method: Oral 07-25-2007 08:00-0400 Body weight 0 kg [facility] Internal Medicine Work Phone: 07-25-2007 08:00-0400 BP Diastolic 84 mm[Hg] [facility] Internal Medicine Work Phone: Comment on above: Patient Position: Sitting; Cuff Location : Left Arm; Cuff Size: Standard 07-25-2007 08:00-0400 BP Systolic 144 mm[Hg] [facility] Internal Medicine Work Phone: Comment on above: Patient Position: Sitting; Cuff Location : Left Arm; Cuff Size: Standard 07-25-2007 08:00-0400 Head Circumference 0 cm Sydney Calles [facility] Internal Medicine Work Phone: 07-25-2007 08:00-0400 Head Occipital-frontal circumference 0 cm [facility] Internal Medicine; [facility] Work Phone: 07-25-2007 08:00-0400 Height 163.83 cm [facility] Internal Medicine Work Phone: 07-25-2007 08:00-0400 Pulse (Heart Rate) 64 /min [facility] Internal Medicine Work Phone: Comment on above: Pattern: Regular 07-25-2007 08:00-0400 Respiratory Rate 18 /min [facility] Internal Medicine Work Phone: Comment on above: Pattern: Unlabored 07-25-2007 08:00-0400 Weight 0 kg Sydney Calles [facility] Internal Medicine Work Phone: 05-29-2007 07:55-0400 BMI (Body Mass Index) 22.5 kg/m2 [facility] Internal Medicine Work Phone: 05-29-2007 07:55-0400 Body Temperature 98.8 [degF] [facility] Internal Medicine Work Phone: Comment on above: Method: Oral 05-29-2007 07:55-0400 Body weight 60.39 kg [facility] [facility] Internal Medicine Work Phone: 05-29-2007 07:55-0400 BP Diastolic 78 mm[Hg] [facility] [facility] Internal Medicine Work Phone: Comment on above: Patient Position: Sitting; Cuff Location : Left Arm; Cuff Size: Standard 05-29-2007 07:55-0400 BP Systolic 128 mm[Hg] [facility] [facility] Internal Medicine Work Phone: Comment on above: Patient Position: Sitting; Cuff Location : Left Arm; Cuff Size: Standard 05-29-2007 07:55-0400 BSA (Body Surface Area) 1.65 m2 [place] Internal Medicine Work Phone: 05-29-2007 07:55-0400 Head Circumference 0 cm Sydney Calles [facility] Internal Medicine Work Phone: 05-29-2007 07:55-0400 Head Occipital-frontal circumference 0 cm [place] [facility] Medicine; [facility] Work Phone: 05-29-2007 07:55-0400 Height 163.83 cm [facility] Internal Medicine Work Phone: 05-29-2007 07:55-0400 Pulse (Heart Rate) 80 /min [place] Internal Medicine Work Phone: Comment on above: Pattern: Regular 05-29-2007 07:55-0400 Respiratory Rate 20 /min [place] Internal Medicine Work Phone: Comment on above: Pattern: Unlabored 05-29-2007 07:55-0400 Weight 60.39 kg Sydney Calles [facility] Internal Medicine Work Phone: 02-05-2007 16:18-0400 BMI (Body Mass Index) 21.9 kg/m2 Bing Nitza [facility] Internal Medicine Work Phone: 02-05-2007 16:18-0400 Body Temperature 98.6 [degF] Bing Goddard [facility] Internal Medicine Work Phone: Comment on above: Method: Oral 02-05-2007 16:18-0400 Body weight 58.77 kg Bing Goddard [facility] Internal Medicine Work Phone: 02-05-2007 16:18-0400 BP Diastolic 74 mm[Hg] Bing Nitza [facility] Internal Medicine Work Phone: Comment on above: Patient Position: Sitting; Cuff Location : Left Arm; Cuff Size: Standard 02-05-2007 16:18-0400 BP Systolic 120 mm[Hg] Bing Goddard [facility] Internal Medicine Work Phone: Comment on above: Patient Position: Sitting; Cuff Location : Left Arm; Cuff Size: Standard 02-05-2007 16:18-0400 BSA (Body Surface Area) 1.64 m2 Bing Nitza [facility] Internal Medicine Work Phone: 02-05-2007 16:18-0400 Head Circumference 0 cm Sydney Calles [facility] Internal Medicine Work Phone: 02-05-2007 16:18-0400 Head Occipital-frontal circumference 0 cm Bing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 received treatment since her initial evaluation. At this time, I am discharging the patient from our care at the [facility]. Destinee Lobo LMT T: CAROLINE JOB: [id number] <Electronically signed by Destinee Lobo > 11/09/16 0844 CC: Sydney Calles DO Signed Sydney Calles Start: 08-21-2016 End: 08-23-2016 Bilat Scrn Digital AND CAD Comments: See Note; NOTES: [facility] Imaging Services [address] [place] [address] Verdana 4d Bilat Scrn Digital AND CAD MR#: [id number] Acct: [id number] Name: DIANDRA CAMEJO Rep #: [id number] : 1970 F 45 From: Usha Clark MD PCP: Sydney Calles DO Status: REG CLI Study: Bilat Scrn Digital AND CAD Date of Exam: 08/21/16 Exam# [id number] Ordering Dr: Ivonne Egan MD MAMMOGRAPHY - BILATERAL SCREENING REASON FOR EXAM: Female, 45 years old. Routine annual screening examination. PERTINENT HISTORY: NO FM HX , NO CHILD, LT EXC BX 1993-(FIBROADENOMA) TECHNIQUE: Digital bilateral breast frieda (3D mammographic acquisition) in the CC and MLO projections. 2-D mediolateral oblique (MLO) and craniocaudad (CC) views of both breasts were obtained. CAD: Full Field Digital Mammography with Computer Added Detection was performed. COMPARISON: MG - Breast Bilateral - 08:19. MG - Breast Bilateral - 08:03 FINDINGS: Breast Composition: The breasts are heterogeneously dense, which may obscure small masses. There are no dominant masses or suspicious calcifications. No other significant abnormalities are identified. HPBI/Bilat Scrn Digital AND CAD IMPRESSION: Stable bilateral screening mammogram. Yearly follow-up mammogram recommended. (A) ASSESSMENT CATEGORY: BIRADS Category 2: Benign. A letter regarding these results will be sent to the patient by the facility within 30 days. Approximately 10% of breast cancers are not detected by mammography. A normal mammogram should not delay biopsy of a clinically suspicious abnormality. [id number] Electronically Signed: Usha Clark MD at 13:50 EDT Tel , Service support [phone], CC: Ivonne Egan MD; Sydney Calles DO Footwear Production Machine Operator: Signed Sydney Calles Start: 09-02-2015 End: 09-02-2015 Finger(s) Min 2 Views Comments: See Note; NOTES: [facility] Imaging Services [address] [place] [address] Verdana 4d Finger(s) Min 2 Views MR#: [id number] Acct: [id number] Name: DIANDRA CAMEJO Rep #: [id number] : 1970 F 44 From: Maria Fernanda Piña MD PCP: Mita Almeida DO Status: REG CLI Study: Finger(s) Min 2 Views Date of Exam: 09/02/15 Exam# [id number] Ordering Dr: Sydney Calles DO STUDY: X-RAY - RIGHT HAND, ATTENTION FIRST FINGER REASON FOR EXAM: Female, 44 years old. right thumb pain x 10 days NKI pain and stiffness base of thumb, pain shooting into wrist with certain movements TECHNIQUE: 3 view(s) of the finger were obtained. COMPARISON: None. FINDINGS: Normal metacarpal head. Normal metacarpophalangeal joint. Normal proximal phalanx. Normal middle phalanx. Normal distal phalanx. Normal proximal interphalangeal joint. Normal distal interphalangeal joint. There is minimal arthrosis of the first carpometacarpal joint. IMPRESSION: There is minimal arthrosis of the first carpometacarpal joint. Electronically Signed: Maria Fernanda Piña MD at 13:52 EDT , Service support [phone], RAD/Finger(s) Min 2 Views IMPRESSION: There is minimal arthrosis of the first carpometacarpal joint. Electronically Signed: Maria Fernanda Piña MD at 13:52 EDT , Service support [phone], CC: Mita Almeida DO; Sydney Calles DO Footwear Production Machine Operator: Signed Sydney Calles Work Phone: Start: 06-28-2015 End: 06-28-2015 Bilat Scrn Digital AND CAD Comments: See Note; NOTES: [facility] Services [address] [place] [address] Breast Imaging Report MR#: [id number] Acct: [id number] Name: DIANDRA CAMEJO Rep #: [id number] : 1970 F 44 From: Samm Sue MD PCP: Mita Almeida DO Status: REG CLI Study: Bilat Scrn Digital AND CAD Date of Exam: 06/28/15 Exam# [id number] Ordering Dr: Ivonne Egan MD MAMMOGRAPHY - BILATERAL SCREENING REASON FOR EXAM: Female, 44 years old. Routine annual screening examination. PERTINENT HISTORY: Non-contributory. Prior left excisional breast biopsy for fibroadenoma. TECHNIQUE: Digital examination. Mediolateral oblique (MLO) and craniocaudad (CC) views of both breasts were obtained. CAD: CAD was performed on this study. COMPARISON: Comparison is made with prior study dated June 24, 2014 and December 03, 2012. FINDINGS: Breast Composition: The breasts are heterogeneously dense, which may obscure small masses. There are no dominant masses or suspicious calcifications. No other significant abnormalities are identified. There has been no significant change since the prior study. IMPRESSION: Stable bilateral screening mammogram. Yearly follow-up recommended. (A) ASSESSMENT CATEGORY: BIRADS Category 1: Negative. A letter regarding these results will be sent to the patient by the facility within 30 days. Approximately 10% of breast cancers are not detected by mammography. A normal mammogram should not delay biopsy of a clinically suspicious abnormality. Electronically Signed: Samm Sue MD at 8:28 EDT Tel [phone], Service support [phone], CC: Mita Almeida DO; Ivonne Egan MD Footwear Production Machine Operator: Signed Mita Almeida Work Phone: Start: 03-10-2015 End: 03-10-2015 Soft Tissue Neck WITH Contrast Comments: See Note; NOTES: [facility] Imaging Services [address] [place] [address] CAT Scan Report MR#: [id number] Acct: [id number] Name: DIANDRA CAMEJO Rep #: [id number] : 1970 F 44 From: Jessica Fox PCP: Mita Almeida DO Status: REG CLI Study: Soft Tissue Neck WITH Contrast Date of Exam: 03/10/15 Exam# [id number] Ordering Dr: Sydney Calles DO STUDY: CT SOFT TISSUE NECK WITH CONTRAST REASON FOR EXAM: Female, 44 years old. Lymphadenopathy. Right lung swelling. RADIATION DOSAGE (If Supplied By Facility): CTDIvol = ( 26.41 ) mGy, DLP = ( 748.52 ) mGycm TECHNIQUE: The patient was scanned in a multi-detector CT scanner. High resolution transaxial imaging was performed following intravenous administration of 100ML ml of Isovue 300 contrast material. Sagittal and coronal images were reconstructed. COMPARISON: None. FINDINGS: Normal bilateral parotid glands. Normal bilateral printing press machine operator spaces. Normal bilateral parapharyngeal spaces. Normal bilateral carotid spaces. Normal bilateral sublingual and submandibular glands and spaces. Normal visualized nasopharynx. Normal retropharyngeal space. Normal perivertebral space. Normal visualized bilateral faucial tonsils. The visualized tongue, tongue base and oropharynx are normal. There are prominent bilateral lymph nodes along the cervical chains bilaterally, most prominent within the bilateral jugulodigastric regions measuring 0.7 x 1.8 x 2.8 on the right and 0.9 x 1.4 x 2.4 cm on the left There is no demonstrated solid or cystic mass lesion. There is no abnormal contrast enhancement. Normal epiglottis, bilateral vallecula and hypopharynx. The pre-epiglottic and paraglottic adipose spaces are normal. Normal visualized bilateral piriform sinuses, aryepiglottic folds, vocal cords, and arytenoid-cricoid articulations. Normal subglottic trachea. Normal bilateral lobes of the thyroid gland. Normal visualized pulmonary apices. Normal visualized paranasal sinuses. Normal visualized cervical spine. IMPRESSION: Bilateral jugulodigastric lymphadenopathy. Differential diagnosis is infectious and neoplastic. No discrete masses Electronically Signed: Jessica Fox MD at 15:42 EDT Tel , Service support [phone], CC: Mita Almeida DO; Sydney Calles DO Footwear Production Machine Operator: Signed Sydney Calles Work Phone: Start: 11-10-2014 End: 12-15-2014 PT Discharge Summary Comments: See Note; NOTES: [facility] [address] [place] [address]. [address] [place], [place] [address] Fax REHABILITATION SERVICES DISCHARGE SUMMARY MR#: [id number] Acct: [id number] Name: DIANDRA CAMEJO Rep #: [id number] : 1970 43 From: Destinee Lobo Referring Dr.: Mita Almeida DO Status: PRE RCR Eval Date: Discharge Date: DATE OF SERVICE: REFERRING PHYSICIAN: Dr. Almeida This patient was seen for massotherapy evaluation on January 28, 2014, with a diagnosis of back pain. She was treated with 1 session of massage to the upper body. She did report a decrease in pain and tension. After that treatment, she has not received treatment since January 28, 2014. At this time, I am discharging the patient from our care at the [facility] facility. Destinee Lobo LMT T: CAROLINE JOB: [id number] <Electronically signed by Destinee Lobo > 11/10/14 0948 CC: Signed Sydney Calles Start: 06-24-2014 End: 06-24-2014 Bilat Scrn Digital & CAD Comments: See Note; NOTES: [facility] Imaging Services [address] [facility] [place] [address] Breast Imaging Report MR#: [id number] Acct: [id number] Name: DIANDRA CAMEJO Rep #: [id number] : 1970 F 43 From: Samm Sue MD PCP: Mita Almeida DO Status: REG CLI Exam# [id number] Ordering Dr: Ivonne Egan MD MAMMOGRAPHY - BILATERAL SCREENING REASON FOR EXAM: Female, 43 years old. Routine annual screening examination. PERTINENT HISTORY: Prior left excisional biopsy. TECHNIQUE: Digital examination. Mediolateral oblique (MLO) and craniocaudad (CC) views of both breasts were obtained. Compression spot views of the left breast were obtained as well in the mediolateral oblique and radial head views. CAD: CAD was performed on this study. COMPARISON: Comparison is made with prior examination dated December 03, 2012 and October 12, 2011 FINDINGS: The breast composition is heterogeneously dense, ranging from 51% to 75% of the total breast volume, which may obscure small masses. There are no dominant masses or suspicious calcifications. No other significant abnormalities are identified. There has been no significant change since the prior study. IMPRESSION: Stable bilateral screening mammogram. Yearly follow-up recommended. (A) ASSESSMENT CATEGORY: BIRADS Category 2: Benign finding(s). A letter regarding these results will be sent to the patient by the facility within 30 days. Approximately 10% of breast cancers are not detected by mammography. A normal mammogram should not delay biopsy of a clinically suspicious abnormality. Electronically Signed: Samm Sue MD at 9:26 EDT Tel [phone], Service support [phone], CC: Mita Almeida DO; Ivonne Egan MD Footwear Production Machine Operator: Signed Sydney Calles Start: 06-11-2014 End: 06-11-2014 Upper Ext Joint Only(Routine) Comments: See Note; NOTES: [facility] Imaging Services [address] [place] [id number] MRI Report MR#: [id number] Acct: [id number] Name: DIANDRA CAMEJO Rep #: [id number] : 1970 F 43 From: Emmett Holly MD PCP: Mita Almeida DO Status: REG CLI Study: Upper Ext Joint Only(Routine) Date of Exam: 06/11/14 Exam# [id number] Ordering Dr: Emmett Fernandez PA-C STUDY: MRI LEFT SHOULDER REASON FOR EXAM: Female, 43 years old. Shoulder sprain. Shoulder pain. TECHNIQUE: Standardized fat and water weighted pulse sequences were obtained in all 3 orthogonal planes. COMPARISON: None. FINDINGS: There is mild supraspinatus tendinosis with minimal thickening without a full-thickness tear (coronal series 5 images 7-9). Normal infraspinatus tendon. Normal subscapularis tendon. Normal teres minor tendon. Normal supraspinatus muscle. Normal infraspinatus muscle. Normal subscapularis muscle. Normal teres minor muscle. There is a small glenohumeral joint effusion (coronal series 5 image 10). Normal humeral head and visualized proximal humerus. Normal biceps labral complex. Normal intracapsular long biceps tendon. Normal labrum. Normal capsulo- ligamentous complex. Normal rotator interval. There is acromioclavicular joint hypertrophy with narrowing of the subacromial space with bone marrow edema in the distal clavicle and adjacent acromion (coronal series 5 images 2-5). There is a Type II morphology (curved), with a neutral orientation. There is no subacromial-subdeltoid bursal fluid. Normal visualized coracohumeral and coracoacromial ligaments. Normal quadrilateral space. Normal axillary space. Normal deltoid muscle. Normal trapezius muscle. IMPRESSION: Supraspinatus tendinosis without a full-thickness tear. Acromioclavicular joint hypertrophy with narrowing of the subacromial space. Bone marrow edema in the distal clavicle and adjacent acromion. Small glenohumeral joint effusion. Electronically Signed: Emmett Holly MD at 14:12 EDT , Service support [phone], CC: Mita Almeida DO; Emmett WINSLOW Footwear Production Machine Operator: Signed Sydney Calles Start: 11-11-2013 End: 12-18-2013 PT Discharge Summary Comments: See Note; NOTES: [facility] [place] [id number] Fax REHABILITATION SERVICES DISCHARGE SUMMARY MR#: [id number] Acct: [id number] Name: DIANDRA CAMEJO Rep #: [id number] : 1970 42 From: Cornelia Avila Referring DrAriadne: Mita Almeida DO Status: DIS RCR Eval Date: Discharge Date: 10/11/13 DATE OF SERVICE: 10/11/2013 REFERRING PHYSICIAN: Dr. Almeida. This patient was seen for massotherapy evaluation on October 02, 2013 with a diagnosis of low back pain. She was treated with 1 session of deep tissue massage to the upper body focusing on her low back. She has not returned for subsequent treatment. At this time, I am discharging the patient from our care at the [facility] facility. Destinee Avila LMT T: NTS JOB: [id number] <Electronically signed by Cornelia Avila > 11/11/13 0736 CC: * Signed Mita Almeida Work Phone: Start: 09-03-2013 End: 09-03-2013 Dexa Bone Density Study (HP) Comments: See Note; NOTES: [facility] Imaging Services [address] [place] [address] Bone Density Report MR#: [id number] Acct: [id number] Name: DIANDRA CAMEJO Rep #: [id number] : 1970 F 42 From: Samm Sue MD PCP: Status: [facility] Study: Dexa Bone Density Study (HP) Date of Exam: 09/03/13 Exam# [id number] Ordering Dr: Mita Almeida DO STUDY: DUAL ENERGY X-RAY ABSORPTIOMETRY / DXA REASON FOR EXAM: Female, 42 years old. Family history of osteoporosis. TECHNIQUE: Bone Mineral Density (BMD) measurements of lumbar spine and bilateral hips were obtained. COMPARISON: None. FINDINGS: Lumbar Spine (L1-L4): g/cm2 (1.214) / T-score (0.4) / Z-score (0.4) Findings are suggestive of normal bone density with a low fracture risk. Left Femur Total: g/cm2 (0.983) / T-score (-0.2) / Z-score (0.1) Left Femoral Neck: g/cm2 (0.981) / T-score (-0.4) / Z-score (0.1) Right Femur Total: g/cm2 (0.956) / T-score (-0.4) / Z-score (-0.2) Right Femoral Neck: g/cm2 (0.923) / T-score (-0.8) / Z-score (-0.3) IMPRESSION: The patient is considered normal as outlined below according to World [employer] Organization (WHO) criteria with a low fracture risk. Reference Information: The T-score is the number of standard deviations above or below the standard which is normal for young adults at their peak bone mineral density. The World Health Organization (WHO) interprets the T-scores as follows: Above -1 Normal bone density Between -1 and -2.5 Osteopenia Equal to / or below -2.5 Osteoporosis As a practical clinical guideline, osteopenia may be graded as follows: Mild -1 through -1.5 Moderate -1.6 through -2.0 Severe -2.1 through -2.4 The Z-score is the number of standard deviations above or below age-matched controls. A Z-score of less than -1.5 would be considered abnormal. References: 1. NIH Osteoporosis and Related Bone Diseases http://www.osteo.org 2. International Society for Clinical Densitometry http://www.iscd.org 3. National Osteoporosis Foundation http://www.nof.org Signed: Samm Sue M.D. September 03, 2013 at 11:36:25 AM EDT [phone] Electronically Signed GP/GP If you are the referring physician and would like to consult with the radiologist who provided this interpretation, please contact Samm Sue M.D. at [phone]. If this radiologist is unavailable, you will be directed to another radiologist to assist. If you are a patient with a question regarding this report, please contact your referring physician directly. Professional Interpretation Provided By: [employer], Phone , These documents contain legally protected and confidential health information intended only for the use of the individual or entity named above. If you are not the intended recipient, you are hereby notified that any disclosure, copying, distribution, or other use of these documents is strictly prohibited. If you have received this information in error, please notify the sender immediately and arrange for the return or destruction of these documents. CC: Mita Almeida DO Footwear Production Machine Operator: Signed Mita Almeida Work Phone: [facility] Mignon Slarb Comment on above: Aug 2019 DR. LAMAR [facility] Kip Polo Comment on above: Aug 2019 DR[address] LAMAR [facility] Kip Polo LP N Comment on above: Aug 2019 DR[facility] LAMAR [facility] Julia García LP N Comment on above: Aug 2019 DR[facility] LAMAR [facility] Selina Gravius GRINDER MACHINE KNIFE SETTER Comment on above: Aug 2019 DR. LAMAR [facility] Edwige Kingsley MA Comment on above: Aug 2019 DR. LAMAR meniscal tear left Kip Sm ith meniscal tear left Trudy C oulter meniscal tear left Kip Sm ith meniscal tear left Mignon Sl arb meniscal tear left Kip Da vis meniscal tear left Kip Da vis CHIEF CARDIOPULMONARY TECHNOLOGIST meniscal tear left Julia Cr oss CHIEF CARDIOPULMONARY TECHNOLOGIST meniscal tear left Selina Gr avius GRINDER MACHINE KNIFE SETTER meniscal tear left Edwige murillo MA plica band right kne e and synovectomy Kip Garcia plica band right kne e and synovectomy Trudy Paul plica band right kne e and synovectomy Kip Garcia plica band right kne e and synovectomy Mignon Slarb plica band right kne e and synovectomy Kip Polo plica band right kne e and synovectomy Kip Polo CHIEF CARDIOPULMONARY TECHNOLOGIST plica band right kne e and synovectomy Julia García CHIEF CARDIOPULMONARY TECHNOLOGIST plica band right kne e and synovectomy Selina Girish GRINDER MACHINE KNIFE SETTER plica band right kne e and synovectomy Edwige Kingsley MA Plan of Treatment Date Care Activity Detail Author Start: 08-09-2023 Antinuclear antibodies tom TOM (ANTINUCLEAR ANTIBODY) (49463) [facility]; [facility] Work Phone: Start: 08-09-2023 Extractable nuclear antigen antibody any method Systemic Lupus Profile (64027) [facility]; [facility] Work Phone: Start: 04-05-2023 Procedure Education Eprescribed prescriptions (G8553) [facility]; [facility] Work Phone: Start: 04-05-2023 Provider Instructions for Treatment [facility]; [facility] Work Phone: Start: 04-05-2023 25 hydroxy includes fractions if performed CALCIFEDIOL (64463) [facility]; [facility] Work Phone: Start: 05-01-2022 Procedure Education Eprescribed prescriptions (G8553) [facility]; [facility] Work Phone: Start: 05-01-2022 Provider Instructions for Treatment [facility]; [facility] Work Phone: Start: 05-01-2022 Calcium total CALCIUM SERUM (94629) [facility]; [facility] Work Phone: Start: 05-01-2022 Lactate dehydrogenase isoenzymes sep&ivette LDH TOTAL & ISOENZYMES (06659) [facility]; [facility] Work Phone: Start: 07-29-2021 Assay of thyroid stimulating hormone tsh TSH (THYROID STIMULATING HORMONE) (72694) [facility]; [facility] Work Phone: Start: 07-11-2021 Assay of thyroid stimulating hormone tsh TSH (THYROID STIMULATING HORMONE) (78385) [facility]; [facility] Work Phone: Start: 06-21-2021 Comprehensive metabolic panel METABOLIC PANEL, COMPREHENSIVE (31844) [facility]; [facility] Work Phone: Start: 05-13-2021 Assay of thyroid stimulating hormone tsh TSH (THYROID STIMULATING HORMONE) (93707) [facility]; [facility] Work Phone: Start: 05-13-2021 Assay of triiodothyronine t3 free T3, FREE (TRIDOTHYRONINE) (20671) [facility]; [facility] Work Phone: Start: 05-13-2021 Assay of free thyroxine T4, FREE (THYROXINE) (97108) [facility]; [facility] Work Phone: Start: 04-29-2021 Procedure Education Eprescribed prescriptions (G8553) [facility]; [facility] Work Phone: Start: 04-29-2021 Assay of free thyroxine T4, FREE (THYROXINE) (36736) [facility]; [facility] Work Phone: Start: 04-29-2021 Assay of triiodothyronine t3 free T3, FREE (TRIDOTHYRONINE) (63304) [facility]; [facility] Work Phone: Start: 04-29-2021 25 hydroxy includes fractions if performed CALCIFIDIOL (53625) VIT D 25 [facility]; [facility] Work Phone: Start: 04-29-2021 Assay of thyroid stimulating hormone tsh TSH (80514) [facility]; [facility] Work Phone: Start: 03-28-2021 Procedure Education Eprescribed prescriptions (G8553) [facility]; [facility] Work Phone: Start: 03-28-2021 Provider Instructions for Treatment Follow up if no improvement or if symptoms worsen [facility]; [facility] Work Phone: Start: 09-15-2020 Procedure Education Eprescribed prescriptions (G8553) [facility] Work Phone: Start: 09-15-2020 Provider Instructions for Treatment [facility] Work Phone: Start: 07-30-2020 Procedure Education Eprescribed prescriptions (G8553) [facility] Work Phone: Start: 07-30-2020 Provider Instructions for Treatment Reviewed Lab [facility] Work Phone: Start: 07-30-2020 Assay of thyroid stimulating hormone tsh TSH (50993) [facility]; [facility] Work Phone: Comment on above: send results to Dr Kd Walton in [place] - endocrinology Start: 07-30-2020 TSH Qn TSH (66314) [facility] Work Phone: Comment on above: send results to Dr Kd Walton in [place] - endocrinology Start: 08-01-2019 Procedure Education Eprescribed prescriptions (G8553) [facility] Work Phone: Start: 08-01-2019 Provider Instructions for Treatment [facility] Work Phone: Start: 07-30-2019 Assay of thyroid stimulating hormone tsh TSH (THYROID STIMULATING HORMONE) (93316) [facility]; [facility] Work Phone: Start: 07-30-2019 TSH Qn TSH (THYROID STIMULATING HORMONE) (39916) [facility] Work Phone: Start: 06-12-2019 Assay of free thyroxine T4, FREE (THYROXINE) (18559) [facility]; [facility] Work Phone: Start: 06-12-2019 T4 free mass conc T4, FREE (THYROXINE) (93392) [facility] Work Phone: Start: 06-12-2019 Assay of triiodothyronine t3 free T3, FREE (TRIDOTHYRONINE) (34982) [facility]; [facility] Work Phone: Start: 06-12-2019 T3 free mass conc T3, FREE (TRIDOTHYRONINE) (29744) [facility] Work Phone: Start: 06-12-2019 Assay of thyroid stimulating hormone tsh TSH (THYROID STIMULATING HORMONE) (28984) [facility]; [facility] Work Phone: Start: 06-12-2019 Thyrotropin Qn TSH (THYROID STIMULATING HORMONE) (09501) [facility] Work Phone: Start: 05-07-2019 Procedure Education Eprescribed prescriptions (G8553) [facility] Work Phone: Start: 05-07-2019 Provider Instructions for Treatment Follow up in 6 weeks [facility] Work Phone: Start: 04-24-2019 Assay of triiodothyronine t3 free T3, FREE (TRIDOTHYRONINE) (63400) [facility]; [facility] Work Phone: Start: 04-24-2019 T3 free mass conc T3, FREE (TRIDOTHYRONINE) (38555) [facility] Work Phone: Start: 04-24-2019 Assay of free thyroxine T4, FREE (THYROXINE) (73931) [facility]; [facility] Work Phone: Start: 04-24-2019 T4 free mass conc T4, FREE (THYROXINE) (44231) [facility] Work Phone: Start: 04-24-2019 Assay of thyroid stimulating hormone tsh TSH (THYROID STIMULATING HORMONE) (30685) [facility]; [facility] Work Phone: Start: 04-24-2019 Thyrotropin Qn TSH (THYROID STIMULATING HORMONE) (78471) [facility] Work Phone: Start: 04-22-2019 Assay of thyroid stimulating hormone tsh TSH (16330) [facility]; [facility] Work Phone: Start: 04-22-2019 Thyrotropin Qn TSH (43768) [facility] Work Phone: Start: 03-11-2019 Procedure Education Eprescribed prescriptions (G8553) [facility] Work Phone: Start: 03-11-2019 Provider Instructions for Treatment Follow up in 6 weeks after labs [facility] Work Phone: Start: 03-11-2019 Cobalamin (Vitamin B12) mass conc VITAMIN B12 AND FOLATES (81996) [facility] Work Phone: Start: 03-11-2019 Cyanocobalamin vitamin b-12 VITAMIN B12 AND FOLATES (28498) [facility]; [facility] Work Phone: Start: 03-11-2019 25 hydroxy includes fractions if performed CALCIFEDIOL (62166) [facility] Work Phone: Start: 03-11-2019 Comprehensive metabolic panel Metabolic Panel, Comprehensive (55189) [facility] Work Phone: Start: 03-11-2019 Assay of free thyroxine T4, FREE (THYROXINE) (74720) [facility]; [facility] Work Phone: Start: 03-11-2019 T4 free mass conc T4, FREE (THYROXINE) (92995) [facility] Work Phone: Start: 03-11-2019 Assay of triiodothyronine t3 free T3, FREE (TRIDOTHYRONINE) (16587) [facility]; [facility] Work Phone: Start: 03-11-2019 T3 free mass conc T3, FREE (TRIDOTHYRONINE) (97511) [facility] Work Phone: Start: 03-11-2019 Assay of thyroid stimulating hormone tsh TSH (THYROID STIMULATING HORMONE) (31281) [facility]; [facility] Work Phone: Start: 03-11-2019 Thyrotropin Qn TSH (THYROID STIMULATING HORMONE) (56761) [facility] Work Phone: Start: 06-12-2018 Assay of free thyroxine T4, FREE (THYROXINE) (76161) [facility]; [facility] Work Phone: Start: 06-12-2018 T4 free mass conc T4, FREE (THYROXINE) (03261) [facility] Work Phone: Start: 06-12-2018 Assay of triiodothyronine t3 free FREE TRIDOTHYRONINE (T3) (51970) [facility] Work Phone: Start: 06-12-2018 Assay of thyroid stimulating hormone tsh TSH (THYROID STIMULATING HORMONE) (90296) [facility]; [facility] Work Phone: Start: 06-12-2018 Thyrotropin Qn TSH (THYROID STIMULATING HORMONE) (45847) [facility] Work Phone: Start: 06-07-2018 Procedure Education Eprescribed prescriptions (G8553) [facility] Work Phone: Start: 06-07-2018 Provider Instructions for Treatment [facility] Work Phone: Start: 06-07-2018 Assay of free thyroxine T4, FREE (THYROXINE) (63057) [facility]; [facility] Work Phone: Start: 06-07-2018 T4 free mass conc T4, FREE (THYROXINE) (36504) [facility] Work Phone: Start: 06-07-2018 Assay of triiodothyronine t3 free T3, FREE (TRIDOTHYRONINE) (69961) [facility]; [facility] Work Phone: Start: 06-07-2018 T3 free mass conc T3, FREE (TRIDOTHYRONINE) (98585) [facility] Work Phone: Start: 06-07-2018 Assay of thyroid stimulating hormone tsh TSH (73974) [facility]; [facility] Work Phone: Start: 06-07-2018 Thyrotropin Qn TSH (33119) [facility] Work Phone: Start: 12-27-2017 Patient Education Traveler's Diarrhea: diarrhea [facility] Work Phone: Start: 12-27-2017 Procedure Education Eprescribed prescriptions (G8553) [facility] Work Phone: Start: 12-27-2017 Provider Instructions for Treatment Follow up if no improvement or if symptoms worsen [facility] Work Phone: Start: 12-27-2017 Ova&parasites direct smears concentration & id OVA & PARASITE DIR SMEAR (69768) [facility] Work Phone: Start: 12-27-2017 Blood occult peroxidase actv qual feces 1 deter OCCULT BLOOD FECES SCREEN (47375) [facility] Work Phone: Start: 12-27-2017 Leukocyte assmt fecal qual/semiquantitative LEUKOCYTE COUNT, FECAL (08651) [facility] Work Phone: Start: 12-27-2017 Iaad ia clostridium difficile toxin Clostridium difficile Toxin A+B, EIA (55536) [facility] Work Phone: Start: 12-27-2017 Cul bact stool aerobic isol salmonella&shigell JEANETH CULTURE-STOOL (27723) [facility] Work Phone: Start: 02-05-2017 Provider Instructions for Treatment [facility] Work Phone: Start: 02-05-2017 Assay of thyroid stimulating hormone tsh TSH (03767) [facility]; [facility] Work Phone: Start: 02-05-2017 Thyrotropin Qn TSH (41680) [facility] Work Phone: Start: 02-05-2017 Assay of free thyroxine T4, FREE (THYROXINE) (67227) [facility]; [facility] Work Phone: Start: 02-05-2017 T4 free mass conc T4, FREE (THYROXINE) (02841) [facility] Work Phone: Start: 02-05-2017 Assay of triiodothyronine t3 free T3, FREE (TRIDOTHYRONINE) (92710) [facility]; [facility] Work Phone: Start: 02-05-2017 T3 free mass conc T3, FREE (TRIDOTHYRONINE) (64537) [facility] Work Phone: Start: 04-27-2016 Assay of thyroid stimulating hormone tsh TSH (42563) [facility]; [facility] Work Phone: Start: 04-27-2016 Thyrotropin Qn TSH (17967) [facility] Work Phone: Start: 04-27-2016 Assay of triiodothyronine t3 free T3, FREE (TRIDOTHYRONINE) (75419) [facility]; [facility] Work Phone: Start: 04-27-2016 T3 free mass conc T3, FREE (TRIDOTHYRONINE) (03140) [facility] Work Phone: Start: 04-27-2016 Assay of free thyroxine T4, FREE (THYROXINE) (05086) [facility]; [facility] Work Phone: Start: 04-27-2016 T4 free mass conc T4, FREE (THYROXINE) (24032) [facility] Work Phone: Start: 06-07-2015 Procedure Education Eprescribed prescriptions (G8553) [facility] Work Phone: Start: 06-07-2015 Glucose mass conc Glucose (77476) [facility] Work Phone: Start: 06-07-2015 Glucose quantitative blood xcpt reagent strip Glucose (33541) [facility]; [facility] Work Phone: Start: 03-11-2015 Provider Instructions for Treatment Reviewed Diagnostic Tests [facility] Work Phone: Start: 08-12-2014 Patient Education Shingles (Herpes Zoster) *: herpes [facility] Work Phone: Start: 08-12-2014 Provider Instructions for Treatment Follow up if no improvement or if symptoms worsen [facility] Work Phone: Start: 06-03-2014 Procedure Education Eprescribed prescriptions (G8553) [facility] Work Phone: Start: 06-03-2014 Provider Instructions for Treatment Reviewed Lab [facility] Work Phone: Start: 06-03-2014 Hepatic function panel HEPATIC FUNCTION PANEL (73517) [facility] Work Phone: Start: 06-03-2014 Assay of thyroid stimulating hormone tsh TSH (34971) [facility]; [facility] Work Phone: Start: 06-03-2014 Thyrotropin Qn TSH (60515) [facility] Work Phone: Start: 09-25-2013 Assay of thyroid stimulating hormone tsh TSH (THYROID STIMULATING HORMONE) (95626) [facility]; [facility] Work Phone: Comment on above: roughly 6 weeks Start: 09-25-2013 Thyrotropin Qn TSH (THYROID STIMULATING HORMONE) (43740) [facility] Work Phone: Comment on above: roughly 6 weeks Start: 07-30-2013 Assay of free thyroxine T4, FREE (THYROXINE) (48874) [facility]; [facility] Work Phone: Start: 07-30-2013 T4 free mass conc T4, FREE (THYROXINE) (36116) [facility] Work Phone: Start: 07-30-2013 Assay of triiodothyronine t3 free T3, FREE (TRIDOTHYRONINE) (52318) [facility]; [facility] Work Phone: Start: 07-30-2013 T3 free mass conc T3, FREE (TRIDOTHYRONINE) (38817) [facility] Work Phone: Start: 07-30-2013 Assay of thyroid stimulating hormone tsh TSH (80961) [facility]; [facility] Work Phone: Start: 07-30-2013 Thyrotropin Qn TSH (51568) [facility] Work Phone: Start: 06-20-2012 Patient Education Muscle Strains *: strain [facility] Work Phone: Start: 06-20-2012 Provider Instructions for Treatment Shoulder Injection [facility] Work Phone: Start: 04-26-2012 Assay of thyroid stimulating hormone tsh TSH (65758) [facility]; [facility] Work Phone: Comment on above: in 8 weeks Start: 04-26-2012 Thyrotropin Qn TSH (53871) [facility] Work Phone: Comment on above: in 8 weeks Start: 03-08-2012 Provider Instructions for Treatment *Antibiotic Usage Education - Female [facility] Work Phone: Start: 03-08-2012 Assay of triiodothyronine t3 free T3, FREE (TRIDOTHYRONINE) (37442) [facility]; [facility] Work Phone: Comment on above: 6 weeks Start: 03-08-2012 T3 free mass conc T3, FREE (TRIDOTHYRONINE) (62941) [facility] Work Phone: Comment on above: 6 weeks Start: 03-08-2012 Assay of free thyroxine T4, FREE (THYROXINE) (95462) [facility]; [facility] Work Phone: Comment on above: 6 weeks Start: 03-08-2012 T4 free mass conc T4, FREE (THYROXINE) (36206) [facility] Work Phone: Comment on above: 6 weeks Start: 03-08-2012 Assay of thyroid stimulating hormone tsh TSH (88283) [facility]; [facility] Work Phone: Comment on above: 6 weeks Start: 03-08-2012 Thyrotropin Qn TSH (33794) [facility] Work Phone: Comment on above: 6 weeks Start: 03-08-2012 Assay of magnesium Magnesium (31611) [facility]; [facility] Work Phone: Start: 03-08-2012 Magnesium mass conc Magnesium (67940) [facility] Work Phone: Start: 03-08-2012 Potassium molar conc Potassium Serum (24024) [facility] Work Phone: Start: 03-08-2012 Potassium serum plasma/whole blood Potassium Serum (26009) [facility]; [facility] Work Phone: Start: 02-26-2012 Assay of free thyroxine T4, FREE (THYROXINE) (19479) [facility]; [facility] Work Phone: Start: 02-26-2012 T4 free mass conc T4, FREE (THYROXINE) (70040) [facility] Work Phone: Start: 02-26-2012 Assay of triiodothyronine t3 free T3, FREE (TRIDOTHYRONINE) (47438) [facility]; [facility] Work Phone: Start: 02-26-2012 T3 free mass conc T3, FREE (TRIDOTHYRONINE) (53132) [facility] Work Phone: Start: 02-26-2012 Assay of thyroid stimulating hormone tsh TSH (58107) [facility]; [facility] Work Phone: Start: 02-26-2012 Thyrotropin Qn TSH (24666) [facility] Work Phone: Start: 02-26-2012 Microsomal antibodies each Anti-TPO Antibody (84333) [facility] Work Phone: Start: 02-23-2012 Basic metabolic panel calcium total Metabolic Panel, Basic (57490) [facility] Work Phone: Start: 02-16-2012 Assay of magnesium Magnesium (14034) [facility]; [facility] Work Phone: Start: 02-16-2012 Magnesium mass conc Magnesium (61042) [facility] Work Phone: Start: 02-16-2012 Potassium molar conc Potassium Serum (37136) [facility] Work Phone: Start: 02-16-2012 Potassium serum plasma/whole blood Potassium Serum (66024) [facility]; [facility] Work Phone: Start: 01-31-2012 Potassium molar conc POTASSIUM SERUM (98490) [facility] Work Phone: Start: 01-31-2012 Potassium serum plasma/whole blood POTASSIUM SERUM (92614) [facility]; [facility] Work Phone: Start: 01-23-2012 25 hydroxy includes fractions if performed CALCIFEDIOL (87012) [facility] Work Phone: Start: 01-23-2012 CBC, PLATELETS & MANUAL DIFF (41952) CBC, PLATELETS & MANUAL DIFF (14237) [facility] Work Phone: Start: 01-23-2012 Comprehensive metabolic panel METABOLIC PANEL, COMPREHENSIVE (74906) [facility] Work Phone: Start: 01-23-2012 Lipid panel LIPID PANEL (65636) [facility] Work Phone: Start: 01-23-2012 Assay of thyroid stimulating hormone tsh TSH (THYROID STIMULATING HORMONE) (35422) [facility]; [facility] Work Phone: Start: 01-23-2012 Thyrotropin Qn TSH (THYROID STIMULATING HORMONE) (91685) [facility] Work Phone: Start: 09-27-2011 Provider Instructions for Treatment [facility] Work Phone: Start: 09-13-2011 C-reactive protein C-Reactive Protein (42448) [facility]; [facility] Work Phone: Start: 09-13-2011 CRP mass conc C-Reactive Protein (99882) [facility] Work Phone: Start: 09-13-2011 Sedimentation rate rbc non-automated SED RATE ERYTHROCYTE (20504) [facility] Work Phone: Start: 09-11-2011 Provider Instructions for Treatment Follow up in 10week [facility] Work Phone: Start: 09-11-2011 Urinalysis qual/semiquant except immunoassays URINALYSIS (55402) [facility] Work Phone: Start: 09-11-2011 Myoglobin MYOGLOBIN (76756) [facility]; [facility] Work Phone: Start: 09-11-2011 Myoglobin mass conc MYOGLOBIN (62209) [facility] Work Phone: Start: 09-11-2011 Creatine kinase mb fraction only CPK MB FRACTION (24361) [facility] Work Phone: Start: 09-11-2011 Assay of troponin quantitative ASSAY, TROPONIN, QUANTITATIVE (aka Troponin I) (37168) [facility]; [facility] Work Phone: Start: 09-11-2011 Troponin I.cardiac mass conc ASSAY, TROPONIN, QUANTITATIVE (aka Troponin I) (66410) [facility] Work Phone: Start: 09-11-2011 Microsomal antibodies each Anti-TPO Antibody (06439) [facility] Work Phone: Start: 09-11-2011 Assay of thyroid stimulating hormone tsh TSH (21563) [facility]; [facility] Work Phone: Start: 09-11-2011 Thyrotropin Qn TSH (91477) [facility] Work Phone: Start: 09-11-2011 Assay of free thyroxine T4, FREE (THYROXINE) (16266) [facility]; [facility] Work Phone: Start: 09-11-2011 T4 free mass conc T4, FREE (THYROXINE) (11679) [facility] Work Phone: Start: 09-11-2011 Assay of triiodothyronine t3 free T3, FREE (TRIDOTHYRONINE) (09214) [facility]; [facility] Work Phone: Start: 09-11-2011 T3 free mass conc T3, FREE (TRIDOTHYRONINE) (43315) [facility] Work Phone: Start: 02-07-2011 Comprehensive metabolic panel METABOLIC PANEL, COMPREHENSIVE (53831) [facility] Work Phone: Start: 02-07-2011 Assay of thyroid stimulating hormone tsh TSH (00052) [facility]; [facility] Work Phone: Start: 02-07-2011 Thyrotropin Qn TSH (06775) [facility] Work Phone: Start: 02-07-2011 Lipid panel LIPID PANEL (86466) [facility] Work Phone: Start: 01-21-2010 Comprehensive metabolic panel METABOLIC PANEL, COMPREHENSIVE (67413) [facility] Work Phone: Start: 01-21-2010 Assay of thyroid stimulating hormone tsh TSH (73994) [facility]; [facility] Work Phone: Start: 01-21-2010 Thyrotropin Qn TSH (46858) [facility] Work Phone: Start: 07-05-2009 Lipid panel LIPID PANEL (97883) [facility] Work Phone: Start: 07-05-2009 Comprehensive metabolic panel METABOLIC PANEL, COMPREHENSIVE (03131) [facility] Work Phone: Start: 07-05-2009 Assay of thyroid stimulating hormone tsh TSH (58116) [facility]; [facility] Work Phone: Start: 07-05-2009 Thyrotropin Qn TSH (84107) [facility] Work Phone: Start: 03-13-2008 Assay of phosphorus inorganic Phosphorus (46555) [facility]; [facility] Work Phone: Start: 03-13-2008 Phosphate mass conc Phosphorus (87763) [facility] Work Phone: Start: 03-13-2008 Assay of thyroid stimulating hormone tsh TSH (14135) [facility]; [facility] Work Phone: Start: 03-13-2008 Thyrotropin Qn TSH (07968) [facility] Work Phone: Start: 03-13-2008 Comprehensive metabolic panel METABOLIC PANEL, COMPREHENSIVE (24025) [facility] Work Phone: Start: 03-13-2008 Urnls dip stick/tablet rgnt auto w/o microscopy URINALYSIS W/O MICRO (54550) [facility] Work Phone: Start: 07-25-2007 Provider Instructions for Treatment [facility] Work Phone: Start: 05-29-2007 Provider Instructions for Treatment [facility] Work Phone: Start: 02-05-2007 Comprehensive metabolic panel METABOLIC PANEL, COMPREHENSIVE (15202) [facility] Work Phone: Start: 02-05-2007 Blood count manual cell count each CBC WITH MANUAL DIFF (12535) [facility] Work Phone: Start: 02-05-2007 Lipid panel LIPID PANEL (28150) [facility] Work Phone: Start: 02-05-2007 Assay of thyroid stimulating hormone tsh TSH (24180) [facility]; [facility] Work Phone: Start: 02-05-2007 Thyrotropin Qn TSH (73893) [facility] Work Phone: Start: 02-05-2007 Provider Instructions for Treatment [facility] Work Phone: [facility] Work Phone: [facility] Work Phone: [facility] Work Phone: [facility] Work Phone: [facility] Work Phone: [facility] Work Phone: [facility] Work Phone: [facility] Work Phone: [facility] Work Phone: [facility] Work Phone: [facility] Work Phone: [facility] Work Phone: [facility] Work Phone[facility] Work Phone: [facility] Work Phone[facility] Work Phone: [facility]; [facility] Work Phone: [facility]; [facility] Work Phone: [facility]; [facility] Work Phone: [facility]; [facility] Work Phone: [facility]; [facility] Work Phone: Immunizations Immunization Date Immunization Notes Care Provider Erik banks 04-04-2023 zoster vaccine, live Faina Calles DO Work Phone: [facility]; [facility] Work Phone: Comment on above: Site: Left Gluteus M edius 07-30-2020 tetanus toxoid, reduced diphtheria toxoid, and acellular pertussis vaccine, adsorbed Sydney Calles [facility] Work Phone: Comment on above: Site: Right Gluteus Medius lot [id number] GM 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 1970 Unknown [id number] 1970 Unknown [id number] 1970 Unknown [id number] Unknown Social History Date Type Detail Facility Alcohol Use Never smoker [facility] Work Phone: Comment on above: Occasional alcohol u se 2 QD RN Tobacco use: Never smoker. [facility] Work Phone: Tobacco use: Tobacco use: [facility]; [facility] Work Phone: Clinical Notes Note Date & Type Note Facility Instructions Name How to access health information online Indication:Non-smoker Start:15-Sep-2020 Instruction Type:Patient Education How to access health information online - Detail Indication:Non-smoker Start:15-Sep-2020 Instruction Type:Patient Education Patient Instructions Indication:Non-smoker Start:15-Sep-2020 Instruction Type:Provider Instructions for Treatment How to access health information online Indication:BMI 23.0-23.9, adult Start: 0 Instruction Type:Patient Education How to access health information online - Detail Indication:BMI 23.0-23.9, adult Start: 0 Instruction Type:Patient Education Patient Instructions Indication:BMI 23.0-23.9, adult Start: 0 Instruction Type:Provider Instructions for Treatment How to access health information online Indication:Non-smoker Start: Instruction Type:Patient Education How to access health information online - Detail Indication:Non-smoker Start: Instruction Type:Patient Education Patient Instructions Indication:Non-smoker Start: Instruction Type:Provider Instructions for Treatment How to access health information online Indication:Non-smoker Start: Instruction Type:Patient Education How to access health information online - Detail Indication:Non-smoker Start: Instruction Type:Patient Education Patient Instructions Indication:Non-smoker Start: 9 Instruction Type:Provider Instructions for Treatment How to access health information online Indication:BMI 23.0-23.9, adult Start: 9 Instruction Type:Patient Education How to access health information online - Detail Indication:BMI 23.0-23.9, adult Start: 9 Instruction Type:Patient Education Patient Instructions Indication:BMI 23.0-23.9, adult Start: 9 Instruction Type:Provider Instructions for Treatment How to access health information online Indication:BMI 23.0-23.9, adult Start: 8 Instruction Type:Patient Education How to access health information online - Detail Indication:BMI 23.0-23.9, adult Start: 8 Instruction Type:Patient Education Patient Instructions Indication:BMI 23.0-23.9, adult Start: 8 Instruction Type:Provider Instructions for Treatment How to access health information online Indication:Non-smoker Start: 8 Instruction Type:Patient Education How to access health information online - Detail Indication:Non-smoker Start: 8 Instruction Type:Patient Education Patient Instructions Indication:Diarrhea, travelers' Start: 8 Instruction Type:Provider Instructions for Treatment How to access health information online Indication:Hypothyroidism Start: 7 Instruction Type:Patient Education How to access health information online - Detail Indication:Hypothyroidism Start: 7 Instruction Type:Patient Education Patient Instructions Indication:Hypothyroidism Start: 7 Instruction Type:Provider Instructions for Treatment How to access health information online Indication:Hyperlipidemia, unspecified Start: 5 Instruction Type:Patient Education How to access health information online - Detail Indication:Hyperlipidemia, unspecified Start: 5 Instruction Type:Patient Education Patient Instructions Indication:Hyperlipidemia, unspecified Start: 5 Instruction Type:Provider Instructions for Treatment How to access health information online Indication:Lymphadenopathy Start: 5 Instruction Type:Patient Education How to access health information online - Detail Indication:Lymphadenopathy Start: 5 Instruction Type:Patient Education Patient Instructions Indication:Lymphadenopathy Start: 5 Instruction Type:Provider Instructions for Treatment Patient Instructions Indication:Lymphadenopathy Start:12-Aug-2014 Instruction Type:Provider Instructions for Treatment Patient Instructions Indication:Annual physical exam Start: 4 Instruction Type:Provider Instructions for Treatment How to access health information online Indication:Annual physical exam Start: 4 Instruction Type:Patient Education How to access health information online - Detail Indication:Annual physical exam Start: 4 Instruction Type:Patient Education Patient Instructions Indication:Hypothyroidism Start: 3 Instruction Type:Provider Instructions for Treatment [facility]; [facility] Work Phone: Instructions* Name Dates Details Patient Instructions Indication:Non-smoker Start:28-Mar-2021 Instruction Type:Provider Instructions for Treatment How to Access Health Informa tion Online using Patient Portal and [employer] Apps Indication:Non-smoker Start:28-Mar-2021 Instruction Type:Patient Education How to access health informa tion online Indication:Non-smoker Start:15-Sep-2020 Instruction Type:Patient Education How to access health informa tion online - Detail Indication:Non-smoker Start:15-Sep-2020 Instruction Type:Patient Education Patient Instructions Indication:Non-smoker Start:15-Sep-2020 Instruction Type:Provider Instructions for Treatment How to access health informa tion online Indication:BMI 23.0-23.9, adult Start:30-Jul-2020 Instruction Type:Patient Education How to access health informa tion online - Detail Indication:BMI 23.0-23.9, adult Start:30-Jul-2020 Instruction Type:Patient Education Patient Instructions Indication:BMI 23.0-23.9, adult Start:30-Jul-2020 Instruction Type:Provider Instructions for Treatment How to access health informa tion online Indication:Non-smoker Start:01-Aug-2019 Instruction Type:Patient Education How to access health informa tion online - Detail Indication:Non-smoker Start:01-Aug-2019 Instruction Type:Patient Education Patient Instructions Indication:Non-smoker Start:01-Aug-2019 Instruction Type:Provider Instructions for Treatment How to access health informa tion online Indication:Non-smoker Start:07-May-2019 Instruction Type:Patient Education How to access health informa tion online - Detail Indication:Non-smoker Start:07-May-2019 Instruction Type:Patient Education Patient Instructions Indication:Non-smoker Start:07-May-2019 Instruction Type:Provider Instructions for Treatment How to access health informa tion online Indication:BMI 23.0-23.9, adult Start:11-Mar-2019 Instruction Type:Patient Education How to access health informa tion online - Detail Indication:BMI 23.0-23.9, adult Start:11-Mar-2019 Instruction Type:Patient Education Patient Instructions Indication:BMI 23.0-23.9, adult Start:11-Mar-2019 Instruction Type:Provider Instructions for Treatment How to access health informa tion online Indication:BMI 23.0-23.9, adult Start:07-Jun-2018 Instruction Type:Patient Education How to access health informa tion online - Detail Indication:BMI 23.0-23.9, adult Start:07-Jun-2018 Instruction Type:Patient Education Patient Instructions Indication:BMI 23.0-23.9, adult Start:07-Jun-2018 Instruction Type:Provider Instructions for Treatment How to access health informa tion online Indication:Non-smoker Start:27-Dec-2017 Instruction Type:Patient Education How to access health informa tion online - Detail Indication:Non-smoker Start:27-Dec-2017 Instruction Type:Patient Education Patient Instructions Indication:Diarrhea, travelers' Start:27-Dec-2017 Instruction Type:Provider Instructions for Treatment How to access health informa tion online Indication:Hypothyroidism Start:05-Feb-2017 Instruction Type:Patient Education How to access health informa tion online - Detail Indication:Hypothyroidism Start:05-Feb-2017 Instruction Type:Patient Education Patient Instructions Indication:Hypothyroidism Start:05-Feb-2017 Instruction Type:Provider Instructions for Treatment How to access health informa tion online Indication:Hyperlipidemia, unspecified Start:07-Jun-2015 Instruction Type:Patient Education How to access health informa tion online - Detail Indication:Hyperlipidemia, unspecified Start:07-Jun-2015 Instruction Type:Patient Education Patient Instructions Indication:Hyperlipidemia, unspecified Start:07-Jun-2015 Instruction Type:Provider Instructions for Treatment How to access health informa tion online Indication:Lymphadenopathy Start:05-Mar-2015 Instruction Type:Patient Education How to access health informa tion online - Detail Indication:Lymphadenopathy Start:05-Mar-2015 Instruction Type:Patient Education Patient Instructions Indication:Lymphadenopathy Start:05-Mar-2015 Instruction Type:Provider Instructions for Treatment Patient Instructions Indication:Lymphadenopathy Start:12-Aug-2014 Instruction Type:Provider Instructions for Treatment Patient Instructions Indication:Annual physical exam Start:03-Jun-2014 Instruction Type:Provider Instructions for Treatment How to access health informa tion online Indication:Annual physical exam Start:03-Jun-2014 Instruction Type:Patient Education How to access health informa tion online - Detail Indication:Annual physical exam Start:03-Jun-2014 Instruction Type:Patient Education Patient Instructions Indication:Hypothyroidism Start:30-Jul-2013 Instruction Type:Provider Instructions for Treatment [facility]; [facility] Work Phone: Instructions* Name Dates Details How to Access Health Informa tion Online using Patient Portal and [employer] Apps Indication:Non-smoker Start:29-Apr-2021 Instruction Type:Patient Education Patient Instructions Indication:Non-smoker Start:29-Apr-2021 Instruction Type:Provider Instructions for Treatment Patient Instructions Indication:Non-smoker Start:28-Mar-2021 Instruction Type:Provider Instructions for Treatment How to Access Health Informa tion Online using Patient Portal and [employer] Apps Indication:Non-smoker Start:28-Mar-2021 Instruction Type:Patient Education How to access health informa tion online Indication:Non-smoker Start:15-Sep-2020 Instruction Type:Patient Education How to access health informa tion online - Detail Indication:Non-smoker Start:15-Sep-2020 Instruction Type:Patient Education Patient Instructions Indication:Non-smoker Start:15-Sep-2020 Instruction Type:Provider Instructions for Treatment How to access health informa tion online Indication:BMI 23.0-23.9, adult Start:30-Jul-2020 Instruction Type:Patient Education How to access health informa tion online - Detail Indication:BMI 23.0-23.9, adult Start:30-Jul-2020 Instruction Type:Patient Education Patient Instructions Indication:BMI 23.0-23.9, adult Start:30-Jul-2020 Instruction Type:Provider Instructions for Treatment How to access health informa tion online Indication:Non-smoker Start:01-Aug-2019 Instruction Type:Patient Education How to access health informa tion online - Detail Indication:Non-smoker Start:01-Aug-2019 Instruction Type:Patient Education Patient Instructions Indication:Non-smoker Start:01-Aug-2019 Instruction Type:Provider Instructions for Treatment How to access health informa tion online Indication:Non-smoker Start:07-May-2019 Instruction Type:Patient Education How to access health informa tion online - Detail Indication:Non-smoker Start:07-May-2019 Instruction Type:Patient Education Patient Instructions Indication:Non-smoker Start:07-May-2019 Instruction Type:Provider Instructions for Treatment How to access health informa tion online Indication:BMI 23.0-23.9, adult Start:11-Mar-2019 Instruction Type:Patient Education How to access health informa tion online - Detail Indication:BMI 23.0-23.9, adult Start:11-Mar-2019 Instruction Type:Patient Education Patient Instructions Indication:BMI 23.0-23.9, adult Start:11-Mar-2019 Instruction Type:Provider Instructions for Treatment How to access health informa tion online Indication:BMI 23.0-23.9, adult Start:07-Jun-2018 Instruction Type:Patient Education How to access health informa tion online - Detail Indication:BMI 23.0-23.9, adult Start:07-Jun-2018 Instruction Type:Patient Education Patient Instructions Indication:BMI 23.0-23.9, adult Start:07-Jun-2018 Instruction Type:Provider Instructions for Treatment How to access health informa tion online Indication:Non-smoker Start:27-Dec-2017 Instruction Type:Patient Education How to access health informa tion online - Detail Indication:Non-smoker Start:27-Dec-2017 Instruction Type:Patient Education Patient Instructions Indication:Diarrhea, travelers' Start:27-Dec-2017 Instruction Type:Provider Instructions for Treatment How to access health informa tion online Indication:Hypothyroidism Start:05-Feb-2017 Instruction Type:Patient Education How to access health informa tion online - Detail Indication:Hypothyroidism Start:05-Feb-2017 Instruction Type:Patient Education Patient Instructions Indication:Hypothyroidism Start:05-Feb-2017 Instruction Type:Provider Instructions for Treatment How to access health informa tion online Indication:Hyperlipidemia, unspecified Start:07-Jun-2015 Instruction Type:Patient Education How to access health informa tion online - Detail Indication:Hyperlipidemia, unspecified Start:07-Jun-2015 Instruction Type:Patient Education Patient Instructions Indication:Hyperlipidemia, unspecified Start:07-Jun-2015 Instruction Type:Provider Instructions for Treatment How to access health informa tion online Indication:Lymphadenopathy Start:05-Mar-2015 Instruction Type:Patient Education How to access health informa tion online - Detail Indication:Lymphadenopathy Start:05-Mar-2015 Instruction Type:Patient Education Patient Instructions Indication:Lymphadenopathy Start:05-Mar-2015 Instruction Type:Provider Instructions for Treatment Patient Instructions Indication:Lymphadenopathy Start:12-Aug-2014 Instruction Type:Provider Instructions for Treatment Patient Instructions Indication:Annual physical exam Start:03-Jun-2014 Instruction Type:Provider Instructions for Treatment How to access health informa tion online Indication:Annual physical exam Start:03-Jun-2014 Instruction Type:Patient Education How to access health informa tion online - Detail Indication:Annual physical exam Start:03-Jun-2014 Instruction Type:Patient Education Patient Instructions Indication:Hypothyroidism Start:30-Jul-2013 Instruction Type:Provider Instructions for Treatment [facility]; [facility] Work Phone: Instructions* Name Dates Details How to Access Health Informa tion Online using Patient Portal and [employer] Apps Indication:Non-smoker Start:29-Apr-2021 Instruction Type:Patient Education Patient Instructions Indication:Non-smoker Start:29-Apr-2021 Instruction Type:Provider Instructions for Treatment Patient Instructions Indication:Non-smoker Start:28-Mar-2021 Instruction Type:Provider Instructions for Treatment How to Access Health Informa tion Online using Patient Portal and [employer] Apps Indication:Non-smoker Start:28-Mar-2021 Instruction Type:Patient Education How to access health informa tion online Indication:Non-smoker Start:15-Sep-2020 Instruction Type:Patient Education How to access health informa tion online - Detail Indication:Non-smoker Start:15-Sep-2020 Instruction Type:Patient Education Patient Instructions Indication:Non-smoker Start:15-Sep-2020 Instruction Type:Provider Instructions for Treatment How to access health informa tion online Indication:BMI 23.0-23.9, adult Start:30-Jul-2020 Instruction Type:Patient Education How to access health informa tion online - Detail Indication:BMI 23.0-23.9, adult Start:30-Jul-2020 Instruction Type:Patient Education Patient Instructions Indication:BMI 23.0-23.9, adult Start:30-Jul-2020 Instruction Type:Provider Instructions for Treatment How to access health informa tion online Indication:Non-smoker Start:01-Aug-2019 Instruction Type:Patient Education How to access health informa tion online - Detail Indication:Non-smoker Start:01-Aug-2019 Instruction Type:Patient Education Patient Instructions Indication:Non-smoker Start:01-Aug-2019 Instruction Type:Provider Instructions for Treatment How to access health informa tion online Indication:Non-smoker Start:07-May-2019 Instruction Type:Patient Education How to access health informa tion online - Detail Indication:Non-smoker Start:07-May-2019 Instruction Type:Patient Education Patient Instructions Indication:Non-smoker Start:07-May-2019 Instruction Type:Provider Instructions for Treatment How to access health informa tion online Indication:BMI 23.0-23.9, adult Start:11-Mar-2019 Instruction Type:Patient Education How to access health informa tion online - Detail Indication:BMI 23.0-23.9, adult Start:11-Mar-2019 Instruction Type:Patient Education Patient Instructions Indication:BMI 23.0-23.9, adult Start:11-Mar-2019 Instruction Type:Provider Instructions for Treatment How to access health informa tion online Indication:BMI 23.0-23.9, adult Start:07-Jun-2018 Instruction Type:Patient Education How to access health informa tion online - Detail Indication:BMI 23.0-23.9, adult Start:07-Jun-2018 Instruction Type:Patient Education Patient Instructions Indication:BMI 23.0-23.9, adult Start:07-Jun-2018 Instruction Type:Provider Instructions for Treatment How to access health informa tion online Indication:Non-smoker Start:27-Dec-2017 Instruction Type:Patient Education How to access health informa tion online - Detail Indication:Non-smoker Start:27-Dec-2017 Instruction Type:Patient Education Patient Instructions Indication:Diarrhea, travelers' Start:27-Dec-2017 Instruction Type:Provider Instructions for Treatment How to access health informa tion online Indication:Hypothyroidism Start:05-Feb-2017 Instruction Type:Patient Education How to access health informa tion online - Detail Indication:Hypothyroidism Start:05-Feb-2017 Instruction Type:Patient Education Patient Instructions Indication:Hypothyroidism Start:05-Feb-2017 Instruction Type:Provider Instructions for Treatment How to access health informa tion online Indication:Hyperlipidemia, unspecified Start:07-Jun-2015 Instruction Type:Patient Education How to access health informa tion online - Detail Indication:Hyperlipidemia, unspecified Start:07-Jun-2015 Instruction Type:Patient Education Patient Instructions Indication:Hyperlipidemia, unspecified Start:07-Jun-2015 Instruction Type:Provider Instructions for Treatment How to access health informa tion online Indication:Lymphadenopathy Start:05-Mar-2015 Instruction Type:Patient Education How to access health informa tion online - Detail Indication:Lymphadenopathy Start:05-Mar-2015 Instruction Type:Patient Education Patient Instructions Indication:Lymphadenopathy Start:05-Mar-2015 Instruction Type:Provider Instructions for Treatment Patient Instructions Indication:Lymphadenopathy Start:12-Aug-2014 Instruction Type:Provider Instructions for Treatment Patient Instructions Indication:Annual physical exam Start:03-Jun-2014 Instruction Type:Provider Instructions for Treatment How to access health informa tion online Indication:Annual physical exam Start:03-Jun-2014 Instruction Type:Patient Education How to access health informa tion online - Detail Indication:Annual physical exam Start:03-Jun-2014 Instruction Type:Patient Education Patient Instructions Indication:Hypothyroidism Start:30-Jul-2013 Instruction Type:Provider Instructions for Treatment [facility]; [facility] Work Phone: Instructions* Name Dates Details How to Access Health Informa tion Online using Patient Portal and [employer] Apps Indication:Non-smoker Start:29-Apr-2021 Instruction Type:Patient Education Patient Instructions Indication:Non-smoker Start:29-Apr-2021 Instruction Type:Provider Instructions for Treatment Patient Instructions Indication:Non-smoker Start:28-Mar-2021 Instruction Type:Provider Instructions for Treatment How to Access Health Informa tion Online using Patient Portal and [employer] Apps Indication:Non-smoker Start:28-Mar-2021 Instruction Type:Patient Education How to access health informa tion online Indication:Non-smoker Start:15-Sep-2020 Instruction Type:Patient Education How to access health informa tion online - Detail Indication:Non-smoker Start:15-Sep-2020 Instruction Type:Patient Education Patient Instructions Indication:Non-smoker Start:15-Sep-2020 Instruction Type:Provider Instructions for Treatment How to access health informa tion online Indication:BMI 23.0-23.9, adult Start:30-Jul-2020 Instruction Type:Patient Education How to access health informa tion online - Detail Indication:BMI 23.0-23.9, adult Start:30-Jul-2020 Instruction Type:Patient Education Patient Instructions Indication:BMI 23.0-23.9, adult Start:30-Jul-2020 Instruction Type:Provider Instructions for Treatment How to access health informa tion online Indication:Non-smoker Start:01-Aug-2019 Instruction Type:Patient Education How to access health informa tion online - Detail Indication:Non-smoker Start:01-Aug-2019 Instruction Type:Patient Education Patient Instructions Indication:Non-smoker Start:01-Aug-2019 Instruction Type:Provider Instructions for Treatment How to access health informa tion online Indication:Non-smoker Start:07-May-2019 Instruction Type:Patient Education How to access health informa tion online - Detail Indication:Non-smoker Start:07-May-2019 Instruction Type:Patient Education Patient Instructions Indication:Non-smoker Start:07-May-2019 Instruction Type:Provider Instructions for Treatment How to access health informa tion online Indication:BMI 23.0-23.9, adult Start:11-Mar-2019 Instruction Type:Patient Education How to access health informa tion online - Detail Indication:BMI 23.0-23.9, adult Start:11-Mar-2019 Instruction Type:Patient Education Patient Instructions Indication:BMI 23.0-23.9, adult Start:11-Mar-2019 Instruction Type:Provider Instructions for Treatment How to access health informa tion online Indication:BMI 23.0-23.9, adult Start:07-Jun-2018 Instruction Type:Patient Education How to access health informa tion online - Detail Indication:BMI 23.0-23.9, adult Start:07-Jun-2018 Instruction Type:Patient Education Patient Instructions Indication:BMI 23.0-23.9, adult Start:07-Jun-2018 Instruction Type:Provider Instructions for Treatment How to access health informa tion online Indication:Non-smoker Start:27-Dec-2017 Instruction Type:Patient Education How to access health informa tion online - Detail Indication:Non-smoker Start:27-Dec-2017 Instruction Type:Patient Education Patient Instructions Indication:Diarrhea, travelers' Start:27-Dec-2017 Instruction Type:Provider Instructions for Treatment How to access health informa tion online Indication:Hypothyroidism Start:05-Feb-2017 Instruction Type:Patient Education How to access health informa tion online - Detail Indication:Hypothyroidism Start:05-Feb-2017 Instruction Type:Patient Education Patient Instructions Indication:Hypothyroidism Start:05-Feb-2017 Instruction Type:Provider Instructions for Treatment How to access health informa tion online Indication:Hyperlipidemia, unspecified Start:07-Jun-2015 Instruction Type:Patient Education How to access health informa tion online - Detail Indication:Hyperlipidemia, unspecified Start:07-Jun-2015 Instruction Type:Patient Education Patient Instructions Indication:Hyperlipidemia, unspecified Start:07-Jun-2015 Instruction Type:Provider Instructions for Treatment How to access health informa tion online Indication:Lymphadenopathy Start:05-Mar-2015 Instruction Type:Patient Education How to access health informa tion online - Detail Indication:Lymphadenopathy Start:05-Mar-2015 Instruction Type:Patient Education Patient Instructions Indication:Lymphadenopathy Start:05-Mar-2015 Instruction Type:Provider Instructions for Treatment Patient Instructions Indication:Lymphadenopathy Start:12-Aug-2014 Instruction Type:Provider Instructions for Treatment Patient Instructions Indication:Annual physical exam Start:03-Jun-2014 Instruction Type:Provider Instructions for Treatment How to access health informa tion online Indication:Annual physical exam Start:03-Jun-2014 Instruction Type:Patient Education How to access health informa tion online - Detail Indication:Annual physical exam Start:03-Jun-2014 Instruction Type:Patient Education Patient Instructions Indication:Hypothyroidism Start:30-Jul-2013 Instruction Type:Provider Instructions for Treatment [facility]; [facility] Work Phone: Instructions* Name Dates Details How to Access Health Informa tion Online using Patient Portal and [employer] Apps Indication:Non-smoker Start:29-Apr-2021 Instruction Type:Patient Education Patient Instructions Indication:Non-smoker Start:29-Apr-2021 Instruction Type:Provider Instructions for Treatment Patient Instructions Indication:Non-smoker Start:28-Mar-2021 Instruction Type:Provider Instructions for Treatment How to Access Health Informa tion Online using Patient Portal and [employer] Apps Indication:Non-smoker Start:28-Mar-2021 Instruction Type:Patient Education How to access health informa tion online Indication:Non-smoker Start:15-Sep-2020 Instruction Type:Patient Education How to access health informa tion online - Detail Indication:Non-smoker Start:15-Sep-2020 Instruction Type:Patient Education Patient Instructions Indication:Non-smoker Start:15-Sep-2020 Instruction Type:Provider Instructions for Treatment How to access health informa tion online Indication:BMI 23.0-23.9, adult Start:30-Jul-2020 Instruction Type:Patient Education How to access health informa tion online - Detail Indication:BMI 23.0-23.9, adult Start:30-Jul-2020 Instruction Type:Patient Education Patient Instructions Indication:BMI 23.0-23.9, adult Start:30-Jul-2020 Instruction Type:Provider Instructions for Treatment How to access health informa tion online Indication:Non-smoker Start:01-Aug-2019 Instruction Type:Patient Education How to access health informa tion online - Detail Indication:Non-smoker Start:01-Aug-2019 Instruction Type:Patient Education Patient Instructions Indication:Non-smoker Start:01-Aug-2019 Instruction Type:Provider Instructions for Treatment How to access health informa tion online Indication:Non-smoker Start:07-May-2019 Instruction Type:Patient Education How to access health informa tion online - Detail Indication:Non-smoker Start:07-May-2019 Instruction Type:Patient Education Patient Instructions Indication:Non-smoker Start:07-May-2019 Instruction Type:Provider Instructions for Treatment How to access health informa tion online Indication:BMI 23.0-23.9, adult Start:11-Mar-2019 Instruction Type:Patient Education How to access health informa tion online - Detail Indication:BMI 23.0-23.9, adult Start:11-Mar-2019 Instruction Type:Patient Education Patient Instructions Indication:BMI 23.0-23.9, adult Start:11-Mar-2019 Instruction Type:Provider Instructions for Treatment How to access health informa tion online Indication:BMI 23.0-23.9, adult Start:07-Jun-2018 Instruction Type:Patient Education How to access health informa tion online - Detail Indication:BMI 23.0-23.9, adult Start:07-Jun-2018 Instruction Type:Patient Education Patient Instructions Indication:BMI 23.0-23.9, adult Start:07-Jun-2018 Instruction Type:Provider Instructions for Treatment How to access health informa tion online Indication:Non-smoker Start:27-Dec-2017 Instruction Type:Patient Education How to access health informa tion online - Detail Indication:Non-smoker Start:27-Dec-2017 Instruction Type:Patient Education Patient Instructions Indication:Diarrhea, travelers' Start:27-Dec-2017 Instruction Type:Provider Instructions for Treatment How to access health informa tion online Indication:Hypothyroidism Start:05-Feb-2017 Instruction Type:Patient Education How to access health informa tion online - Detail Indication:Hypothyroidism Start:05-Feb-2017 Instruction Type:Patient Education Patient Instructions Indication:Hypothyroidism Start:05-Feb-2017 Instruction Type:Provider Instructions for Treatment How to access health informa tion online Indication:Hyperlipidemia, unspecified Start:07-Jun-2015 Instruction Type:Patient Education How to access health informa tion online - Detail Indication:Hyperlipidemia, unspecified Start:07-Jun-2015 Instruction Type:Patient Education Patient Instructions Indication:Hyperlipidemia, unspecified Start:07-Jun-2015 Instruction Type:Provider Instructions for Treatment How to access health informa tion online Indication:Lymphadenopathy Start:05-Mar-2015 Instruction Type:Patient Education How to access health informa tion online - Detail Indication:Lymphadenopathy Start:05-Mar-2015 Instruction Type:Patient Education Patient Instructions Indication:Lymphadenopathy Start:05-Mar-2015 Instruction Type:Provider Instructions for Treatment Patient Instructions Indication:Lymphadenopathy Start:12-Aug-2014 Instruction Type:Provider Instructions for Treatment Patient Instructions Indication:Annual physical exam Start:03-Jun-2014 Instruction Type:Provider Instructions for Treatment How to access health informa tion online Indication:Annual physical exam Start:03-Jun-2014 Instruction Type:Patient Education How to access health informa tion online - Detail Indication:Annual physical exam Start:03-Jun-2014 Instruction Type:Patient Education Patient Instructions Indication:Hypothyroidism Start:30-Jul-2013 Instruction Type:Provider Instructions for Treatment [facility]; [facility] Work Phone: Instructions* Name Dates Details How to Access Health Informa tion Online using Patient Portal and [employer] Apps Indication:Non-smoker Start:29-Apr-2021 Instruction Type:Patient Education Patient Instructions Indication:Non-smoker Start:29-Apr-2021 Instruction Type:Provider Instructions for Treatment Patient Instructions Indication:Non-smoker Start:28-Mar-2021 Instruction Type:Provider Instructions for Treatment How to Access Health Informa tion Online using Patient Portal and [employer] Apps Indication:Non-smoker Start:28-Mar-2021 Instruction Type:Patient Education How to access health informa tion online Indication:Non-smoker Start:15-Sep-2020 Instruction Type:Patient Education How to access health informa tion online - Detail Indication:Non-smoker Start:15-Sep-2020 Instruction Type:Patient Education Patient Instructions Indication:Non-smoker Start:15-Sep-2020 Instruction Type:Provider Instructions for Treatment How to access health informa tion online Indication:BMI 23.0-23.9, adult Start:30-Jul-2020 Instruction Type:Patient Education How to access health informa tion online - Detail Indication:BMI 23.0-23.9, adult Start:30-Jul-2020 Instruction Type:Patient Education Patient Instructions Indication:BMI 23.0-23.9, adult Start:30-Jul-2020 Instruction Type:Provider Instructions for Treatment How to access health informa tion online Indication:Non-smoker Start:01-Aug-2019 Instruction Type:Patient Education How to access health informa tion online - Detail Indication:Non-smoker Start:01-Aug-2019 Instruction Type:Patient Education Patient Instructions Indication:Non-smoker Start:01-Aug-2019 Instruction Type:Provider Instructions for Treatment How to access health informa tion online Indication:Non-smoker Start:07-May-2019 Instruction Type:Patient Education How to access health informa tion online - Detail Indication:Non-smoker Start:07-May-2019 Instruction Type:Patient Education Patient Instructions Indication:Non-smoker Start:07-May-2019 Instruction Type:Provider Instructions for Treatment How to access health informa tion online Indication:BMI 23.0-23.9, adult Start:11-Mar-2019 Instruction Type:Patient Education How to access health informa tion online - Detail Indication:BMI 23.0-23.9, adult Start:11-Mar-2019 Instruction Type:Patient Education Patient Instructions Indication:BMI 23.0-23.9, adult Start:11-Mar-2019 Instruction Type:Provider Instructions for Treatment How to access health informa tion online Indication:BMI 23.0-23.9, adult Start:07-Jun-2018 Instruction Type:Patient Education How to access health informa tion online - Detail Indication:BMI 23.0-23.9, adult Start:07-Jun-2018 Instruction Type:Patient Education Patient Instructions Indication:BMI 23.0-23.9, adult Start:07-Jun-2018 Instruction Type:Provider Instructions for Treatment How to access health informa tion online Indication:Non-smoker Start:27-Dec-2017 Instruction Type:Patient Education How to access health informa tion online - Detail Indication:Non-smoker Start:27-Dec-2017 Instruction Type:Patient Education Patient Instructions Indication:Diarrhea, travelers' Start:27-Dec-2017 Instruction Type:Provider Instructions for Treatment How to access health informa tion online Indication:Hypothyroidism Start:05-Feb-2017 Instruction Type:Patient Education How to access health informa tion online - Detail Indication:Hypothyroidism Start:05-Feb-2017 Instruction Type:Patient Education Patient Instructions Indication:Hypothyroidism Start:05-Feb-2017 Instruction Type:Provider Instructions for Treatment How to access health informa tion online Indication:Hyperlipidemia, unspecified Start:07-Jun-2015 Instruction Type:Patient Education How to access health informa tion online - Detail Indication:Hyperlipidemia, unspecified Start:07-Jun-2015 Instruction Type:Patient Education Patient Instructions Indication:Hyperlipidemia, unspecified Start:07-Jun-2015 Instruction Type:Provider Instructions for Treatment How to access health informa tion online Indication:Lymphadenopathy Start:05-Mar-2015 Instruction Type:Patient Education How to access health informa tion online - Detail Indication:Lymphadenopathy Start:05-Mar-2015 Instruction Type:Patient Education Patient Instructions Indication:Lymphadenopathy Start:05-Mar-2015 Instruction Type:Provider Instructions for Treatment Patient Instructions Indication:Lymphadenopathy Start:12-Aug-2014 Instruction Type:Provider Instructions for Treatment Patient Instructions Indication:Annual physical exam Start:03-Jun-2014 Instruction Type:Provider Instructions for Treatment How to access health informa tion online Indication:Annual physical exam Start:03-Jun-2014 Instruction Type:Patient Education How to access health informa tion online - Detail Indication:Annual physical exam Start:03-Jun-2014 Instruction Type:Patient Education Patient Instructions Indication:Hypothyroidism Start:30-Jul-2013 Instruction Type:Provider Instructions for Treatment [facility]; [facility] Work Phone: Instructions* Name Dates Details How to Access Health Informa tion Online using Patient Portal and [employer] Apps Indication:Non-smoker Start:29-Apr-2021 Instruction Type:Patient Education Patient Instructions Indication:Non-smoker Start:29-Apr-2021 Instruction Type:Provider Instructions for Treatment Patient Instructions Indication:Non-smoker Start:28-Mar-2021 Instruction Type:Provider Instructions for Treatment How to Access Health Informa tion Online using Patient Portal and [employer] Apps Indication:Non-smoker Start:28-Mar-2021 Instruction Type:Patient Education How to access health informa tion online Indication:Non-smoker Start:15-Sep-2020 Instruction Type:Patient Education How to access health informa tion online - Detail Indication:Non-smoker Start:15-Sep-2020 Instruction Type:Patient Education Patient Instructions Indication:Non-smoker Start:15-Sep-2020 Instruction Type:Provider Instructions for Treatment How to access health informa tion online Indication:BMI 23.0-23.9, adult Start:30-Jul-2020 Instruction Type:Patient Education How to access health informa tion online - Detail Indication:BMI 23.0-23.9, adult Start:30-Jul-2020 Instruction Type:Patient Education Patient Instructions Indication:BMI 23.0-23.9, adult Start:30-Jul-2020 Instruction Type:Provider Instructions for Treatment How to access health informa tion online Indication:Non-smoker Start:01-Aug-2019 Instruction Type:Patient Education How to access health informa tion online - Detail Indication:Non-smoker Start:01-Aug-2019 Instruction Type:Patient Education Patient Instructions Indication:Non-smoker Start:01-Aug-2019 Instruction Type:Provider Instructions for Treatment How to access health informa tion online Indication:Non-smoker Start:07-May-2019 Instruction Type:Patient Education How to access health informa tion online - Detail Indication:Non-smoker Start:07-May-2019 Instruction Type:Patient Education Patient Instructions Indication:Non-smoker Start:07-May-2019 Instruction Type:Provider Instructions for Treatment How to access health informa tion online Indication:BMI 23.0-23.9, adult Start:11-Mar-2019 Instruction Type:Patient Education How to access health informa tion online - Detail Indication:BMI 23.0-23.9, adult Start:11-Mar-2019 Instruction Type:Patient Education Patient Instructions Indication:BMI 23.0-23.9, adult Start:11-Mar-2019 Instruction Type:Provider Instructions for Treatment How to access health informa tion online Indication:BMI 23.0-23.9, adult Start:07-Jun-2018 Instruction Type:Patient Education How to access health informa tion online - Detail Indication:BMI 23.0-23.9, adult Start:07-Jun-2018 Instruction Type:Patient Education Patient Instructions Indication:BMI 23.0-23.9, adult Start:07-Jun-2018 Instruction Type:Provider Instructions for Treatment How to access health informa tion online Indication:Non-smoker Start:27-Dec-2017 Instruction Type:Patient Education How to access health informa tion online - Detail Indication:Non-smoker Start:27-Dec-2017 Instruction Type:Patient Education Patient Instructions Indication:Diarrhea, travelers' Start:27-Dec-2017 Instruction Type:Provider Instructions for Treatment How to access health informa tion online Indication:Hypothyroidism Start:05-Feb-2017 Instruction Type:Patient Education How to access health informa tion online - Detail Indication:Hypothyroidism Start:05-Feb-2017 Instruction Type:Patient Education Patient Instructions Indication:Hypothyroidism Start:05-Feb-2017 Instruction Type:Provider Instructions for Treatment How to access health informa tion online Indication:Hyperlipidemia, unspecified Start:07-Jun-2015 Instruction Type:Patient Education How to access health informa tion online - Detail Indication:Hyperlipidemia, unspecified Start:07-Jun-2015 Instruction Type:Patient Education Patient Instructions Indication:Hyperlipidemia, unspecified Start:07-Jun-2015 Instruction Type:Provider Instructions for Treatment How to access health informa tion online Indication:Lymphadenopathy Start:05-Mar-2015 Instruction Type:Patient Education How to access health informa tion online - Detail Indication:Lymphadenopathy Start:05-Mar-2015 Instruction Type:Patient Education Patient Instructions Indication:Lymphadenopathy Start:05-Mar-2015 Instruction Type:Provider Instructions for Treatment Patient Instructions Indication:Lymphadenopathy Start:12-Aug-2014 Instruction Type:Provider Instructions for Treatment Patient Instructions Indication:Annual physical exam Start:03-Jun-2014 Instruction Type:Provider Instructions for Treatment How to access health informa tion online Indication:Annual physical exam Start:03-Jun-2014 Instruction Type:Patient Education How to access health informa tion online - Detail Indication:Annual physical exam Start:03-Jun-2014 Instruction Type:Patient Education Patient Instructions Indication:Hypothyroidism Start:30-Jul-2013 Instruction Type:Provider Instructions for Treatment [facility]; [facility] Work Phone: Instructions* Name Dates Details How to Access Health Informa tion Online using Patient Portal and [employer] Apps Indication:Non-smoker Start:29-Apr-2021 Instruction Type:Patient Education Patient Instructions Indication:Non-smoker Start:29-Apr-2021 Instruction Type:Provider Instructions for Treatment Patient Instructions Indication:Non-smoker Start:28-Mar-2021 Instruction Type:Provider Instructions for Treatment How to Access Health Informa tion Online using Patient Portal and [employer] Apps Indication:Non-smoker Start:28-Mar-2021 Instruction Type:Patient Education How to access health informa tion online Indication:Non-smoker Start:15-Sep-2020 Instruction Type:Patient Education How to access health informa tion online - Detail Indication:Non-smoker Start:15-Sep-2020 Instruction Type:Patient Education Patient Instructions Indication:Non-smoker Start:15-Sep-2020 Instruction Type:Provider Instructions for Treatment How to access health informa tion online Indication:BMI 23.0-23.9, adult Start:30-Jul-2020 Instruction Type:Patient Education How to access health informa tion online - Detail Indication:BMI 23.0-23.9, adult Start:30-Jul-2020 Instruction Type:Patient Education Patient Instructions Indication:BMI 23.0-23.9, adult Start:30-Jul-2020 Instruction Type:Provider Instructions for Treatment How to access health informa tion online Indication:Non-smoker Start:01-Aug-2019 Instruction Type:Patient Education How to access health informa tion online - Detail Indication:Non-smoker Start:01-Aug-2019 Instruction Type:Patient Education Patient Instructions Indication:Non-smoker Start:01-Aug-2019 Instruction Type:Provider Instructions for Treatment How to access health informa tion online Indication:Non-smoker Start:07-May-2019 Instruction Type:Patient Education How to access health informa tion online - Detail Indication:Non-smoker Start:07-May-2019 Instruction Type:Patient Education Patient Instructions Indication:Non-smoker Start:07-May-2019 Instruction Type:Provider Instructions for Treatment How to access health informa tion online Indication:BMI 23.0-23.9, adult Start:11-Mar-2019 Instruction Type:Patient Education How to access health informa tion online - Detail Indication:BMI 23.0-23.9, adult Start:11-Mar-2019 Instruction Type:Patient Education Patient Instructions Indication:BMI 23.0-23.9, adult Start:11-Mar-2019 Instruction Type:Provider Instructions for Treatment How to access health informa tion online Indication:BMI 23.0-23.9, adult Start:07-Jun-2018 Instruction Type:Patient Education How to access health informa tion online - Detail Indication:BMI 23.0-23.9, adult Start:07-Jun-2018 Instruction Type:Patient Education Patient Instructions Indication:BMI 23.0-23.9, adult Start:07-Jun-2018 Instruction Type:Provider Instructions for Treatment How to access health informa tion online Indication:Non-smoker Start:27-Dec-2017 Instruction Type:Patient Education How to access health informa tion online - Detail Indication:Non-smoker Start:27-Dec-2017 Instruction Type:Patient Education Patient Instructions Indication:Diarrhea, travelers' Start:27-Dec-2017 Instruction Type:Provider Instructions for Treatment How to access health informa tion online Indication:Hypothyroidism Start:05-Feb-2017 Instruction Type:Patient Education How to access health informa tion online - Detail Indication:Hypothyroidism Start:05-Feb-2017 Instruction Type:Patient Education Patient Instructions Indication:Hypothyroidism Start:05-Feb-2017 Instruction Type:Provider Instructions for Treatment How to access health informa tion online Indication:Hyperlipidemia, unspecified Start:07-Jun-2015 Instruction Type:Patient Education How to access health informa tion online - Detail Indication:Hyperlipidemia, unspecified Start:07-Jun-2015 Instruction Type:Patient Education Patient Instructions Indication:Hyperlipidemia, unspecified Start:07-Jun-2015 Instruction Type:Provider Instructions for Treatment How to access health informa tion online Indication:Lymphadenopathy Start:05-Mar-2015 Instruction Type:Patient Education How to access health informa tion online - Detail Indication:Lymphadenopathy Start:05-Mar-2015 Instruction Type:Patient Education Patient Instructions Indication:Lymphadenopathy Start:05-Mar-2015 Instruction Type:Provider Instructions for Treatment Patient Instructions Indication:Lymphadenopathy Start:12-Aug-2014 Instruction Type:Provider Instructions for Treatment Patient Instructions Indication:Annual physical exam Start:03-Jun-2014 Instruction Type:Provider Instructions for Treatment How to access health informa tion online Indication:Annual physical exam Start:03-Jun-2014 Instruction Type:Patient Education How to access health informa tion online - Detail Indication:Annual physical exam Start:03-Jun-2014 Instruction Type:Patient Education Patient Instructions Indication:Hypothyroidism Start:30-Jul-2013 Instruction Type:Provider Instructions for Treatment [facility]; [facility] Work Phone: Instructions* Name Dates Details How to Access Health Informa tion Online using Patient Portal and [employer] Apps Indication:Non-smoker Start:29-Apr-2021 Instruction Type:Patient Education Patient Instructions Indication:Non-smoker Start:29-Apr-2021 Instruction Type:Provider Instructions for Treatment Patient Instructions Indication:Non-smoker Start:28-Mar-2021 Instruction Type:Provider Instructions for Treatment How to Access Health Informa tion Online using Patient Portal and [employer] Apps Indication:Non-smoker Start:28-Mar-2021 Instruction Type:Patient Education How to access health informa tion online Indication:Non-smoker Start:15-Sep-2020 Instruction Type:Patient Education How to access health informa tion online - Detail Indication:Non-smoker Start:15-Sep-2020 Instruction Type:Patient Education Patient Instructions Indication:Non-smoker Start:15-Sep-2020 Instruction Type:Provider Instructions for Treatment How to access health informa tion online Indication:BMI 23.0-23.9, adult Start:30-Jul-2020 Instruction Type:Patient Education How to access health informa tion online - Detail Indication:BMI 23.0-23.9, adult Start:30-Jul-2020 Instruction Type:Patient Education Patient Instructions Indication:BMI 23.0-23.9, adult Start:30-Jul-2020 Instruction Type:Provider Instructions for Treatment How to access health informa tion online Indication:Non-smoker Start:01-Aug-2019 Instruction Type:Patient Education How to access health informa tion online - Detail Indication:Non-smoker Start:01-Aug-2019 Instruction Type:Patient Education Patient Instructions Indication:Non-smoker Start:01-Aug-2019 Instruction Type:Provider Instructions for Treatment How to access health informa tion online Indication:Non-smoker Start:07-May-2019 Instruction Type:Patient Education How to access health informa tion online - Detail Indication:Non-smoker Start:07-May-2019 Instruction Type:Patient Education Patient Instructions Indication:Non-smoker Start:07-May-2019 Instruction Type:Provider Instructions for Treatment How to access health informa tion online Indication:BMI 23.0-23.9, adult Start:11-Mar-2019 Instruction Type:Patient Education How to access health informa tion online - Detail Indication:BMI 23.0-23.9, adult Start:11-Mar-2019 Instruction Type:Patient Education Patient Instructions Indication:BMI 23.0-23.9, adult Start:11-Mar-2019 Instruction Type:Provider Instructions for Treatment How to access health informa tion online Indication:BMI 23.0-23.9, adult Start:07-Jun-2018 Instruction Type:Patient Education How to access health informa tion online - Detail Indication:BMI 23.0-23.9, adult Start:07-Jun-2018 Instruction Type:Patient Education Patient Instructions Indication:BMI 23.0-23.9, adult Start:07-Jun-2018 Instruction Type:Provider Instructions for Treatment How to access health informa tion online Indication:Non-smoker Start:27-Dec-2017 Instruction Type:Patient Education How to access health informa tion online - Detail Indication:Non-smoker Start:27-Dec-2017 Instruction Type:Patient Education Patient Instructions Indication:Diarrhea, travelers' Start:27-Dec-2017 Instruction Type:Provider Instructions for Treatment How to access health informa tion online Indication:Hypothyroidism Start:05-Feb-2017 Instruction Type:Patient Education How to access health informa tion online - Detail Indication:Hypothyroidism Start:05-Feb-2017 Instruction Type:Patient Education Patient Instructions Indication:Hypothyroidism Start:05-Feb-2017 Instruction Type:Provider Instructions for Treatment How to access health informa tion online Indication:Hyperlipidemia, unspecified Start:07-Jun-2015 Instruction Type:Patient Education How to access health informa tion online - Detail Indication:Hyperlipidemia, unspecified Start:07-Jun-2015 Instruction Type:Patient Education Patient Instructions Indication:Hyperlipidemia, unspecified Start:07-Jun-2015 Instruction Type:Provider Instructions for Treatment How to access health informa tion online Indication:Lymphadenopathy Start:05-Mar-2015 Instruction Type:Patient Education How to access health informa tion online - Detail Indication:Lymphadenopathy Start:05-Mar-2015 Instruction Type:Patient Education Patient Instructions Indication:Lymphadenopathy Start:05-Mar-2015 Instruction Type:Provider Instructions for Treatment Patient Instructions Indication:Lymphadenopathy Start:12-Aug-2014 Instruction Type:Provider Instructions for Treatment Patient Instructions Indication:Annual physical exam Start:03-Jun-2014 Instruction Type:Provider Instructions for Treatment How to access health informa tion online Indication:Annual physical exam Start:03-Jun-2014 Instruction Type:Patient Education How to access health informa tion online - Detail Indication:Annual physical exam Start:03-Jun-2014 Instruction Type:Patient Education Patient Instructions Indication:Hypothyroidism Start:30-Jul-2013 Instruction Type:Provider Instructions for Treatment [facility]; [facility] Work Phone: Instructions* Name Dates Details How to Access Health Informa tion Online using Patient Portal and [employer] Apps Indication:Non-smoker Start:29-Apr-2021 Instruction Type:Patient Education Patient Instructions Indication:Non-smoker Start:29-Apr-2021 Instruction Type:Provider Instructions for Treatment Patient Instructions Indication:Non-smoker Start:28-Mar-2021 Instruction Type:Provider Instructions for Treatment How to Access Health Informa tion Online using Patient Portal and [employer] Apps Indication:Non-smoker Start:28-Mar-2021 Instruction Type:Patient Education How to access health informa tion online Indication:Non-smoker Start:15-Sep-2020 Instruction Type:Patient Education How to access health informa tion online - Detail Indication:Non-smoker Start:15-Sep-2020 Instruction Type:Patient Education Patient Instructions Indication:Non-smoker Start:15-Sep-2020 Instruction Type:Provider Instructions for Treatment How to access health informa tion online Indication:BMI 23.0-23.9, adult Start:30-Jul-2020 Instruction Type:Patient Education How to access health informa tion online - Detail Indication:BMI 23.0-23.9, adult Start:30-Jul-2020 Instruction Type:Patient Education Patient Instructions Indication:BMI 23.0-23.9, adult Start:30-Jul-2020 Instruction Type:Provider Instructions for Treatment How to access health informa tion online Indication:Non-smoker Start:01-Aug-2019 Instruction Type:Patient Education How to access health informa tion online - Detail Indication:Non-smoker Start:01-Aug-2019 Instruction Type:Patient Education Patient Instructions Indication:Non-smoker Start:01-Aug-2019 Instruction Type:Provider Instructions for Treatment How to access health informa tion online Indication:Non-smoker Start:07-May-2019 Instruction Type:Patient Education How to access health informa tion online - Detail Indication:Non-smoker Start:07-May-2019 Instruction Type:Patient Education Patient Instructions Indication:Non-smoker Start:07-May-2019 Instruction Type:Provider Instructions for Treatment How to access health informa tion online Indication:BMI 23.0-23.9, adult Start:11-Mar-2019 Instruction Type:Patient Education How to access health informa tion online - Detail Indication:BMI 23.0-23.9, adult Start:11-Mar-2019 Instruction Type:Patient Education Patient Instructions Indication:BMI 23.0-23.9, adult Start:11-Mar-2019 Instruction Type:Provider Instructions for Treatment How to access health informa tion online Indication:BMI 23.0-23.9, adult Start:07-Jun-2018 Instruction Type:Patient Education How to access health informa tion online - Detail Indication:BMI 23.0-23.9, adult Start:07-Jun-2018 Instruction Type:Patient Education Patient Instructions Indication:BMI 23.0-23.9, adult Start:07-Jun-2018 Instruction Type:Provider Instructions for Treatment How to access health informa tion online Indication:Non-smoker Start:27-Dec-2017 Instruction Type:Patient Education How to access health informa tion online - Detail Indication:Non-smoker Start:27-Dec-2017 Instruction Type:Patient Education Patient Instructions Indication:Diarrhea, travelers' Start:27-Dec-2017 Instruction Type:Provider Instructions for Treatment How to access health informa tion online Indication:Hypothyroidism Start:05-Feb-2017 Instruction Type:Patient Education How to access health informa tion online - Detail Indication:Hypothyroidism Start:05-Feb-2017 Instruction Type:Patient Education Patient Instructions Indication:Hypothyroidism Start:05-Feb-2017 Instruction Type:Provider Instructions for Treatment How to access health informa tion online Indication:Hyperlipidemia, unspecified Start:07-Jun-2015 Instruction Type:Patient Education How to access health informa tion online - Detail Indication:Hyperlipidemia, unspecified Start:07-Jun-2015 Instruction Type:Patient Education Patient Instructions Indication:Hyperlipidemia, unspecified Start:07-Jun-2015 Instruction Type:Provider Instructions for Treatment How to access health informa tion online Indication:Lymphadenopathy Start:05-Mar-2015 Instruction Type:Patient Education How to access health informa tion online - Detail Indication:Lymphadenopathy Start:05-Mar-2015 Instruction Type:Patient Education Patient Instructions Indication:Lymphadenopathy Start:05-Mar-2015 Instruction Type:Provider Instructions for Treatment Patient Instructions Indication:Lymphadenopathy Start:12-Aug-2014 Instruction Type:Provider Instructions for Treatment Patient Instructions Indication:Annual physical exam Start:03-Jun-2014 Instruction Type:Provider Instructions for Treatment How to access health informa tion online Indication:Annual physical exam Start:03-Jun-2014 Instruction Type:Patient Education How to access health informa tion online - Detail Indication:Annual physical exam Start:03-Jun-2014 Instruction Type:Patient Education Patient Instructions Indication:Hypothyroidism Start:30-Jul-2013 Instruction Type:Provider Instructions for Treatment [facility]; [facility] Work Phone: Instructions* Name Dates Details How to Access Health Informa tion Online using Patient Portal and [employer] Apps Indication:Non-smoker Start:29-Apr-2021 Instruction Type:Patient Education Patient Instructions Indication:Non-smoker Start:29-Apr-2021 Instruction Type:Provider Instructions for Treatment Patient Instructions Indication:Non-smoker Start:28-Mar-2021 Instruction Type:Provider Instructions for Treatment How to Access Health Informa tion Online using Patient Portal and [employer] Apps Indication:Non-smoker Start:28-Mar-2021 Instruction Type:Patient Education How to access health informa tion online Indication:Non-smoker Start:15-Sep-2020 Instruction Type:Patient Education How to access health informa tion online - Detail Indication:Non-smoker Start:15-Sep-2020 Instruction Type:Patient Education Patient Instructions Indication:Non-smoker Start:15-Sep-2020 Instruction Type:Provider Instructions for Treatment How to access health informa tion online Indication:BMI 23.0-23.9, adult Start:30-Jul-2020 Instruction Type:Patient Education How to access health informa tion online - Detail Indication:BMI 23.0-23.9, adult Start:30-Jul-2020 Instruction Type:Patient Education Patient Instructions Indication:BMI 23.0-23.9, adult Start:30-Jul-2020 Instruction Type:Provider Instructions for Treatment How to access health informa tion online Indication:Non-smoker Start:01-Aug-2019 Instruction Type:Patient Education How to access health informa tion online - Detail Indication:Non-smoker Start:01-Aug-2019 Instruction Type:Patient Education Patient Instructions Indication:Non-smoker Start:01-Aug-2019 Instruction Type:Provider Instructions for Treatment How to access health informa tion online Indication:Non-smoker Start:07-May-2019 Instruction Type:Patient Education How to access health informa tion online - Detail Indication:Non-smoker Start:07-May-2019 Instruction Type:Patient Education Patient Instructions Indication:Non-smoker Start:07-May-2019 Instruction Type:Provider Instructions for Treatment How to access health informa tion online Indication:BMI 23.0-23.9, adult Start:11-Mar-2019 Instruction Type:Patient Education How to access health informa tion online - Detail Indication:BMI 23.0-23.9, adult Start:11-Mar-2019 Instruction Type:Patient Education Patient Instructions Indication:BMI 23.0-23.9, adult Start:11-Mar-2019 Instruction Type:Provider Instructions for Treatment How to access health informa tion online Indication:BMI 23.0-23.9, adult Start:07-Jun-2018 Instruction Type:Patient Education How to access health informa tion online - Detail Indication:BMI 23.0-23.9, adult Start:07-Jun-2018 Instruction Type:Patient Education Patient Instructions Indication:BMI 23.0-23.9, adult Start:07-Jun-2018 Instruction Type:Provider Instructions for Treatment How to access health informa tion online Indication:Non-smoker Start:27-Dec-2017 Instruction Type:Patient Education How to access health informa tion online - Detail Indication:Non-smoker Start:27-Dec-2017 Instruction Type:Patient Education Patient Instructions Indication:Diarrhea, travelers' Start:27-Dec-2017 Instruction Type:Provider Instructions for Treatment How to access health informa tion online Indication:Hypothyroidism Start:05-Feb-2017 Instruction Type:Patient Education How to access health informa tion online - Detail Indication:Hypothyroidism Start:05-Feb-2017 Instruction Type:Patient Education Patient Instructions Indication:Hypothyroidism Start:05-Feb-2017 Instruction Type:Provider Instructions for Treatment How to access health informa tion online Indication:Hyperlipidemia, unspecified Start:07-Jun-2015 Instruction Type:Patient Education How to access health informa tion online - Detail Indication:Hyperlipidemia, unspecified Start:07-Jun-2015 Instruction Type:Patient Education Patient Instructions Indication:Hyperlipidemia, unspecified Start:07-Jun-2015 Instruction Type:Provider Instructions for Treatment How to access health informa tion online Indication:Lymphadenopathy Start:05-Mar-2015 Instruction Type:Patient Education How to access health informa tion online - Detail Indication:Lymphadenopathy Start:05-Mar-2015 Instruction Type:Patient Education Patient Instructions Indication:Lymphadenopathy Start:05-Mar-2015 Instruction Type:Provider Instructions for Treatment Patient Instructions Indication:Lymphadenopathy Start:12-Aug-2014 Instruction Type:Provider Instructions for Treatment Patient Instructions Indication:Annual physical exam Start:03-Jun-2014 Instruction Type:Provider Instructions for Treatment How to access health informa tion online Indication:Annual physical exam Start:03-Jun-2014 Instruction Type:Patient Education How to access health informa tion online - Detail Indication:Annual physical exam Start:03-Jun-2014 Instruction Type:Patient Education Patient Instructions Indication:Hypothyroidism Start:30-Jul-2013 Instruction Type:Provider Instructions for Treatment [facility]; [facility] Work Phone: Instructions* Name Dates Details How to Access Health Informa tion Online using Patient Portal and [employer] Apps Indication:Non-smoker Start:29-Apr-2021 Instruction Type:Patient Education Patient Instructions Indication:Non-smoker Start:29-Apr-2021 Instruction Type:Provider Instructions for Treatment Patient Instructions Indication:Non-smoker Start:28-Mar-2021 Instruction Type:Provider Instructions for Treatment How to Access Health Informa tion Online using Patient Portal and [employer] Apps Indication:Non-smoker Start:28-Mar-2021 Instruction Type:Patient Education How to access health informa tion online Indication:Non-smoker Start:15-Sep-2020 Instruction Type:Patient Education How to access health informa tion online - Detail Indication:Non-smoker Start:15-Sep-2020 Instruction Type:Patient Education Patient Instructions Indication:Non-smoker Start:15-Sep-2020 Instruction Type:Provider Instructions for Treatment How to access health informa tion online Indication:BMI 23.0-23.9, adult Start:30-Jul-2020 Instruction Type:Patient Education How to access health informa tion online - Detail Indication:BMI 23.0-23.9, adult Start:30-Jul-2020 Instruction Type:Patient Education Patient Instructions Indication:BMI 23.0-23.9, adult Start:30-Jul-2020 Instruction Type:Provider Instructions for Treatment How to access health informa tion online Indication:Non-smoker Start:01-Aug-2019 Instruction Type:Patient Education How to access health informa tion online - Detail Indication:Non-smoker Start:01-Aug-2019 Instruction Type:Patient Education Patient Instructions Indication:Non-smoker Start:01-Aug-2019 Instruction Type:Provider Instructions for Treatment How to access health informa tion online Indication:Non-smoker Start:07-May-2019 Instruction Type:Patient Education How to access health informa tion online - Detail Indication:Non-smoker Start:07-May-2019 Instruction Type:Patient Education Patient Instructions Indication:Non-smoker Start:07-May-2019 Instruction Type:Provider Instructions for Treatment How to access health informa tion online Indication:BMI 23.0-23.9, adult Start:11-Mar-2019 Instruction Type:Patient Education How to access health informa tion online - Detail Indication:BMI 23.0-23.9, adult Start:11-Mar-2019 Instruction Type:Patient Education Patient Instructions Indication:BMI 23.0-23.9, adult Start:11-Mar-2019 Instruction Type:Provider Instructions for Treatment How to access health informa tion online Indication:BMI 23.0-23.9, adult Start:07-Jun-2018 Instruction Type:Patient Education How to access health informa tion online - Detail Indication:BMI 23.0-23.9, adult Start:07-Jun-2018 Instruction Type:Patient Education Patient Instructions Indication:BMI 23.0-23.9, adult Start:07-Jun-2018 Instruction Type:Provider Instructions for Treatment How to access health informa tion online Indication:Non-smoker Start:27-Dec-2017 Instruction Type:Patient Education How to access health informa tion online - Detail Indication:Non-smoker Start:27-Dec-2017 Instruction Type:Patient Education Patient Instructions Indication:Diarrhea, travelers' Start:27-Dec-2017 Instruction Type:Provider Instructions for Treatment How to access health informa tion online Indication:Hypothyroidism Start:05-Feb-2017 Instruction Type:Patient Education How to access health informa tion online - Detail Indication:Hypothyroidism Start:05-Feb-2017 Instruction Type:Patient Education Patient Instructions Indication:Hypothyroidism Start:05-Feb-2017 Instruction Type:Provider Instructions for Treatment How to access health informa tion online Indication:Hyperlipidemia, unspecified Start:07-Jun-2015 Instruction Type:Patient Education How to access health informa tion online - Detail Indication:Hyperlipidemia, unspecified Start:07-Jun-2015 Instruction Type:Patient Education Patient Instructions Indication:Hyperlipidemia, unspecified Start:07-Jun-2015 Instruction Type:Provider Instructions for Treatment How to access health informa tion online Indication:Lymphadenopathy Start:05-Mar-2015 Instruction Type:Patient Education How to access health informa tion online - Detail Indication:Lymphadenopathy Start:05-Mar-2015 Instruction Type:Patient Education Patient Instructions Indication:Lymphadenopathy Start:05-Mar-2015 Instruction Type:Provider Instructions for Treatment Patient Instructions Indication:Lymphadenopathy Start:12-Aug-2014 Instruction Type:Provider Instructions for Treatment Patient Instructions Indication:Annual physical exam Start:03-Jun-2014 Instruction Type:Provider Instructions for Treatment How to access health informa tion online Indication:Annual physical exam Start:03-Jun-2014 Instruction Type:Patient Education How to access health informa tion online - Detail Indication:Annual physical exam Start:03-Jun-2014 Instruction Type:Patient Education Patient Instructions Indication:Hypothyroidism Start:30-Jul-2013 Instruction Type:Provider Instructions for Treatment [facility]; [facility] Work Phone: Instructions* Name Dates Details Patient Instructions Indication:Non-smoker Start:01-May-2022 Instruction Type:Provider Instructions for Treatment How to Access Health Informa tion Online using Patient Portal and [employer]rd [employer] Apps Indication:Non-smoker Start:01-May-2022 Instruction Type:Patient Education How to Access Health Informa tion Online using Patient Portal and [employer]rd [employer] Apps Indication:Non-smoker Start:29-Apr-2021 Instruction Type:Patient Education Patient Instructions Indication:Non-smoker Start:29-Apr-2021 Instruction Type:Provider Instructions for Treatment Patient Instructions Indication:Non-smoker Start:28-Mar-2021 Instruction Type:Provider Instructions for Treatment How to Access Health Informa tion Online using Patient Portal and [employer]rd [employer] Apps Indication:Non-smoker Start:28-Mar-2021 Instruction Type:Patient Education How to access health informa tion online Indication:Non-smoker Start:15-Sep-2020 Instruction Type:Patient Education How to access health informa tion online - Detail Indication:Non-smoker Start:15-Sep-2020 Instruction Type:Patient Education Patient Instructions Indication:Non-smoker Start:15-Sep-2020 Instruction Type:Provider Instructions for Treatment How to access health informa tion online Indication:BMI 23.0-23.9, adult Start:30-Jul-2020 Instruction Type:Patient Education How to access health informa tion online - Detail Indication:BMI 23.0-23.9, adult Start:30-Jul-2020 Instruction Type:Patient Education Patient Instructions Indication:BMI 23.0-23.9, adult Start:30-Jul-2020 Instruction Type:Provider Instructions for Treatment How to access health informa tion online Indication:Non-smoker Start:01-Aug-2019 Instruction Type:Patient Education How to access health informa tion online - Detail Indication:Non-smoker Start:01-Aug-2019 Instruction Type:Patient Education Patient Instructions Indication:Non-smoker Start:01-Aug-2019 Instruction Type:Provider Instructions for Treatment How to access health informa tion online Indication:Non-smoker Start:07-May-2019 Instruction Type:Patient Education How to access health informa tion online - Detail Indication:Non-smoker Start:07-May-2019 Instruction Type:Patient Education Patient Instructions Indication:Non-smoker Start:07-May-2019 Instruction Type:Provider Instructions for Treatment How to access health informa tion online Indication:BMI 23.0-23.9, adult Start:11-Mar-2019 Instruction Type:Patient Education How to access health informa tion online - Detail Indication:BMI 23.0-23.9, adult Start:11-Mar-2019 Instruction Type:Patient Education Patient Instructions Indication:BMI 23.0-23.9, adult Start:11-Mar-2019 Instruction Type:Provider Instructions for Treatment How to access health informa tion online Indication:BMI 23.0-23.9, adult Start:07-Jun-2018 Instruction Type:Patient Education How to access health informa tion online - Detail Indication:BMI 23.0-23.9, adult Start:07-Jun-2018 Instruction Type:Patient Education Patient Instructions Indication:BMI 23.0-23.9, adult Start:07-Jun-2018 Instruction Type:Provider Instructions for Treatment How to access health informa tion online Indication:Non-smoker Start:27-Dec-2017 Instruction Type:Patient Education How to access health informa tion online - Detail Indication:Non-smoker Start:27-Dec-2017 Instruction Type:Patient Education Patient Instructions Indication:Diarrhea, travelers' Start:27-Dec-2017 Instruction Type:Provider Instructions for Treatment How to access health informa tion online Indication:Hypothyroidism Start:05-Feb-2017 Instruction Type:Patient Education How to access health informa tion online - Detail Indication:Hypothyroidism Start:05-Feb-2017 Instruction Type:Patient Education Patient Instructions Indication:Hypothyroidism Start:05-Feb-2017 Instruction Type:Provider Instructions for Treatment How to access health informa tion online Indication:Hyperlipidemia, unspecified Start:07-Jun-2015 Instruction Type:Patient Education How to access health informa tion online - Detail Indication:Hyperlipidemia, unspecified Start:07-Jun-2015 Instruction Type:Patient Education Patient Instructions Indication:Hyperlipidemia, unspecified Start:07-Jun-2015 Instruction Type:Provider Instructions for Treatment How to access health informa tion online Indication:Lymphadenopathy Start:05-Mar-2015 Instruction Type:Patient Education How to access health informa tion online - Detail Indication:Lymphadenopathy Start:05-Mar-2015 Instruction Type:Patient Education Patient Instructions Indication:Lymphadenopathy Start:05-Mar-2015 Instruction Type:Provider Instructions for Treatment Patient Instructions Indication:Lymphadenopathy Start:12-Aug-2014 Instruction Type:Provider Instructions for Treatment Patient Instructions Indication:Annual physical exam Start:03-Jun-2014 Instruction Type:Provider Instructions for Treatment How to access health informa tion online Indication:Annual physical exam Start:03-Jun-2014 Instruction Type:Patient Education How to access health informa tion online - Detail Indication:Annual physical exam Start:03-Jun-2014 Instruction Type:Patient Education Patient Instructions Indication:Hypothyroidism Start:30-Jul-2013 Instruction Type:Provider Instructions for Treatment [facility]; [facility] Work Phone: Instructions* Name Dates Details Patient Instructions Indication:Non-smoker Start:01-May-2022 Instruction Type:Provider Instructions for Treatment How to Access Health Informa tion Online using Patient Portal and [employer]rd [employer] Apps Indication:Non-smoker Start:01-May-2022 Instruction Type:Patient Education How to Access Health Informa tion Online using Patient Portal and [employer]rd [employer] Apps Indication:Non-smoker Start:29-Apr-2021 Instruction Type:Patient Education Patient Instructions Indication:Non-smoker Start:29-Apr-2021 Instruction Type:Provider Instructions for Treatment Patient Instructions Indication:Non-smoker Start:28-Mar-2021 Instruction Type:Provider Instructions for Treatment How to Access Health Informa tion Online using Patient Portal and [employer]rd [employer] Apps Indication:Non-smoker Start:28-Mar-2021 Instruction Type:Patient Education How to access health informa tion online Indication:Non-smoker Start:15-Sep-2020 Instruction Type:Patient Education How to access health informa tion online - Detail Indication:Non-smoker Start:15-Sep-2020 Instruction Type:Patient Education Patient Instructions Indication:Non-smoker Start:15-Sep-2020 Instruction Type:Provider Instructions for Treatment How to access health informa tion online Indication:BMI 23.0-23.9, adult Start:30-Jul-2020 Instruction Type:Patient Education How to access health informa tion online - Detail Indication:BMI 23.0-23.9, adult Start:30-Jul-2020 Instruction Type:Patient Education Patient Instructions Indication:BMI 23.0-23.9, adult Start:30-Jul-2020 Instruction Type:Provider Instructions for Treatment How to access health informa tion online Indication:Non-smoker Start:01-Aug-2019 Instruction Type:Patient Education How to access health informa tion online - Detail Indication:Non-smoker Start:01-Aug-2019 Instruction Type:Patient Education Patient Instructions Indication:Non-smoker Start:01-Aug-2019 Instruction Type:Provider Instructions for Treatment How to access health informa tion online Indication:Non-smoker Start:07-May-2019 Instruction Type:Patient Education How to access health informa tion online - Detail Indication:Non-smoker Start:07-May-2019 Instruction Type:Patient Education Patient Instructions Indication:Non-smoker Start:07-May-2019 Instruction Type:Provider Instructions for Treatment How to access health informa tion online Indication:BMI 23.0-23.9, adult Start:11-Mar-2019 Instruction Type:Patient Education How to access health informa tion online - Detail Indication:BMI 23.0-23.9, adult Start:11-Mar-2019 Instruction Type:Patient Education Patient Instructions Indication:BMI 23.0-23.9, adult Start:11-Mar-2019 Instruction Type:Provider Instructions for Treatment How to access health informa tion online Indication:BMI 23.0-23.9, adult Start:07-Jun-2018 Instruction Type:Patient Education How to access health informa tion online - Detail Indication:BMI 23.0-23.9, adult Start:07-Jun-2018 Instruction Type:Patient Education Patient Instructions Indication:BMI 23.0-23.9, adult Start:07-Jun-2018 Instruction Type:Provider Instructions for Treatment How to access health informa tion online Indication:Non-smoker Start:27-Dec-2017 Instruction Type:Patient Education How to access health informa tion online - Detail Indication:Non-smoker Start:27-Dec-2017 Instruction Type:Patient Education Patient Instructions Indication:Diarrhea, travelers' Start:27-Dec-2017 Instruction Type:Provider Instructions for Treatment How to access health informa tion online Indication:Hypothyroidism Start:05-Feb-2017 Instruction Type:Patient Education How to access health informa tion online - Detail Indication:Hypothyroidism Start:05-Feb-2017 Instruction Type:Patient Education Patient Instructions Indication:Hypothyroidism Start:05-Feb-2017 Instruction Type:Provider Instructions for Treatment How to access health informa tion online Indication:Hyperlipidemia, unspecified Start:07-Jun-2015 Instruction Type:Patient Education How to access health informa tion online - Detail Indication:Hyperlipidemia, unspecified Start:07-Jun-2015 Instruction Type:Patient Education Patient Instructions Indication:Hyperlipidemia, unspecified Start:07-Jun-2015 Instruction Type:Provider Instructions for Treatment How to access health informa tion online Indication:Lymphadenopathy Start:05-Mar-2015 Instruction Type:Patient Education How to access health informa tion online - Detail Indication:Lymphadenopathy Start:05-Mar-2015 Instruction Type:Patient Education Patient Instructions Indication:Lymphadenopathy Start:05-Mar-2015 Instruction Type:Provider Instructions for Treatment Patient Instructions Indication:Lymphadenopathy Start:12-Aug-2014 Instruction Type:Provider Instructions for Treatment Patient Instructions Indication:Annual physical exam Start:03-Jun-2014 Instruction Type:Provider Instructions for Treatment How to access health informa tion online Indication:Annual physical exam Start:03-Jun-2014 Instruction Type:Patient Education How to access health informa tion online - Detail Indication:Annual physical exam Start:03-Jun-2014 Instruction Type:Patient Education Patient Instructions Indication:Hypothyroidism Start:30-Jul-2013 Instruction Type:Provider Instructions for Treatment [facility]; [facility] Work Phone: Instructions* Name Dates Details Patient Instructions Indication:Non-smoker Start:01-May-2022 Instruction Type:Provider Instructions for Treatment How to Access Health Informa tion Online using Patient Portal and [employer]rd [employer] Apps Indication:Non-smoker Start:01-May-2022 Instruction Type:Patient Education How to Access Health Informa tion Online using Patient Portal and [employer]rd [employer] Apps Indication:Non-smoker Start:29-Apr-2021 Instruction Type:Patient Education Patient Instructions Indication:Non-smoker Start:29-Apr-2021 Instruction Type:Provider Instructions for Treatment Patient Instructions Indication:Non-smoker Start:28-Mar-2021 Instruction Type:Provider Instructions for Treatment How to Access Health Informa tion Online using Patient Portal and [employer]rd [employer] Apps Indication:Non-smoker Start:28-Mar-2021 Instruction Type:Patient Education How to access health informa tion online Indication:Non-smoker Start:15-Sep-2020 Instruction Type:Patient Education How to access health informa tion online - Detail Indication:Non-smoker Start:15-Sep-2020 Instruction Type:Patient Education Patient Instructions Indication:Non-smoker Start:15-Sep-2020 Instruction Type:Provider Instructions for Treatment How to access health informa tion online Indication:BMI 23.0-23.9, adult Start:30-Jul-2020 Instruction Type:Patient Education How to access health informa tion online - Detail Indication:BMI 23.0-23.9, adult Start:30-Jul-2020 Instruction Type:Patient Education Patient Instructions Indication:BMI 23.0-23.9, adult Start:30-Jul-2020 Instruction Type:Provider Instructions for Treatment How to access health informa tion online Indication:Non-smoker Start:01-Aug-2019 Instruction Type:Patient Education How to access health informa tion online - Detail Indication:Non-smoker Start:01-Aug-2019 Instruction Type:Patient Education Patient Instructions Indication:Non-smoker Start:01-Aug-2019 Instruction Type:Provider Instructions for Treatment How to access health informa tion online Indication:Non-smoker Start:07-May-2019 Instruction Type:Patient Education How to access health informa tion online - Detail Indication:Non-smoker Start:07-May-2019 Instruction Type:Patient Education Patient Instructions Indication:Non-smoker Start:07-May-2019 Instruction Type:Provider Instructions for Treatment How to access health informa tion online Indication:BMI 23.0-23.9, adult Start:11-Mar-2019 Instruction Type:Patient Education How to access health informa tion online - Detail Indication:BMI 23.0-23.9, adult Start:11-Mar-2019 Instruction Type:Patient Education Patient Instructions Indication:BMI 23.0-23.9, adult Start:11-Mar-2019 Instruction Type:Provider Instructions for Treatment How to access health informa tion online Indication:BMI 23.0-23.9, adult Start:07-Jun-2018 Instruction Type:Patient Education How to access health informa tion online - Detail Indication:BMI 23.0-23.9, adult Start:07-Jun-2018 Instruction Type:Patient Education Patient Instructions Indication:BMI 23.0-23.9, adult Start:07-Jun-2018 Instruction Type:Provider Instructions for Treatment How to access health informa tion online Indication:Non-smoker Start:27-Dec-2017 Instruction Type:Patient Education How to access health informa tion online - Detail Indication:Non-smoker Start:27-Dec-2017 Instruction Type:Patient Education Patient Instructions Indication:Diarrhea, travelers' Start:27-Dec-2017 Instruction Type:Provider Instructions for Treatment How to access health informa tion online Indication:Hypothyroidism Start:05-Feb-2017 Instruction Type:Patient Education How to access health informa tion online - Detail Indication:Hypothyroidism Start:05-Feb-2017 Instruction Type:Patient Education Patient Instructions Indication:Hypothyroidism Start:05-Feb-2017 Instruction Type:Provider Instructions for Treatment How to access health informa tion online Indication:Hyperlipidemia, unspecified Start:07-Jun-2015 Instruction Type:Patient Education How to access health informa tion online - Detail Indication:Hyperlipidemia, unspecified Start:07-Jun-2015 Instruction Type:Patient Education Patient Instructions Indication:Hyperlipidemia, unspecified Start:07-Jun-2015 Instruction Type:Provider Instructions for Treatment How to access health informa tion online Indication:Lymphadenopathy Start:05-Mar-2015 Instruction Type:Patient Education How to access health informa tion online - Detail Indication:Lymphadenopathy Start:05-Mar-2015 Instruction Type:Patient Education Patient Instructions Indication:Lymphadenopathy Start:05-Mar-2015 Instruction Type:Provider Instructions for Treatment Patient Instructions Indication:Lymphadenopathy Start:12-Aug-2014 Instruction Type:Provider Instructions for Treatment Patient Instructions Indication:Annual physical exam Start:03-Jun-2014 Instruction Type:Provider Instructions for Treatment How to access health informa tion online Indication:Annual physical exam Start:03-Jun-2014 Instruction Type:Patient Education How to access health informa tion online - Detail Indication:Annual physical exam Start:03-Jun-2014 Instruction Type:Patient Education Patient Instructions Indication:Hypothyroidism Start:30-Jul-2013 Instruction Type:Provider Instructions for Treatment [facility]; [facility] Work Phone: Instructions* Name Dates Details Patient Instructions Indication:Non-smoker Start:01-May-2022 Instruction Type:Provider Instructions for Treatment How to Access Health Informa tion Online using Patient Portal and [employer]rd [employer] Apps Indication:Non-smoker Start:01-May-2022 Instruction Type:Patient Education How to Access Health Informa tion Online using Patient Portal and [employer]rd [employer] Apps Indication:Non-smoker Start:29-Apr-2021 Instruction Type:Patient Education Patient Instructions Indication:Non-smoker Start:29-Apr-2021 Instruction Type:Provider Instructions for Treatment Patient Instructions Indication:Non-smoker Start:28-Mar-2021 Instruction Type:Provider Instructions for Treatment How to Access Health Informa tion Online using Patient Portal and [employer]rd [employer] Apps Indication:Non-smoker Start:28-Mar-2021 Instruction Type:Patient Education How to access health informa tion online Indication:Non-smoker Start:15-Sep-2020 Instruction Type:Patient Education How to access health informa tion online - Detail Indication:Non-smoker Start:15-Sep-2020 Instruction Type:Patient Education Patient Instructions Indication:Non-smoker Start:15-Sep-2020 Instruction Type:Provider Instructions for Treatment How to access health informa tion online Indication:BMI 23.0-23.9, adult Start:30-Jul-2020 Instruction Type:Patient Education How to access health informa tion online - Detail Indication:BMI 23.0-23.9, adult Start:30-Jul-2020 Instruction Type:Patient Education Patient Instructions Indication:BMI 23.0-23.9, adult Start:30-Jul-2020 Instruction Type:Provider Instructions for Treatment How to access health informa tion online Indication:Non-smoker Start:01-Aug-2019 Instruction Type:Patient Education How to access health informa tion online - Detail Indication:Non-smoker Start:01-Aug-2019 Instruction Type:Patient Education Patient Instructions Indication:Non-smoker Start:01-Aug-2019 Instruction Type:Provider Instructions for Treatment How to access health informa tion online Indication:Non-smoker Start:07-May-2019 Instruction Type:Patient Education How to access health informa tion online - Detail Indication:Non-smoker Start:07-May-2019 Instruction Type:Patient Education Patient Instructions Indication:Non-smoker Start:07-May-2019 Instruction Type:Provider Instructions for Treatment How to access health informa tion online Indication:BMI 23.0-23.9, adult Start:11-Mar-2019 Instruction Type:Patient Education How to access health informa tion online - Detail Indication:BMI 23.0-23.9, adult Start:11-Mar-2019 Instruction Type:Patient Education Patient Instructions Indication:BMI 23.0-23.9, adult Start:11-Mar-2019 Instruction Type:Provider Instructions for Treatment How to access health informa tion online Indication:BMI 23.0-23.9, adult Start:07-Jun-2018 Instruction Type:Patient Education How to access health informa tion online - Detail Indication:BMI 23.0-23.9, adult Start:07-Jun-2018 Instruction Type:Patient Education Patient Instructions Indication:BMI 23.0-23.9, adult Start:07-Jun-2018 Instruction Type:Provider Instructions for Treatment How to access health informa tion online Indication:Non-smoker Start:27-Dec-2017 Instruction Type:Patient Education How to access health informa tion online - Detail Indication:Non-smoker Start:27-Dec-2017 Instruction Type:Patient Education Patient Instructions Indication:Diarrhea, travelers' Start:27-Dec-2017 Instruction Type:Provider Instructions for Treatment How to access health informa tion online Indication:Hypothyroidism Start:05-Feb-2017 Instruction Type:Patient Education How to access health informa tion online - Detail Indication:Hypothyroidism Start:05-Feb-2017 Instruction Type:Patient Education Patient Instructions Indication:Hypothyroidism Start:05-Feb-2017 Instruction Type:Provider Instructions for Treatment How to access health informa tion online Indication:Hyperlipidemia, unspecified Start:07-Jun-2015 Instruction Type:Patient Education How to access health informa tion online - Detail Indication:Hyperlipidemia, unspecified Start:07-Jun-2015 Instruction Type:Patient Education Patient Instructions Indication:Hyperlipidemia, unspecified Start:07-Jun-2015 Instruction Type:Provider Instructions for Treatment How to access health informa tion online Indication:Lymphadenopathy Start:05-Mar-2015 Instruction Type:Patient Education How to access health informa tion online - Detail Indication:Lymphadenopathy Start:05-Mar-2015 Instruction Type:Patient Education Patient Instructions Indication:Lymphadenopathy Start:05-Mar-2015 Instruction Type:Provider Instructions for Treatment Patient Instructions Indication:Lymphadenopathy Start:12-Aug-2014 Instruction Type:Provider Instructions for Treatment Patient Instructions Indication:Annual physical exam Start:03-Jun-2014 Instruction Type:Provider Instructions for Treatment How to access health informa tion online Indication:Annual physical exam Start:03-Jun-2014 Instruction Type:Patient Education How to access health informa tion online - Detail Indication:Annual physical exam Start:03-Jun-2014 Instruction Type:Patient Education Patient Instructions Indication:Hypothyroidism Start:30-Jul-2013 Instruction Type:Provider Instructions for Treatment [facility]; [facility] Work Phone: Instructions* Name Dates Details Patient Instructions Indication:Non-smoker Start:01-May-2022 Instruction Type:Provider Instructions for Treatment How to Access Health Informa tion Online using Patient Portal and 3rd [employer] Apps Indication:Non-smoker Start:01-May-2022 Instruction Type:Patient Education How to Access Health Informa tion Online using Patient Portal and 3rd [employer] Apps Indication:Non-smoker Start:29-Apr-2021 Instruction Type:Patient Education Patient Instructions Indication:Non-smoker Start:29-Apr-2021 Instruction Type:Provider Instructions for Treatment Patient Instructions Indication:Non-smoker Start:28-Mar-2021 Instruction Type:Provider Instructions for Treatment How to Access Health Informa tion Online using Patient Portal and 3rd [employer] Apps Indication:Non-smoker Start:28-Mar-2021 Instruction Type:Patient Education How to access health informa tion online Indication:Non-smoker Start:15-Sep-2020 Instruction Type:Patient Education How to access health informa tion online - Detail Indication:Non-smoker Start:15-Sep-2020 Instruction Type:Patient Education Patient Instructions Indication:Non-smoker Start:15-Sep-2020 Instruction Type:Provider Instructions for Treatment How to access health informa tion online Indication:BMI 23.0-23.9, adult Start:30-Jul-2020 Instruction Type:Patient Education How to access health informa tion online - Detail Indication:BMI 23.0-23.9, adult Start:30-Jul-2020 Instruction Type:Patient Education Patient Instructions Indication:BMI 23.0-23.9, adult Start:30-Jul-2020 Instruction Type:Provider Instructions for Treatment How to access health informa tion online Indication:Non-smoker Start:01-Aug-2019 Instruction Type:Patient Education How to access health informa tion online - Detail Indication:Non-smoker Start:01-Aug-2019 Instruction Type:Patient Education Patient Instructions Indication:Non-smoker Start:01-Aug-2019 Instruction Type:Provider Instructions for Treatment How to access health informa tion online Indication:Non-smoker Start:07-May-2019 Instruction Type:Patient Education How to access health informa tion online - Detail Indication:Non-smoker Start:07-May-2019 Instruction Type:Patient Education Patient Instructions Indication:Non-smoker Start:07-May-2019 Instruction Type:Provider Instructions for Treatment How to access health informa tion online Indication:BMI 23.0-23.9, adult Start:11-Mar-2019 Instruction Type:Patient Education How to access health informa tion online - Detail Indication:BMI 23.0-23.9, adult Start:11-Mar-2019 Instruction Type:Patient Education Patient Instructions Indication:BMI 23.0-23.9, adult Start:11-Mar-2019 Instruction Type:Provider Instructions for Treatment How to access health informa tion online Indication:BMI 23.0-23.9, adult Start:07-Jun-2018 Instruction Type:Patient Education How to access health informa tion online - Detail Indication:BMI 23.0-23.9, adult Start:07-Jun-2018 Instruction Type:Patient Education Patient Instructions Indication:BMI 23.0-23.9, adult Start:07-Jun-2018 Instruction Type:Provider Instructions for Treatment How to access health informa tion online Indication:Non-smoker Start:27-Dec-2017 Instruction Type:Patient Education How to access health informa tion online - Detail Indication:Non-smoker Start:27-Dec-2017 Instruction Type:Patient Education Patient Instructions Indication:Diarrhea, travelers' Start:27-Dec-2017 Instruction Type:Provider Instructions for Treatment How to access health informa tion online Indication:Hypothyroidism Start:05-Feb-2017 Instruction Type:Patient Education How to access health informa tion online - Detail Indication:Hypothyroidism Start:05-Feb-2017 Instruction Type:Patient Education Patient Instructions Indication:Hypothyroidism Start:05-Feb-2017 Instruction Type:Provider Instructions for Treatment How to access health informa tion online Indication:Hyperlipidemia, unspecified Start:07-Jun-2015 Instruction Type:Patient Education How to access health informa tion online - Detail Indication:Hyperlipidemia, unspecified Start:07-Jun-2015 Instruction Type:Patient Education Patient Instructions Indication:Hyperlipidemia, unspecified Start:07-Jun-2015 Instruction Type:Provider Instructions for Treatment How to access health informa tion online Indication:Lymphadenopathy Start:05-Mar-2015 Instruction Type:Patient Education How to access health informa tion online - Detail Indication:Lymphadenopathy Start:05-Mar-2015 Instruction Type:Patient Education Patient Instructions Indication:Lymphadenopathy Start:05-Mar-2015 Instruction Type:Provider Instructions for Treatment Patient Instructions Indication:Lymphadenopathy Start:12-Aug-2014 Instruction Type:Provider Instructions for Treatment Patient Instructions Indication:Annual physical exam Start:03-Jun-2014 Instruction Type:Provider Instructions for Treatment How to access health informa tion online Indication:Annual physical exam Start:03-Jun-2014 Instruction Type:Patient Education How to access health informa tion online - Detail Indication:Annual physical exam Start:03-Jun-2014 Instruction Type:Patient Education Patient Instructions Indication:Hypothyroidism Start:30-Jul-2013 Instruction Type:Provider Instructions for Treatment [facility]; [facility] Work Phone: Instructions* Name Dates Details Patient Instructions Indication:Non-smoker Start:01-May-2022 Instruction Type:Provider Instructions for Treatment How to Access Health Informa tion Online using Patient Portal and [employer]rd [employer] Apps Indication:Non-smoker Start:01-May-2022 Instruction Type:Patient Education How to Access Health Informa tion Online using Patient Portal and [employer]rd [employer] Apps Indication:Non-smoker Start:29-Apr-2021 Instruction Type:Patient Education Patient Instructions Indication:Non-smoker Start:29-Apr-2021 Instruction Type:Provider Instructions for Treatment Patient Instructions Indication:Non-smoker Start:28-Mar-2021 Instruction Type:Provider Instructions for Treatment How to Access Health Informa tion Online using Patient Portal and [employer]rd [employer] Apps Indication:Non-smoker Start:28-Mar-2021 Instruction Type:Patient Education How to access health informa tion online Indication:Non-smoker Start:15-Sep-2020 Instruction Type:Patient Education How to access health informa tion online - Detail Indication:Non-smoker Start:15-Sep-2020 Instruction Type:Patient Education Patient Instructions Indication:Non-smoker Start:15-Sep-2020 Instruction Type:Provider Instructions for Treatment How to access health informa tion online Indication:BMI 23.0-23.9, adult Start:30-Jul-2020 Instruction Type:Patient Education How to access health informa tion online - Detail Indication:BMI 23.0-23.9, adult Start:30-Jul-2020 Instruction Type:Patient Education Patient Instructions Indication:BMI 23.0-23.9, adult Start:30-Jul-2020 Instruction Type:Provider Instructions for Treatment How to access health informa tion online Indication:Non-smoker Start:01-Aug-2019 Instruction Type:Patient Education How to access health informa tion online - Detail Indication:Non-smoker Start:01-Aug-2019 Instruction Type:Patient Education Patient Instructions Indication:Non-smoker Start:01-Aug-2019 Instruction Type:Provider Instructions for Treatment How to access health informa tion online Indication:Non-smoker Start:07-May-2019 Instruction Type:Patient Education How to access health informa tion online - Detail Indication:Non-smoker Start:07-May-2019 Instruction Type:Patient Education Patient Instructions Indication:Non-smoker Start:07-May-2019 Instruction Type:Provider Instructions for Treatment How to access health informa tion online Indication:BMI 23.0-23.9, adult Start:11-Mar-2019 Instruction Type:Patient Education How to access health informa tion online - Detail Indication:BMI 23.0-23.9, adult Start:11-Mar-2019 Instruction Type:Patient Education Patient Instructions Indication:BMI 23.0-23.9, adult Start:11-Mar-2019 Instruction Type:Provider Instructions for Treatment How to access health informa tion online Indication:BMI 23.0-23.9, adult Start:07-Jun-2018 Instruction Type:Patient Education How to access health informa tion online - Detail Indication:BMI 23.0-23.9, adult Start:07-Jun-2018 Instruction Type:Patient Education Patient Instructions Indication:BMI 23.0-23.9, adult Start:07-Jun-2018 Instruction Type:Provider Instructions for Treatment How to access health informa tion online Indication:Non-smoker Start:27-Dec-2017 Instruction Type:Patient Education How to access health informa tion online - Detail Indication:Non-smoker Start:27-Dec-2017 Instruction Type:Patient Education Patient Instructions Indication:Diarrhea, travelers' Start:27-Dec-2017 Instruction Type:Provider Instructions for Treatment How to access health informa tion online Indication:Hypothyroidism Start:05-Feb-2017 Instruction Type:Patient Education How to access health informa tion online - Detail Indication:Hypothyroidism Start:05-Feb-2017 Instruction Type:Patient Education Patient Instructions Indication:Hypothyroidism Start:05-Feb-2017 Instruction Type:Provider Instructions for Treatment How to access health informa tion online Indication:Hyperlipidemia, unspecified Start:07-Jun-2015 Instruction Type:Patient Education How to access health informa tion online - Detail Indication:Hyperlipidemia, unspecified Start:07-Jun-2015 Instruction Type:Patient Education Patient Instructions Indication:Hyperlipidemia, unspecified Start:07-Jun-2015 Instruction Type:Provider Instructions for Treatment How to access health informa tion online Indication:Lymphadenopathy Start:05-Mar-2015 Instruction Type:Patient Education How to access health informa tion online - Detail Indication:Lymphadenopathy Start:05-Mar-2015 Instruction Type:Patient Education Patient Instructions Indication:Lymphadenopathy Start:05-Mar-2015 Instruction Type:Provider Instructions for Treatment Patient Instructions Indication:Lymphadenopathy Start:12-Aug-2014 Instruction Type:Provider Instructions for Treatment Patient Instructions Indication:Annual physical exam Start:03-Jun-2014 Instruction Type:Provider Instructions for Treatment How to access health informa tion online Indication:Annual physical exam Start:03-Jun-2014 Instruction Type:Patient Education How to access health informa tion online - Detail Indication:Annual physical exam Start:03-Jun-2014 Instruction Type:Patient Education Patient Instructions Indication:Hypothyroidism Start:30-Jul-2013 Instruction Type:Provider Instructions for Treatment [facility]; [facility] Work Phone: Instructions* Name Dates Details Patient Instructions Indication:Non-smoker Start:05-Apr-2023 Instruction Type:Provider Instructions for Treatment How to Access Health Informa tion Online using Patient Portal and [employer]rd [employer] Apps Indication:Non-smoker Start:05-Apr-2023 Instruction Type:Patient Education Patient Instructions Indication:Non-smoker Start:01-May-2022 Instruction Type:Provider Instructions for Treatment How to Access Health Informa tion Online using Patient Portal and [employer]rd [employer] Apps Indication:Non-smoker Start:01-May-2022 Instruction Type:Patient Education How to Access Health Informa tion Online using Patient Portal and [employer]rd [employer] Apps Indication:Non-smoker Start:29-Apr-2021 Instruction Type:Patient Education Patient Instructions Indication:Non-smoker Start:29-Apr-2021 Instruction Type:Provider Instructions for Treatment Patient Instructions Indication:Non-smoker Start:28-Mar-2021 Instruction Type:Provider Instructions for Treatment How to Access Health Informa tion Online using Patient Portal and [employer]rd [employer] Apps Indication:Non-smoker Start:28-Mar-2021 Instruction Type:Patient Education How to access health informa tion online Indication:Non-smoker Start:15-Sep-2020 Instruction Type:Patient Education How to access health informa tion online - Detail Indication:Non-smoker Start:15-Sep-2020 Instruction Type:Patient Education Patient Instructions Indication:Non-smoker Start:15-Sep-2020 Instruction Type:Provider Instructions for Treatment How to access health informa tion online Indication:BMI 23.0-23.9, adult Start:30-Jul-2020 Instruction Type:Patient Education How to access health informa tion online - Detail Indication:BMI 23.0-23.9, adult Start:30-Jul-2020 Instruction Type:Patient Education Patient Instructions Indication:BMI 23.0-23.9, adult Start:30-Jul-2020 Instruction Type:Provider Instructions for Treatment How to access health informa tion online Indication:Non-smoker Start:01-Aug-2019 Instruction Type:Patient Education How to access health informa tion online - Detail Indication:Non-smoker Start:01-Aug-2019 Instruction Type:Patient Education Patient Instructions Indication:Non-smoker Start:01-Aug-2019 Instruction Type:Provider Instructions for Treatment How to access health informa tion online Indication:Non-smoker Start:07-May-2019 Instruction Type:Patient Education How to access health informa tion online - Detail Indication:Non-smoker Start:07-May-2019 Instruction Type:Patient Education Patient Instructions Indication:Non-smoker Start:07-May-2019 Instruction Type:Provider Instructions for Treatment How to access health informa tion online Indication:BMI 23.0-23.9, adult Start:11-Mar-2019 Instruction Type:Patient Education How to access health informa tion online - Detail Indication:BMI 23.0-23.9, adult Start:11-Mar-2019 Instruction Type:Patient Education Patient Instructions Indication:BMI 23.0-23.9, adult Start:11-Mar-2019 Instruction Type:Provider Instructions for Treatment How to access health informa tion online Indication:BMI 23.0-23.9, adult Start:07-Jun-2018 Instruction Type:Patient Education How to access health informa tion online - Detail Indication:BMI 23.0-23.9, adult Start:07-Jun-2018 Instruction Type:Patient Education Patient Instructions Indication:BMI 23.0-23.9, adult Start:07-Jun-2018 Instruction Type:Provider Instructions for Treatment How to access health informa tion online Indication:Non-smoker Start:27-Dec-2017 Instruction Type:Patient Education How to access health informa tion online - Detail Indication:Non-smoker Start:27-Dec-2017 Instruction Type:Patient Education Patient Instructions Indication:Diarrhea, travelers' Start:27-Dec-2017 Instruction Type:Provider Instructions for Treatment How to access health informa tion online Indication:Hypothyroidism Start:05-Feb-2017 Instruction Type:Patient Education How to access health informa tion online - Detail Indication:Hypothyroidism Start:05-Feb-2017 Instruction Type:Patient Education Patient Instructions Indication:Hypothyroidism Start:05-Feb-2017 Instruction Type:Provider Instructions for Treatment How to access health informa tion online Indication:Hyperlipidemia, unspecified Start:07-Jun-2015 Instruction Type:Patient Education How to access health informa tion online - Detail Indication:Hyperlipidemia, unspecified Start:07-Jun-2015 Instruction Type:Patient Education Patient Instructions Indication:Hyperlipidemia, unspecified Start:07-Jun-2015 Instruction Type:Provider Instructions for Treatment How to access health informa tion online Indication:Lymphadenopathy Start:05-Mar-2015 Instruction Type:Patient Education How to access health informa tion online - Detail Indication:Lymphadenopathy Start:05-Mar-2015 Instruction Type:Patient Education Patient Instructions Indication:Lymphadenopathy Start:05-Mar-2015 Instruction Type:Provider Instructions for Treatment Patient Instructions Indication:Lymphadenopathy Start:12-Aug-2014 Instruction Type:Provider Instructions for Treatment Patient Instructions Indication:Annual physical exam Start:03-Jun-2014 Instruction Type:Provider Instructions for Treatment How to access health informa tion online Indication:Annual physical exam Start:03-Jun-2014 Instruction Type:Patient Education How to access health informa tion online - Detail Indication:Annual physical exam Start:03-Jun-2014 Instruction Type:Patient Education Patient Instructions Indication:Hypothyroidism Start:30-Jul-2013 Instruction Type:Provider Instructions for Treatment [facility]; [facility] Work Phone: Instructions* Name Dates Details Patient Instructions Indication:Non-smoker Start:05-Apr-2023 Instruction Type:Provider Instructions for Treatment How to Access Health Informa tion Online using Patient Portal and [employer]rd [employer] Apps Indication:Non-smoker Start:05-Apr-2023 Instruction Type:Patient Education Patient Instructions Indication:Non-smoker Start:01-May-2022 Instruction Type:Provider Instructions for Treatment How to Access Health Informa tion Online using Patient Portal and [employer]rd [employer] Apps Indication:Non-smoker Start:01-May-2022 Instruction Type:Patient Education How to Access Health Informa tion Online using Patient Portal and [employer]rd [employer] Apps Indication:Non-smoker Start:29-Apr-2021 Instruction Type:Patient Education Patient Instructions Indication:Non-smoker Start:29-Apr-2021 Instruction Type:Provider Instructions for Treatment Patient Instructions Indication:Non-smoker Start:28-Mar-2021 Instruction Type:Provider Instructions for Treatment How to Access Health Informa tion Online using Patient Portal and [employer]rd [employer] Apps Indication:Non-smoker Start:28-Mar-2021 Instruction Type:Patient Education How to access health informa tion online Indication:Non-smoker Start:15-Sep-2020 Instruction Type:Patient Education How to access health informa tion online - Detail Indication:Non-smoker Start:15-Sep-2020 Instruction Type:Patient Education Patient Instructions Indication:Non-smoker Start:15-Sep-2020 Instruction Type:Provider Instructions for Treatment How to access health informa tion online Indication:BMI 23.0-23.9, adult Start:30-Jul-2020 Instruction Type:Patient Education How to access health informa tion online - Detail Indication:BMI 23.0-23.9, adult Start:30-Jul-2020 Instruction Type:Patient Education Patient Instructions Indication:BMI 23.0-23.9, adult Start:30-Jul-2020 Instruction Type:Provider Instructions for Treatment How to access health informa tion online Indication:Non-smoker Start:01-Aug-2019 Instruction Type:Patient Education How to access health informa tion online - Detail Indication:Non-smoker Start:01-Aug-2019 Instruction Type:Patient Education Patient Instructions Indication:Non-smoker Start:01-Aug-2019 Instruction Type:Provider Instructions for Treatment How to access health informa tion online Indication:Non-smoker Start:07-May-2019 Instruction Type:Patient Education How to access health informa tion online - Detail Indication:Non-smoker Start:07-May-2019 Instruction Type:Patient Education Patient Instructions Indication:Non-smoker Start:07-May-2019 Instruction Type:Provider Instructions for Treatment How to access health informa tion online Indication:BMI 23.0-23.9, adult Start:11-Mar-2019 Instruction Type:Patient Education How to access health informa tion online - Detail Indication:BMI 23.0-23.9, adult Start:11-Mar-2019 Instruction Type:Patient Education Patient Instructions Indication:BMI 23.0-23.9, adult Start:11-Mar-2019 Instruction Type:Provider Instructions for Treatment How to access health informa tion online Indication:BMI 23.0-23.9, adult Start:07-Jun-2018 Instruction Type:Patient Education How to access health informa tion online - Detail Indication:BMI 23.0-23.9, adult Start:07-Jun-2018 Instruction Type:Patient Education Patient Instructions Indication:BMI 23.0-23.9, adult Start:07-Jun-2018 Instruction Type:Provider Instructions for Treatment How to access health informa tion online Indication:Non-smoker Start:27-Dec-2017 Instruction Type:Patient Education How to access health informa tion online - Detail Indication:Non-smoker Start:27-Dec-2017 Instruction Type:Patient Education Patient Instructions Indication:Diarrhea, travelers' Start:27-Dec-2017 Instruction Type:Provider Instructions for Treatment How to access health informa tion online Indication:Hypothyroidism Start:05-Feb-2017 Instruction Type:Patient Education How to access health informa tion online - Detail Indication:Hypothyroidism Start:05-Feb-2017 Instruction Type:Patient Education Patient Instructions Indication:Hypothyroidism Start:05-Feb-2017 Instruction Type:Provider Instructions for Treatment How to access health informa tion online Indication:Hyperlipidemia, unspecified Start:07-Jun-2015 Instruction Type:Patient Education How to access health informa tion online - Detail Indication:Hyperlipidemia, unspecified Start:07-Jun-2015 Instruction Type:Patient Education Patient Instructions Indication:Hyperlipidemia, unspecified Start:07-Jun-2015 Instruction Type:Provider Instructions for Treatment How to access health informa tion online Indication:Lymphadenopathy Start:05-Mar-2015 Instruction Type:Patient Education How to access health informa tion online - Detail Indication:Lymphadenopathy Start:05-Mar-2015 Instruction Type:Patient Education Patient Instructions Indication:Lymphadenopathy Start:05-Mar-2015 Instruction Type:Provider Instructions for Treatment Patient Instructions Indication:Lymphadenopathy Start:12-Aug-2014 Instruction Type:Provider Instructions for Treatment Patient Instructions Indication:Annual physical exam Start:03-Jun-2014 Instruction Type:Provider Instructions for Treatment How to access health informa tion online Indication:Annual physical exam Start:03-Jun-2014 Instruction Type:Patient Education How to access health informa tion online - Detail Indication:Annual physical exam Start:03-Jun-2014 Instruction Type:Patient Education Patient Instructions Indication:Hypothyroidism Start:30-Jul-2013 Instruction Type:Provider Instructions for Treatment [facility]; [facility] Work Phone: Family History Unknown Family Member Name Dates Details Father Comments:HTN, hypercholester olemia,Kidney Cancer Status:Active Mother Comments:Hypercholesterolemi a, Melanoma, Fibrocystic breast disease Status:Active Unknown Family Member Name Dates Details Father Comments:HTN, hypercholester olemia,Kidney Cancer Status:Active Mother Comments:Hypercholesterolemi a, Melanoma, Fibrocystic breast disease Status:Active Unknown Family Member Name Dates Details Father Comments:HTN, hypercholester olemia,Kidney Cancer Status:Active Mother Comments:Hypercholesterolemi a, Melanoma, Fibrocystic breast disease Status:Active Unknown Family Member Name Dates Details Father Comments:HTN, hypercholester olemia,Kidney Cancer Status:Active Mother Comments:Hypercholesterolemi a, Melanoma, Fibrocystic breast disease Status:Active Unknown Family Member Name Dates Details Father Comments:HTN, hypercholester olemia,Kidney Cancer Status:Active Mother Comments:Hypercholesterolemi a, Melanoma, Fibrocystic breast disease Status:Active Unknown Family Member Name Dates Details Father Comments:HTN, hypercholester olemia,Kidney Cancer Status:Active Mother Comments:Hypercholesterolemi a, Melanoma, Fibrocystic breast disease Status:Active Unknown Family Member Name Dates Details Father Comments:HTN, hypercholester olemia,Kidney Cancer Status:Active Mother Comments:Hypercholesterolemi a, Melanoma, Fibrocystic breast disease Status:Active Unknown Family Member Name Dates Details Father Comments:HTN, hypercholester olemia,Kidney Cancer Status:Active Mother Comments:Hypercholesterolemi a, Melanoma, Fibrocystic breast disease Status:Active Unknown Family Member Name Dates Details Father Comments:HTN, hypercholester olemia,Kidney Cancer Status:Active Mother Comments:Hypercholesterolemi a, Melanoma, Fibrocystic breast disease Status:Active Unknown Family Member Name Dates Details Father Comments:HTN, hypercholester olemia,Kidney Cancer Status:Active Mother Comments:Hypercholesterolemi a, Melanoma, Fibrocystic breast disease Status:Active Unknown Family Member Name Dates Details Father Comments:HTN, hypercholester olemia,Kidney Cancer Status:Active Mother Comments:Hypercholesterolemi a, Melanoma, Fibrocystic breast disease Status:Active Unknown Family Member Name Dates Details Father Comments:HTN, hypercholester olemia,Kidney Cancer Status:Active Mother Comments:Hypercholesterolemi a, Melanoma, Fibrocystic breast disease Status:Active Unknown Family Member Name Dates Details Father Comments:HTN, hypercholester olemia,Kidney Cancer Status:Active Mother Comments:Hypercholesterolemi a, Melanoma, Fibrocystic breast disease Status:Active Unknown Family Member Name Dates Details Father Comments:HTN, hypercholester olemia,Kidney Cancer Status:Active Mother Comments:Hypercholesterolemi a, Melanoma, Fibrocystic breast disease Status:Active Unknown Family Member Name Dates Details Father Comments:HTN, hypercholester olemia,Kidney Cancer Status:Active Mother Comments:Hypercholesterolemi a, Melanoma, Fibrocystic breast disease Status:Active Unknown Family Member Name Dates Details Father Comments:HTN, hypercholester olemia,Kidney Cancer Status:Active Mother Comments:Hypercholesterolemi a, Melanoma, Fibrocystic breast disease Status:Active Unknown Family Member Name Dates Details Father Comments:HTN, hypercholester olemia,Kidney Cancer Status:Active Mother Comments:Hypercholesterolemi a, Melanoma, Fibrocystic breast disease Status:Active Unknown Family Member Name Dates Details Father Comments:HTN, hypercholester olemia,Kidney Cancer Status:Active Mother Comments:Hypercholesterolemi a, Melanoma, Fibrocystic breast disease Status:Active Unknown Family Member Name Dates Details Father Comments:HTN, hypercholester olemia,Kidney Cancer Status:Active Mother Comments:Hypercholesterolemi a, Melanoma, Fibrocystic breast disease Status:Active Unknown Family Member Name Dates Details Father Comments:HTN, hypercholester olemia,Kidney Cancer Status:Active Mother Comments:Hypercholesterolemi a, Melanoma, Fibrocystic breast disease Status:Active Unknown Family Member Name Dates Details Father Comments:HTN, hypercholester olemia,Kidney Cancer Status:Active Mother Comments:Hypercholesterolemi a, Melanoma, Fibrocystic breast disease Status:Active Unknown Family Member Name Dates Details Father Comments:HTN, hypercholester olemia,Kidney Cancer Status:Active Mother Comments:Hypercholesterolemi a, Melanoma, Fibrocystic breast disease Status:Active Unknown Family Member Name Dates Details Father Comments:HTN, hypercholester olemia,Kidney Cancer Status:Active Mother Comments:Hypercholesterolemi a, Melanoma, Fibrocystic breast disease Status:Active Unknown Family Member Name Dates Details Father Comments:HTN, hypercholester olemia,Kidney Cancer Status:Active Mother Comments:Hypercholesterolemi a, Melanoma, Fibrocystic breast disease Status:Active Unknown Family Member Name Dates Details Father Comments:HTN, hypercholester olemia,Kidney Cancer Status:Active Mother Comments:Hypercholesterolemi a, Melanoma, Fibrocystic breast disease Status:Active Unknown Family Member Name Dates Details Father Comments:HTN, hypercholester olemia,Kidney Cancer Status:Active Mother Comments:Hypercholesterolemi a, Melanoma, Fibrocystic breast disease Status:Active Unknown Family Member Name Dates Details Father Comments:HTN, hypercholester olemia,Kidney Cancer Status:Active Mother Comments:Hypercholesterolemi a, Melanoma, Fibrocystic breast disease Status:Active Unknown Family Member Name Dates Details Father Comments:HTN, hypercholester olemia,Kidney Cancer Status:Active Mother Comments:Hypercholesterolemi a, Melanoma, Fibrocystic breast disease Status:Active Unknown Family Member Name Dates Details Father Comments:HTN, hypercholester olemia,Kidney Cancer Status:Active Mother Comments:Hypercholesterolemi a, Melanoma, Fibrocystic breast disease Status:Active Unknown Family Member Name Dates Details Father Comments:HTN, hypercholester olemia,Kidney Cancer Status:Active Mother Comments:Hypercholesterolemi a, Melanoma, Fibrocystic breast disease Status:Active Unknown Family Member Name Dates Details Father Comments:HTN, hypercholester olemia,Kidney Cancer Status:Active Mother Comments:Hypercholesterolemi a, Melanoma, Fibrocystic breast disease Status:Active Unknown Family Member Name Dates Details Father Comments:HTN, hypercholester olemia,Kidney Cancer Status:Active Mother Comments:Hypercholesterolemi a, Melanoma, Fibrocystic breast disease Status:Active Unknown Family Member Name Dates Details Father Comments:HTN, hypercholester olemia,Kidney Cancer Status:Active Mother Comments:Hypercholesterolemi a, Melanoma, Fibrocystic breast disease Status:Active Unknown Family Member Name Dates Details Father Comments:HTN, hypercholester olemia,Kidney Cancer Status:Active Mother Comments:Hypercholesterolemi a, Melanoma, Fibrocystic breast disease Status:Active Unknown Family Member Name Dates Details Father Comments:HTN, hypercholester olemia,Kidney Cancer Status:Active Mother Comments:Hypercholesterolemi a, Melanoma, Fibrocystic breast disease Status:Active Unknown Family Member Name Dates Details Father Comments:HTN, hypercholester olemia,Kidney Cancer Status:Active Mother Comments:Hypercholesterolemi a, Melanoma, Fibrocystic breast disease Status:Active Unknown Family Member Name Dates Details Father Comments:HTN, hypercholester olemia,Kidney Cancer Status:Active Mother Comments:Hypercholesterolemi a, Melanoma, Fibrocystic breast disease Status:Active Unknown Family Member Name Dates Details Father Comments:HTN, hypercholester olemia,Kidney Cancer Status:Active Mother Comments:Hypercholesterolemi a, Melanoma, Fibrocystic breast disease Status:Active Unknown Family Member Name Dates Details Father Comments:HTN, hypercholester olemia,Kidney Cancer Status:Active Mother Comments:Hypercholesterolemi a, Melanoma, Fibrocystic breast disease Status:Active Unknown Family Member Name Dates Details Father Comments:HTN, hypercholester olemia,Kidney Cancer Status:Active Mother Comments:Hypercholesterolemi a, Melanoma, Fibrocystic breast disease Status:Active Instructions Name Dates Details How to access health informa tion online Indication:BMI 23.0-23.9, adult Start:11-Mar-2019 Instruction Type:Patient Education How to access health informa tion online - Detail Indication:BMI 23.0-23.9, adult Start:11-Mar-2019 Instruction Type:Patient Education Patient Instructions Indication:BMI 23.0-23.9, adult Start:11-Mar-2019 Instruction Type:Provider Instructions for Treatment How to access health informa tion online Indication:BMI 23.0-23.9, adult Start:07-Jun-2018 Instruction Type:Patient Education How to access health informa tion online - Detail Indication:BMI 23.0-23.9, adult Start:07-Jun-2018 Instruction Type:Patient Education Patient Instructions Indication:BMI 23.0-23.9, adult Start:07-Jun-2018 Instruction Type:Provider Instructions for Treatment How to access health informa tion online Indication:Non-smoker Start:27-Dec-2017 Instruction Type:Patient Education How to access health informa tion online - Detail Indication:Non-smoker Start:27-Dec-2017 Instruction Type:Patient Education Patient Instructions Indication:Diarrhea, travelers' Start:27-Dec-2017 Instruction Type:Provider Instructions for Treatment How to access health informa tion online Indication:Hypothyroidism Start:05-Feb-2017 Instruction Type:Patient Education How to access health informa tion online - Detail Indication:Hypothyroidism Start:05-Feb-2017 Instruction Type:Patient Education Patient Instructions Indication:Hypothyroidism Start:05-Feb-2017 Instruction Type:Provider Instructions for Treatment How to access health informa tion online Indication:Hyperlipidemia, unspecified Start:07-Jun-2015 Instruction Type:Patient Education How to access health informa tion online - Detail Indication:Hyperlipidemia, unspecified Start:07-Jun-2015 Instruction Type:Patient Education Patient Instructions Indication:Hyperlipidemia, unspecified Start:07-Jun-2015 Instruction Type:Provider Instructions for Treatment How to access health informa tion online Indication:Lymphadenopathy Start:05-Mar-2015 Instruction Type:Patient Education How to access health informa tion online - Detail Indication:Lymphadenopathy Start:05-Mar-2015 Instruction Type:Patient Education Patient Instructions Indication:Lymphadenopathy Start:05-Mar-2015 Instruction Type:Provider Instructions for Treatment Patient Instructions Indication:Lymphadenopathy Start:12-Aug-2014 Instruction Type:Provider Instructions for Treatment Patient Instructions Indication:Annual physical exam Start:03-Jun-2014 Instruction Type:Provider Instructions for Treatment How to access health informa tion online Indication:Annual physical exam Start:03-Jun-2014 Instruction Type:Patient Education How to access health informa tion online - Detail Indication:Annual physical exam Start:03-Jun-2014 Instruction Type:Patient Education Patient Instructions Indication:Hypothyroidism Start:30-Jul-2013 Instruction Type:Provider Instructions for Treatment Name Dates Details How to access health informa tion online Indication:BMI 23.0-23.9, adult Start:11-Mar-2019 Instruction Type:Patient Education How to access health informa tion online - Detail Indication:BMI 23.0-23.9, adult Start:11-Mar-2019 Instruction Type:Patient Education Patient Instructions Indication:BMI 23.0-23.9, adult Start:11-Mar-2019 Instruction Type:Provider Instructions for Treatment How to access health informa tion online Indication:BMI 23.0-23.9, adult Start:07-Jun-2018 Instruction Type:Patient Education How to access health informa tion online - Detail Indication:BMI 23.0-23.9, adult Start:07-Jun-2018 Instruction Type:Patient Education Patient Instructions Indication:BMI 23.0-23.9, adult Start:07-Jun-2018 Instruction Type:Provider Instructions for Treatment How to access health informa tion online Indication:Non-smoker Start:27-Dec-2017 Instruction Type:Patient Education How to access health informa tion online - Detail Indication:Non-smoker Start:27-Dec-2017 Instruction Type:Patient Education Patient Instructions Indication:Diarrhea, travelers' Start:27-Dec-2017 Instruction Type:Provider Instructions for Treatment How to access health informa tion online Indication:Hypothyroidism Start:05-Feb-2017 Instruction Type:Patient Education How to access health informa tion online - Detail Indication:Hypothyroidism Start:05-Feb-2017 Instruction Type:Patient Education Patient Instructions Indication:Hypothyroidism Start:05-Feb-2017 Instruction Type:Provider Instructions for Treatment How to access health informa tion online Indication:Hyperlipidemia, unspecified Start:07-Jun-2015 Instruction Type:Patient Education How to access health informa tion online - Detail Indication:Hyperlipidemia, unspecified Start:07-Jun-2015 Instruction Type:Patient Education Patient Instructions Indication:Hyperlipidemia, unspecified Start:07-Jun-2015 Instruction Type:Provider Instructions for Treatment How to access health informa tion online Indication:Lymphadenopathy Start:05-Mar-2015 Instruction Type:Patient Education How to access health informa tion online - Detail Indication:Lymphadenopathy Start:05-Mar-2015 Instruction Type:Patient Education Patient Instructions Indication:Lymphadenopathy Start:05-Mar-2015 Instruction Type:Provider Instructions for Treatment Patient Instructions Indication:Lymphadenopathy Start:12-Aug-2014 Instruction Type:Provider Instructions for Treatment Patient Instructions Indication:Annual physical exam Start:03-Jun-2014 Instruction Type:Provider Instructions for Treatment How to access health informa tion online Indication:Annual physical exam Start:03-Jun-2014 Instruction Type:Patient Education How to access health informa tion online - Detail Indication:Annual physical exam Start:03-Jun-2014 Instruction Type:Patient Education Patient Instructions Indication:Hypothyroidism Start:30-Jul-2013 Instruction Type:Provider Instructions for Treatment Name Dates Details How to access health informa tion online Indication:BMI 23.0-23.9, adult Start:11-Mar-2019 Instruction Type:Patient Education How to access health informa tion online - Detail Indication:BMI 23.0-23.9, adult Start:11-Mar-2019 Instruction Type:Patient Education Patient Instructions Indication:BMI 23.0-23.9, adult Start:11-Mar-2019 Instruction Type:Provider Instructions for Treatment How to access health informa tion online Indication:BMI 23.0-23.9, adult Start:07-Jun-2018 Instruction Type:Patient Education How to access health informa tion online - Detail Indication:BMI 23.0-23.9, adult Start:07-Jun-2018 Instruction Type:Patient Education Patient Instructions Indication:BMI 23.0-23.9, adult Start:07-Jun-2018 Instruction Type:Provider Instructions for Treatment How to access health informa tion online Indication:Non-smoker Start:27-Dec-2017 Instruction Type:Patient Education How to access health informa tion online - Detail Indication:Non-smoker Start:27-Dec-2017 Instruction Type:Patient Education Patient Instructions Indication:Diarrhea, travelers' Start:27-Dec-2017 Instruction Type:Provider Instructions for Treatment How to access health informa tion online Indication:Hypothyroidism Start:05-Feb-2017 Instruction Type:Patient Education How to access health informa tion online - Detail Indication:Hypothyroidism Start:05-Feb-2017 Instruction Type:Patient Education Patient Instructions Indication:Hypothyroidism Start:05-Feb-2017 Instruction Type:Provider Instructions for Treatment How to access health informa tion online Indication:Hyperlipidemia, unspecified Start:07-Jun-2015 Instruction Type:Patient Education How to access health informa tion online - Detail Indication:Hyperlipidemia, unspecified Start:07-Jun-2015 Instruction Type:Patient Education Patient Instructions Indication:Hyperlipidemia, unspecified Start:07-Jun-2015 Instruction Type:Provider Instructions for Treatment How to access health informa tion online Indication:Lymphadenopathy Start:05-Mar-2015 Instruction Type:Patient Education How to access health informa tion online - Detail Indication:Lymphadenopathy Start:05-Mar-2015 Instruction Type:Patient Education Patient Instructions Indication:Lymphadenopathy Start:05-Mar-2015 Instruction Type:Provider Instructions for Treatment Patient Instructions Indication:Lymphadenopathy Start:12-Aug-2014 Instruction Type:Provider Instructions for Treatment Patient Instructions Indication:Annual physical exam Start:03-Jun-2014 Instruction Type:Provider Instructions for Treatment How to access health informa tion online Indication:Annual physical exam Start:03-Jun-2014 Instruction Type:Patient Education How to access health informa tion online - Detail Indication:Annual physical exam Start:03-Jun-2014 Instruction Type:Patient Education Patient Instructions Indication:Hypothyroidism Start:30-Jul-2013 Instruction Type:Provider Instructions for Treatment Name Dates Details How to access health informa tion online Indication:BMI 23.0-23.9, adult Start:11-Mar-2019 Instruction Type:Patient Education How to access health informa tion online - Detail Indication:BMI 23.0-23.9, adult Start:11-Mar-2019 Instruction Type:Patient Education Patient Instructions Indication:BMI 23.0-23.9, adult Start:11-Mar-2019 Instruction Type:Provider Instructions for Treatment How to access health informa tion online Indication:BMI 23.0-23.9, adult Start:07-Jun-2018 Instruction Type:Patient Education How to access health informa tion online - Detail Indication:BMI 23.0-23.9, adult Start:07-Jun-2018 Instruction Type:Patient Education Patient Instructions Indication:BMI 23.0-23.9, adult Start:07-Jun-2018 Instruction Type:Provider Instructions for Treatment How to access health informa tion online Indication:Non-smoker Start:27-Dec-2017 Instruction Type:Patient Education How to access health informa tion online - Detail Indication:Non-smoker Start:27-Dec-2017 Instruction Type:Patient Education Patient Instructions Indication:Diarrhea, travelers' Start:27-Dec-2017 Instruction Type:Provider Instructions for Treatment How to access health informa tion online Indication:Hypothyroidism Start:05-Feb-2017 Instruction Type:Patient Education How to access health informa tion online - Detail Indication:Hypothyroidism Start:05-Feb-2017 Instruction Type:Patient Education Patient Instructions Indication:Hypothyroidism Start:05-Feb-2017 Instruction Type:Provider Instructions for Treatment How to access health informa tion online Indication:Hyperlipidemia, unspecified Start:07-Jun-2015 Instruction Type:Patient Education How to access health informa tion online - Detail Indication:Hyperlipidemia, unspecified Start:07-Jun-2015 Instruction Type:Patient Education Patient Instructions Indication:Hyperlipidemia, unspecified Start:07-Jun-2015 Instruction Type:Provider Instructions for Treatment How to access health informa tion online Indication:Lymphadenopathy Start:05-Mar-2015 Instruction Type:Patient Education How to access health informa tion online - Detail Indication:Lymphadenopathy Start:05-Mar-2015 Instruction Type:Patient Education Patient Instructions Indication:Lymphadenopathy Start:05-Mar-2015 Instruction Type:Provider Instructions for Treatment Patient Instructions Indication:Lymphadenopathy Start:12-Aug-2014 Instruction Type:Provider Instructions for Treatment Patient Instructions Indication:Annual physical exam Start:03-Jun-2014 Instruction Type:Provider Instructions for Treatment How to access health informa tion online Indication:Annual physical exam Start:03-Jun-2014 Instruction Type:Patient Education How to access health informa tion online - Detail Indication:Annual physical exam Start:03-Jun-2014 Instruction Type:Patient Education Patient Instructions Indication:Hypothyroidism Start:30-Jul-2013 Instruction Type:Provider Instructions for Treatment Name Dates Details How to access health informa tion online Indication:Non-smoker Start:07-May-2019 Instruction Type:Patient Education How to access health informa tion online - Detail Indication:Non-smoker Start:07-May-2019 Instruction Type:Patient Education Patient Instructions Indication:Non-smoker Start:07-May-2019 Instruction Type:Provider Instructions for Treatment How to access health informa tion online Indication:BMI 23.0-23.9, adult Start:11-Mar-2019 Instruction Type:Patient Education How to access health informa tion online - Detail Indication:BMI 23.0-23.9, adult Start:11-Mar-2019 Instruction Type:Patient Education Patient Instructions Indication:BMI 23.0-23.9, adult Start:11-Mar-2019 Instruction Type:Provider Instructions for Treatment How to access health informa tion online Indication:BMI 23.0-23.9, adult Start:07-Jun-2018 Instruction Type:Patient Education How to access health informa tion online - Detail Indication:BMI 23.0-23.9, adult Start:07-Jun-2018 Instruction Type:Patient Education Patient Instructions Indication:BMI 23.0-23.9, adult Start:07-Jun-2018 Instruction Type:Provider Instructions for Treatment How to access health informa tion online Indication:Non-smoker Start:27-Dec-2017 Instruction Type:Patient Education How to access health informa tion online - Detail Indication:Non-smoker Start:27-Dec-2017 Instruction Type:Patient Education Patient Instructions Indication:Diarrhea, travelers' Start:27-Dec-2017 Instruction Type:Provider Instructions for Treatment How to access health informa tion online Indication:Hypothyroidism Start:05-Feb-2017 Instruction Type:Patient Education How to access health informa tion online - Detail Indication:Hypothyroidism Start:05-Feb-2017 Instruction Type:Patient Education Patient Instructions Indication:Hypothyroidism Start:05-Feb-2017 Instruction Type:Provider Instructions for Treatment How to access health informa tion online Indication:Hyperlipidemia, unspecified Start:07-Jun-2015 Instruction Type:Patient Education How to access health informa tion online - Detail Indication:Hyperlipidemia, unspecified Start:07-Jun-2015 Instruction Type:Patient Education Patient Instructions Indication:Hyperlipidemia, unspecified Start:07-Jun-2015 Instruction Type:Provider Instructions for Treatment How to access health informa tion online Indication:Lymphadenopathy Start:05-Mar-2015 Instruction Type:Patient Education How to access health informa tion online - Detail Indication:Lymphadenopathy Start:05-Mar-2015 Instruction Type:Patient Education Patient Instructions Indication:Lymphadenopathy Start:05-Mar-2015 Instruction Type:Provider Instructions for Treatment Patient Instructions Indication:Lymphadenopathy Start:12-Aug-2014 Instruction Type:Provider Instructions for Treatment Patient Instructions Indication:Annual physical exam Start:03-Jun-2014 Instruction Type:Provider Instructions for Treatment How to access health informa tion online Indication:Annual physical exam Start:03-Jun-2014 Instruction Type:Patient Education How to access health informa tion online - Detail Indication:Annual physical exam Start:03-Jun-2014 Instruction Type:Patient Education Patient Instructions Indication:Hypothyroidism Start:30-Jul-2013 Instruction Type:Provider Instructions for Treatment Name Dates Details How to access health informa tion online Indication:Non-smoker Start:07-May-2019 Instruction Type:Patient Education How to access health informa tion online - Detail Indication:Non-smoker Start:07-May-2019 Instruction Type:Patient Education Patient Instructions Indication:Non-smoker Start:07-May-2019 Instruction Type:Provider Instructions for Treatment How to access health informa tion online Indication:BMI 23.0-23.9, adult Start:11-Mar-2019 Instruction Type:Patient Education How to access health informa tion online - Detail Indication:BMI 23.0-23.9, adult Start:11-Mar-2019 Instruction Type:Patient Education Patient Instructions Indication:BMI 23.0-23.9, adult Start:11-Mar-2019 Instruction Type:Provider Instructions for Treatment How to access health informa tion online Indication:BMI 23.0-23.9, adult Start:07-Jun-2018 Instruction Type:Patient Education How to access health informa tion online - Detail Indication:BMI 23.0-23.9, adult Start:07-Jun-2018 Instruction Type:Patient Education Patient Instructions Indication:BMI 23.0-23.9, adult Start:07-Jun-2018 Instruction Type:Provider Instructions for Treatment How to access health informa tion online Indication:Non-smoker Start:27-Dec-2017 Instruction Type:Patient Education How to access health informa tion online - Detail Indication:Non-smoker Start:27-Dec-2017 Instruction Type:Patient Education Patient Instructions Indication:Diarrhea, travelers' Start:27-Dec-2017 Instruction Type:Provider Instructions for Treatment How to access health informa tion online Indication:Hypothyroidism Start:05-Feb-2017 Instruction Type:Patient Education How to access health informa tion online - Detail Indication:Hypothyroidism Start:05-Feb-2017 Instruction Type:Patient Education Patient Instructions Indication:Hypothyroidism Start:05-Feb-2017 Instruction Type:Provider Instructions for Treatment How to access health informa tion online Indication:Hyperlipidemia, unspecified Start:07-Jun-2015 Instruction Type:Patient Education How to access health informa tion online - Detail Indication:Hyperlipidemia, unspecified Start:07-Jun-2015 Instruction Type:Patient Education Patient Instructions Indication:Hyperlipidemia, unspecified Start:07-Jun-2015 Instruction Type:Provider Instructions for Treatment How to access health informa tion online Indication:Lymphadenopathy Start:05-Mar-2015 Instruction Type:Patient Education How to access health informa tion online - Detail Indication:Lymphadenopathy Start:05-Mar-2015 Instruction Type:Patient Education Patient Instructions Indication:Lymphadenopathy Start:05-Mar-2015 Instruction Type:Provider Instructions for Treatment Patient Instructions Indication:Lymphadenopathy Start:12-Aug-2014 Instruction Type:Provider Instructions for Treatment Patient Instructions Indication:Annual physical exam Start:03-Jun-2014 Instruction Type:Provider Instructions for Treatment How to access health informa tion online Indication:Annual physical exam Start:03-Jun-2014 Instruction Type:Patient Education How to access health informa tion online - Detail Indication:Annual physical exam Start:03-Jun-2014 Instruction Type:Patient Education Patient Instructions Indication:Hypothyroidism Start:30-Jul-2013 Instruction Type:Provider Instructions for Treatment Name Dates Details How to access health informa tion online Indication:Non-smoker Start:01-Aug-2019 Instruction Type:Patient Education How to access health informa tion online - Detail Indication:Non-smoker Start:01-Aug-2019 Instruction Type:Patient Education Patient Instructions Indication:Non-smoker Start:01-Aug-2019 Instruction Type:Provider Instructions for Treatment How to access health informa tion online Indication:Non-smoker Start:07-May-2019 Instruction Type:Patient Education How to access health informa tion online - Detail Indication:Non-smoker Start:07-May-2019 Instruction Type:Patient Education Patient Instructions Indication:Non-smoker Start:07-May-2019 Instruction Type:Provider Instructions for Treatment How to access health informa tion online Indication:BMI 23.0-23.9, adult Start:11-Mar-2019 Instruction Type:Patient Education How to access health informa tion online - Detail Indication:BMI 23.0-23.9, adult Start:11-Mar-2019 Instruction Type:Patient Education Patient Instructions Indication:BMI 23.0-23.9, adult Start:11-Mar-2019 Instruction Type:Provider Instructions for Treatment How to access health informa tion online Indication:BMI 23.0-23.9, adult Start:07-Jun-2018 Instruction Type:Patient Education How to access health informa tion online - Detail Indication:BMI 23.0-23.9, adult Start:07-Jun-2018 Instruction Type:Patient Education Patient Instructions Indication:BMI 23.0-23.9, adult Start:07-Jun-2018 Instruction Type:Provider Instructions for Treatment How to access health informa tion online Indication:Non-smoker Start:27-Dec-2017 Instruction Type:Patient Education How to access health informa tion online - Detail Indication:Non-smoker Start:27-Dec-2017 Instruction Type:Patient Education Patient Instructions Indication:Diarrhea, travelers' Start:27-Dec-2017 Instruction Type:Provider Instructions for Treatment How to access health informa tion online Indication:Hypothyroidism Start:05-Feb-2017 Instruction Type:Patient Education How to access health informa tion online - Detail Indication:Hypothyroidism Start:05-Feb-2017 Instruction Type:Patient Education Patient Instructions Indication:Hypothyroidism Start:05-Feb-2017 Instruction Type:Provider Instructions for Treatment How to access health informa tion online Indication:Hyperlipidemia, unspecified Start:07-Jun-2015 Instruction Type:Patient Education How to access health informa tion online - Detail Indication:Hyperlipidemia, unspecified Start:07-Jun-2015 Instruction Type:Patient Education Patient Instructions Indication:Hyperlipidemia, unspecified Start:07-Jun-2015 Instruction Type:Provider Instructions for Treatment How to access health informa tion online Indication:Lymphadenopathy Start:05-Mar-2015 Instruction Type:Patient Education How to access health informa tion online - Detail Indication:Lymphadenopathy Start:05-Mar-2015 Instruction Type:Patient Education Patient Instructions Indication:Lymphadenopathy Start:05-Mar-2015 Instruction Type:Provider Instructions for Treatment Patient Instructions Indication:Lymphadenopathy Start:12-Aug-2014 Instruction Type:Provider Instructions for Treatment Patient Instructions Indication:Annual physical exam Start:03-Jun-2014 Instruction Type:Provider Instructions for Treatment How to access health informa tion online Indication:Annual physical exam Start:03-Jun-2014 Instruction Type:Patient Education How to access health informa tion online - Detail Indication:Annual physical exam Start:03-Jun-2014 Instruction Type:Patient Education Patient Instructions Indication:Hypothyroidism Start:30-Jul-2013 Instruction Type:Provider Instructions for Treatment Name Dates Details How to access health informa tion online Indication:Non-smoker Start:01-Aug-2019 Instruction Type:Patient Education How to access health informa tion online - Detail Indication:Non-smoker Start:01-Aug-2019 Instruction Type:Patient Education Patient Instructions Indication:Non-smoker Start:01-Aug-2019 Instruction Type:Provider Instructions for Treatment How to access health informa tion online Indication:Non-smoker Start:07-May-2019 Instruction Type:Patient Education How to access health informa tion online - Detail Indication:Non-smoker Start:07-May-2019 Instruction Type:Patient Education Patient Instructions Indication:Non-smoker Start:07-May-2019 Instruction Type:Provider Instructions for Treatment How to access health informa tion online Indication:BMI 23.0-23.9, adult Start:11-Mar-2019 Instruction Type:Patient Education How to access health informa tion online - Detail Indication:BMI 23.0-23.9, adult Start:11-Mar-2019 Instruction Type:Patient Education Patient Instructions Indication:BMI 23.0-23.9, adult Start:11-Mar-2019 Instruction Type:Provider Instructions for Treatment How to access health informa tion online Indication:BMI 23.0-23.9, adult Start:07-Jun-2018 Instruction Type:Patient Education How to access health informa tion online - Detail Indication:BMI 23.0-23.9, adult Start:07-Jun-2018 Instruction Type:Patient Education Patient Instructions Indication:BMI 23.0-23.9, adult Start:07-Jun-2018 Instruction Type:Provider Instructions for Treatment How to access health informa tion online Indication:Non-smoker Start:27-Dec-2017 Instruction Type:Patient Education How to access health informa tion online - Detail Indication:Non-smoker Start:27-Dec-2017 Instruction Type:Patient Education Patient Instructions Indication:Diarrhea, travelers' Start:27-Dec-2017 Instruction Type:Provider Instructions for Treatment How to access health informa tion online Indication:Hypothyroidism Start:05-Feb-2017 Instruction Type:Patient Education How to access health informa tion online - Detail Indication:Hypothyroidism Start:05-Feb-2017 Instruction Type:Patient Education Patient Instructions Indication:Hypothyroidism Start:05-Feb-2017 Instruction Type:Provider Instructions for Treatment How to access health informa tion online Indication:Hyperlipidemia, unspecified Start:07-Jun-2015 Instruction Type:Patient Education How to access health informa tion online - Detail Indication:Hyperlipidemia, unspecified Start:07-Jun-2015 Instruction Type:Patient Education Patient Instructions Indication:Hyperlipidemia, unspecified Start:07-Jun-2015 Instruction Type:Provider Instructions for Treatment How to access health informa tion online Indication:Lymphadenopathy Start:05-Mar-2015 Instruction Type:Patient Education How to access health informa tion online - Detail Indication:Lymphadenopathy Start:05-Mar-2015 Instruction Type:Patient Education Patient Instructions Indication:Lymphadenopathy Start:05-Mar-2015 Instruction Type:Provider Instructions for Treatment Patient Instructions Indication:Lymphadenopathy Start:12-Aug-2014 Instruction Type:Provider Instructions for Treatment Patient Instructions Indication:Annual physical exam Start:03-Jun-2014 Instruction Type:Provider Instructions for Treatment How to access health informa tion online Indication:Annual physical exam Start:03-Jun-2014 Instruction Type:Patient Education How to access health informa tion online - Detail Indication:Annual physical exam Start:03-Jun-2014 Instruction Type:Patient Education Patient Instructions Indication:Hypothyroidism Start:30-Jul-2013 Instruction Type:Provider Instructions for Treatment Name Dates Details How to access health informa tion online Indication:Non-smoker Start:01-Aug-2019 Instruction Type:Patient Education How to access health informa tion online - Detail Indication:Non-smoker Start:01-Aug-2019 Instruction Type:Patient Education Patient Instructions Indication:Non-smoker Start:01-Aug-2019 Instruction Type:Provider Instructions for Treatment How to access health informa tion online Indication:Non-smoker Start:07-May-2019 Instruction Type:Patient Education How to access health informa tion online - Detail Indication:Non-smoker Start:07-May-2019 Instruction Type:Patient Education Patient Instructions Indication:Non-smoker Start:07-May-2019 Instruction Type:Provider Instructions for Treatment How to access health informa tion online Indication:BMI 23.0-23.9, adult Start:11-Mar-2019 Instruction Type:Patient Education How to access health informa tion online - Detail Indication:BMI 23.0-23.9, adult Start:11-Mar-2019 Instruction Type:Patient Education Patient Instructions Indication:BMI 23.0-23.9, adult Start:11-Mar-2019 Instruction Type:Provider Instructions for Treatment How to access health informa tion online Indication:BMI 23.0-23.9, adult Start:07-Jun-2018 Instruction Type:Patient Education How to access health informa tion online - Detail Indication:BMI 23.0-23.9, adult Start:07-Jun-2018 Instruction Type:Patient Education Patient Instructions Indication:BMI 23.0-23.9, adult Start:07-Jun-2018 Instruction Type:Provider Instructions for Treatment How to access health informa tion online Indication:Non-smoker Start:27-Dec-2017 Instruction Type:Patient Education How to access health informa tion online - Detail Indication:Non-smoker Start:27-Dec-2017 Instruction Type:Patient Education Patient Instructions Indication:Diarrhea, travelers' Start:27-Dec-2017 Instruction Type:Provider Instructions for Treatment How to access health informa tion online Indication:Hypothyroidism Start:05-Feb-2017 Instruction Type:Patient Education How to access health informa tion online - Detail Indication:Hypothyroidism Start:05-Feb-2017 Instruction Type:Patient Education Patient Instructions Indication:Hypothyroidism Start:05-Feb-2017 Instruction Type:Provider Instructions for Treatment How to access health informa tion online Indication:Hyperlipidemia, unspecified Start:07-Jun-2015 Instruction Type:Patient Education How to access health informa tion online - Detail Indication:Hyperlipidemia, unspecified Start:07-Jun-2015 Instruction Type:Patient Education Patient Instructions Indication:Hyperlipidemia, unspecified Start:07-Jun-2015 Instruction Type:Provider Instructions for Treatment How to access health informa tion online Indication:Lymphadenopathy Start:05-Mar-2015 Instruction Type:Patient Education How to access health informa tion online - Detail Indication:Lymphadenopathy Start:05-Mar-2015 Instruction Type:Patient Education Patient Instructions Indication:Lymphadenopathy Start:05-Mar-2015 Instruction Type:Provider Instructions for Treatment Patient Instructions Indication:Lymphadenopathy Start:12-Aug-2014 Instruction Type:Provider Instructions for Treatment Patient Instructions Indication:Annual physical exam Start:03-Jun-2014 Instruction Type:Provider Instructions for Treatment How to access health informa tion online Indication:Annual physical exam Start:03-Jun-2014 Instruction Type:Patient Education How to access health informa tion online - Detail Indication:Annual physical exam Start:03-Jun-2014 Instruction Type:Patient Education Patient Instructions Indication:Hypothyroidism Start:30-Jul-2013 Instruction Type:Provider Instructions for Treatment Name Dates Details How to access health informa tion online Indication:Non-smoker Start:01-Aug-2019 Instruction Type:Patient Education How to access health informa tion online - Detail Indication:Non-smoker Start:01-Aug-2019 Instruction Type:Patient Education Patient Instructions Indication:Non-smoker Start:01-Aug-2019 Instruction Type:Provider Instructions for Treatment How to access health informa tion online Indication:Non-smoker Start:07-May-2019 Instruction Type:Patient Education How to access health informa tion online - Detail Indication:Non-smoker Start:07-May-2019 Instruction Type:Patient Education Patient Instructions Indication:Non-smoker Start:07-May-2019 Instruction Type:Provider Instructions for Treatment How to access health informa tion online Indication:BMI 23.0-23.9, adult Start:11-Mar-2019 Instruction Type:Patient Education How to access health informa tion online - Detail Indication:BMI 23.0-23.9, adult Start:11-Mar-2019 Instruction Type:Patient Education Patient Instructions Indication:BMI 23.0-23.9, adult Start:11-Mar-2019 Instruction Type:Provider Instructions for Treatment How to access health informa tion online Indication:BMI 23.0-23.9, adult Start:07-Jun-2018 Instruction Type:Patient Education How to access health informa tion online - Detail Indication:BMI 23.0-23.9, adult Start:07-Jun-2018 Instruction Type:Patient Education Patient Instructions Indication:BMI 23.0-23.9, adult Start:07-Jun-2018 Instruction Type:Provider Instructions for Treatment How to access health informa tion online Indication:Non-smoker Start:27-Dec-2017 Instruction Type:Patient Education How to access health informa tion online - Detail Indication:Non-smoker Start:27-Dec-2017 Instruction Type:Patient Education Patient Instructions Indication:Diarrhea, travelers' Start:27-Dec-2017 Instruction Type:Provider Instructions for Treatment How to access health informa tion online Indication:Hypothyroidism Start:05-Feb-2017 Instruction Type:Patient Education How to access health informa tion online - Detail Indication:Hypothyroidism Start:05-Feb-2017 Instruction Type:Patient Education Patient Instructions Indication:Hypothyroidism Start:05-Feb-2017 Instruction Type:Provider Instructions for Treatment How to access health informa tion online Indication:Hyperlipidemia, unspecified Start:07-Jun-2015 Instruction Type:Patient Education How to access health informa tion online - Detail Indication:Hyperlipidemia, unspecified Start:07-Jun-2015 Instruction Type:Patient Education Patient Instructions Indication:Hyperlipidemia, unspecified Start:07-Jun-2015 Instruction Type:Provider Instructions for Treatment How to access health informa tion online Indication:Lymphadenopathy Start:05-Mar-2015 Instruction Type:Patient Education How to access health informa tion online - Detail Indication:Lymphadenopathy Start:05-Mar-2015 Instruction Type:Patient Education Patient Instructions Indication:Lymphadenopathy Start:05-Mar-2015 Instruction Type:Provider Instructions for Treatment Patient Instructions Indication:Lymphadenopathy Start:12-Aug-2014 Instruction Type:Provider Instructions for Treatment Patient Instructions Indication:Annual physical exam Start:03-Jun-2014 Instruction Type:Provider Instructions for Treatment How to access health informa tion online Indication:Annual physical exam Start:03-Jun-2014 Instruction Type:Patient Education How to access health informa tion online - Detail Indication:Annual physical exam Start:03-Jun-2014 Instruction Type:Patient Education Patient Instructions Indication:Hypothyroidism Start:30-Jul-2013 Instruction Type:Provider Instructions for Treatment Name Dates Details How to access health informa tion online Indication:BMI 23.0-23.9, adult Start:30-Jul-2020 Instruction Type:Patient Education How to access health informa tion online - Detail Indication:BMI 23.0-23.9, adult Start:30-Jul-2020 Instruction Type:Patient Education Patient Instructions Indication:BMI 23.0-23.9, adult Start:30-Jul-2020 Instruction Type:Provider Instructions for Treatment How to access health informa tion online Indication:Non-smoker Start:01-Aug-2019 Instruction Type:Patient Education How to access health informa tion online - Detail Indication:Non-smoker Start:01-Aug-2019 Instruction Type:Patient Education Patient Instructions Indication:Non-smoker Start:01-Aug-2019 Instruction Type:Provider Instructions for Treatment How to access health informa tion online Indication:Non-smoker Start:07-May-2019 Instruction Type:Patient Education How to access health informa tion online - Detail Indication:Non-smoker Start:07-May-2019 Instruction Type:Patient Education Patient Instructions Indication:Non-smoker Start:07-May-2019 Instruction Type:Provider Instructions for Treatment How to access health informa tion online Indication:BMI 23.0-23.9, adult Start:11-Mar-2019 Instruction Type:Patient Education How to access health informa tion online - Detail Indication:BMI 23.0-23.9, adult Start:11-Mar-2019 Instruction Type:Patient Education Patient Instructions Indication:BMI 23.0-23.9, adult Start:11-Mar-2019 Instruction Type:Provider Instructions for Treatment How to access health informa tion online Indication:BMI 23.0-23.9, adult Start:07-Jun-2018 Instruction Type:Patient Education How to access health informa tion online - Detail Indication:BMI 23.0-23.9, adult Start:07-Jun-2018 Instruction Type:Patient Education Patient Instructions Indication:BMI 23.0-23.9, adult Start:07-Jun-2018 Instruction Type:Provider Instructions for Treatment How to access health informa tion online Indication:Non-smoker Start:27-Dec-2017 Instruction Type:Patient Education How to access health informa tion online - Detail Indication:Non-smoker Start:27-Dec-2017 Instruction Type:Patient Education Patient Instructions Indication:Diarrhea, travelers' Start:27-Dec-2017 Instruction Type:Provider Instructions for Treatment How to access health informa tion online Indication:Hypothyroidism Start:05-Feb-2017 Instruction Type:Patient Education How to access health informa tion online - Detail Indication:Hypothyroidism Start:05-Feb-2017 Instruction Type:Patient Education Patient Instructions Indication:Hypothyroidism Start:05-Feb-2017 Instruction Type:Provider Instructions for Treatment How to access health informa tion online Indication:Hyperlipidemia, unspecified Start:07-Jun-2015 Instruction Type:Patient Education How to access health informa tion online - Detail Indication:Hyperlipidemia, unspecified Start:07-Jun-2015 Instruction Type:Patient Education Patient Instructions Indication:Hyperlipidemia, unspecified Start:07-Jun-2015 Instruction Type:Provider Instructions for Treatment How to access health informa tion online Indication:Lymphadenopathy Start:05-Mar-2015 Instruction Type:Patient Education How to access health informa tion online - Detail Indication:Lymphadenopathy Start:05-Mar-2015 Instruction Type:Patient Education Patient Instructions Indication:Lymphadenopathy Start:05-Mar-2015 Instruction Type:Provider Instructions for Treatment Patient Instructions Indication:Lymphadenopathy Start:12-Aug-2014 Instruction Type:Provider Instructions for Treatment Patient Instructions Indication:Annual physical exam Start:03-Jun-2014 Instruction Type:Provider Instructions for Treatment How to access health informa tion online Indication:Annual physical exam Start:03-Jun-2014 Instruction Type:Patient Education How to access health informa tion online - Detail Indication:Annual physical exam Start:03-Jun-2014 Instruction Type:Patient Education Patient Instructions Indication:Hypothyroidism Start:30-Jul-2013 Instruction Type:Provider Instructions for Treatment Name Dates Details How to access health informa tion online Indication:Non-smoker Start:15-Sep-2020 Instruction Type:Patient Education How to access health informa tion online - Detail Indication:Non-smoker Start:15-Sep-2020 Instruction Type:Patient Education Patient Instructions Indication:Non-smoker Start:15-Sep-2020 Instruction Type:Provider Instructions for Treatment How to access health informa tion online Indication:BMI 23.0-23.9, adult Start:30-Jul-2020 Instruction Type:Patient Education How to access health informa tion online - Detail Indication:BMI 23.0-23.9, adult Start:30-Jul-2020 Instruction Type:Patient Education Patient Instructions Indication:BMI 23.0-23.9, adult Start:30-Jul-2020 Instruction Type:Provider Instructions for Treatment How to access health informa tion online Indication:Non-smoker Start:01-Aug-2019 Instruction Type:Patient Education How to access health informa tion online - Detail Indication:Non-smoker Start:01-Aug-2019 Instruction Type:Patient Education Patient Instructions Indication:Non-smoker Start:01-Aug-2019 Instruction Type:Provider Instructions for Treatment How to access health informa tion online Indication:Non-smoker Start:07-May-2019 Instruction Type:Patient Education How to access health informa tion online - Detail Indication:Non-smoker Start:07-May-2019 Instruction Type:Patient Education Patient Instructions Indication:Non-smoker Start:07-May-2019 Instruction Type:Provider Instructions for Treatment How to access health informa tion online Indication:BMI 23.0-23.9, adult Start:11-Mar-2019 Instruction Type:Patient Education How to access health informa tion online - Detail Indication:BMI 23.0-23.9, adult Start:11-Mar-2019 Instruction Type:Patient Education Patient Instructions Indication:BMI 23.0-23.9, adult Start:11-Mar-2019 Instruction Type:Provider Instructions for Treatment How to access health informa tion online Indication:BMI 23.0-23.9, adult Start:07-Jun-2018 Instruction Type:Patient Education How to access health informa tion online - Detail Indication:BMI 23.0-23.9, adult Start:07-Jun-2018 Instruction Type:Patient Education Patient Instructions Indication:BMI 23.0-23.9, adult Start:07-Jun-2018 Instruction Type:Provider Instructions for Treatment How to access health informa tion online Indication:Non-smoker Start:27-Dec-2017 Instruction Type:Patient Education How to access health informa tion online - Detail Indication:Non-smoker Start:27-Dec-2017 Instruction Type:Patient Education Patient Instructions Indication:Diarrhea, travelers' Start:27-Dec-2017 Instruction Type:Provider Instructions for Treatment How to access health informa tion online Indication:Hypothyroidism Start:05-Feb-2017 Instruction Type:Patient Education How to access health informa tion online - Detail Indication:Hypothyroidism Start:05-Feb-2017 Instruction Type:Patient Education Patient Instructions Indication:Hypothyroidism Start:05-Feb-2017 Instruction Type:Provider Instructions for Treatment How to access health informa tion online Indication:Hyperlipidemia, unspecified Start:07-Jun-2015 Instruction Type:Patient Education How to access health informa tion online - Detail Indication:Hyperlipidemia, unspecified Start:07-Jun-2015 Instruction Type:Patient Education Patient Instructions Indication:Hyperlipidemia, unspecified Start:07-Jun-2015 Instruction Type:Provider Instructions for Treatment How to access health informa tion online Indication:Lymphadenopathy Start:05-Mar-2015 Instruction Type:Patient Education How to access health informa tion online - Detail Indication:Lymphadenopathy Start:05-Mar-2015 Instruction Type:Patient Education Patient Instructions Indication:Lymphadenopathy Start:05-Mar-2015 Instruction Type:Provider Instructions for Treatment Patient Instructions Indication:Lymphadenopathy Start:12-Aug-2014 Instruction Type:Provider Instructions for Treatment Patient Instructions Indication:Annual physical exam Start:03-Jun-2014 Instruction Type:Provider Instructions for Treatment How to access health informa tion online Indication:Annual physical exam Start:03-Jun-2014 Instruction Type:Patient Education How to access health informa tion online - Detail Indication:Annual physical exam Start:03-Jun-2014 Instruction Type:Patient Education Patient Instructions Indication:Hypothyroidism Start:30-Jul-2013 Instruction Type:Provider Instructions for Treatment Name Dates Details How to access health informa tion online Indication:Non-smoker Start:15-Sep-2020 Instruction Type:Patient Education How to access health informa tion online - Detail Indication:Non-smoker Start:15-Sep-2020 Instruction Type:Patient Education Patient Instructions Indication:Non-smoker Start:15-Sep-2020 Instruction Type:Provider Instructions for Treatment How to access health informa tion online Indication:BMI 23.0-23.9, adult Start:30-Jul-2020 Instruction Type:Patient Education How to access health informa tion online - Detail Indication:BMI 23.0-23.9, adult Start:30-Jul-2020 Instruction Type:Patient Education Patient Instructions Indication:BMI 23.0-23.9, adult Start:30-Jul-2020 Instruction Type:Provider Instructions for Treatment How to access health informa tion online Indication:Non-smoker Start:01-Aug-2019 Instruction Type:Patient Education How to access health informa tion online - Detail Indication:Non-smoker Start:01-Aug-2019 Instruction Type:Patient Education Patient Instructions Indication:Non-smoker Start:01-Aug-2019 Instruction Type:Provider Instructions for Treatment How to access health informa tion online Indication:Non-smoker Start:07-May-2019 Instruction Type:Patient Education How to access health informa tion online - Detail Indication:Non-smoker Start:07-May-2019 Instruction Type:Patient Education Patient Instructions Indication:Non-smoker Start:07-May-2019 Instruction Type:Provider Instructions for Treatment How to access health informa tion online Indication:BMI 23.0-23.9, adult Start:11-Mar-2019 Instruction Type:Patient Education How to access health informa tion online - Detail Indication:BMI 23.0-23.9, adult Start:11-Mar-2019 Instruction Type:Patient Education Patient Instructions Indication:BMI 23.0-23.9, adult Start:11-Mar-2019 Instruction Type:Provider Instructions for Treatment How to access health informa tion online Indication:BMI 23.0-23.9, adult Start:07-Jun-2018 Instruction Type:Patient Education How to access health informa tion online - Detail Indication:BMI 23.0-23.9, adult Start:07-Jun-2018 Instruction Type:Patient Education Patient Instructions Indication:BMI 23.0-23.9, adult Start:07-Jun-2018 Instruction Type:Provider Instructions for Treatment How to access health informa tion online Indication:Non-smoker Start:27-Dec-2017 Instruction Type:Patient Education How to access health informa tion online - Detail Indication:Non-smoker Start:27-Dec-2017 Instruction Type:Patient Education Patient Instructions Indication:Diarrhea, travelers' Start:27-Dec-2017 Instruction Type:Provider Instructions for Treatment How to access health informa tion online Indication:Hypothyroidism Start:05-Feb-2017 Instruction Type:Patient Education How to access health informa tion online - Detail Indication:Hypothyroidism Start:05-Feb-2017 Instruction Type:Patient Education Patient Instructions Indication:Hypothyroidism Start:05-Feb-2017 Instruction Type:Provider Instructions for Treatment How to access health informa tion online Indication:Hyperlipidemia, unspecified Start:07-Jun-2015 Instruction Type:Patient Education How to access health informa tion online - Detail Indication:Hyperlipidemia, unspecified Start:07-Jun-2015 Instruction Type:Patient Education Patient Instructions Indication:Hyperlipidemia, unspecified Start:07-Jun-2015 Instruction Type:Provider Instructions for Treatment How to access health informa tion online Indication:Lymphadenopathy Start:05-Mar-2015 Instruction Type:Patient Education How to access health informa tion online - Detail Indication:Lymphadenopathy Start:05-Mar-2015 Instruction Type:Patient Education Patient Instructions Indication:Lymphadenopathy Start:05-Mar-2015 Instruction Type:Provider Instructions for Treatment Patient Instructions Indication:Lymphadenopathy Start:12-Aug-2014 Instruction Type:Provider Instructions for Treatment Patient Instructions Indication:Annual physical exam Start:03-Jun-2014 Instruction Type:Provider Instructions for Treatment How to access health informa tion online Indication:Annual physical exam Start:03-Jun-2014 Instruction Type:Patient Education How to access health informa tion online - Detail Indication:Annual physical exam Start:03-Jun-2014 Instruction Type:Patient Education Patient Instructions Indication:Hypothyroidism Start:30-Jul-2013 Instruction Type:Provider Instructions for Treatment Name Dates Details How to access health informa tion online Indication:Non-smoker Start:15-Sep-2020 Instruction Type:Patient Education How to access health informa tion online - Detail Indication:Non-smoker Start:15-Sep-2020 Instruction Type:Patient Education Patient Instructions Indication:Non-smoker Start:15-Sep-2020 Instruction Type:Provider Instructions for Treatment How to access health informa tion online Indication:BMI 23.0-23.9, adult Start:30-Jul-2020 Instruction Type:Patient Education How to access health informa tion online - Detail Indication:BMI 23.0-23.9, adult Start:30-Jul-2020 Instruction Type:Patient Education Patient Instructions Indication:BMI 23.0-23.9, adult Start:30-Jul-2020 Instruction Type:Provider Instructions for Treatment How to access health informa tion online Indication:Non-smoker Start:01-Aug-2019 Instruction Type:Patient Education How to access health informa tion online - Detail Indication:Non-smoker Start:01-Aug-2019 Instruction Type:Patient Education Patient Instructions Indication:Non-smoker Start:01-Aug-2019 Instruction Type:Provider Instructions for Treatment How to access health informa tion online Indication:Non-smoker Start:07-May-2019 Instruction Type:Patient Education How to access health informa tion online - Detail Indication:Non-smoker Start:07-May-2019 Instruction Type:Patient Education Patient Instructions Indication:Non-smoker Start:07-May-2019 Instruction Type:Provider Instructions for Treatment How to access health informa tion online Indication:BMI 23.0-23.9, adult Start:11-Mar-2019 Instruction Type:Patient Education How to access health informa tion online - Detail Indication:BMI 23.0-23.9, adult Start:11-Mar-2019 Instruction Type:Patient Education Patient Instructions Indication:BMI 23.0-23.9, adult Start:11-Mar-2019 Instruction Type:Provider Instructions for Treatment How to access health informa tion online Indication:BMI 23.0-23.9, adult Start:07-Jun-2018 Instruction Type:Patient Education How to access health informa tion online - Detail Indication:BMI 23.0-23.9, adult Start:07-Jun-2018 Instruction Type:Patient Education Patient Instructions Indication:BMI 23.0-23.9, adult Start:07-Jun-2018 Instruction Type:Provider Instructions for Treatment How to access health informa tion online Indication:Non-smoker Start:27-Dec-2017 Instruction Type:Patient Education How to access health informa tion online - Detail Indication:Non-smoker Start:27-Dec-2017 Instruction Type:Patient Education Patient Instructions Indication:Diarrhea, travelers' Start:27-Dec-2017 Instruction Type:Provider Instructions for Treatment How to access health informa tion online Indication:Hypothyroidism Start:05-Feb-2017 Instruction Type:Patient Education How to access health informa tion online - Detail Indication:Hypothyroidism Start:05-Feb-2017 Instruction Type:Patient Education Patient Instructions Indication:Hypothyroidism Start:05-Feb-2017 Instruction Type:Provider Instructions for Treatment How to access health informa tion online Indication:Hyperlipidemia, unspecified Start:07-Jun-2015 Instruction Type:Patient Education How to access health informa tion online - Detail Indication:Hyperlipidemia, unspecified Start:07-Jun-2015 Instruction Type:Patient Education Patient Instructions Indication:Hyperlipidemia, unspecified Start:07-Jun-2015 Instruction Type:Provider Instructions for Treatment How to access health informa tion online Indication:Lymphadenopathy Start:05-Mar-2015 Instruction Type:Patient Education How to access health informa tion online - Detail Indication:Lymphadenopathy Start:05-Mar-2015 Instruction Type:Patient Education Patient Instructions Indication:Lymphadenopathy Start:05-Mar-2015 Instruction Type:Provider Instructions for Treatment Patient Instructions Indication:Lymphadenopathy Start:12-Aug-2014 Instruction Type:Provider Instructions for Treatment Patient Instructions Indication:Annual physical exam Start:03-Jun-2014 Instruction Type:Provider Instructions for Treatment How to access health informa tion online Indication:Annual physical exam Start:03-Jun-2014 Instruction Type:Patient Education How to access health informa tion online - Detail Indication:Annual physical exam Start:03-Jun-2014 Instruction Type:Patient Education Patient Instructions Indication:Hypothyroidism Start:30-Jul-2013 Instruction Type:Provider Instructions for Treatment Name Dates Details How to access health informa tion online Indication:Non-smoker Start:15-Sep-2020 Instruction Type:Patient Education How to access health informa tion online - Detail Indication:Non-smoker Start:15-Sep-2020 Instruction Type:Patient Education Patient Instructions Indication:Non-smoker Start:15-Sep-2020 Instruction Type:Provider Instructions for Treatment How to access health informa tion online Indication:BMI 23.0-23.9, adult Start:30-Jul-2020 Instruction Type:Patient Education How to access health informa tion online - Detail Indication:BMI 23.0-23.9, adult Start:30-Jul-2020 Instruction Type:Patient Education Patient Instructions Indication:BMI 23.0-23.9, adult Start:30-Jul-2020 Instruction Type:Provider Instructions for Treatment How to access health informa tion online Indication:Non-smoker Start:01-Aug-2019 Instruction Type:Patient Education How to access health informa tion online - Detail Indication:Non-smoker Start:01-Aug-2019 Instruction Type:Patient Education Patient Instructions Indication:Non-smoker Start:01-Aug-2019 Instruction Type:Provider Instructions for Treatment How to access health informa tion online Indication:Non-smoker Start:07-May-2019 Instruction Type:Patient Education How to access health informa tion online - Detail Indication:Non-smoker Start:07-May-2019 Instruction Type:Patient Education Patient Instructions Indication:Non-smoker Start:07-May-2019 Instruction Type:Provider Instructions for Treatment How to access health informa tion online Indication:BMI 23.0-23.9, adult Start:11-Mar-2019 Instruction Type:Patient Education How to access health informa tion online - Detail Indication:BMI 23.0-23.9, adult Start:11-Mar-2019 Instruction Type:Patient Education Patient Instructions Indication:BMI 23.0-23.9, adult Start:11-Mar-2019 Instruction Type:Provider Instructions for Treatment How to access health informa tion online Indication:BMI 23.0-23.9, adult Start:07-Jun-2018 Instruction Type:Patient Education How to access health informa tion online - Detail Indication:BMI 23.0-23.9, adult Start:07-Jun-2018 Instruction Type:Patient Education Patient Instructions Indication:BMI 23.0-23.9, adult Start:07-Jun-2018 Instruction Type:Provider Instructions for Treatment How to access health informa tion online Indication:Non-smoker Start:27-Dec-2017 Instruction Type:Patient Education How to access health informa tion online - Detail Indication:Non-smoker Start:27-Dec-2017 Instruction Type:Patient Education Patient Instructions Indication:Diarrhea, travelers' Start:27-Dec-2017 Instruction Type:Provider Instructions for Treatment How to access health informa tion online Indication:Hypothyroidism Start:05-Feb-2017 Instruction Type:Patient Education How to access health informa tion online - Detail Indication:Hypothyroidism Start:05-Feb-2017 Instruction Type:Patient Education Patient Instructions Indication:Hypothyroidism Start:05-Feb-2017 Instruction Type:Provider Instructions for Treatment How to access health informa tion online Indication:Hyperlipidemia, unspecified Start:07-Jun-2015 Instruction Type:Patient Education How to access health informa tion online - Detail Indication:Hyperlipidemia, unspecified Start:07-Jun-2015 Instruction Type:Patient Education Patient Instructions Indication:Hyperlipidemia, unspecified Start:07-Jun-2015 Instruction Type:Provider Instructions for Treatment How to access health informa tion online Indication:Lymphadenopathy Start:05-Mar-2015 Instruction Type:Patient Education How to access health informa tion online - Detail Indication:Lymphadenopathy Start:05-Mar-2015 Instruction Type:Patient Education Patient Instructions Indication:Lymphadenopathy Start:05-Mar-2015 Instruction Type:Provider Instructions for Treatment Patient Instructions Indication:Lymphadenopathy Start:12-Aug-2014 Instruction Type:Provider Instructions for Treatment Patient Instructions Indication:Annual physical exam Start:03-Jun-2014 Instruction Type:Provider Instructions for Treatment How to access health informa tion online Indication:Annual physical exam Start:03-Jun-2014 Instruction Type:Patient Education How to access health informa tion online - Detail Indication:Annual physical exam Start:03-Jun-2014 Instruction Type:Patient Education Patient Instructions Indication:Hypothyroidism Start:30-Jul-2013 Instruction Type:Provider Instructions for Treatment Name Dates Details How to access health informa tion online Indication:Non-smoker Start:15-Sep-2020 Instruction Type:Patient Education How to access health informa tion online - Detail Indication:Non-smoker Start:15-Sep-2020 Instruction Type:Patient Education Patient Instructions Indication:Non-smoker Start:15-Sep-2020 Instruction Type:Provider Instructions for Treatment How to access health informa tion online Indication:BMI 23.0-23.9, adult Start:30-Jul-2020 Instruction Type:Patient Education How to access health informa tion online - Detail Indication:BMI 23.0-23.9, adult Start:30-Jul-2020 Instruction Type:Patient Education Patient Instructions Indication:BMI 23.0-23.9, adult Start:30-Jul-2020 Instruction Type:Provider Instructions for Treatment How to access health informa tion online Indication:Non-smoker Start:01-Aug-2019 Instruction Type:Patient Education How to access health informa tion online - Detail Indication:Non-smoker Start:01-Aug-2019 Instruction Type:Patient Education Patient Instructions Indication:Non-smoker Start:01-Aug-2019 Instruction Type:Provider Instructions for Treatment How to access health informa tion online Indication:Non-smoker Start:07-May-2019 Instruction Type:Patient Education How to access health informa tion online - Detail Indication:Non-smoker Start:07-May-2019 Instruction Type:Patient Education Patient Instructions Indication:Non-smoker Start:07-May-2019 Instruction Type:Provider Instructions for Treatment How to access health informa tion online Indication:BMI 23.0-23.9, adult Start:11-Mar-2019 Instruction Type:Patient Education How to access health informa tion online - Detail Indication:BMI 23.0-23.9, adult Start:11-Mar-2019 Instruction Type:Patient Education Patient Instructions Indication:BMI 23.0-23.9, adult Start:11-Mar-2019 Instruction Type:Provider Instructions for Treatment How to access health informa tion online Indication:BMI 23.0-23.9, adult Start:07-Jun-2018 Instruction Type:Patient Education How to access health informa tion online - Detail Indication:BMI 23.0-23.9, adult Start:07-Jun-2018 Instruction Type:Patient Education Patient Instructions Indication:BMI 23.0-23.9, adult Start:07-Jun-2018 Instruction Type:Provider Instructions for Treatment How to access health informa tion online Indication:Non-smoker Start:27-Dec-2017 Instruction Type:Patient Education How to access health informa tion online - Detail Indication:Non-smoker Start:27-Dec-2017 Instruction Type:Patient Education Patient Instructions Indication:Diarrhea, travelers' Start:27-Dec-2017 Instruction Type:Provider Instructions for Treatment How to access health informa tion online Indication:Hypothyroidism Start:05-Feb-2017 Instruction Type:Patient Education How to access health informa tion online - Detail Indication:Hypothyroidism Start:05-Feb-2017 Instruction Type:Patient Education Patient Instructions Indication:Hypothyroidism Start:05-Feb-2017 Instruction Type:Provider Instructions for Treatment How to access health informa tion online Indication:Hyperlipidemia, unspecified Start:07-Jun-2015 Instruction Type:Patient Education How to access health informa tion online - Detail Indication:Hyperlipidemia, unspecified Start:07-Jun-2015 Instruction Type:Patient Education Patient Instructions Indication:Hyperlipidemia, unspecified Start:07-Jun-2015 Instruction Type:Provider Instructions for Treatment How to access health informa tion online Indication:Lymphadenopathy Start:05-Mar-2015 Instruction Type:Patient Education How to access health informa tion online - Detail Indication:Lymphadenopathy Start:05-Mar-2015 Instruction Type:Patient Education Patient Instructions Indication:Lymphadenopathy Start:05-Mar-2015 Instruction Type:Provider Instructions for Treatment Patient Instructions Indication:Lymphadenopathy Start:12-Aug-2014 Instruction Type:Provider Instructions for Treatment Patient Instructions Indication:Annual physical exam Start:03-Jun-2014 Instruction Type:Provider Instructions for Treatment How to access health informa tion online Indication:Annual physical exam Start:03-Jun-2014 Instruction Type:Patient Education How to access health informa tion online - Detail Indication:Annual physical exam Start:03-Jun-2014 Instruction Type:Patient Education Patient Instructions Indication:Hypothyroidism Start:30-Jul-2013 Instruction Type:Provider Instructions for Treatment Name Dates Details How to access health informa tion online Indication:Non-smoker Start:01-Aug-2019 Instruction Type:Patient Education How to access health informa tion online - Detail Indication:Non-smoker Start:01-Aug-2019 Instruction Type:Patient Education Patient Instructions Indication:Non-smoker Start:01-Aug-2019 Instruction Type:Provider Instructions for Treatment How to access health informa tion online Indication:Non-smoker Start:07-May-2019 Instruction Type:Patient Education How to access health informa tion online - Detail Indication:Non-smoker Start:07-May-2019 Instruction Type:Patient Education Patient Instructions Indication:Non-smoker Start:07-May-2019 Instruction Type:Provider Instructions for Treatment How to access health informa tion online Indication:BMI 23.0-23.9, adult Start:11-Mar-2019 Instruction Type:Patient Education How to access health informa tion online - Detail Indication:BMI 23.0-23.9, adult Start:11-Mar-2019 Instruction Type:Patient Education Patient Instructions Indication:BMI 23.0-23.9, adult Start:11-Mar-2019 Instruction Type:Provider Instructions for Treatment How to access health informa tion online Indication:BMI 23.0-23.9, adult Start:07-Jun-2018 Instruction Type:Patient Education How to access health informa tion online - Detail Indication:BMI 23.0-23.9, adult Start:07-Jun-2018 Instruction Type:Patient Education Patient Instructions Indication:BMI 23.0-23.9, adult Start:07-Jun-2018 Instruction Type:Provider Instructions for Treatment How to access health informa tion online Indication:Non-smoker Start:27-Dec-2017 Instruction Type:Patient Education How to access health informa tion online - Detail Indication:Non-smoker Start:27-Dec-2017 Instruction Type:Patient Education Patient Instructions Indication:Diarrhea, travelers' Start:27-Dec-2017 Instruction Type:Provider Instructions for Treatment How to access health informa tion online Indication:Hypothyroidism Start:05-Feb-2017 Instruction Type:Patient Education How to access health informa tion online - Detail Indication:Hypothyroidism Start:05-Feb-2017 Instruction Type:Patient Education Patient Instructions Indication:Hypothyroidism Start:05-Feb-2017 Instruction Type:Provider Instructions for Treatment How to access health informa tion online Indication:Hyperlipidemia, unspecified Start:07-Jun-2015 Instruction Type:Patient Education How to access health informa tion online - Detail Indication:Hyperlipidemia, unspecified Start:07-Jun-2015 Instruction Type:Patient Education Patient Instructions Indication:Hyperlipidemia, unspecified Start:07-Jun-2015 Instruction Type:Provider Instructions for Treatment How to access health informa tion online Indication:Lymphadenopathy Start:05-Mar-2015 Instruction Type:Patient Education How to access health informa tion online - Detail Indication:Lymphadenopathy Start:05-Mar-2015 Instruction Type:Patient Education Patient Instructions Indication:Lymphadenopathy Start:05-Mar-2015 Instruction Type:Provider Instructions for Treatment Patient Instructions Indication:Lymphadenopathy Start:12-Aug-2014 Instruction Type:Provider Instructions for Treatment Patient Instructions Indication:Annual physical exam Start:03-Jun-2014 Instruction Type:Provider Instructions for Treatment How to access health informa tion online Indication:Annual physical exam Start:03-Jun-2014 Instruction Type:Patient Education How to access health informa tion online - Detail Indication:Annual physical exam Start:03-Jun-2014 Instruction Type:Patient Education Patient Instructions Indication:Hypothyroidism Start:30-Jul-2013 Instruction Type:Provider Instructions for Treatment Name Dates Details How to access health informa tion online Indication:Non-smoker Start:07-May-2019 Instruction Type:Patient Education How to access health informa tion online - Detail Indication:Non-smoker Start:07-May-2019 Instruction Type:Patient Education Patient Instructions Indication:Non-smoker Start:07-May-2019 Instruction Type:Provider Instructions for Treatment How to access health informa tion online Indication:BMI 23.0-23.9, adult Start:11-Mar-2019 Instruction Type:Patient Education How to access health informa tion online - Detail Indication:BMI 23.0-23.9, adult Start:11-Mar-2019 Instruction Type:Patient Education Patient Instructions Indication:BMI 23.0-23.9, adult Start:11-Mar-2019 Instruction Type:Provider Instructions for Treatment How to access health informa tion online Indication:BMI 23.0-23.9, adult Start:07-Jun-2018 Instruction Type:Patient Education How to access health informa tion online - Detail Indication:BMI 23.0-23.9, adult Start:07-Jun-2018 Instruction Type:Patient Education Patient Instructions Indication:BMI 23.0-23.9, adult Start:07-Jun-2018 Instruction Type:Provider Instructions for Treatment How to access health informa tion online Indication:Non-smoker Start:27-Dec-2017 Instruction Type:Patient Education How to access health informa tion online - Detail Indication:Non-smoker Start:27-Dec-2017 Instruction Type:Patient Education Patient Instructions Indication:Diarrhea, travelers' Start:27-Dec-2017 Instruction Type:Provider Instructions for Treatment How to access health informa tion online Indication:Hypothyroidism Start:05-Feb-2017 Instruction Type:Patient Education How to access health informa tion online - Detail Indication:Hypothyroidism Start:05-Feb-2017 Instruction Type:Patient Education Patient Instructions Indication:Hypothyroidism Start:05-Feb-2017 Instruction Type:Provider Instructions for Treatment How to access health informa tion online Indication:Hyperlipidemia, unspecified Start:07-Jun-2015 Instruction Type:Patient Education How to access health informa tion online - Detail Indication:Hyperlipidemia, unspecified Start:07-Jun-2015 Instruction Type:Patient Education Patient Instructions Indication:Hyperlipidemia, unspecified Start:07-Jun-2015 Instruction Type:Provider Instructions for Treatment How to access health informa tion online Indication:Lymphadenopathy Start:05-Mar-2015 Instruction Type:Patient Education How to access health informa tion online - Detail Indication:Lymphadenopathy Start:05-Mar-2015 Instruction Type:Patient Education Patient Instructions Indication:Lymphadenopathy Start:05-Mar-2015 Instruction Type:Provider Instructions for Treatment Patient Instructions Indication:Lymphadenopathy Start:12-Aug-2014 Instruction Type:Provider Instructions for Treatment Patient Instructions Indication:Annual physical exam Start:03-Jun-2014 Instruction Type:Provider Instructions for Treatment How to access health informa tion online Indication:Annual physical exam Start:03-Jun-2014 Instruction Type:Patient Education How to access health informa tion online - Detail Indication:Annual physical exam Start:03-Jun-2014 Instruction Type:Patient Education Patient Instructions Indication:Hypothyroidism Start:30-Jul-2013 Instruction Type:Provider Instructions for Treatment Name Dates Details How to access health informa tion online Indication:Non-smoker Start:01-Aug-2019 Instruction Type:Patient Education How to access health informa tion online - Detail Indication:Non-smoker Start:01-Aug-2019 Instruction Type:Patient Education Patient Instructions Indication:Non-smoker Start:01-Aug-2019 Instruction Type:Provider Instructions for Treatment How to access health informa tion online Indication:Non-smoker Start:07-May-2019 Instruction Type:Patient Education How to access health informa tion online - Detail Indication:Non-smoker Start:07-May-2019 Instruction Type:Patient Education Patient Instructions Indication:Non-smoker Start:07-May-2019 Instruction Type:Provider Instructions for Treatment How to access health informa tion online Indication:BMI 23.0-23.9, adult Start:11-Mar-2019 Instruction Type:Patient Education How to access health informa tion online - Detail Indication:BMI 23.0-23.9, adult Start:11-Mar-2019 Instruction Type:Patient Education Patient Instructions Indication:BMI 23.0-23.9, adult Start:11-Mar-2019 Instruction Type:Provider Instructions for Treatment How to access health informa tion online Indication:BMI 23.0-23.9, adult Start:07-Jun-2018 Instruction Type:Patient Education How to access health informa tion online - Detail Indication:BMI 23.0-23.9, adult Start:07-Jun-2018 Instruction Type:Patient Education Patient Instructions Indication:BMI 23.0-23.9, adult Start:07-Jun-2018 Instruction Type:Provider Instructions for Treatment How to access health informa tion online Indication:Non-smoker Start:27-Dec-2017 Instruction Type:Patient Education How to access health informa tion online - Detail Indication:Non-smoker Start:27-Dec-2017 Instruction Type:Patient Education Patient Instructions Indication:Diarrhea, travelers' Start:27-Dec-2017 Instruction Type:Provider Instructions for Treatment How to access health informa tion online Indication:Hypothyroidism Start:05-Feb-2017 Instruction Type:Patient Education How to access health informa tion online - Detail Indication:Hypothyroidism Start:05-Feb-2017 Instruction Type:Patient Education Patient Instructions Indication:Hypothyroidism Start:05-Feb-2017 Instruction Type:Provider Instructions for Treatment How to access health informa tion online Indication:Hyperlipidemia, unspecified Start:07-Jun-2015 Instruction Type:Patient Education How to access health informa tion online - Detail Indication:Hyperlipidemia, unspecified Start:07-Jun-2015 Instruction Type:Patient Education Patient Instructions Indication:Hyperlipidemia, unspecified Start:07-Jun-2015 Instruction Type:Provider Instructions for Treatment How to access health informa tion online Indication:Lymphadenopathy Start:05-Mar-2015 Instruction Type:Patient Education How to access health informa tion online - Detail Indication:Lymphadenopathy Start:05-Mar-2015 Instruction Type:Patient Education Patient Instructions Indication:Lymphadenopathy Start:05-Mar-2015 Instruction Type:Provider Instructions for Treatment Patient Instructions Indication:Lymphadenopathy Start:12-Aug-2014 Instruction Type:Provider Instructions for Treatment Patient Instructions Indication:Annual physical exam Start:03-Jun-2014 Instruction Type:Provider Instructions for Treatment How to access health informa tion online Indication:Annual physical exam Start:03-Jun-2014 Instruction Type:Patient Education How to access health informa tion online - Detail Indication:Annual physical exam Start:03-Jun-2014 Instruction Type:Patient Education Patient Instructions Indication:Hypothyroidism Start:30-Jul-2013 Instruction Type:Provider Instructions for Treatment Advance Directives Name Dates Details Immunization Registry [place] - Effective on 07/30/2020. Expiration date unspecified Effective:30-Jul-2020 Name Dates Details Immunization Registry [place] - Effective on 07/30/2020. Expiration date unspecified Effective:30-Jul-2020 Name Dates Details Immunization Registry [place] - Effective on 07/30/2020. Expiration date unspecified Effective:30-Jul-2020 Name Dates Details Immunization Registry [place] - Effective on 07/30/2020. Expiration date unspecified Effective:30-Jul-2020 Name Dates Details Immunization Registry [place] - Effective on 07/30/2020. Expiration date unspecified Effective:30-Jul-2020 Name Dates Details Immunization Registry [place] - Effective on 07/30/2020. Expiration date unspecified Effective:30-Jul-2020 Name Dates Details Immunization Registry [place] - Effective on 07/30/2020. Expiration date unspecified Effective:30-Jul-2020 Name Dates Details Immunization Registry [place] - Effective on 07/30/2020. Expiration date unspecified Effective:30-Jul-2020 Name Dates Details Immunization Registry [place] - Effective on 07/30/2020. Expiration date unspecified Effective:30-Jul-2020 Name Dates Details Immunization Registry [place] - Effective on 07/30/2020. Expiration date unspecified Effective:30-Jul-2020 Name Dates Details Immunization Registry [place] - Effective on 07/30/2020. Expiration date unspecified Effective:30-Jul-2020 Name Dates Details Immunization Registry [place] - Effective on 07/30/2020. Expiration date unspecified Effective:30-Jul-2020 Name Dates Details Immunization Registry [place] - Effective on 07/30/2020. Expiration date unspecified Effective:30-Jul-2020 Name Dates Details Immunization Registry [place] - Effective on 07/30/2020. Expiration date unspecified Effective:30-Jul-2020 Name Dates Details Immunization Registry [place] - Effective on 07/30/2020. Expiration date unspecified Effective:30-Jul-2020 Name Dates Details Immunization Registry [place] - Effective on 07/30/2020. Expiration date unspecified Effective:30-Jul-2020 Name Dates Details Immunization Registry [place] - Effective on 07/30/2020. Expiration date unspecified Effective:30-Jul-2020 Name Dates Details Immunization Registry [place] - Effective on 07/30/2020. Expiration date unspecified Effective:30-Jul-2020 Name Dates Details Immunization Registry [place] - Effective on 07/30/2020. Expiration date unspecified Effective:30-Jul-2020 Name Dates Details Immunization Registry [place] - Effective on 07/30/2020. Expiration date unspecified Effective:30-Jul-2020 Name Dates Details Immunization Registry [place] - Effective on 04/05/2023. Expiration date unspecified Effective:05-Apr-2023 Name Dates Details Immunization Registry [place] - Effective on 04/05/2023. Expiration date unspecified Effective:05-Apr-2023 Summary Purpose Additional Source Comments INFORMATION SOURCE (unrecogn ized section and content) DATE CREATED AUTHOR 09/21/2022 [facility] DATE CREATED AUTHOR AUTHOR'S ORGANIZ ATION 03/27/2023 [facility] FOR RECORDS PERTAINING TO PATIENTS WHO ARE OR HAVE BEEN ENROLLED IN A CHEMICAL DEPENDENCY/SUBSTANCEABUSE PROGRAM, SOME INFORMATION MAY BE OMITTED. This clinical summary was aggregated from multiple sources. Caution should be exercised in using it in the provision of clinical care. This summary normalizes information from multiple sources, and as a consequence, information in this document may materially change the coding, format and clinical context of patient data. In addition, data may be omitted in some cases. CLINICAL DECISIONS SHOULD BE BASED ON THE PRIMARY CLINICAL RECORDS. [facility] provides no warranty or guarantee of the accuracy or completeness of information in this document.
--- NOTE | 2024-09-08 07:37 | BI_ITS ---
MAMMOGRAPHY - BILATERAL SCREENING REASON FOR EXAM: Female, 53 years old. Routine annual screening examination. PERTINENT HISTORY: Mother with breast cancer. TECHNIQUE: Digital bilateral breast frieda (3D mammographic acquisition) in the CC and MLO projections. 2-D mediolateral oblique (MLO) and craniocaudad (CC) views of both breasts were obtained. CAD: Full Field Digital Mammography with Computer Added Detection was performed. COMPARISON: Comparison is made with prior study dated August 01, 2022 and May 30, 2021. FINDINGS: Breast Composition: The breasts are extremely dense, which lowers the sensitivity of mammography. There are no dominant masses or suspicious calcifications. No other significant abnormalities are identified. There has been no significant change since the prior study. BI/SCRN MAMM (CAD)W/FRIEDA BILAT IMPRESSION: Stable bilateral screening mammogram. Yearly follow-up mammogram recommended. (A) ASSESSMENT CATEGORY: BIRADS Category 1: Negative. A letter regarding these results will be sent to the patient by the facility within 30 days. Approximately 10% of breast cancers are not detected by mammography. A normal mammogram should not delay biopsy of a clinically suspicious abnormality. [id number] Electronically Signed: Samm Sue MD at 8:47 EDT ,
== END | disposition home or self-care (01) ==
LOC: OPBI 07:28
PROVIDERS: PCP Internal Medicine; Referring Provider Internal Medicine; Visit Provider Internal Medicine
DX: Z12.31 Encounter for screening mammogram for malignant neoplasm of breast (principal)
CPT/HCPCS: 77063; 77067

== ENCOUNTER → 2024-11-14 | Outpatient (CLI) | payer OTHER, SELFPAY ==
[2024-11-14 08:35] LABS: Thyroid Stim Hormone (TSH) 0.597 uIU/mL (0.358-3.740)
== END | disposition home or self-care (01) ==
PROVIDERS: PCP Internal Medicine; Referring Provider Internal Medicine; Visit Provider Internal Medicine
DX: E03.9 Hypothyroidism, unspecified (principal)
CPT/HCPCS: 36415; 84443

== ENCOUNTER → 2025-05-27 | Outpatient (CLI) | payer OTHER, SELFPAY ==
--- NOTE | 2025-05-27 07:29 | MRI_ITS ---
PROCEDURE: BREAST BILATERAL W/O AND W 05/27/2025 REASON FOR EXAM: CHEK2 GENE MUTATION POSITIVE 54-year-old female presents for high-risk screening breast MRI. TECHNIQUE: BREAST BILATERAL W/O AND W CONTRAST: 11 mL of IV Clariscan COMPARISON: Mammogram 09/08/2024, 08/01/2022. MRI 09/04/2023 FINDINGS: TISSUE DENSITY: The breasts are extremely dense, which lowers the sensitivity of mammography. Background Parenchymal Enhancement: Minimal RIGHT Breast: No suspicious mass or non-mass enhancement. LEFT Breast: No suspicious mass or non-mass enhancement. Other Findings: No suspicious axillary or internal mammary lymph nodes. Visualized portions of the thoracic and abdominal viscera are unremarkable. MRI/Breast Bilateral W/O and W IMPRESSION: OVERALL FINAL ASSESSMENT BI-RADS 1: NEGATIVE RECOMMENDATION: OTHER. Continue alternating bilateral mammogram with bilateral breast MRI with contrast, given the patient's history. Reading Location: [id number]
--- NOTE | 2025-05-27 07:29 | MRI_ITS ---
PROCEDURE: BREAST BILATERAL W/O AND W 05/27/2025 REASON FOR EXAM: CHEK2 GENE MUTATION POSITIVE 54-year-old female presents for high-risk screening breast MRI. TECHNIQUE: BREAST BILATERAL W/O AND W CONTRAST: 11 mL of IV Clariscan COMPARISON: Mammogram 09/08/2024, 08/01/2022. MRI 09/04/2023 FINDINGS: TISSUE DENSITY: The breasts are extremely dense, which lowers the sensitivity of mammography. Background Parenchymal Enhancement: Minimal RIGHT Breast: No suspicious mass or non-mass enhancement. LEFT Breast: No suspicious mass or non-mass enhancement. Other Findings: No suspicious axillary or internal mammary lymph nodes. Visualized portions of the thoracic and abdominal viscera are unremarkable. MRI/Breast Bilateral W/O and W IMPRESSION: OVERALL FINAL ASSESSMENT BI-RADS 1: NEGATIVE RECOMMENDATION: OTHER. Continue alternating bilateral mammogram with bilateral breast MRI with contrast, given the patient's history. Reading Location: [id number]
== END | disposition home or self-care (01) ==
PROVIDERS: PCP Internal Medicine; Referring Provider Nurse Practitioner Women's Health; Visit Provider Nurse Practitioner Women's Health
DX: Z15.89 Genetic susceptibility to other disease (principal)
CPT/HCPCS: 77049; A9575; A4216; C8908

== ENCOUNTER → 2025-09-16 | Outpatient (CLI) | payer OTHER, SELFPAY ==
--- NOTE | 2025-09-16 08:03 | US_ITS ---
PROCEDURE: US/Pelvic w/ Transvaginal
== END | disposition home or self-care (01) ==
LOC: US 08:02
PROVIDERS: PCP Internal Medicine; Referring Provider Nurse Practitioner Women's Health; Visit Provider Nurse Practitioner Women's Health
DX: R10.20 Pelvic and perineal pain unspecified side (principal); N94.9 Unspecified condition associated with female genital organs and menstrual cycle
CPT/HCPCS: 76830; 76856